=== PATIENT | male | born 1935 | race Caucasian/White ===

== ENCOUNTER 2018-02-20 14:42 | Emergency (ER) | payer OTHER ==
--- NOTE | 2018-02-20 16:25 | RAD REPORT ---
EXAM DESCRIPTION: CT - Spine Lumbar Wo Con - 02/20/2018 3:44 pm CLINICAL HISTORY: Back pain, radiculopathy COMPARISON: CT imaging August 2016, lumbar spine March 2016 TECHNIQUE: Thin section axial imaging of the lumbar spine was performed. Sagittal and coronal recon struction images were generated and reviewed. All CT scans are performed using dose optimization technique as appropriate and may include automated exposure control or mA/KV adjustment according to patient size. FINDINGS: Approximately 20% compression fracture of the L1 body is present involving the superior en dplate. Posterior wall height is preserved. This is not a new finding from 2016 but may have progress ed slightly. L2-L5 bodies are normal in height. There is anterior subluxation of L4 on L5 similar to prior imaging . No lytic, sclerotic or expansile bony destructive process. There is no paraspinal mass or hematoma. Central canal detail is inherently limited. At L4-5 there is posterior disc space narrowing at bulgin g of disc material across the central canal and into each exit foramen due to the subluxation. Patien t has very severe facet joint degenerative change at this level. Pars interarticularis are sclerotic but a defect is not seen. Foraminal and central canal stenosis present at this level. Mild disc bulge changes at L3-4 and L5-S1 not causing canal or foramen stenosis. L5-S1 facet degenera tive changes are present. 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 Approximately 20% L1 compression fracture involving the superior endplate. Posterior wall height is p reserved. There is slight progression of the compression component since 2016 imaging.
--- NOTE | 2018-02-20 16:28 | RAD REPORT ---
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 Canal is borderline steno tic and there is likely bilateral foraminal stenosis. No pathologic lower lumbar finding. SI joint de generative change is mild. No sacral ala fracture. No fracture of the bony pelvis. No AVN or focal fe moral head abnormality. Urinary bladder is only partially filled limiting assessment. Phleboliths are present. Prostate gland is not enlarged. There are prostate calcifications present. No skeletal muscle edema or hematoma. Bowel loops of the pelvis show prominent sigmoid diverticulosis . Moderate retained stool volume is present. No hernia, mass or bulky lymphadenopathy. Fat is present in each inguinal canal but an actual hernia defect is not confirmed. No congestion or edema. IMPRESSION: No fracture or acute bone finding identifiable. No suspicious soft tissue finding.
[2018-02-20] MEDS ORDERED: HYDROCODONE/APAP 7.5/325 MG TAB ONE (16:36)
--- NOTE | 2018-02-20 17:03 | EDPHYS ---
Physician Documentation [facility] Name: Fidelia Marcus Jr Age: 82 yrs Sex: Male : 1935 Arrival Date: 02/20/2018 Time: 14:44 Bed 25 Private MD: Bg Hernández E ED Physician Stefano Locke HPI: 02/20 16:04 This 82 yrs old Male presents to ER via Wheelchair with complaints of Groin snw Pain, Back Pain. 16:04 The patient presents with incontinence. Onset: The symptoms/episode began/occurred snw gradually, 2 month(s) ago, and became worse. Associated signs and symptoms: The patient has no apparent associated signs or symptoms. Severity of symptoms: At their worst the symptoms were severe. The patient has experienced similar episodes in the past, chronically. The patient has been recently seen by a physician: the patient's primary care provider, Dr. Hernández Pt saw Dr. Walsh (urology) for PVR and assessment of urinary tract. Pt states he was told the only abnormality discovered was that his bladder is relatively small.. Historical: - Allergies: 14:50 No Known Allergies; aa5 - PMHx: 14:50 Atrial Fib; Diabetes - NIDDM; Headaches; Hypertension; aa5 - PSHx: 14:50 Cholecystectomy; Heart stents; back surgery; aa5 - Immunization history:: Adult Immunizations up to date. - Social history:: Smoking status: Patient/guardian denies using tobacco. - Ebola Screening: : Patient negative for fever greater than or equal to 101.5 degrees Fahrenheit, and additional compatible Ebola Virus Disease symptoms Patient denies exposure to infectious person Patient denies travel to an Ebola-affected area in the 21 days before illness onset No symptoms or risks identified at this time. ROS: 16:04 Constitutional: Negative for fever, chills, and weight loss, Eyes: Negative for injury, snw pain, redness, and discharge, ENT: Negative for injury, pain, and discharge, Neck: Negative for injury, pain, and swelling, Cardiovascular: Negative for chest pain, palpitations, and edema, Respiratory: Negative for shortness of breath, cough, wheezing, and pleuritic chest pain, Abdomen/GI: Negative for abdominal pain, nausea, vomiting, diarrhea, and constipation, Back: Negative for injury and pain, MS/Extremity: Negative for injury and deformity, Skin: Negative for injury, rash, and discoloration, Neuro: Negative for headache, weakness, numbness, tingling, and seizure, Psych: Negative for depression, anxiety, suicide ideation, homicidal ideation, and hallucinations. 16:04 : Positive for bladder incontinence Exam: 16:01 Constitutional: This is a well developed, well nourished patient who is awake, alert, snw and in no acute distress. Head/Face: Normocephalic, atraumatic. Eyes: Pupils equal round and reactive to light, extra-ocular motions intact. Lids and lashes normal. Conjunctiva and sclera are non-icteric and not injected. Cornea within normal limits. Periorbital areas with no swelling, redness, or edema. ENT: Nares patent. No nasal discharge, no septal abnormalities noted. Tympanic membranes are normal and external auditory canals are clear. Oropharynx with no redness, swelling, or masses, exudates, or evidence of obstruction, uvula midline. Mucous membranes moist. Neck: Trachea midline, no thyromegaly or masses palpated, and no cervical lymphadenopathy. Supple, full range of motion without nuchal rigidity, or vertebral point tenderness. No Meningismus. Chest/axilla: Normal chest wall appearance and motion. Nontender with no deformity. No lesions are appreciated. 16:01 Respiratory: Lungs have equal breath sounds bilaterally, clear to auscultation and percussion. No rales, rhonchi or wheezes noted. No increased work of breathing, no retractions or nasal flaring. Abdomen/GI: Soft, non-tender, with normal bowel sounds. No distension or tympany. No guarding or rebound. No evidence of tenderness throughout. Back: No spinal tenderness. No costovertebral tenderness. Full range of motion. Skin: Warm, dry with normal turgor. Normal color with no rashes, no lesions, and no evidence of cellulitis. MS/ Extremity: Pulses equal, no cyanosis. Neurovascular intact. Full, normal range of motion. Neuro: Awake and alert, GCS 15, oriented to person, place, time, and situation. Cranial nerves II-XII grossly intact. Motor strength 5/5 in all extremities. Sensory grossly intact. Cerebellar exam normal. Normal gait. 16:01 Cardiovascular: Rate: normal, Rhythm: irregularly irregular, Heart sounds: normal. Vital Signs: 14:54 BP 123 / 73; Pulse 86; Resp 19; Temp 98.6; Pulse Ox 96% on R/A; Weight 72.57 kg; Height aa5 5 ft. 4 in. (162.56 cm); Pain 6/10; 17:28 BP 158 / 70; Pulse 80; Resp 18; Pulse Ox 99% on R/A; kr2 14:54 Body Mass Index 27.46 (72.57 kg, 162.56 cm) aa5 MDM: 15:29 Patient medically screened. snw 19:08 Data reviewed: vital signs, nurses notes. Data interpreted: Pulse oximetry: on room air snw is 99 %. Interpretation: normal. Counseling: I had a detailed discussion with the patient and/or guardian regarding: the historical points, exam findings, and any diagnostic results supporting the discharge/admit diagnosis, the presence of at least one elevated blood pressure reading (>120/80) during this emergency department visit, radiology results, the need for outpatient follow up, to return to the emergency department if symptoms worsen or persist or if there are any questions or concerns that arise at home. Special discussion: I have referred the patient to see his PCP for further evaluation of high blood pressure. Based on the history and exam findings, there is no indication for further emergent testing or inpatient evaluation. I discussed with the patient/guardian the need to see the neurologist for further evaluation of the symptoms. I discussed with the patient/guardian the need to see the primary care provider for further evaluation of the symptoms. 02/20 15:24 Order name: CT Lumbar Spine Wo Con; Complete Time: 16:33 snw 02/20 15:24 Order name: Pelvis Wo Cont CT; Complete Time: 16:33 snw Administered Medications: 16:39 Drug: [place] (7.5 mg-325 mg) 1 tabs Route: PO; kr2 17:01 Follow up: Response: No adverse reaction; Pain is decreased kr2 Disposition: 18:11 Co-signature as Attending Physician, Stefano Locke MD. rn Disposition: 02/20/18 17:02 Discharged to Home. Impression: Radiculopathy, lumbosacral region, Incontinence without sensory awareness - muted. - Condition is Stable. - Discharge Instructions: Lumbosacral Radiculopathy, Urinary Incontinence. - Prescriptions for Tylenol- Codeine #3 300-30 mg Oral Tablet - take 2 tablets by ORAL route every 6 hours As needed; 16 tablet. - Medication Reconciliation Form, Thank You Letter, Antibiotic Education, Prescription Opioid Use form. - Follow up: Bg Hernández MD; When: 2 - 3 days; Reason: Recheck today's complaints, Continuance of care, Re-evaluation by your physician. Follow up: Emergency Department; When: As needed; Reason: Worsening of condition. Signatures: Dispatcher [employer] EDMS Harleen Robles, GRAYSON-C PHOTOGRAPHIC SPOTTER-Csnw Stefano Locke MD MD rn Anjelica Linder, RN RN aa5 Eleanor Hernandez RN RN kr2 Corrections: (The following items were deleted from the chart) 17:31 17:02 02/20/2018 17:02 Discharged to Home. Impression: Radiculopathy, lumbosacral kr2 region; Incontinence without sensory awareness - muted. Condition is Stable. Forms are Medication Reconciliation Form, Thank You Letter, Antibiotic Education, Prescription Opioid Use. Follow up: Bg Hernández; When: 2 - 3 days; Reason: Recheck today's complaints, Continuance of care, Re-evaluation by your physician. Follow up: Emergency Department; When: As needed; Reason: Worsening of condition. snw
--- NOTE | 2018-02-20 17:03 | ER ---
Nurse's Notes [facility] Name: Fidelia Marcus Jr Age: 82 yrs Sex: Male : 1935 Arrival Date: 02/20/2018 Time: 14:44 Bed 25 Private MD: Bg Hernández E Diagnosis: Radiculopathy, lumbosacral region;Incontinence without sensory awareness-muted Presentation: 02/20 14:52 Presenting complaint: Patient states: Low back pain R/T bladder issues for 6 months. aa5 Patient seen by specialist and given RX, unable to afford RX given. Transition of care: patient was not received from another setting of care. Onset of symptoms was October 2017. Care prior to arrival: None. 14:52 Method Of Arrival: Wheelchair aa5 14:52 Acuity: MIQUEL 4 aa5 16:15 Risk Assessment: Do you want to hurt yourself or someone else? Patient reports no kr2 desire to harm self or others. Initial Sepsis Screen: Does the patient meet any 2 criteria? No. Patient's initial sepsis screen is negative. Does the patient have a suspected source of infection? No. Patient's initial sepsis screen is negative. Triage Assessment: 14:52 General: Appears in no apparent distress. comfortable, Behavior is calm, cooperative, aa5 appropriate for age. Pain: Complains of pain in low back area Pain currently is 6 out of 10 on a pain scale. Neuro: Level of Consciousness is awake, alert, obeys commands, Oriented to person, place, time, situation, Appropriate for age. Respiratory: Airway is patent Trachea midline Respiratory effort is even, unlabored, Respiratory pattern is regular, symmetrical. : Reports urinary frequency. Derm: Skin is intact, is healthy with good turgor, Skin is pink, warm \T\ dry. normal. Musculoskeletal: Circulation, motion, and sensation intact. Historical: - Allergies: 14:50 No Known Allergies; aa5 - PMHx: 14:50 Atrial Fib; Diabetes - NIDDM; Headaches; Hypertension; aa5 - PSHx: 14:50 Cholecystectomy; Heart stents; back surgery; aa5 - Immunization history:: Adult Immunizations up to date. - Social history:: Smoking status: Patient/guardian denies using tobacco. - Ebola Screening: : Patient negative for fever greater than or equal to 101.5 degrees Fahrenheit, and additional compatible Ebola Virus Disease symptoms Patient denies exposure to infectious person Patient denies travel to an Ebola-affected area in the 21 days before illness onset No symptoms or risks identified at this time. Screenin:17 Abuse screen: Denies threats or abuse. Denies injuries from another. Nutritional kr2 screening: No deficits noted. Tuberculosis screening: No symptoms or risk factors identified. Fall Risk Gait- Normal/Bed Rest/Wheelchair (0 pts). Assessment: 16:15 General: Appears in no apparent distress. comfortable, well groomed, well developed, kr2 well nourished, Behavior is calm, cooperative, appropriate for age. Pain: Complains of pain in low back area Pain does not radiate. Pain currently is 5 out of 10 on a pain scale. Quality of pain is described as sharp, Is continuous, Alleviated by rest. Neuro: Level of Consciousness is awake, alert, obeys commands, Oriented to person, place, time, situation, Appropriate for age Intact. Cardiovascular: Capillary refill < 3 seconds in bilateral fingers Patient's skin is warm and dry. Respiratory: Airway is patent Respiratory effort is even, unlabored, Respiratory pattern is regular, symmetrical. GI: Abdomen is round non-distended. : Reports urinary frequency, for the past 6 months reports he does have pain with urination 1-2 times per month. EENT: Oral mucosa is dry. Derm: Skin is intact, is healthy with good turgor, Skin is pink, warm \T\ dry. Musculoskeletal: Circulation, motion, and sensation intact. 17:28 Reassessment: Patient appears in no apparent distress at this time. Patient and/or kr2 family updated on plan of care and expected duration. Pain level reassessed. Patient is alert, oriented x 3, equal unlabored respirations, skin warm/dry/pink. Patient denies pain at this time. Vital Signs: 14:54 BP 123 / 73; Pulse 86; Resp 19; Temp 98.6; Pulse Ox 96% on R/A; Weight 72.57 kg; Height aa5 5 ft. 4 in. (162.56 cm); Pain 6/10; 17:28 BP 158 / 70; Pulse 80; Resp 18; Pulse Ox 99% on R/A; kr2 14:54 Body Mass Index 27.46 (72.57 kg, 162.56 cm) aa5 ED Course: 14:44 Patient arrived in ED. sb2 14:45 Bg Hernández MD is Private Physician. sb2 14:53 Triage completed. aa5 14:54 Arm band placed on left wrist. Patient placed in waiting room, Patient notified of wait aa5 time. 15:28 Harleen Robles FNP-C is PHCP. snw 15:28 Stefano Locke MD is Attending Physician. snw 15:[address] via stretcher. nj 15:44 CT Lumbar Spine Wo Con In Process Unspecified. EDMS 15:[address] In Process Unspecified. EDMS 15:44 CT completed. Patient tolerated procedure well. Patient moved back from CT. nj 15:48 Eleanor Hernandez, RN is Primary Nurse. kr2 17:00 Bg Hernández MD is Referral Physician. snw 17:29 No provider procedures requiring assistance completed. Patient did not have IV access kr2 during this emergency room visit. 17:30 Patient has correct armband on for positive identification. Bed in low position. Call kr2 light in reach. Side rails up X2. Adult w/ patient. Pulse ox on. NIBP on. Door closed. Warm blanket given. Head of bed elevated. Administered Medications: 16:39 Drug: [employer] (7.5 mg-325 mg) 1 tabs Route: PO; kr2 17:01 Follow up: Response: No adverse reaction; Pain is decreased kr2 Outcome: 17:02 Discharge ordered by MD. snw 17:31 Discharged to home via wheelchair, with family. kr2 17:31 Condition: good 17:31 Discharge instructions given to family, Instructed on discharge instructions, follow up and referral plans. Demonstrated understanding of instructions, follow-up care, medications, Prescriptions given X 1. 17:31 Patient left the ED. kr2 Signatures: Dispatcher [employer] EDMS Harleen Robles FNP-C OIL DELIVERER-Gomezw Anjelica Linder RN RN aa5 Jeronimo Bautista Karey, RN RN kr2 Debby Head sb2 Corrections: (The following items were deleted from the chart) 14:54 14:52 Presenting complaint: Patient states: Low back pain R/T bladder issues for 6 aa5 months. Patient seen by Dr Mushtaq and PCP aa5
[2018-02-20 17:46] VITALS: TEMP 98.6
[2018-02-20 17:47] VITALS: BP 158/70; O2SAT 99
== END 2018-02-20 17:31 | disposition home or self-care (01) ==
LOC: ER 14:42
DX: M54.17 Radiculopathy, lumbosacral region (principal); N39.498 Other specified urinary incontinence; I10 Essential (primary) hypertension; Z95.818 Presence of other cardiac implants and grafts
CPT/HCPCS: 72131; 72192; 99284

== ENCOUNTER 2018-02-23 09:02 | Observation (INO) | payer OTHER ==
--- NOTE | 2018-02-23 09:58 | RAD REPORT ---
EXAM DESCRIPTION: CT - Head Brain Wo Cont - 02/23/2018 9:48 am CLINICAL HISTORY: Altered consciousness. History of diabetes, headaches, hypertension. COMPARISON: 05/18/2015, 11/06/2009 TECHNIQUE: All CT scans are performed using dose optimization technique as appropriate and may inclu de automated exposure control or mA/KV adjustment according to patient size. FINDINGS: No intracranial hemorrhage, hydrocephalus or extra-axial fluid collection.Mild generalized brain atrophy is present with mild periventricular and deep white matter chronic microvascular ische jayla changes.No areas of brain edema or evidence of midline shift. The paranasal sinuses and mastoids are clear. The calvarium is intact. IMPRESSION: No acute intracranial abnormality.
--- NOTE | 2018-02-23 10:05 | RAD REPORT ---
EXAM DESCRIPTION: RAD - Chest Single View - 02/23/2018 9:57 am CLINICAL HISTORY: Chest pain. COMPARISON: 03/09/2017 FINDINGS: Portable technique limits examination quality. The lungs are grossly clear. The heart is normal in size. No displaced fractures. IMPRESSION: No acute intrathoracic process suspected.
[2018-02-23 10:50] LABS: Urine Blood NEGATIVE (NEG); Urine Glucose NEGATIVE (NEG); Urine Protein NEGATIVE (NEG); Urine Specific Gravity 1.015 (1.005-1.030)
[2018-02-23 10:51] LABS: Absolute Lymphocytes (CBC) 0.5 K/uL (0.7-4.9); Absolute Monocytes 0.7 K/uL (0.1-1.3); Absolute Neutrophil 3.9 K/uL (1.8-8.0); Basophils % 0.2 % (0-1.3); Hematocrit 26.8 % (39.6-49.0); MCH 31.2 pg (27.0-35.0); MCV 89.9 fL (80-100); MPV 9.8 fL (7.6-11.3); Monocytes % 12.7 % (3.3-12.3); RBC Red Blood Cell Count 2.99 M/uL (4.33-5.43)
[2018-02-23 10:56] LABS: Protime INR 1.16
[2018-02-23 10:58] LABS: Potassium 3.4 mEq/L (3.6-5.0)
[2018-02-23 11:06] LABS: Albumin 3.4 g/dL (3.2-5.5); Bilirubin Direct 0.2 mg/dL (0-0.2); Bilirubin Total 0.8 mg/dL (0.3-1.2); C-Reactive Protein 119.6 mg/L (<10.0); Protein, Total 6.5 g/dL (6.0-8.3)
[2018-02-23 11:07] LABS: CKMB Creatine Kinase MB 0.9 ng/ml (0.3-4.0)
--- NOTE | 2018-02-23 12:24 | EDPHYS ---
Physician Documentation [facility] Name: Fidelia Marcus Jr Age: 82 yrs Sex: Male : 1935 Arrival Date: 02/23/2018 Time: 09:05 Bed 5 Private MD: Bg Hernández E ED Physician Peter Flores HPI: 02/23 09:45 This 82 yrs old Male presents to ER via Wheelchair with complaints of kdr Confusion. 09:45 The patient has had increasing confusion since being started on pain medication for his kdr low back pain. Onset: The symptoms/episode began/occurred gradually, 2 week(s) ago. Severity of symptoms: At their worst the symptoms were mild in the emergency department the symptoms are unchanged. The patient has experienced similar episodes in the past, chronically, but today's symptoms are worse. The patient has been recently seen by a physician: the patient's primary care provider. Historical: - Allergies: : NKA; iw - Home Meds: 09:43 atorvastatin 20 mg Oral tab 1 tab once daily [Active]; benzonatate 200 mg Oral cap 1 tw2 cap twice daily [Active]; digoxin 125 mcg Oral tab 1 tab once daily [Active]; dutasteride 0.5 mg Oral cap 1 cap once daily [Active]; fenofibrate 145 MG Oral 1 cap once daily [Active]; glipizide 2.5 mg Oral tr24 2 tabs 2 tablets PO q morning, and 1 tablet PO q nightly. [Active]; hydrochlorothiazide 25 mg Oral tab 1 tab once daily [Active]; Invokana 100 mg Oral tab 1 tab once daily [Active]; metformin 1,000 mg Oral tab 1 tab 2 times per day [Active]; quinapril 40 mg Oral tab 1 tab once daily [Active]; sotalol Oral [Active]; Xarelto Oral [Active]; - PMHx: :27 Atrial Fib; Diabetes - NIDDM; Headaches; Hypertension; iw - PSHx: : Cholecystectomy; Heart stents; back surgery; iw - Immunization history:: Adult Immunizations up to date. - Social history:: Smoking status: Patient/guardian denies using tobacco. - Ebola Screening: : Patient denies travel to an Ebola-affected area in the 21 days before illness onset. ROS: 09:45 Constitutional: Negative for fever, chills, and weight loss, Eyes: Negative for injury, kdr pain, redness, and discharge, ENT: Negative for injury, pain, and discharge, Neck: Negative for injury, pain, and swelling, Cardiovascular: Negative for chest pain, palpitations, and edema, Respiratory: Negative for shortness of breath, cough, wheezing, and pleuritic chest pain, Abdomen/GI: Negative for abdominal pain, nausea, vomiting, diarrhea, and constipation, Back: Negative for injury and pain, : Negative for injury, bleeding, discharge, and swelling, MS/Extremity: Negative for injury and deformity, Skin: Negative for injury, rash, and discoloration, Psych: Negative for depression, anxiety, suicide ideation, homicidal ideation, and hallucinations, Allergy/Immunology: Negative for hives, rash, and allergies, Endocrine: Negative for neck swelling, polydipsia, polyuria, polyphagia, and marked weight changes, Hematologic/Lymphatic: Negative for swollen nodes, abnormal bleeding, and unusual bruising. 09:45 Neuro: Positive for altered mental status, weakness, Confusion, Negative for dizziness, gait disturbance, headache, hearing loss, loss of consciousness, numbness, seizure activity, speech changes, syncope, near syncope, tingling, tremor, visual changes. Exam: 09:45 Constitutional: This is a well developed, well nourished patient who is awake, alert, kdr and in no acute distress. Head/Face: Normocephalic, atraumatic. Eyes: Pupils equal round and reactive to light, extra-ocular motions intact. Lids and lashes normal. Conjunctiva and sclera are non-icteric and not injected. Cornea within normal limits. Periorbital areas with no swelling, redness, or edema. Neck: Trachea midline, no thyromegaly or masses palpated, and no cervical lymphadenopathy. Supple, full range of motion without nuchal rigidity, or vertebral point tenderness. No Meningismus. Chest/axilla: Normal chest wall appearance and motion. Nontender with no deformity. No lesions are appreciated. Cardiovascular: Regular rate and rhythm with a normal S1 and S2. No gallops, murmurs, or rubs. Normal PMI, no JVD. No pulse deficits. Respiratory: Lungs have equal breath sounds bilaterally, clear to auscultation and percussion. No rales, rhonchi or wheezes noted. No increased work of breathing, no retractions or nasal flaring. Abdomen/GI: Soft, non-tender, with normal bowel sounds. No distension or tympany. No guarding or rebound. No evidence of tenderness throughout. Back: No spinal tenderness. No costovertebral tenderness. Full range of motion. Skin: Warm, dry with normal turgor. Normal color with no rashes, no lesions, and no evidence of cellulitis. MS/ Extremity: Pulses equal, no cyanosis. Neurovascular intact. Full, normal range of motion. Psych: Awake, alert, with orientation to person, place and time. Behavior, mood, and affect are within normal limits. 09:45 Neuro: Orientation: appropriate for stated age, Mentation: appropriate for stated age, lucid, Motor: moves all fours, strength is 5/5 in all extremities. Vital Signs: 09:12 BP 153 / 59; Pulse 95; Resp 22; Temp 99.5; Pulse Ox 96% on R/A; tw2 10:24 BP 135 / 52; Pulse 85; Resp 13; Pulse Ox 95% on R/A; tw2 11:31 BP 117 / 47; Pulse 81; Resp 15; Pulse Ox 95% on R/A; tw2 12:43 BP 141 / 57; Pulse 93; Resp 18; Pulse Ox 97% on R/A; tw2 MDM: 12:23 Patient medically screened. kdr 12:26 Data reviewed: vital signs, nurses notes, lab test result(s), radiologic studies. kdr Counseling: I had a detailed discussion with the patient and/or guardian regarding: the historical points, exam findings, and any diagnostic results supporting the discharge/admit diagnosis, lab results, radiology results, the need for further work-up and treatment in the hospital. 02/23 09:26 Order name: Basic Metabolic Panel; Complete Time: 11:18 [facility] 02/23 09:26 Order name: BNP; Complete Time: 11:18 [facility] 02/23 09:26 Order name: CBC with Diff; Complete Time: 11:39 [facility] 02/23 09:26 Order name: LFT's; Complete Time: 11:18 [facility] 02/23 09:26 Order name: Magnesium; Complete Time: 11:18 [facility] 02/23 09:26 Order name: PT-INR; Complete Time: 11:18 [facility] 02/23 09:26 Order name: Ptt, Activated; Complete Time: 11:18 [facility] 02/23 09:26 Order name: Troponin (emerg Dept Use Only) [facility] 02/23 09:26 Order name: Amylase, Serum; Complete Time: 11:18 [facility] 02/23 09:26 Order name: Blood Culture Adult (2) [facility] 02/23 09:26 Order name: C-Reactive Protein; Complete Time: 11:18 [facility] 02/23 09:26 Order name: Ckmb; Complete Time: 11:18 [facility] 02/23 09:26 Order name: CPK; Complete Time: 11:18 [facility] 02/23 09:26 Order name: Lactate; Complete Time: 11:18 [facility] 02/23 09:26 Order name: XRAY Chest (1 view); Complete Time: 11:18 [facility] 02/23 09:26 Order name: EKG; Complete Time: 09:27 [facility] 02/23 09:26 Order name: Cardiac monitoring; Complete Time: 10:19 [facility] 02/23 09:26 Order name: EKG - Nurse/Tech; Complete Time: 10:19 [facility] 02/23 09:26 Order name: IV Saline Lock; Complete Time: 13:54 [facility] 02/23 09:26 Order name: Labs collected and sent; Complete Time: 13:54 [facility] 02/23 09:26 Order name: O2 Per Protocol; Complete Time: 10:19 [facility] 02/23 09:26 Order name: O2 Sat Monitoring; Complete Time: 10:19 [facility] 02/23 09:26 Order name: Urine Dipstick-Ancillary (obtain specimen); Complete Time: 10:19 [facility] 02/23 09:26 Order name: CT Head Brain wo Cont; Complete Time: 11:18 [facility] 02/23 09:26 Order name: Lipase; Complete Time: 11:18 [facility] 02/23 09:26 Order name: Procalcitonin; Complete Time: 11:18 [facility] 02/23 09:26 Order name: Sed Rate; Complete Time: 11:39 [facility] 02/23 09:26 Order name: IV Saline Lock - Large Bore; Complete Time: 12:54 [facility] 02/23 10:23 Order name: Urine Dipstick--Ancillary (enter results); Complete Time: 11:18 bd Administered Medications: No medications were administered Disposition: 02/23/18 12:26 Hospitalization ordered by Melvin Antony for Observation. Preliminary diagnosis is Confusion, weakness, anemia, elevated CRP. - Bed requested for Telemetry/MedSurg (observation). - Status is Observation. sv - Condition is Fair. - Problem is new. - Symptoms have improved. UTI on Admission? No Signatures: Dispatcher [employer] Fannie Esposito RN BARBARA sv Kiera Tian RN BARBARA dw Peter Flores MD MD kdr Lien Moreno RN RN Nani Felipe RN RN tw2 Corrections: (The following items were deleted from the chart) 12:25 12:23 02/23/2018 12:23 Discharged to Home. Impression: Confusion, anemia, elevated CRP. kdr Condition is Stable. Forms are Medication Reconciliation Form, Thank You Letter, Antibiotic Education, Prescription Opioid Use. Follow up: Bg Hernández; When: 2 - 3 days; Reason: If symptoms return, Further diagnostic work-up, Recheck today's complaints, Continuance of care, Re-evaluation by your physician. Problem is new. Symptoms have improved. kdr 12:37 12:26 Hospitalization Ordered by Melvin Antony DO for Observation. Preliminary dw diagnosis is Confusion, weakness, anemia, elevated CRP. Bed requested for Telemetry/MedSurg (observation). Status is Observation. Condition is Fair. Problem is new. Symptoms have improved. UTI on Admission? No. kdr 12:38 12:37 02/23/2018 12:26 Hospitalization Ordered by Melvin Antony DO for Observation. dw Preliminary diagnosis is Confusion, weakness, anemia, elevated CRP. Bed requested for Telemetry/MedSurg (observation). Status is Observation. Condition is Fair. Problem is new. Symptoms have improved. UTI on Admission? No. dw 12:54 09:26 Accucheck ordered. kdr sv 13:27 12:38 02/23/2018 12:26 Hospitalization Ordered by MelvinLavell GUZMAN for Observation. sv Preliminary diagnosis is Confusion, weakness, anemia, elevated CRP. Bed requested for Telemetry/MedSurg (observation). Status is Observation. Condition is Fair. Problem is new. Symptoms have improved. UTI on Admission? No. dw
--- NOTE | 2018-02-23 12:24 | ER ---
Nurse's Notes [facility] Name: Fidelia Marcus Jr Age: 82 yrs Sex: Male : 1935 Arrival Date: 02/23/2018 Time: 09:05 Bed 5 Private MD: Bg Hernández E Diagnosis: Confusion, weakness, anemia, elevated CRP Presentation: 02/23 09:13 Presenting complaint: states: pt was seen here on Thurs or Sun, had low back pain, iw was prescribed Tylenol with codeine, states he has had episodes of confusion since then and this morning he got up to bathroom and was unsteady, also is having visual hallucinations and urinary frequency "for weeks". Transition of care: patient was not received from another setting of care. Onset of symptoms was February 19, 2018. Risk Assessment: Do you want to hurt yourself or someone else? Patient reports no desire to harm self or others. Care prior to arrival: None. 09:13 Method Of Arrival: Wheelchair iw 09:13 Acuity: MIQUEL 3 iw 09:14 Initial Sepsis Screen: Does the patient meet any 2 criteria? RR > 20 per min. Altered tw2 Mental Status. HR > 90 bpm. Yes Does the patient have a suspected source of infection? No. Patient's initial sepsis screen is negative. If YES to both, name of provider notified: Peter Flores MD. Historical: - Allergies: 09:27 NKA; iw - Home Meds: 09:43 atorvastatin 20 mg Oral tab 1 tab once daily [Active]; benzonatate 200 mg Oral cap 1 tw2 cap twice daily [Active]; digoxin 125 mcg Oral tab 1 tab once daily [Active]; dutasteride 0.5 mg Oral cap 1 cap once daily [Active]; fenofibrate 145 MG Oral 1 cap once daily [Active]; glipizide 2.5 mg Oral tr24 2 tabs 2 tablets PO q morning, and 1 tablet PO q nightly. [Active]; hydrochlorothiazide 25 mg Oral tab 1 tab once daily [Active]; Invokana 100 mg Oral tab 1 tab once daily [Active]; metformin 1,000 mg Oral tab 1 tab 2 times per day [Active]; quinapril 40 mg Oral tab 1 tab once daily [Active]; sotalol Oral [Active]; Xarelto Oral [Active]; - PMHx: 09:27 Atrial Fib; Diabetes - NIDDM; Headaches; Hypertension; iw - PSHx: 09:27 Cholecystectomy; Heart stents; back surgery; iw - Immunization history:: Adult Immunizations up to date. - Social history:: Smoking status: Patient/guardian denies using tobacco. - Ebola Screening: : Patient denies travel to an Ebola-affected area in the 21 days before illness onset. Screenin:13 Abuse screen: Denies threats or abuse. Nutritional screening: No deficits noted. tw2 Tuberculosis screening: No symptoms or risk factors identified. Fall Risk None identified. Assessment: 09:38 Reassessment: pt taken to CT at this time, charge nurse Lien notified of no iv access tw2 at this time. 09:39 General: Appears in no apparent distress. well groomed, Behavior is calm, cooperative, tw2 appropriate for age. Pain: Denies pain. Neuro: Level of Consciousness is awake, alert, obeys commands, Oriented to person, place, situation. Cardiovascular: Denies chest pain, shortness of breath, Heart tones S1 S2 Capillary refill < 3 seconds Patient's skin is warm and dry. Respiratory: Airway is patent Respiratory effort is even, unlabored, Respiratory pattern is regular, symmetrical, Breath sounds are clear bilaterally. GI: No signs and/or symptoms were reported involving the gastrointestinal system. Abdomen is round non-distended, Bowel sounds present X 4 quads. : Parent/caregiver report the patient having urgency. EENT: No signs and/or symptoms were reported regarding the EENT system. Derm: No signs and/or symptoms reported regarding the dermatologic system. Skin is fragile, is thin, with poor turgor. Musculoskeletal: Range of motion: intact in all extremities. 10:24 Reassessment: Patient appears in no apparent distress at this time. No changes from tw2 previously documented assessment. Patient and/or family updated on plan of care and expected duration. Pain level reassessed. Patient is alert, oriented x 3, equal unlabored respirations, skin warm/dry/pink. BARBARA Emmanuel at bedside attempting IV. 12:44 Reassessment: Nurse to call back for report. sv Vital Signs: 09:12 BP 153 / 59; Pulse 95; Resp 22; Temp 99.5; Pulse Ox 96% on R/A; tw2 10:24 BP 135 / 52; Pulse 85; Resp 13; Pulse Ox 95% on R/A; tw2 11:31 BP 117 / 47; Pulse 81; Resp 15; Pulse Ox 95% on R/A; tw2 12:43 BP 141 / 57; Pulse 93; Resp 18; Pulse Ox 97% on R/A; tw2 ED Course: 09:05 Patient arrived in ED. mr 09:05 Bg Hernández MD is Private Physician. mr 09:06 Peter Flores MD is Attending Physician. kdr 09:07 Nani Felipe RN is Primary Nurse. tw2 09:13 Placed in gown. Bed in low position. Call light in reach. Side rails up X2. Adult w/ tw2 patient. alarm security or surveillance monitor on. Pulse ox on. NIBP on. 09:15 Arm band placed on. tw2 09:26 Triage completed. iw 09:38 Missed attempt(s): 24 gauge in left antecubital area. Bleeding controlled, band aid tw2 applied, catheter tip intact. Missed attempt(s): 22 gauge in right antecubital area. per Devante Rubi. Bleeding controlled, band aid applied, catheter tip intact. 09:48 CT Head Brain wo Cont In Process Unspecified. EDMS 09:48 CT completed. Patient moved to radiology via stretcher. bq 09:57 X-ray completed. Patient tolerated procedure well. la2 09:58 XRAY Chest (1 view) In Process Unspecified. EDMS 10:28 Initial lab(s) drawn, by me. Inserted saline lock: 22 gauge in left forearm, using iw aseptic technique. Blood collected. 12:22 Bg Hernández MD is Referral Physician. kdr 12:25 Bg Hernández MD is Hospitalizing Provider. kdr 12:25 Melvin Antony DO is Hospitalizing Provider. kdr 12:55 No provider procedures requiring assistance completed. Patient admitted, IV remains in tw2 place. Administered Medications: No medications were administered Outcome: 12:23 Discharge ordered by . kdr 12:26 Decision to Hospitalize by Provider. kdr 12:55 Admitted to Med/surg accompanied by devante, Report called to BARBARA moise tw2 12:55 Condition: stable 12:55 Instructed on discharge instructions, follow up and referral plans. Demonstrated understanding of instructions. 13:27 Patient left the ED. sv Signatures: Dispatcher [facility] Fannie Esposito, BARBARA RN sv Peter Flores MD MD [facility] Bhumi Alvarado mr Jessica, Lien Pacheco RN RN iw Nani Felipe RN RN tw2 Susana Low
[2018-02-23] MEDS ORDERED: NA CHLORIDE 0.9% 1,000 ML IV SCH (13:13)
[2018-02-23] MEDS ORDERED: D50W 25 GM/50 ML SYRINGE IV PRN (13:13)
[2018-02-23] MEDS ORDERED: GLUCAGON 1 MG/VIAL IM PRN (13:13)
[2018-02-23] MEDS ORDERED: ONDANSETRON 4 MG/2 ML VIAL IV PRN (13:13)
--- NOTE | 2018-02-23 13:24 | P.HP ---
Certification for Inpatient Patient admitted to: Observation With expected LOS: <2 Midnights Patient will require the following post-hospital care: None Practitioner: I am a practitioner with admitting privileges, knowledge of patient current condition, hospital course, and medical plan of care. Services: Services provided to patient in accordance with Admission requirements found in Title 42 Section 412.3 of the Code of Federal Regulations <Bart Kessler - Last Filed: 02/23/18 13:18> Patient admitted to: Observation With expected LOS: <2 Midnights Patient will require the following post-hospital care: None Practitioner: I am a practitioner with admitting privileges, knowledge of patient current condition, hospital course, and medical plan of care. Services: Services provided to patient in accordance with Admission requirements found in Title 42 Section 412.3 of the Code of Federal Regulations <Melvin Antony - Last Filed: 02/23/18 15:14> Patient History Date of Service: 02/23/18 Reason for admission: Altered Mental Status History of Present Illness: This is an 82 y/o M patient that was brought to ED by today due to altered mentation. Patient stated that he had pulled his left side the other day. Was seen and given Tylenol # 3 for pain on the by ED. On the saw his PCP and given another prescription for Tylenol #3. Stated that he has been taking the medication as prescribed. Unknown if he is taking both bottles. Last night stated that he was putting on shoes to go to bed. This morning was calling for her because he did not know where he was. stated that he kept thinking he needed to go to work. Patient has been retired for several years now. Patient with history of DM, afib, HTN. No change in medications. Patient currently alert to person, place, time, event in ED. Negative CT head and xray chest. Labs without significant abnormality or change Home medications list reviewed: Yes - Past Medical/Surgical History Has patient received pneumonia vaccine in the past: Yes Diabetic: Yes -: NIDDM -: Vertigo -: High Cholesterol -: HTN -: Cataracts -: AFIB -: Benign colon tumor removed -: Disc Surgery -: Heart Stent -: Reyna - Family History Father -: Heart disease Notes: of heart attack Mother -: Cancer Notes: cervical - Social History Smoking Status: Never smoker Smoking therapy provided: No Alcohol use: No CD- Drugs: No Caffeine use: No <Bart Kessler - Last Filed: 02/23/18 13:18> Date of Service: 02/23/18 Primary Care Provider: Dr. Hernández Home medications list reviewed: Yes - Past Medical/Surgical History Diabetic: Yes -: Hyperlipidemia -: BPH Psychosocial/ Personal History: - Family History Family History: Reviewed- Non-Contributory - Social History Place of Residence: Home <Melvin Antony - Last Filed: 02/23/18 15:14> Allergies No Known Allergies Allergy (Uncoded 11/25/16 23:12) Unknown Home Medications: Canagliflozin [Invokana] 1 tab PO DAILY 05/18/15 Fenofibrate Nanocrystallized [Fenofibrate] 1 tab PO DAILY 05/18/15 Glipizide [Glipizide ER] 5 mg PO BID 05/18/15 Hydrochlorothiazide 1 tab PO DAILY 05/18/15 Metformin HCl [Glucophage*] 1,000 mg PO BID 05/18/15 Quinapril HCl [Accupril] 1 tab PO DAILY 05/18/15 Atorvastatin Calcium [Lipitor*] 20 mg PO BEDTIME 09/08/16 Dutasteride 0.5 mg PO DAILY 09/08/16 Benzonatate 200 mg PO BIDP PRN 09/16/16 Sotalol HCl [Betapace*] 0.5 tab PO BID #30 tab 09/18/16 Aspirin 81 mg PO DAILY 03/09/17 Acetaminophen with Codeine [Acetaminophen-Cod #3 Tablet] 1 tab PO BID PRN Review of Systems General: Unremarkable Eyes: Unremarkable ENT: Unremarkable Respiratory: Unremarkable Cardiovascular: Unremarkable Gastrointestinal: Unremarkable Musculoskeletal: Unremarkable Integumentary: Unremarkable Neurological: Confusion, As per HPI <Bart Kessler - Last Filed: 02/23/18 13:18> General: Unremarkable Eyes: Unremarkable ENT: Unremarkable Respiratory: Unremarkable Cardiovascular: Unremarkable Gastrointestinal: As per HPI Genitourinary: As per HPI Musculoskeletal: Back Pain, As per HPI Integumentary: Unremarkable Neurological: Confusion, As per HPI <Melvin Antony - Last Filed: 02/23/18 15:14> Physical Examination - Vital Signs Temperature: 99.5 F Blood Pressure: 117/47 Pulse: 81 Respirations: 16 Pulse Ox (%): 95 - Physical Exam General: Alert, In no apparent distress, Oriented x3, Cooperative HEENT: Atraumatic, Normocephalic, PERRLA, Mucous membr. moist/pink, EOMI Neck: Supple, 2+ carotid pulse no bruit, JVD not distended, No Thyromegaly, No LAD Respiratory: Clear to auscultation bilaterally, Normal air movement Cardiovascular: No edema, Normal pulses, Regular rate/rhythm, Normal S1 S2, No gallops, No rubs, No murmurs Capillary refill: <2 Seconds Gastrointestinal: Normal bowel sounds, Soft and benign, Non-distended, No ascites, No tenderness, No masses, No rebound, No guarding Musculoskeletal: No clubbing, No swelling, No contractures, No erythema, No tenderness, No warmth Integumentary: No rashes, No breakdown, No significant lesion, No tenderness/ swelling, No erythema, No warmth, No cyanosis Neurological: Normal speech, Normal strength at 5/5 x4 extr, Normal tone, Sensation intact, Cranial nerves 3-12 intact, Normal reflexes 2+, Normal affect Lymphatics: No axilla or inguinal lymphadenopathy - Studies Laboratory Data (last 24 hrs) 02/23/18 10:20: PT 13.7 H, INR 1.16, APTT 26.6 02/23/18 10:20: WBC 5.1, Hgb 9.3 L, Hct 26.8 L, Plt Count 146 L 02/23/18 10:20: B-Natriuretic Peptide 93 02/23/18 10:20: Sodium 134 L, Potassium 3.4 L, BUN 39 H, Creatinine 1.34 H, Glucose 175 H, Magnesium 2.0, Total Bilirubin 0.8, AST 29, ALT 20, Alkaline Phosphatase 43, Amylase 38, Lipase 25 <Bart Kessler - Last Filed: 02/23/18 13:18> - Physical Exam General: Alert, In no apparent distress, Oriented x3, Cooperative HEENT: Atraumatic, Normocephalic, PERRLA, Mucous membr. moist/pink, EOMI Neck: Supple, 2+ carotid pulse no bruit, JVD not distended, No Thyromegaly, No LAD Respiratory: Clear to auscultation bilaterally, Normal air movement Cardiovascular: No edema, Normal pulses, Regular rate/rhythm, Normal S1 S2, No gallops, No rubs, No murmurs Capillary refill: <2 Seconds Gastrointestinal: Normal bowel sounds, Soft and benign, Non-distended, No ascites, No masses, No rebound, No guarding, Tenderness (Minimal pain to the left flank) Musculoskeletal: No clubbing, No swelling, No contractures, No erythema, No tenderness, No warmth Integumentary: No rashes, No breakdown, No significant lesion, No tenderness/ swelling, No erythema, No warmth, No cyanosis Neurological: Normal speech, Normal strength at 5/5 x4 extr, Normal tone, Sensation intact, Cranial nerves 3-12 intact, Normal reflexes 2+, Normal affect Lymphatics: No axilla or inguinal lymphadenopathy - Studies Laboratory Data (last 24 hrs) 02/23/18 10:20: PT 13.7 H, INR 1.16, APTT 26.6 02/23/18 10:20: WBC 5.1, Hgb 9.3 L, Hct 26.8 L, Plt Count 146 L 02/23/18 10:20: B-Natriuretic Peptide 93 02/23/18 10:20: Sodium 134 L, Potassium 3.4 L, BUN 39 H, Creatinine 1.34 H, Glucose 175 H, Magnesium 2.0, Total Bilirubin 0.8, AST 29, ALT 20, Alkaline Phosphatase 43, Amylase 38, Lipase 25 <Melvin Antony - Last Filed: 02/23/18 15:14> Assessment and Plan - Problems (Diagnosis) (1) Altered mental status, unspecified Current Visit: Yes Status: Acute Plan: To hold pain medicine. Monitor electrolytes and blood glucose. Check digoxin level and thyroid studies Qualifiers: Altered mental status type: disorientation Qualified Code(s): R41.0 - Disorientation, unspecified (2) Hyperlipidemia Current Visit: Yes Status: Chronic Plan: continue home medications (3) Hypertension Current Visit: Yes Status: Chronic Plan: Monitor BP and continue home medications (4) Atrial fibrillation Onset Date: 09/18/16 Current Visit: No Status: Chronic Plan: check digoxin level. If needed adjust. Monitor HR and continue all other home medications (5) Diabetes mellitus Onset Date: 09/08/16 Current Visit: No Status: Chronic Plan: Continue home medications and monitor blood glucose levels Qualifiers: Diabetes mellitus type: type 2 Diabetes mellitus terminal worker insulin use: without terminal worker use Diabetes mellitus complication status: without complication Qualified Code(s): E11.9 - Type 2 diabetes mellitus without complications - Plan I suspect that patient has been taking too much of his pain medication or has acute delirium from the pain medication. Will hold his pain medication and monitor overnight. If patient is better will permanently D/C pain medication and to follow up with PCP Discharge Plan: Home Plan to discharge in: 24 Hours - Advance Directives Does patient have a Living Will: Yes Does patient have a Durable POA for Healthcare: Yes - Code Status/Comfort Care Code Status Assessed: Yes Code Status: Full Code <Bart Kessler - Last Filed: 02/23/18 13:18> - Problems (Diagnosis) (1) Compression fx, lumbar spine Current Visit: Yes Status: Acute Plan: Patient has L1 compression fracture. This appears old. Patient not able tolerate Tylenol #3. Will physical therapy assess ambulation. Will provide tramadol as needed for pain. Qualifiers: Encounter type: subsequent encounter Lumbar vertebra fracture level: L1 Fracture type: closed Fracture healing: with routine healing Qualified Code( s): S32.010D - Wedge compression fracture of first lumbar vertebra, subsequent encounter for fracture with routine healing (2) BPH (benign prostatic hyperplasia) Current Visit: Yes Status: Chronic Plan: Continue medication. Patient will need a follow up with his urologist Qualifiers: Lower urinary tract symptom presence: unspecified whether lower urinary tract symptoms present Qualified Code(s): N40.0 - Benign prostatic hyperplasia without lower urinary tract symptoms (3) Altered mental status, unspecified Current Visit: Yes Status: Acute Plan: Likely from pain medication. Will switch pain medication to tramadol. No indication of infection. Continue as above. Qualifiers: Altered mental status type: disorientation Qualified Code(s): R41.0 - Disorientation, unspecified (4) Hyperlipidemia Current Visit: Yes Status: Chronic (5) Hypertension Current Visit: Yes Status: Chronic Qualifiers: Hypertension type: essential hypertension Qualified Code(s): I10 - Essential (primary) hypertension (6) Abdominal pain Onset Date: 09/08/16 Current Visit: No Status: Acute Plan: Recent CT scan shows no diverticulitis. Patient with history of diverticulosis. No hernia noted. Patient had CT lumbar region showing compression fracture at L1 20%. Central spinal stenosis also noted. Continue as above. Qualifiers: Abdominal location: left lower quadrant Qualified Code(s): R10.32 - Left lower quadrant pain (7) Atrial fibrillation Onset Date: 09/18/16 Current Visit: No Status: Chronic Qualifiers: Atrial fibrillation type: chronic Qualified Code(s): I48.2 - Chronic atrial fibrillation (8) Diabetes mellitus Onset Date: 09/08/16 Current Visit: No Status: Chronic Plan: Provide sliding scale Qualifiers: Diabetes mellitus type: type 2 Diabetes mellitus residential insulin use: without residential use Diabetes mellitus complication status: without complication Qualified Code(s): E11.9 - Type 2 diabetes mellitus without complications (9) Spinal stenosis, lumbar Current Visit: Yes Status: Chronic Plan: Continue as above Discharge Plan: Home Plan to discharge in: 24 Hours - Code Status/Comfort Care Code Status Assessed: Yes Code Status: Full Code Physician Review: Patient Assessed, Agree with Above Assessment and Plan Time Spent Managing Pts Care (In Minutes): 55 <Melvin Antony - Last Filed: 02/23/18 15:14>
[2018-02-23 13:35] VITALS: O2SAT 97
[2018-02-23 14:30] LABS: Digoxin Level < 0.1 ng/ml (1.0-2.0)
[2018-02-23 14:31] LABS: Thyroid Stimulating Hormone 1.43 uIU/mL (0.34-5.60)
[2018-02-23 14:34] VITALS: BMI 29.6
[2018-02-23] MEDS: INSULIN -REGULAR HUMAN 50 UNIT/0.5 ML ML SQ SCH ×2 (15:48→21:00)
[2018-02-23] MEDS ORDERED: POTASSIUM CL SA 10 MEQ TAB PO ONE (15:55)
[2018-02-23] MEDS: TRAMADOL HCL 50 MG TAB PO PRN ×2 (16:16→23:43)
[2018-02-23] MEDS: SOTALOL HCL 80 MG TAB PO SCH (16:17)
[2018-02-23] MEDS ORDERED: METFORMIN HCL 500 MG TAB PO SCH (17:00)
[2018-02-23] MEDS ORDERED: ATORVASTATIN 20 MG TAB PO SCH (21:00)
[2018-02-23] MEDS ORDERED: ENOXAPARIN 30 MG/0.3 ML SQ SCH (21:29)
[2018-02-24] MEDS: SOTALOL HCL 80 MG TAB PO SCH (06:05)
[2018-02-24 06:08] LABS: Absolute Lymphocytes (CBC) 0.9 K/uL (0.7-4.9); Absolute Monocytes 0.9 K/uL (0.1-1.3); Absolute Neutrophil 4.4 K/uL (1.8-8.0); Basophils % 0.2 % (0-1.3); Eosinophils % 2.2 % (0-4.4); Hematocrit 24.5 % (39.6-49.0); Lymphocytes % 14.4 % (15.3-44.8); MCH 31.4 pg (27.0-35.0); MCV 88.4 fL (80-100); MPV 9.5 fL (7.6-11.3); Monocytes % 14.1 % (3.3-12.3); RBC Red Blood Cell Count 2.77 M/uL (4.33-5.43)
[2018-02-24] MEDS: INSULIN -REGULAR HUMAN 50 UNIT/0.5 ML ML SQ SCH (07:30)
[2018-02-24] MEDS ORDERED: LISINOPRIL 10 MG TAB PO SCH (09:00)
[2018-02-24] MEDS ORDERED: FENOFIBRATE 160 MG TAB PO SCH (09:00)
[2018-02-24] MEDS ORDERED: ASPIRIN 81 MG CHEWABLE TABLET PO SCH (09:00)
[2018-02-24] MEDS ORDERED: hydroCHLOROthiazide 25 MG TAB PO SCH (09:00)
[2018-02-24] MEDS ORDERED: DUTASTERIDE 0.5 MG GEL CAP PO SCH (09:00)
[2018-02-24] MEDS ORDERED: QUINAPRIL HCL PO SCH (09:00)
[2018-02-24] MEDS ORDERED: LISINOPRIL 20 MG TAB PO SCH (09:00)
[2018-02-24 09:02] LABS: Potassium 3.7 mEq/L (3.6-5.0)
--- NOTE | 2018-02-24 09:04 | P.DS ---
Admission Date: 02/23/18 Discharge Date: 02/24/18 Primary Care Provider: Dr. Hernández Disposition: ROUTINE DISCHARGE Discharge Condition: GOOD Reason for Admission: Altered mental status Procedures: CT head: No acute changes noted Chest x-ray: Unremarkable. CT Lumbar: IMPRESSION: L4-5 central spinal stenosis and bilateral foraminal stenosis secondary to L4 subluxation, disc bulge and severe facet joint degenerative change. Approximately 20% L1 compression fracture involving the superior endplate. Posterior wall height is preserved. There is slight progression of the compression component since [address] pelvis: No fracture noted - Problems (1) Compression fx, lumbar spine Current Visit: Yes Status: Chronic Qualifiers: Encounter type: subsequent encounter Lumbar vertebra fracture level: L1 Fracture type: closed Fracture healing: with routine healing Qualified Code( s): S32.010D - Wedge compression fracture of first lumbar vertebra, subsequent encounter for fracture with routine healing (2) BPH (benign prostatic hyperplasia) Current Visit: Yes Status: Chronic Qualifiers: Lower urinary tract symptom presence: unspecified whether lower urinary tract symptoms present Qualified Code(s): N40.0 - Benign prostatic hyperplasia without lower urinary tract symptoms (3) Altered mental status, unspecified Current Visit: Yes Status: Acute Qualifiers: Altered mental status type: disorientation Qualified Code(s): R41.0 - Disorientation, unspecified (4) Hyperlipidemia Current Visit: Yes Status: Chronic Qualifiers: Hyperlipidemia type: unspecified Qualified Code(s): E78.5 - Hyperlipidemia , unspecified (5) Hypertension Current Visit: Yes Status: Chronic Qualifiers: Hypertension type: essential hypertension Qualified Code(s): I10 - Essential (primary) hypertension (6) Atrial fibrillation Onset Date: 09/18/16 Current Visit: No Status: Chronic Qualifiers: Atrial fibrillation type: chronic Qualified Code(s): I48.2 - Chronic atrial fibrillation (7) Diabetes mellitus Onset Date: 09/08/16 Current Visit: No Status: Chronic Qualifiers: Diabetes mellitus type: type 2 Diabetes mellitus mcfp insulin use: without terminal block assembler use Diabetes mellitus complication status: without complication Qualified Code(s): E11.9 - Type 2 diabetes mellitus without complications (8) Spinal stenosis, lumbar Current Visit: Yes Status: Chronic Qualifiers: Neurogenic claudication status: without neurogenic claudication Qualified Code(s): M48.061 - Spinal stenosis, lumbar region without neurogenic claudication (9) Anemia Current Visit: Yes Status: Chronic Qualifiers: Anemia type: iron deficiency Iron deficiency anemia type: inadequate dietary iron intake Qualified Code(s): D50.8 - Other iron deficiency anemias Brief History of Present Illness: 82-year-old male presented to the emergency room with altered mental status. Patient had been seen 2 days prior for pain to the lumbar region and to the left side. Patient was assessed and found to have spinal stenosis to the lumbar region. Compression fracture to lumbar region also noted likely chronic. CT did not show any pelvic fracture. Patient was discharged from the ER. The patient received pain medication. When he went home patient took pain medication-codeine. It appeared that he took too much medication. He was altered. Complaints were that he was disoriented. He was appropriate but reported that he wanted to go to work. He was not working. The patient was admitted for evaluation. Hospital Course: During the course of his stay altered mental status resolved. Cardiac enzymes unremarkable. Altered mental status likely related to overmedication-codeine. Recommendation is to discontinue codeine. Recent evaluation in the ER showed L4 -5 central spinal stenosis with bilateral foraminal stenosis secondary to L4 subluxation. Disc bulge and severe facet joint degenerative changes noted. 20% L1 compression fracture involving the superior in plate was noted. There was slight progression from the compression component since 2016. This appeared old. Patient was able to ambulate. Altered mental status resolved. At discharge codeine will be discontinued. Recommendation is for the patient to continue with tramadol 50 mg 1 pill 3 times a day as needed for pain. Patient may use Tylenol for pain as well. If pain persists the patient may benefit with pain management referral. Lidocaine patch will be provided to help with the pain to the local area. Fall precaution education will be provided. Patient will need a follow up with his PCP within 1 week. Patient may benefit with home health and physical therapy which can be arranged as an outpatient. Patient has atrial fibrillation. Patient will continue with his rate control medication sotalol 40 mg 1 pill twice daily. Patient not on chronic anti coagulation therapy due to risk for fall and bleeding. Patient continue with aspirin 81 mg daily Patient will follow up with cardiology as directed. Patient has hypertension. Patient will continue with his medication-Accupril 40 mg 1 pill once daily and hydrochlorothiazide 25 mg daily. Recommendation is to maintain blood pressures less 150/80. Further adjustment can be done by his PCP. Patient has BPH. Patient will continue with his medication-Flomax 0.4 mg daily and Dutasteride 0.5 mg daily. Patient has hyperlipidemia. Patient will continue with his medication-Lipitor 20 mg daily and fenofibrate 145 mg once daily. Patient has diabetes. Patient will continue with his medication-Glucophage 1000 mg 1 pill twice daily and glipizide 5 mg 1 pill twice daily. Recommendation is to maintain blood sugars less 140 fasting and less than 200 after meals. Further adjustment can be done by his PCP. Hypoglycemia education will be provided. Patient has iron deficiency anemia. Patient will continue with his B12 supplement. Iron 325 mg 1 pill twice daily has been added. Recommendation is to recheck lab-CBC in 1-2 weeks to monitor his progress. Vital Signs/Physical Exam: Temp Pulse Resp BP Pulse Ox 98.5 F 86 18 137/66 96 02/24/18 04:00 02/24/18 04:00 02/24/18 04:00 02/24/18 04:00 02/24/18 04:00 General: Alert, In no apparent distress, Oriented x3, Cooperative HEENT: Atraumatic Neck: Supple Respiratory: Clear to auscultation bilaterally, Normal air movement Cardiovascular: Normal pulses, Regular rate/rhythm Gastrointestinal: Normal bowel sounds, Soft and benign, Non-distended, No tenderness, No masses, No rebound, No guarding Musculoskeletal: No erythema, No tenderness, No warmth Integumentary: No erythema, No warmth, No cyanosis, Tenderness/swelling (Mild pain to the lumbar region with palpation) Neurological: Normal speech, Normal strength at 5/5 x4 extr, Normal tone, Normal affect Laboratory Data at Discharge: WBC 6.4 K/uL (4.3-10.9) D 02/24/18 05:25 Hgb 8.7 g/dL (13.6-17.9) L 02/24/18 05:25 Hct 24.5 % (39.6-49.0) L 02/24/18 05:25 Plt Count 148 K/uL (152-406) L 02/24/18 05:25 PT 13.7 SECONDS (9.5-12.5) H 02/23/18 10:20 INR 1.16 02/23/18 10:20 APTT 26.6 SECONDS (24.3-36.9) 02/23/18 10:20 Sodium 134 mEq/L (135-145) L 02/23/18 10:20 Potassium 3.4 mEq/L (3.6-5.0) L 02/23/18 10:20 BUN 39 mg/dL (6-20) H 02/23/18 10:20 Creatinine 1.34 mg/dL (0.61-1.24) H 02/23/18 10:20 Glucose 175 mg/dL (65-120) H 02/23/18 10:20 Magnesium 2.0 mg/dL (1.8-2.5) 02/23/18 10:20 Total Bilirubin 0.8 mg/dL (0.3-1.2) 02/23/18 10:20 AST 29 IU/L (10-42) 02/23/18 10:20 ALT 20 IU/L (10-60) 02/23/18 10:20 Alkaline Phosphatase 43 IU/L (42-121) 02/23/18 10:20 B-Natriuretic Peptide 93 pg/ml (<=100) 02/23/18 10:20 Amylase 38 U/L (28-100) 02/23/18 10:20 Lipase 25 U/L (22-51) 02/23/18 10:20 Home Medications: Fenofibrate Nanocrystallized [Fenofibrate] 1 tab PO DAILY 05/18/15 Glipizide [Glipizide ER] 5 mg PO BID 05/18/15 Hydrochlorothiazide 1 tab PO DAILY 05/18/15 Metformin HCl [Glucophage*] 1,000 mg PO BID 05/18/15 Quinapril HCl [Accupril] 1 tab PO DAILY 05/18/15 Atorvastatin Calcium [Lipitor*] 20 mg PO BEDTIME 09/08/16 Dutasteride 0.5 mg PO DAILY 09/08/16 Sotalol HCl [Betapace*] 0.5 tab PO BID #30 tab 09/18/16 Aspirin 81 mg PO DAILY 03/09/17 B12/Levomefolate Calcium/B-6 [Folbic Rf Tablet] 1 tab PO DAILY 02/23/18 Cetirizine HCl [Zyrtec] 10 mg PO DAILY 02/23/18 Krill Oil/Sayre-3/Dha/Epa [Cvs Sayre-3 Krill Oil 300 Sfgl] 500 mg PO DAILY 02/23 Multivit-Min/Iron Fum/Folic AC [Idldd-Lipnoaz-Qbseesot Tablet] 1 tab PO DAILY Tamsulosin [Flomax*] 0.4 mg PO DAILY 02/23/18 Ubidecarenone/Vit E Acetate [Co Q-10 100 mg Softgel] 200 mg PO DAILY 02/23/18 Ferrous Sulfate [Iron] 325 mg PO BID #60 tablet 02/24/18 traMADol HCL [Ultram*] 50 mg PO TIDP PRN #20 tab 02/24/18 New Medications: Ferrous Sulfate [Iron] 325 mg PO BID #60 tablet traMADol HCL [Ultram*] 50 mg PO TIDP PRN #20 tab PRN Reason: Pain Patient Discharge Instructions: 1. Patient will need a follow up with PCP in 1 week to follow up this hospitalization. 2. Patient presented with altered mental status. Altered mental status likely related to overmedication-codeine. Recommendation is to discontinue codeine. Recent evaluation in the ER showed L4-5 central spinal stenosis with bilateral foraminal stenosis secondary to L4 subluxation. Disc bulge and severe facet joint degenerative changes noted. 20% L1 compression fracture involving the superior in plate was noted. There was slight progression from the compression component since 2016. This appeared old. At discharge codeine will be discontinued. Recommendation is for the patient to continue with tramadol 50 mg 1 pill 3 times a day as needed for severe pain. Patient may use Tylenol for pain as well. If pain persists the patient may benefit with pain management referral. Lidocaine patch will be provided to help with the pain to the local area. Fall precaution education will be provided. Patient will need a follow up with his PCP within 1 week. Patient may benefit with home health and physical therapy which can be arranged as an outpatient. 3. Patient has atrial fibrillation. Patient will continue with his rate control medication sotalol 40 mg 1 pill twice daily. Patient not on chronic anti coagulation therapy due to risk for fall and bleeding. Patient continue with aspirin 81 mg daily Patient will follow up with cardiology as directed. 4. Patient has hypertension. Patient will continue with his medication-Accupril 40 mg 1 pill once daily and hydrochlorothiazide 25 mg daily. Recommendation is to maintain blood pressures less 150/80. Further adjustment can be done by his PCP. 5. Patient has BPH. Patient will continue with his medication-Flomax 0.4 mg daily and Dutasteride 0.5 mg daily. 6. Patient has hyperlipidemia. Patient will continue with his medication-Lipitor 20 mg daily and fenofibrate 145 mg once daily. 7. Patient has diabetes. Patient will continue with his medication-Glucophage 1000 mg 1 pill twice daily and glipizide 5 mg 1 pill twice daily. Recommendation is to maintain blood sugars less 140 fasting and less than 200 after meals. Further adjustment can be done by his PCP. Hypoglycemia education will be provided. 8. Patient has iron deficiency anemia. Patient will continue with his B12 supplement. Iron 325 mg 1 pill twice daily has been added. Recommendation is to recheck lab-CBC in 1-2 weeks to monitor his progress. Diet: ADA Activity: Fall precautions Time spent managing pt's care (in minutes): 55
[2018-02-24 09:27] VITALS: BP 140/63
[2018-02-24 11:17] VITALS: TEMP 97.3
--- NOTE | 2018-02-24 11:22 | EKG ---
Test Date: 2018-02-23 Test Time: 09:11:57 Bioinformatician: YESENIA MEASUREMENT RESULTS: Intervals: Rate: 95 WA: 148 QRSD: 72 QT: 338 QTc: 424 Fidelity: P: 23 WA: 148 QRS: -1 T: 21 INTERPRETIVE STATEMENTS: Normal sinus rhythm Nonspecific ST abnormality Abnormal ECG Compared to ECG 03/10/2017 07:10:59 ST (T wave) deviation now present Electronically Signed On 02-24-18 11:19:39 CDT by Elvis Wise
[2018-02-24] MEDS ORDERED: ENOXAPARIN 40 MG/0.4 ML SQ SCH (17:00)
[2018-02-25 03:47] LABS: Ferritin 281.2 ng/ml (23.9-336.2)
[2018-02-25 12:08] LABS: A1c Component 0.34 mg/dL; Hemoglobin A1c 5.7 % (4-6.0)
== END 2018-02-24 11:35 | disposition home or self-care (01) ==
LOC: ER 09:02 → ERHOLD 12:29 → 4TH 12:56
PROVIDERS: ADMIT Physician Assistant; ATTEND Family Medicine
DX: R41.82 Altered mental status, unspecified (principal); T40.2X5A Adverse effect of other opioids, initial encounter; Y92.009 Unspecified place in unspecified non-institutional (private) residence as the place of occurrence of the external cause; M48.061 Spinal stenosis, lumbar region without neurogenic claudication; S32.019A Unspecified fracture of first lumbar vertebra, initial encounter for closed fracture; N40.0 Benign prostatic hyperplasia without lower urinary tract symptoms; E78.5 Hyperlipidemia, unspecified; I10 Essential (primary) hypertension; I48.2 Chronic atrial fibrillation; E11.9 Type 2 diabetes mellitus without complications; D50.9 Iron deficiency anemia, unspecified
CPT/HCPCS: 36415 ×2; 70450; 71045; 80048 ×2; 80076; 80162; 81003; 82150; 82550; 82553; 82607; 82728; 82962 ×4; 83036; 83540; 83605; 83690; 83735; 83880; 84145; 84439; 84443; 84466; 84484; 85025 ×2; 85610; 85652; 85730; 86140; 87040 ×2; 93005; 97163; 99285; G0378 ×2; J1650

== ENCOUNTER 2018-03-24 13:22 | Emergency (ER) | payer OTHER ==
[2018-03-24 14:52] LABS: Absolute Monocytes 0.4 K/uL (0.1-1.3); Absolute Neutrophil 2.8 K/uL (1.8-8.0); Basophils % 0.8 % (0-1.3); Eosinophils % 6.1 % (0-4.4); Hematocrit 25.5 % (39.6-49.0); Lymphocytes % 22.7 % (15.3-44.8); MCH 31.6 pg (27.0-35.0); MCV 89.9 fL (80-100); Monocytes % 9.1 % (3.3-12.3); RBC Red Blood Cell Count 2.83 M/uL (4.33-5.43)
[2018-03-24 15:02] LABS: Protime INR 1.12
[2018-03-24 15:16] LABS: ALT/SGPT 22 U/L (12-78); AST/SGOT 18 U/L (15-37); Albumin 3.7 g/dL (3.4-5.0); Alkaline Phosphatase 56 U/L (45-117); BUN Blood Urea Nitrogen 50 mg/dL (7-18); Bicarbonate 24 mmol/L (21-32); Bilirubin Direct < 0.1 mg/dL (0-0.2); Bilirubin Total 0.2 mg/dL (0.2-1.0); CKMB Creatine Kinase MB < 1.0 ng/mL (0.3-3.6); Creatine Phosphokinase 41 U/L (39-308); Glucose Level 231 mg/dL (74-106); Potassium 3.3 mmol/L (3.5-5.1); Protein, Total 6.6 g/dL (6.4-8.2); Sodium Level 136 mmol/L (136-145); Thyroid Stimulating Hormone 1.26 uIU/mL (0.36-3.74)
--- NOTE | 2018-03-24 15:22 | RAD REPORT ---
EXAM DESCRIPTION: RAD - Chest Single View - 03/24/2018 2:32 pm CLINICAL HISTORY: Abdominal pain, abdominal bloating, cardiac arrhythmia COMPARISON: February 23 TECHNIQUE: AP portable chest image was obtained 1430 hours . FINDINGS: Lungs are clear. Heart and vasculature are normal. No measurable pleural effusion and no p neumothorax. No gross bony abnormality seen. No acute aortic findings suspected. IMPRESSION: No acute cardiopulmonary process. No significant change from comparison
[2018-03-24 15:59] LABS: Urine Blood NEGATIVE (NEG); Urine Glucose TRACE (NEG); Urine Protein NEGATIVE (NEG); Urine Specific Gravity 1.015 (1.005-1.030)
[2018-03-24] MEDS ORDERED: NA CHLORIDE 0.9% 500 ML ONE (18:31)
--- NOTE | 2018-03-24 18:36 | ER ---
Nurse's Notes [facility] Name: Fidelia Marcus Jr Age: 82 yrs Sex: Male : 1935 Arrival Date: 03/24/2018 Time: 13:22 Bed 13 Private MD: Bg Hernández E Diagnosis: Palpitations;Dehydration;Chest pain, unspecified Presentation: 03/24 14:01 Presenting complaint: Patient states: indigestion, ate breakfast burrito this am with tl3 honey and started feeling bad after eating, does not usually eat honey, rates discomfort at 3/10, pt pale wit hx of anemia. Transition of care: patient was not received from another setting of care. Onset of symptoms was March 24, 2018 at 10:00. Risk Assessment: Do you want to hurt yourself or someone else? Patient reports no desire to harm self or others. Initial Sepsis Screen: Does the patient meet any 2 criteria? No. Patient's initial sepsis screen is negative. Does the patient have a suspected source of infection? No. Patient's initial sepsis screen is negative. Care prior to arrival: None. 14:01 Method Of Arrival: Ambulatory tl3 14:01 Acuity: MIQUEL 3 tl3 Triage Assessment: 14:14 General: Appears uncomfortable, obese, well groomed, well developed, well nourished, tl3 Behavior is calm, cooperative. Pain: Complains of pain in chest. EENT: No signs and/or symptoms were reported regarding the EENT system. Neuro: Level of Consciousness is awake, alert, obeys commands, Oriented to person, place, time, situation, Appropriate for age. Cardiovascular: Heart tones S1 S2 present Patient's skin is warm and dry. Chest pain pt reports it feels like indigestion. Respiratory: Airway is patent Respiratory effort is even, unlabored, Respiratory pattern is regular, symmetrical, Breath sounds are clear bilaterally. GI: Abdomen is round Bowel sounds present X 4 quads. : No signs and/or symptoms were reported regarding the genitourinary system. Derm: Skin is pale, Skin temperature is cool. Musculoskeletal: No signs and/or symptoms reported regarding the musculoskeletal system. Historical: - Allergies: 14:14 NKA; tl3 - Home Meds: 14:14 atorvastatin 20 mg Oral tab 1 tab once daily [Active]; dutasteride 0.5 mg Oral cap 1 tl3 cap once daily [Active]; fenofibrate 145 MG Oral 1 cap once daily [Active]; glipizide 5 mg oral tab 1 tab 2 times per day [Active]; sotalol 80 mg oral tab 0.5 tab 2 times per day [Active]; hydrochlorothiazide 25 mg Oral tab 1 tab once daily [Active]; metformin 1,000 mg Oral tab 1 tab 2 times per day [Active]; quinapril 40 mg Oral tab 1 tab once daily [Active]; aspirin 81 mg Oral chew 1 tab once daily [Active]; Zyrtec 10 mg Oral cap 10 mg daily [Active]; B-12 DOTS oral 1000 mg oral daily [Active]; Co Q-10 200 mg oral cap daily [Active]; krill oil 500 mg oral cap daily [Active]; tamsulosin 0.4 mg oral cp24 1 cap once daily [Active]; - PMHx: 14:14 Atrial Fib; Diabetes - NIDDM; Headaches; Hypertension; tl3 - PSHx: 14:14 Cholecystectomy; Heart stents; tl3 - Immunization history:: Adult Immunizations up to date. - Social history:: Smoking status: unknown. - Ebola Screening: : Patient denies travel to an Ebola-affected area in the 21 days before illness onset. Screenin:40 Abuse screen: Denies threats or abuse. Nutritional screening: No deficits noted. tl3 Tuberculosis screening: No symptoms or risk factors identified. Fall Risk None identified. Assessment: 14:40 General:. tl3 14:40 Reassessment: No changes from previously documented assessment. Patient is alert, tl3 oriented x 3, equal unlabored respirations, skin warm/dry/pink. 16:02 Reassessment: Patient appears in no apparent distress at this time. No changes from tl3 previously documented assessment. Patient and/or family updated on plan of care and expected duration. Pain level reassessed. Patient is alert, oriented x 3, equal unlabored respirations, skin warm/dry/pink. pt has no needs at this time, feeling much better. 16:56 Reassessment: Patient appears in no apparent distress at this time. No changes from tl3 previously documented assessment. Patient and/or family updated on plan of care and expected duration. Pain level reassessed. Patient is alert, oriented x 3, equal unlabored respirations, skin warm/dry/pink. 19:25 Reassessment: Patient appears in no apparent distress at this time. No changes from tl3 previously documented assessment. Patient and/or family updated on plan of care and expected duration. Pain level reassessed. Patient is alert, oriented x 3, equal unlabored respirations, skin warm/dry/pink. no needs at this time. Vital Signs: 16:02 BP 117 / 60; Pulse 65; Resp 18; Pulse Ox 97% ; tl3 16:56 BP 132 / 57; Pulse 62; Resp 16; Pulse Ox 98% ; tl3 19:25 BP 123 / 62; Pulse 62; Resp 18; Pulse Ox 99% ; tl3 ED Course: 13:22 Patient arrived in ED. mr 13:23 Bg Hernández MD is Private Physician. mr 13:44 Zain Sanchez, ROXANN is PHCP. pm1 13:44 Estevan Lance MD is Attending Physician. pm1 13:51 Laura Fitzpatrick, BARBARA is Primary Nurse. tl3 14:04 Triage completed. tl3 14:31 X-ray completed. Portable x-ray completed in exam room. Patient tolerated procedure ag1 well. 14:32 XRAY Chest (1 view) In Process Unspecified. EDMS 14:40 Patient has correct armband on for positive identification. Placed in gown. Bed in low tl3 position. Call light in reach. Side rails up X 1. Adult w/ patient. satellite project site monitor on. Pulse ox on. NIBP on. Door closed. Warm blanket given. 14:40 No provider procedures requiring assistance completed. Inserted saline lock: 20 gauge tl3 in left Blood collected. 19:25 IV discontinued, intact, bleeding controlled, No redness/swelling at site. Pressure tl3 dressing applied. 19:28 Arm band placed on left wrist. tl3 Administered Medications: 18:39 Drug: NS 0.9% 500 ml Route: IV; Rate: bolus; Site: left antecubital; tl3 19:27 Follow up: IV Status: Completed infusion; IV Intake: 500ml tl3 Intake: 19:27 IV: 500ml; Total: 500ml. tl3 Outcome: 18:35 Discharge ordered by . pm1 19:25 Discharged to home ambulatory. tl3 19:25 Condition: stable 19:25 Discharge instructions given to patient, family, Instructed on discharge instructions, follow up and referral plans. Demonstrated understanding of instructions, follow-up care. 19:29 Patient left the ED. tl3 Signatures: Dispatcher [employer] JUSTO AlvaradoBhumi concepcion DiegoJenna ag1 Zain Sanchez, SHOELACE TIPPING MACHINE OPERATOR SHOELACE TIPPING MACHINE OPERATOR pm1 Laura Fitzpatrick, RN RN tl3 Corrections: (The following items were deleted from the chart) 16:00 15:59 General: Appears tl3 tl3
--- NOTE | 2018-03-24 18:36 | EDPHYS ---
Physician Documentation [facility] Name: Fidelia Marcus Jr Age: 82 yrs Sex: Male : 1935 Arrival Date: 03/24/2018 Time: 13:22 Bed 13 Private MD: Bg Hernández E ED Physician Estevan Lance HPI: 03/24 14:00 This 82 yrs old Male presents to ER via Ambulatory with complaints of pm1 Palpitations. 14:00 The patient presents with a history of irregular heart beat. Context: The symptoms pm1 occur at rest. Onset: The symptoms/episode began/occurred this morning. Duration: The patient or guardian reports a single episode, that is now resolved, Lasted 30 minutes. Modifying factors: The symptoms are aggravated by nothing. The symptoms are alleviated by rest. Associated signs and symptoms: Pertinent positives: chest pain, Pertinent negatives: nausea, SOB, vomiting. Severity of symptoms: in the emergency department the symptoms have resolved. The patient has experienced similar episodes in the past, a few times. Historical: - Allergies: 14:14 NKA; tl3 - Home Meds: 14:14 atorvastatin 20 mg Oral tab 1 tab once daily [Active]; dutasteride 0.5 mg Oral cap 1 tl3 cap once daily [Active]; fenofibrate 145 MG Oral 1 cap once daily [Active]; glipizide 5 mg oral tab 1 tab 2 times per day [Active]; sotalol 80 mg oral tab 0.5 tab 2 times per day [Active]; hydrochlorothiazide 25 mg Oral tab 1 tab once daily [Active]; metformin 1,000 mg Oral tab 1 tab 2 times per day [Active]; quinapril 40 mg Oral tab 1 tab once daily [Active]; aspirin 81 mg Oral chew 1 tab once daily [Active]; Zyrtec 10 mg Oral cap 10 mg daily [Active]; B-12 DOTS oral 1000 mg oral daily [Active]; Co Q-10 200 mg oral cap daily [Active]; krill oil 500 mg oral cap daily [Active]; tamsulosin 0.4 mg oral cp24 1 cap once daily [Active]; - PMHx: 14:14 Atrial Fib; Diabetes - NIDDM; Headaches; Hypertension; tl3 - PSHx: 14:14 Cholecystectomy; Heart stents; tl3 - Immunization history:: Adult Immunizations up to date. - Social history:: Smoking status: unknown. - Ebola Screening: : Patient denies travel to an Ebola-affected area in the 21 days before illness onset. ROS: 14:30 Constitutional: Negative for fever, chills, and weight loss, Eyes: Negative for injury, pm1 pain, redness, and discharge, ENT: Negative for injury, pain, and discharge, Neck: Negative for injury, pain, and swelling. 14:30 Respiratory: Negative for shortness of breath, cough, wheezing, and pleuritic chest pain, Abdomen/GI: Negative for abdominal pain, nausea, vomiting, diarrhea, and constipation, Back: Negative for injury and pain, : Negative for injury, bleeding, discharge, and swelling, MS/Extremity: Negative for injury and deformity, Skin: Negative for injury, rash, and discoloration, Neuro: Negative for headache, weakness, numbness, tingling, and seizure. 14:30 Cardiovascular: Positive for chest pain, palpitations, Negative for edema, orthopnea. Exam: 14:30 Constitutional: This is a well developed, well nourished patient who is awake, alert, pm1 and in no acute distress. Head/Face: Normocephalic, atraumatic. Eyes: Pupils equal round and reactive to light, extra-ocular motions intact. Lids and lashes normal. Conjunctiva and sclera are non-icteric and not injected. Cornea within normal limits. Periorbital areas with no swelling, redness, or edema. ENT: Nares patent. No nasal discharge, no septal abnormalities noted. Tympanic membranes are normal and external auditory canals are clear. Oropharynx with no redness, swelling, or masses, exudates, or evidence of obstruction, uvula midline. Mucous membranes moist. Neck: Trachea midline, no thyromegaly or masses palpated, and no cervical lymphadenopathy. Supple, full range of motion without nuchal rigidity, or vertebral point tenderness. No Meningismus. Chest/axilla: Normal chest wall appearance and motion. Nontender with no deformity. No lesions are appreciated. Cardiovascular: Regular rate and rhythm with a normal S1 and S2. No gallops, murmurs, or rubs. Normal PMI, no JVD. No pulse deficits. 14:30 Respiratory: Lungs have equal breath sounds bilaterally, clear to auscultation and percussion. No rales, rhonchi or wheezes noted. No increased work of breathing, no retractions or nasal flaring. Abdomen/GI: Soft, non-tender, with normal bowel sounds. No distension or tympany. No guarding or rebound. No evidence of tenderness throughout. Back: No spinal tenderness. No costovertebral tenderness. Full range of motion. Skin: Warm, dry with normal turgor. Normal color with no rashes, no lesions, and no evidence of cellulitis. MS/ Extremity: Pulses equal, no cyanosis. Neurovascular intact. Full, normal range of motion. 14:30 atrial fibrillation 61 bpm 14:30 Neuro: Orientation: is normal, Motor: is normal, moves all fours. Vital Signs: 16:02 BP 117 / 60; Pulse 65; Resp 18; Pulse Ox 97% ; tl3 16:56 BP 132 / 57; Pulse 62; Resp 16; Pulse Ox 98% ; tl3 19:25 BP 123 / 62; Pulse 62; Resp 18; Pulse Ox 99% ; tl3 MDM: 13:44 Patient medically screened. pm1 16:37 Data reviewed: vital signs. Data interpreted: Pulse oximetry: on room air is 97 %. pm1 Interpretation: normal. Counseling: I had a detailed discussion with the patient and/or guardian regarding: the historical points, exam findings, and any diagnostic results supporting the discharge/admit diagnosis, lab results, radiology results, the need for further work-up and treatment in the hospital. 16:37 Refusal of service: The patient/guardian displays adequate decision making capability pm1 and despite a detailed discussion of alternatives, benefits, risks, and consequences refuses: Admission to the hospital for further work-up and treatment, Discussed requested patient at least stay for repeat troponin. Patient agreed to wait for repeat troponin. 03/24 13:45 Order name: Basic Metabolic Panel; Complete Time: 15: pm03/24 13:45 Order name: CBC with Diff; Complete Time: 15: pm03/24 13:45 Order name: Ckmb; Complete Time: 15: pm03/24 13:45 Order name: CPK; Complete Time: 15: pm03/24 13:45 Order name: LFT's; Complete Time: 15: pm03/24 13:45 Order name: Magnesium; Complete Time: 15: pm03/24 13:45 Order name: PT-INR; Complete Time: 15:08 pm03/24 13:45 Order name: Ptt, Activated; Complete Time: 15:08 pm03/24 13:45 Order name: Troponin (emerg Dept Use Only); Complete Time: 15:08 pm03/24 13:45 Order name: XRAY Chest (1 view); Complete Time: 15:26 pm03/24 13:45 Order name: TSH; Complete Time: 15:26 pm03/24 15:35 Order name: Urine Dipstick--Ancillary (enter results); Complete Time: 16:00 bd 03/24 17:21 Order name: Troponin (emerg Dept Use Only); Complete Time: 18:35 pm03/24 13:45 Order name: EKG; Complete Time: 13:45 pm03/24 13:45 Order name: Cardiac monitoring; Complete Time: 16:05 pm03/24 13:45 Order name: EKG - Nurse/Tech; Complete Time: 16:05 pm03/24 13:45 Order name: IV Saline Lock; Complete Time: 16:05 pm03/24 13:45 Order name: Labs collected and sent; Complete Time: 16:05 pm03/24 13:45 Order name: O2 Per Protocol; Complete Time: 16:05 pm03/24 13:45 Order name: O2 Sat Monitoring; Complete Time: 16:05 pm03/24 18:05 Order name: Diet Heart Healthy; Complete Time: 18:06 jb1 Administered Medications: 18:39 Drug: NS 0.9% 500 ml Route: IV; Rate: bolus; Site: left antecubital; tl3 19:27 Follow up: IV Status: Completed infusion; IV Intake: 500ml tl3 Disposition: 03/25 16:15 Co-signature as Attending Physician, Estevan Lance MD I agree with the assessment and vasquez plan of care. Disposition: 03/24/18 18:35 Discharged to Home. Impression: Palpitations, Dehydration, Chest pain, unspecified. - Condition is Stable. - Discharge Instructions: Nonspecific Chest Pain, Dehydration, Elderly, Palpitations, Rehydration, Elderly. - Medication Reconciliation Form, Thank You Letter form. - Follow up: Emergency Department; When: As needed; Reason: Worsening of condition. Follow up: Private Physician; When: 2 - 3 days; Reason: Recheck today's complaints, Continuance of care, Re-evaluation by your physician. - Problem is new. - Symptoms have improved. Signatures: Dispatcher [employer] EDEstevan Osman, Zain Coe MD, cha, JAIL OFFICER JAIL OFFICER pm1 Laura Fitzpatrick, RN RN tl3 Corrections: (The following items were deleted from the chart) 03/24 19:29 18:35 03/24/2018 18:35 Discharged to Home. Impression: Palpitations; Dehydration; Chest tl3 pain, unspecified. Condition is Stable. Forms are Medication Reconciliation Form, Thank You Letter, Antibiotic Education, Prescription Opioid Use. Follow up: Emergency Department; When: As needed; Reason: Worsening of condition. Follow up: Private Physician; When: 2 - 3 days; Reason: Recheck today's complaints, Continuance of care, Re-evaluation by your physician. Problem is new. Symptoms have improved. pm1
[2018-03-24 19:39] VITALS: BP 123/62; O2SAT 99
--- NOTE | 2018-03-25 06:53 | EKG ---
Test Date: 2018-03-24 Test Time: 13:52:49 Chief Cook: YESENIA MEASUREMENT RESULTS: Intervals: Rate: 61 GA: QRSD: 82 QT: 394 QTc: 396 [place]: P: GA: QRS: -7 T: 11 INTERPRETIVE STATEMENTS: Atrial fibrillation Abnormal ECG Compared to ECG 02/23/2018 09:11:57 Sinus rhythm no longer present ST (T wave) deviation no longer present Electronically Signed On 03-25-18 06:52:34 CDT by Tenzin Meade
== END 2018-03-24 19:29 | disposition home or self-care (01) ==
LOC: ER 13:22
DX: R00.2 Palpitations (principal); E86.0 Dehydration; R07.9 Chest pain, unspecified; I48.91 Unspecified atrial fibrillation; E11.9 Type 2 diabetes mellitus without complications; I10 Essential (primary) hypertension; Z79.84 Long term (current) use of oral hypoglycemic drugs; Z79.82 Long term (current) use of aspirin
CPT/HCPCS: 36415; 71045; 80048; 80076; 81003; 82550; 82553; 83735; 84443; 84484; 85025; 85610; 85730; 93005; 96360; 99284

== ENCOUNTER 2018-04-12 11:39 | Day surgery (SDC) | payer OTHER ==
[2018-04-12] MEDS ORDERED: NA CHLORIDE 0.9% 1,000 ML ONE (11:52)
[2018-04-12] MEDS ORDERED: LIDOCAINE 2% MPF 5 ML VIAL ONE (12:54)
[2018-04-12] MEDS ORDERED: PROPOFOL 200 MG/20 ML VIAL IV ONE (12:54)
[2018-04-12] MEDS ORDERED: FENTANYL CITR 100 MCG/2 ML ONE (12:55)
[2018-04-12] MEDS ORDERED: LIDOCAINE 1% W/EPI 1:100,000 MDV 50 ML VIAL ONE (13:23)
[2018-04-12] MEDS ORDERED: BUPIVACA 0.5%/EPI 0.0005%/PF 30 ML VIAL ONE (13:23)
[2018-04-12] MEDS ORDERED: EPHEDRINE SULF 50 MG/10 ML SYR ONE (14:20)
--- NOTE | 2018-04-12 15:22 | P.BOP ---
Preoperative diagnosis: neoplasic lesion, R nose Postoperative diagnosis: BCC Primary procedure: WLE Secondary procedure: local flap (bilobed) Other procedure(s): cartilage graft Social Contact Worker: NONE,NONE Estimated blood loss: 10ml Specimen: R nasal ala, suture 12 oclock. FS negative, BCC confirmed Anesthesia: General Complications: None Implants: none Transferred to: Recovery Room Condition: Good
[2018-04-12 17:01] VITALS: BP 130/51; TEMP 98; O2SAT 98
--- NOTE | 2018-04-23 18:27 | OP ---
Date of Procedure: 04/12/2018 Surgeon: Fannie Bhatti MD Crime Investigator Special Agent: None. Preoperative Diagnosis: Right nasal lesion of neoplasm of uncertain behavior. Postoperative Diagnosis: Basal cell carcinoma. Procedure: Excision malignant lesion, nose, 1.5cm diameter Indication For Procedure: Mr. Marcus presented to the ENT Clinic with a suspicious-appearing lesion of the right nasal ala. Due to the appearance, there was a high suspicion for basal cell carcinoma and decision was made to proceed with excision and reconstruction over simple biopsy. Description Of Procedure: The patient was brought to the operating room. He was placed under general anesthesia. The face and ear and neck were prepped with Betadine and draped in a sterile fashion. The planned area of excision was injected with local anesthetic and additional anesthetic was set aside for possible future use on the ear. The lesion was located on the right nasal ala. Circumferential excision with a narrow margin was designed. A scalpel was used to incise through the full thickness of skin. A suture was placed marking 12 o'clock and the specimen was sent to pathology for frozen section analysis. The pathologist confirmed diagnosis of basal cell carcinoma and the peripheral and deep margins were free from tumor. Attention was then turned to the defect for considerations in reconstruction. The excision included much of the fibrofatty tissue compromising the base of the nasal ala and there was concern for a risk of external nasal valve collapse with simple soft tissue coverage. Therefore, decision was made to proceed with a cartilage graft. The right maryan was injected with local anesthetic and incision was made along the junction between the maryan and the antihelix. The skin of the anterior portion of the maryan was elevated and a conchal cartilage graft was collected. The defect of the ear was closed primarily with absorbable suture and direct pressure was applied to aid in hemostasis and adhesion of the anterior and posterior skin layers. The cartilage graft was trimmed to the appropriate size and placed within the defect along the nasal ala resulting in good support of the nasal vestibular skin. The skin defect following excision was 15 x 10 mm and options for soft tissue coverage were carefully considered. Decision was made to proceed with a bilobed flap with a superior lateral base attachment. The graft was designed, cut, elevated, and rotated into position. The graft was secured using Vicryl suture and the skin layer was closed with running suture. Triple antibiotic ointment was applied and the patient was returned to care of anesthesia for awakening and extubation in the operating room, which proceeded without difficulty. Complications: None. Specimen: Right nasal ala skin for frozen section. Disposition: The patient will follow up with Dr. Bhatti in 10-14 days for evaluation of healing. MOISES/SHARIFA Voice ID: [id number] Report ID: [id number] MTDD
== END 2018-04-12 16:58 | disposition home or self-care (01) ==
LOC: OR 11:39
PROVIDERS: ATTEND Otolaryngology
PROC: 09BKXZZ Excision of Nasal Mucosa and Soft Tissue, External Approach (ICD-10-PCS; principal; 2018-04-12 14:00)
DX: C44.311 Basal cell carcinoma of skin of nose (principal)
CPT/HCPCS: 11640; 15760; 82962 ×2; 88305; 88331; 88332; J3010; J7030

== ENCOUNTER 2018-04-23 08:45 | Emergency (ER) | payer OTHER ==
[2018-04-23 09:24] LABS: Absolute Lymphocytes (CBC) 1.4 K/uL (0.7-4.9); Absolute Monocytes 0.8 K/uL (0.1-1.3); Absolute Neutrophil 6.1 K/uL (1.8-8.0); Basophils % 0.5 % (0-1.3); Lymphocytes % 15.3 % (15.3-44.8); MCH 31.7 pg (27.0-35.0); MCV 91.5 fL (80-100); MPV 9.8 fL (7.6-11.3); Monocytes % 9.4 % (3.3-12.3); RBC Red Blood Cell Count 3.28 M/uL (4.33-5.43)
[2018-04-23 09:27] LABS: Protime INR 1.1
[2018-04-23 10:12] LABS: Albumin 3.6 g/dL (3.4-5.0); Bilirubin Direct 0.1 mg/dL (0-0.2); Bilirubin Total 0.2 mg/dL (0.2-1.0); CKMB Creatine Kinase MB 1.1 ng/mL (0.3-3.6); Potassium 3.9 mmol/L (3.5-5.1); Protein, Total 7.1 g/dL (6.4-8.2); Thyroid Stimulating Hormone 2.98 uIU/mL (0.36-3.74)
--- NOTE | 2018-04-23 10:16 | ER ---
Nurse's Notes [facility] Name: Fidelia Marcus Jr Age: 83 yrs Sex: Male : 1935 Arrival Date: 04/23/2018 Time: 08:47 Bed 4 Private MD: Bg Hernández E Diagnosis: Paroxysmal atrial fibrillation;Palpitations Presentation: 04/23 08:52 Presenting complaint: Patient states: Irregular HR with palpitations that started this aj AM. Denies CP. Transition of care: patient was not received from another setting of care. Onset of symptoms was April 23, 2018. Risk Assessment: Do you want to hurt yourself or someone else? Patient reports no desire to harm self or others. Initial Sepsis Screen: Does the patient meet any 2 criteria? No. Patient's initial sepsis screen is negative. Does the patient have a suspected source of infection? No. Patient's initial sepsis screen is negative. Care prior to arrival: None. 08:52 Method Of Arrival: Wheelchair aj 08:52 Acuity: MIQUEL 3 aj Triage Assessment: 08:53 General: Appears in no apparent distress. comfortable, Behavior is calm, cooperative, aj appropriate for age. Pain: Denies pain. Neuro: Level of Consciousness is awake, alert, obeys commands, Oriented to person, place, time, situation, Appropriate for age. Cardiovascular: Reports palpitations, Capillary refill < 3 seconds in bilateral fingers Patient's skin is warm and dry. Respiratory: Airway is patent Respiratory effort is even, unlabored, Respiratory pattern is regular, symmetrical. Derm: Skin is thin, Skin is pink, warm \\T\\ dry. normal. Historical: - Allergies: 08:53 NKA; aj - Home Meds: 08:53 aspirin 81 mg Oral chew 1 tab once daily [Active]; atorvastatin 20 mg Oral tab 1 tab aj once daily [Active]; B-12 DOTS 1000 mg Oral daily [Active]; Co Q-10 200 mg Oral cap daily [Active]; dutasteride 0.5 mg Oral cap 1 cap once daily [Active]; fenofibrate 145 MG Oral 1 cap once daily [Active]; glipizide 5 mg Oral tab 1 tab 2 times per day [Active]; hydrochlorothiazide 25 mg Oral tab 1 tab once daily [Active]; krill oil 500 mg Oral cap daily [Active]; metformin 1,000 mg Oral tab 1 tab 2 times per day [Active]; quinapril 40 mg Oral tab 1 tab once daily [Active]; sotalol 80 mg Oral tab 0.5 tab 2 times per day [Active]; tamsulosin 0.4 mg Oral cp24 1 cap once daily [Active]; Zyrtec 10 mg Oral cap 10 mg daily [Active]; - PMHx: 08:53 Atrial Fib; Diabetes - NIDDM; Headaches; Hypertension; aj - PSHx: 08:53 Cholecystectomy; Heart stents; aj - Immunization history:: Adult Immunizations up to date. - Social history:: Smoking status: Patient/guardian denies using tobacco. - Ebola Screening: : Patient negative for fever greater than or equal to 101.5 degrees Fahrenheit, and additional compatible Ebola Virus Disease symptoms Patient denies exposure to infectious person Patient denies travel to an Ebola-affected area in the 21 days before illness onset No symptoms or risks identified at this time. Screenin:50 Abuse screen: Denies threats or abuse. Denies injuries from another. Nutritional sv screening: No deficits noted. Tuberculosis screening: No symptoms or risk factors identified. Fall Risk None identified. Assessment: 08:50 General: Appears in no apparent distress. comfortable, well developed, Behavior is sv calm, cooperative, appropriate for age. Pain: Denies pain. Neuro: Level of Consciousness is awake, alert, obeys commands, Oriented to person, place, time, situation, Moves all extremities. Full function Gait is steady. Cardiovascular: Reports "I feel like I'm in Afib." Patient's skin is warm and dry. Pulses are 3+ in right radial artery and left radial artery Rhythm is atrial fibrillation Chest pain is denied. Respiratory: Respiratory effort is even, unlabored, Respiratory pattern is regular, symmetrical, Breath sounds are clear bilaterally. Derm: Skin is pale. Musculoskeletal: Range of motion: intact in all extremities. 09:55 Reassessment: Patient appears in no apparent distress at this time. Patient and/or tw2 family updated on plan of care and expected duration. Pain level reassessed. Patient is alert, oriented x 3, equal unlabored respirations, skin warm/dry/pink. Vital Signs: 08:53 BP 149 / 62; Pulse 80; Resp 20; Temp 98.5; Pulse Ox 97% on R/A; Weight 72.57 kg; Height aj 5 ft. 4 in. (162.56 cm); 09:21 BP 130 / 75; Pulse 78 MON; Resp 14; Pulse Ox 94% on R/A; sv 09:54 BP 126 / 49; Pulse 68; Resp 19; Pulse Ox 96% on R/A; tw2 08:53 Body Mass Index 27.46 (72.57 kg, 162.56 cm) aj 09:21 Sinus Rhythm sv ED Course: 08:47 Patient arrived in ED. sb2 08:47 gB Hernández MD is Private Physician. sb2 08:48 Harleen Robles FNP-C is [facility]. snw 08:48 Stefano Locke MD is Attending Physician. snw 08:50 Patient has correct armband on for positive identification. Placed in gown. Bed in low sv position. Call light in reach. Side rails up X2. Adult w/ patient. security monitor on. Pulse ox on. NIBP on. Door closed. Head of bed elevated. 08:52 Triage completed. aj 08:53 Arm band placed on left wrist. Patient placed in an exam room. aj 08:57 Missed attempt(s): 22 gauge in right forearm. Bleeding controlled, band aid applied, em1 catheter tip intact. 08:58 Fannie Rosenberg RN is Primary Nurse. sv 09:05 Initial lab(s) drawn, by me, sent to lab. Inserted saline lock: 20 gauge in left sv forearm, using aseptic technique. Blood collected. Flushed left forearm with 5 ml normal saline. 09:06 X-ray completed. Portable x-ray completed in exam room. Patient tolerated procedure jb2 well. 09:08 XRAY Chest (1 view) In Process Unspecified. EDMS 09:18 EKG done, by customer support technician. reviewed by Harleen EDWARDS. at1 09:29 Basic Metabolic Panel Sent. sv 09:57 EKG done, by customer support technician. reviewed by Harleen EDWARDS Repeat EKG. at1 10:14 Bg Hernández MD is Referral Physician. snw 10:15 Elvis Wise MD is Referral Physician. snw 11:36 No provider procedures requiring assistance completed. IV discontinued, intact, ss bleeding controlled, No redness/swelling at site. Pressure dressing applied. Administered Medications: No medications were administered Outcome: 10:15 Discharge ordered by . w 11:36 Discharged to home via wheelchair, with significant other. ss 11:36 Condition: good 11:36 Discharge instructions given to patient, significant other, Instructed on discharge instructions, follow up and referral plans. Demonstrated understanding of instructions, follow-up care. 11:37 Patient left the ED. Signatures: Dispatcher [employer] EDMS Fannie Rosenberg RN RN sv Myers, Amanda, RN RN aj Therrien, Shelly, ANIMAL HEALTH TECHNICIAN-C ANIMAL HEALTH TECHNICIAN-Csnw Tito Beaulieu jbBenjie Villanueva em1 Gwendolyn Capellan RN RN Lona miguel, fun house attendant EKG Tat1 Nani Felipe RN RN tw2 Debby Head sb2 Corrections: (The following items were deleted from the chart) 08:58 08:57 Missed attempt(s): 22 gauge in left forearm. Bleeding controlled, band aid em1 applied, catheter tip intact. em1
--- NOTE | 2018-04-23 10:16 | EDPHYS ---
Physician Documentation [facility] Name: Fidelia Marcus Jr Age: 83 yrs Sex: Male : 1935 Arrival Date: 04/23/2018 Time: 08:47 Bed 4 Private MD: Bg Hernández E ED Physician Stefano Locke HPI: 04/23 09:32 This 83 yrs old Male presents to ER via Wheelchair with complaints of AFIB. snw 09:32 Onset: The symptoms/episode began/occurred suddenly. Associated signs and symptoms: The snw patient has no apparent associated signs or symptoms. Modifying factors: The patient symptoms are alleviated by nothing. The patient has experienced similar episodes in the past, multiple times, chronically. sees Dr. Hernández. pt notes he was in a. fib because he was having palpitations and shortness of breath on exertion. Denies chest pain. Historical: - Allergies: 08:53 NKA; aj - Home Meds: 08:53 aspirin 81 mg Oral chew 1 tab once daily [Active]; atorvastatin 20 mg Oral tab 1 tab aj once daily [Active]; B-12 DOTS 1000 mg Oral daily [Active]; Co Q-10 200 mg Oral cap daily [Active]; dutasteride 0.5 mg Oral cap 1 cap once daily [Active]; fenofibrate 145 MG Oral 1 cap once daily [Active]; glipizide 5 mg Oral tab 1 tab 2 times per day [Active]; hydrochlorothiazide 25 mg Oral tab 1 tab once daily [Active]; krill oil 500 mg Oral cap daily [Active]; metformin 1,000 mg Oral tab 1 tab 2 times per day [Active]; quinapril 40 mg Oral tab 1 tab once daily [Active]; sotalol 80 mg Oral tab 0.5 tab 2 times per day [Active]; tamsulosin 0.4 mg Oral cp24 1 cap once daily [Active]; Zyrtec 10 mg Oral cap 10 mg daily [Active]; - PMHx: 08:53 Atrial Fib; Diabetes - NIDDM; Headaches; Hypertension; aj - PSHx: 08:53 Cholecystectomy; Heart stents; aj - Immunization history:: Adult Immunizations up to date. - Social history:: Smoking status: Patient/guardian denies using tobacco. - Ebola Screening: : Patient negative for fever greater than or equal to 101.5 degrees Fahrenheit, and additional compatible Ebola Virus Disease symptoms Patient denies exposure to infectious person Patient denies travel to an Ebola-affected area in the 21 days before illness onset No symptoms or risks identified at this time. ROS: 09:31 Constitutional: Negative for fever, chills, and weight loss, Eyes: Negative for injury, snw pain, redness, and discharge, ENT: Negative for injury, pain, and discharge, Neck: Negative for injury, pain, and swelling, Respiratory: Negative for shortness of breath, cough, wheezing, and pleuritic chest pain, Abdomen/GI: Negative for abdominal pain, nausea, vomiting, diarrhea, and constipation, Back: Negative for injury and pain, : Negative for injury, bleeding, discharge, and swelling, MS/Extremity: Negative for injury and deformity, Skin: Negative for injury, rash, and discoloration, Neuro: Negative for headache, weakness, numbness, tingling, and seizure. 09:31 Cardiovascular: Positive for palpitations, Negative for chest pain. Exam: 09:30 Constitutional: This is a well developed, well nourished patient who is awake, alert, snw and in no acute distress. Head/Face: Normocephalic, atraumatic. ENT: Nares patent. No nasal discharge, no septal abnormalities noted. Tympanic membranes are normal and external auditory canals are clear. Oropharynx with no redness, swelling, or masses, exudates, or evidence of obstruction, uvula midline. Mucous membranes moist. Neck: Trachea midline, no thyromegaly or masses palpated, and no cervical lymphadenopathy. Supple, full range of motion without nuchal rigidity, or vertebral point tenderness. No Meningismus. Chest/axilla: Normal chest wall appearance and motion. Nontender with no deformity. No lesions are appreciated. Respiratory: Lungs have equal breath sounds bilaterally, clear to auscultation and percussion. No rales, rhonchi or wheezes noted. No increased work of breathing, no retractions or nasal flaring. Abdomen/GI: Soft, non-tender, with normal bowel sounds. No distension or tympany. No guarding or rebound. No evidence of tenderness throughout. Back: No spinal tenderness. No costovertebral tenderness. Full range of motion. Skin: Warm, dry with normal turgor. Pale color with no rashes, no lesions, and no evidence of cellulitis. MS/ Extremity: Pulses equal, no cyanosis. Neurovascular intact. Full, normal range of motion. Neuro: Awake and alert, GCS 15, oriented to person, place, time, and situation. Cranial nerves II-XII grossly intact. Motor strength 5/5 in all extremities. Sensory grossly intact. Cerebellar exam normal. Normal gait. 09:30 Eyes: Conjunctiva: pale, bilaterally. 09:30 Cardiovascular: Rate: normal, Rhythm: irregularly irregular, Pulses: no pulse deficits are appreciated. Vital Signs: 08:53 BP 149 / 62; Pulse 80; Resp 20; Temp 98.5; Pulse Ox 97% on R/A; Weight 72.57 kg; Height aj 5 ft. 4 in. (162.56 cm); 09:21 BP 130 / 75; Pulse 78 MON; Resp 14; Pulse Ox 94% on R/A; sv 09:54 BP 126 / 49; Pulse 68; Resp 19; Pulse Ox 96% on R/A; tw2 08:53 Body Mass Index 27.46 (72.57 kg, 162.56 cm) aj 09:21 Sinus Rhythm sv MDM: 08:48 Patient medically screened. snw 09:35 Data reviewed: vital signs, nurses notes. Data interpreted: Pulse oximetry: on room air snw is 94 %. Interpretation: acceptable. Counseling: I had a detailed discussion with the patient and/or guardian regarding: the historical points, exam findings, and any diagnostic results supporting the discharge/admit diagnosis, lab results, radiology results. ED course: pt appears to have converted to NSR on monitor. ED course: Repeat EKG with NSR, sinus arrhythmia. 04/23 08:49 Order name: Basic Metabolic Panel snw 04/23 08:49 Order name: CBC with Diff; Complete Time: 09:37 snw 04/23 08:49 Order name: Ckmb; Complete Time: 10:14 snw 04/23 08:49 Order name: CPK; Complete Time: 10:14 snw 04/23 08:49 Order name: LFT's; Complete Time: 10:14 snw 04/23 08:49 Order name: Magnesium; Complete Time: 10:14 snw 04/23 08:49 Order name: NT PRO-BNP; Complete Time: 10:14 snw 04/23 08:49 Order name: PT-INR; Complete Time: 09:37 snw 04/23 08:49 Order name: Ptt, Activated; Complete Time: 09:37 snw 04/23 08:49 Order name: Troponin (emerg Dept Use Only); Complete Time: 10:00 snw 04/23 08:49 Order name: TSH; Complete Time: 10:14 snw 04/23 08:50 Order name: Basic Metabolic Panel; Complete Time: 10:14 EDMS 04/23 10:31 Order name: Urine Dipstick--Ancillary (enter results); Complete Time: 10:41 bd 04/23 08:49 Order name: XRAY Chest (1 view); Complete Time: 10:49 snw 04/23 08:49 Order name: EKG; Complete Time: 08:50 snw 04/23 08:49 Order name: Cardiac monitoring; Complete Time: 09:01 snw 04/23 08:49 Order name: EKG - Nurse/Tech; Complete Time: 09:01 snw 04/23 08:49 Order name: IV Saline Lock; Complete Time: 09:01 snw 04/23 08:49 Order name: Labs collected and sent; Complete Time: 09:29 snw 04/23 08:49 Order name: O2 Per Protocol; Complete Time: 09:01 snw 04/23 08:49 Order name: O2 Sat Monitoring; Complete Time: 09:01 snw 04/23 08:49 Order name: Urine Dipstick-Ancillary (obtain specimen); Complete Time: 10:30 snw 04/23 10:17 Order name: EKG Electrocardiogram EDMS Administered Medications: No medications were administered Disposition: 12:55 Co-signature as Attending Physician, Stefano Locke MD. rn Disposition: 04/23/18 10:15 Discharged to Home. Impression: Paroxysmal atrial fibrillation, Palpitations. - Condition is Stable. - Discharge Instructions: Atrial Fibrillation, Palpitations. - Medication Reconciliation Form, Thank You Letter, Antibiotic Education, Prescription Opioid Use form. - Follow up: Bg Hernández MD; When: As needed; Reason: Recheck today's complaints, Continuance of care, Re-evaluation by your physician. Follow up: Elvis Wise MD; When: 2 - 3 days; Reason: Recheck today's complaints, Continuance of care, Re-evaluation by your physician. Signatures: Dispatcher [employer] Lona Torres, RN RN Harleen Acosta, PRESCHOOL ASSOCIATE TEACHER-C PRESCHOOL ASSOCIATE TEACHER-Csnw Stefano Locke MD MD rn Smirch, Shelby, RN RN ss Corrections: (The following items were deleted from the chart) 09:32 09:31 Cardiovascular: Positive for palpitations, snw snw 11:37 10:15 04/23/2018 10:15 Discharged to Home. Impression: Paroxysmal atrial fibrillation; ss Palpitations. Condition is Stable. Forms are Medication Reconciliation Form, Thank You Letter, Antibiotic Education, Prescription Opioid Use. Follow up: Bg Hernández; When: As needed; Reason: Recheck today's complaints, Continuance of care, Re-evaluation by your physician. Follow up: Elvis Wise; When: 2 - 3 days; Reason: Recheck today's complaints, Continuance of care, Re-evaluation by your physician. snw
[2018-04-23 10:38] LABS: Urine Blood NEGATIVE (NEG); Urine Glucose NEGATIVE (NEG); Urine Protein NEGATIVE (NEG); Urine pH 5.5 (5.0-7.0)
--- NOTE | 2018-04-23 10:45 | RAD REPORT ---
EXAM DESCRIPTION: Kushal Single View04/23/2018 9:15 am CLINICAL HISTORY: Chest pain COMPARISON: March 2018 FINDINGS: The lungs appear clear of acute infiltrate. The heart is normal size IMPRESSION: No acute abnormalities displayed
[2018-04-23 11:49] VITALS: TEMP 98.5
[2018-04-23 11:50] VITALS: BP 126/49; O2SAT 96
--- NOTE | 2018-04-23 12:12 | EKG ---
Test Date: 2018-04-23 Test Time: 09:25:01 Delimber Operator: ROB MEASUREMENT RESULTS: Intervals: Rate: 73 IN: 178 QRSD: 76 QT: 378 QTc: 416 [place]: P: 43 IN: 178 QRS: -3 T: 28 INTERPRETIVE STATEMENTS: Normal sinus rhythm with sinus arrhythmia Normal ECG Compared to ECG 04/23/2018 08:55:30 Atrial fibrillation no longer present Electronically Signed On 04-23-18 12:11:42 CDT by Elvis Wise
--- NOTE | 2018-04-23 12:13 | EKG ---
Test Date: 2018-04-23 Test Time: 08:55:30 Manager Of Revenue: ROB MEASUREMENT RESULTS: Intervals: Rate: 88 [place]: QRSD: 70 QT: 364 QTc: 440 [place]: P: UT: QRS: 4 T: 16 INTERPRETIVE STATEMENTS: Atrial fibrillation Abnormal ECG Compared to ECG 03/24/2018 13:52:49 No significant changes Electronically Signed On 04-23-18 12:11:46 CDT by Elvis Wise
== END 2018-04-23 11:37 | disposition home or self-care (01) ==
LOC: ER 08:45
DX: I48.0 Paroxysmal atrial fibrillation (principal); E11.9 Type 2 diabetes mellitus without complications; I10 Essential (primary) hypertension
CPT/HCPCS: 36415; 71045; 80048; 80076; 81003; 82550; 82553; 83735; 83880; 84443; 84484; 85025; 85610; 85730; 87070; 87077; 87186; 87205; 93005; 99284

== ENCOUNTER 2019-06-12 06:54 | Emergency (ER) | payer OTHER ==
[2019-06-12 07:41] LABS: Protime INR 1.14
[2019-06-12 07:42] LABS: Absolute Lymphocytes (CBC) 1.4 K/uL (0.7-4.9); Basophils % 0.8 % (0-1.3); Hematocrit 28.9 % (39.6-49.0); MPV 10.6 fL (7.6-11.3); RBC Red Blood Cell Count 3.04 M/uL (4.33-5.43)
[2019-06-12 07:56] LABS: ALT/SGPT 23 U/L (12-78); AST/SGOT 13 U/L (15-37); Albumin 3.4 g/dL (3.4-5.0); Alkaline Phosphatase 102 U/L (45-117); BUN Blood Urea Nitrogen 39 mg/dL (7-18); Bicarbonate 25 mmol/L (21-32); Bilirubin Direct 0.1 mg/dL (0-0.2); Bilirubin Total 0.3 mg/dL (0.2-1.0); Glucose Level 268 mg/dL (74-106); Magnesium 1.9 mg/dL (1.8-2.4); NT PRO-BNP 201 pg/mL (<450); Potassium 3.8 mmol/L (3.5-5.1); Protein, Total 6.4 g/dL (6.4-8.2); Sodium Level 141 mmol/L (136-145); Troponin (Emerg Dept Use Only) < 0.02 ng/mL (0.0-0.045)
--- NOTE | 2019-06-12 08:24 | RAD REPORT ---
EXAM DESCRIPTION: RAD - Chest Single View - 06/12/2019 7:28 am CLINICAL HISTORY: CHEST PAIN Chest pain. COMPARISON: Chest Single View dated 04/23/2018; Chest Single View dated 03/24/2018; Chest Single View dated 02/23/2018; Chest Single View dated 03/09/2017 FINDINGS: Portable technique limits examination quality. The lungs are grossly clear. The heart is mildly prominent in size. No displaced fractures. IMPRESSION: No acute intrathoracic process suspected.
--- NOTE | 2019-06-12 08:40 | EDPHYS ---
Physician Documentation [facility] Name: Fidelia Marcus Jr Age: 84 yrs Sex: Male : 1935 Arrival Date: 06/12/2019 Time: 06:58 Bed 16 Private MD: ED Physician Jose Grimaldo HPI: 06/12 07:14 This 84 yrs old Male presents to ER via EMS with complaints of Chest Pain. ma2 07:14 The patient or guardian reports chest pain that is located primarily in the substernal ma2 area. Onset: gradually, 1 day(s) ago. Associated signs and symptoms: Pertinent negatives: abdominal pain, cough, headache. The chest pain is described as burning. Severity of pain: At its worst the pain was moderate in the emergency department the pain has resolved. Historical: - Allergies: 07:05 NKA; ss - Home Meds: 07:05 atorvastatin 20 mg Oral tab 1 tab once daily [Active]; dutasteride 0.5 mg Oral cap 1 ss cap once daily [Active]; glipizide 5 mg Oral tab 1 tab 2 times per day [Active]; hydrochlorothiazide 25 mg Oral tab 1 tab once daily [Active]; metformin 1,000 mg Oral tab 1 tab 2 times per day [Active]; quinapril 40 mg Oral tab 1 tab once daily [Active]; pantoprazole oral oral once daily [Active]; tamsulosin 0.4 mg Oral cp24 1 cap once daily [Active]; sotalol 80 mg Oral tab 0.5 tab 2 times per day [Active]; Co Q-10 200 mg Oral cap daily [Active]; aspirin 81 mg Oral chew 1 tab once daily [Active]; krill oil 500 mg Oral cap daily [Active]; - PMHx: 07:05 Atrial Fib; Diabetes - NIDDM; Headaches; Hypertension; High Cholesterol; BPH; ss - PSHx: 07:05 Cholecystectomy; Heart stents; ss - Immunization history:: Last tetanus immunization: up to date. - Social history:: Smoking status: Patient/guardian denies using tobacco, Patient/guardian denies using alcohol, street drugs, Patient/guardian denies using The patient lives with family. - Ebola Screening: : Patient negative for fever greater than or equal to 101.5 degrees Fahrenheit, and additional compatible Ebola Virus Disease symptoms Patient denies exposure to infectious person Patient denies travel to an Ebola-affected area in the 21 days before illness onset. - Family history:: not pertinent. ROS: 07:14 Constitutional: Negative for fever, chills, and weight loss. ma2 07:14 All other systems are negative. Exam: 07:14 Constitutional: This is a well developed, well nourished patient who is awake, alert, ma2 and in no acute distress. Chest/axilla: Normal chest wall appearance and motion. Nontender with no deformity. No lesions are appreciated. Cardiovascular: Regular rate and rhythm with a normal S1 and S2. No gallops, murmurs, or rubs. Normal PMI, no JVD. No pulse deficits. Respiratory: Lungs have equal breath sounds bilaterally, clear to auscultation and percussion. No rales, rhonchi or wheezes noted. No increased work of breathing, no retractions or nasal flaring. Abdomen/GI: Soft, non-tender, with normal bowel sounds. No distension or tympany. No guarding or rebound. No evidence of tenderness throughout. Vital Signs: 06:52 BP 138 / 61; Pulse 69; Resp 20; Temp 98.2(O); Pulse Ox 99% on R/A; Weight 74.84 kg (R); ss Height 5 ft. 4 in. (162.56 cm) (R); Pain 5/10; 08:00 BP 111 / 50; Pulse 67; Resp 17; Pulse Ox 96% on R/A; Pain 0/10; rb1 09:00 BP 105 / 54; Pulse 61; Resp 16; Temp 98.1(O); Pulse Ox 96% on R/A; rb1 10:00 BP 120 / 52; Pulse 64; Resp 16; Temp 98.0(O); Pulse Ox 96% on R/A; rb1 11:00 BP 132 / 64; Pulse 71; Resp 18; Temp 98.0(O); Pulse Ox 100% on R/A; Pain 0/10; rb1 12:00 BP 126 / 53; Pulse 70; Resp 17; Temp 98.1(O); Pulse Ox 100% on R/A; Pain 0/10; rb1 06:52 Body Mass Index 28.32 (74.84 kg, 162.56 cm) ss MDM: 07:01 Patient medically screened. ma2 07:14 Differential diagnosis: abnormal EKG, acute pericarditis, gastroesophageal reflux ma2 disease (GERD), herpes zoster, stable angina. MARLIN Risk Score: 1 - patient's age is greater or equal to 65 years, 1- Known CAD, 1 - ASA use in past 7 days, 1 - Recent [<24hrs] Severe Angina. Data reviewed: vital signs, nurses notes. 08:38 ED course: discussed with dr. sawant. nc2 11:46 ED course: i discussed risk of leaving the hospital includes having mi and he is ma2 aware of risks, he agreed on having a second trop which came back normal . 06/12 07:02 Order name: Basic Metabolic Panel; Complete Time: 08:33 06/12 07:02 Order name: CBC with Diff; Complete Time: 08:33 06/12 07:02 Order name: LFT's; Complete Time: 08:33 nc06/12 07:02 Order name: Magnesium; Complete Time: 08:33 06/12 07:02 Order name: NT PRO-BNP; Complete Time: 08:33 06/12 07:02 Order name: PT-INR; Complete Time: 08:33 06/12 07:02 Order name: Troponin (emerg Dept Use Only); Complete Time: 08:33 06/12 07:02 Order name: XRAY Chest (1 view); Complete Time: 08:33 06/12 07:02 Order name: EKG; Complete Time: 07:03 06/12 07:02 Order name: Cardiac monitoring; Complete Time: 07:19 06/12 07:02 Order name: EKG - Nurse/Tech; Complete Time: 07:20 06/12 07:02 Order name: IV Saline Lock; Complete Time: 07:20 06/12 07:02 Order name: Labs collected and sent; Complete Time: 07:30 06/12 10:44 Order name: Troponin (emerg Dept Use Only); Complete Time: 11:30 06/12 07:02 Order name: O2 Per Protocol; Complete Time: 07:20 06/12 07:02 Order name: O2 Sat Monitoring; Complete Time: 07:20 ma2 Administered Medications: No medications were administered Disposition: 11:56 patient maxx to be discharged now, he is high risk chest pain hx of cardiac stents, i ma2 discussed possibilty of having mi and and he want to go ama and understands risks discussed . Chart complete. Disposition: 06/12/19 11:56 Discharged to Home. Impression: Other chest pain. - Condition is Stable. - Discharge Instructions: Nonspecific Chest Pain. - Medication Reconciliation Form, Thank You Letter, Antibiotic Education, Prescription Opioid Use form. - Follow up: Private Physician; When: Tomorrow; Reason: Continuance of care. Signatures: Dispatcher [employer] Kiera Valencia RN Gwendolyn Church RN RN ss Barber, Rebecca, RN RN rb1 Jose Grimaldo MD MD ma2 Corrections: (The following items were deleted from the chart) 11:23 08:39 Hospitalization Ordered by Ben Gabriel for Observation. Preliminary diagnosis dw is Chest pain, unspecified. Bed requested for Telemetry/MedSurg (observation). Status is Observation. Condition is Stable. Problem is new. Symptoms are unchanged. UTI on Admission? No. ma2 11:55 11:23 06/12/2019 08:39 Hospitalization Ordered by Ben Gabriel for Observation. ma2 Preliminary diagnosis is Chest pain, unspecified. Bed requested for Telemetry/MedSurg (observation). Status is Observation. Condition is Stable. Problem is new. Symptoms are unchanged. UTI on Admission? No. dw 12:43 11:56 06/12/2019 11:56 Discharged to Home. Impression: Other chest pain. Condition is rb1 Stable. Forms are Medication Reconciliation Form, Thank You Letter, Antibiotic Education, Prescription Opioid Use. Follow up: Private Physician; When: Tomorrow; Reason: Continuance of care. ma2
--- NOTE | 2019-06-12 08:40 | ER ---
Nurse's Notes [facility] Name: Fidelia Marcus Jr Age: 84 yrs Sex: Male : 1935 Arrival Date: 06/12/2019 Time: 06:58 Bed 16 Private MD: Diagnosis: Other chest pain Presentation: 06/12 06:52 Presenting complaint: Patient states: that at 0530 he was woken up by midsternal chest ss pain with shortness of breath and nausea. Denies any vomiting. Transition of care: patient was not received from another setting of care. Onset of symptoms was June 12, 2019 at 05:30. Risk Assessment: Do you want to hurt yourself or someone else? Patient reports no desire to harm self or others. Initial Sepsis Screen: Does the patient meet any 2 criteria? No. Patient's initial sepsis screen is negative. Does the patient have a suspected source of infection? No. Patient's initial sepsis screen is negative. Care prior to arrival: IV initiated. 22 GA, in the right antecubital area, Glucose check: 237. 06:52 Method Of Arrival: EMS: [facility] 06:52 Acuity: MIQUEL 3 ss Historical: - Allergies: 07:05 NKA; ss - Home Meds: 07:05 atorvastatin 20 mg Oral tab 1 tab once daily [Active]; dutasteride 0.5 mg Oral cap 1 ss cap once daily [Active]; glipizide 5 mg Oral tab 1 tab 2 times per day [Active]; hydrochlorothiazide 25 mg Oral tab 1 tab once daily [Active]; metformin 1,000 mg Oral tab 1 tab 2 times per day [Active]; quinapril 40 mg Oral tab 1 tab once daily [Active]; pantoprazole oral oral once daily [Active]; tamsulosin 0.4 mg Oral cp24 1 cap once daily [Active]; sotalol 80 mg Oral tab 0.5 tab 2 times per day [Active]; Co Q-10 200 mg Oral cap daily [Active]; aspirin 81 mg Oral chew 1 tab once daily [Active]; krill oil 500 mg Oral cap daily [Active]; - PMHx: 07:05 Atrial Fib; Diabetes - NIDDM; Headaches; Hypertension; High Cholesterol; BPH; ss - PSHx: 07:05 Cholecystectomy; Heart stents; ss - Immunization history:: Last tetanus immunization: up to date. - Social history:: Smoking status: Patient/guardian denies using tobacco, Patient/guardian denies using alcohol, street drugs, Patient/guardian denies using The patient lives with family. - Ebola Screening: : Patient negative for fever greater than or equal to 101.5 degrees Fahrenheit, and additional compatible Ebola Virus Disease symptoms Patient denies exposure to infectious person Patient denies travel to an Ebola-affected area in the 21 days before illness onset. - Family history:: not pertinent. Screenin:52 Abuse screen: Denies threats or abuse. Nutritional screening: No deficits noted. ss Tuberculosis screening: No symptoms or risk factors identified. Fall Risk None identified. Assessment: 07:02 General: Appears in no apparent distress. comfortable, Behavior is calm, cooperative, rb1 Denies fever. Pain: Complains of pain in mid-sternal area Pain does not radiate. Pain currently is 8 out of 10 on a pain scale. Quality of pain is described as pt. describes the pain like bad indigestion Pain began 2 hours ago. Neuro: Level of Consciousness is awake, alert, obeys commands, Oriented to person, place, time, situation. Cardiovascular: Capillary refill < 3 seconds is brisk in bilateral fingers Rhythm is atrial fibrillation. Respiratory: Airway is patent Respiratory effort is even, unlabored, Respiratory pattern is regular, symmetrical. GI: Reports nausea. : No signs and/or symptoms were reported regarding the genitourinary system. Derm: Skin is pink, warm \\T\\ dry. 08:00 Reassessment: Patient appears in no apparent distress at this time. Pt. is resting with rb1 eyes closed, respirations even, unlabored. 09:04 Reassessment: Dr. Gabriel is at the pt. bedside. rb1 10:00 Reassessment: Patient appears in no apparent distress at this time. Patient and/or rb1 family updated on plan of care and expected duration. Pain level reassessed. Patient is alert, oriented x 3, equal unlabored respirations, skin warm/dry/pink. Patient states feeling better. Patient states symptoms have improved. 10:42 Reassessment: Patient appears in no apparent distress at this time. Pt. stated, "I feel rb1 a lot better now, I'm ready to go home." Provider notified that the pt. wishes to go home. 11:32 Reassessment: Called Dr. Gabriel to notify him that the pt. is feeling better and wishes rb1 to go home and that we repeated the Troponin and it was <0.02. Received verbal order to discharge the pt. 100% verbal read back. 11:40 Reassessment: Patient appears in no apparent distress at this time. Patient and/or rb1 family updated on plan of care and expected duration. Pain level reassessed. Patient is alert, oriented x 3, equal unlabored respirations, skin warm/dry/pink. Patient denies pain at this time. 12:25 Reassessment: Patient appears in no apparent distress at this time. Dr. Gabriel arrived rb1 while I was taking the pt. to the lobby and asked me to put the pt. back in his room. 12:25 Reassessment: The pt. was brought back to his exam room. [facility] 12:32 Reassessment: Dr. Gabriel is at the pt. bedside. [facility] Vital Signs: 06:52 BP 138 / 61; Pulse 69; Resp 20; Temp 98.2(O); Pulse Ox 99% on R/A; Weight 74.84 kg (R); Height 5 ft. 4 in. (162.56 cm) (R); Pain 5/10; 08:00 BP 111 / 50; Pulse 67; Resp 17; Pulse Ox 96% on R/A; Pain 0/10; rb1 09:00 BP 105 / 54; Pulse 61; Resp 16; Temp 98.1(O); Pulse Ox 96% on R/A; rb1 10:00 BP 120 / 52; Pulse 64; Resp 16; Temp 98.0(O); Pulse Ox 96% on R/A; rb1 11:00 BP 132 / 64; Pulse 71; Resp 18; Temp 98.0(O); Pulse Ox 100% on R/A; Pain 0/10; rb1 12:00 BP 126 / 53; Pulse 70; Resp 17; Temp 98.1(O); Pulse Ox 100% on R/A; Pain 0/10; rb1 06:52 Body Mass Index 28.32 (74.84 kg, 162.56 cm) ED Course: 06:52 Arm band placed on Patient placed in an exam room, on a stretcher. ss 06:52 Patient has correct armband on for positive identification. Placed in gown. Bed in low ss position. Call light in reach. Side rails up X 1. video game producer on. Pulse ox on. NIBP on. 06:52 No provider procedures requiring assistance completed. Maintain EMS IV. Dressing ss intact. Good blood return noted. Site clean \\T\\ dry. Gauge \\T\\ site: 22 gauge to right a/c. 06:58 Patient arrived in ED. ss 07:00 Triage completed. ss 07:01 Jose Grimaldo MD is Attending Physician. ma2 07:02 Warm blanket given. rb1 07:02 Patient maintains SpO2 saturation greater than 95% on room air. rb1 07:07 Jeannette Ma, RN is Primary Nurse. [facility] 07:23 Initial lab(s) drawn, by me, sent to lab. [facility] 07:25 XRAY Chest (1 view) In Process Unspecified. EDMS 08:39 Ben Gabriel is Hospitalizing Provider. ma2 12:23 IV discontinued, intact, bleeding controlled, No redness/swelling at site. Pressure rb1 dressing applied. Administered Medications: No medications were administered Output: 10:20 Urine: 1ml (Voided); Total: 1ml. rb1 Outcome: 08:39 Decision to Hospitalize by Provider. ma2 11:56 Discharge ordered by . ma2 12:23 Discharged to home via wheelchair, with family. rb1 12:23 Condition: stable 12:23 Discharge instructions given to patient, Instructed on discharge instructions, follow up and referral plans. Demonstrated understanding of instructions, follow-up care, Prescriptions given X none 12:43 Patient left the ED. rb1 Signatures: Dispatcher [employer] EDCO Gwendolyn Capellan RN RN Jeannette Ma, RN RN [facility] Jes Bhatti [facility] Jose Grimaldo MD MD co2 Corrections: (The following items were deleted from the chart) 10:44 07:02 Pain: Complains of pain in mid-sternal area Pain currently is 8 out of 10 on a rb1 pain scale. Quality of pain is described as pt. describes the pain like bad indigestion Pain began 2 hours ago. rb1
--- NOTE | 2019-06-12 09:23 | P.HP ---
Certification for Inpatient With expected LOS: <2 Midnights Practitioner: I am a practitioner with admitting privileges, knowledge of patient current condition, hospital course, and medical plan of care. Services: Services provided to patient in accordance with Admission requirements found in Title 42 Section 412.3 of the Code of Federal Regulations Patient History Date of Service: 06/12/19 Reason for admission: Chest pain History of Present Illness: 84-year-old gentleman with a history of Coronary artery disease status post cardiac stents, chronic atrial fibrillation, history of diabetes mellitus type 2 and hyperlipidemia presented to the emergency department with a complaint of chest pain that woke him up from sleep around 4 am. Patient described a burning retrosternal, nonradiating, maximum intensity 04/09. He took aspirin with some relief. Chest pain resolved in the ED. Patient denied any palpitation or shortness of breath. EKG in the ED demonstrated atrial fibrillation, initial troponin is negative. Chest x-ray unremarkable. He follows with Dr. Wise and stated he had a stress test done about 4 months ago which was normal but what I see in our record was about 4 years ago. Patient is placed under observation for ACLS rule out. Allergies No Known Allergies Allergy (Uncoded 04/10/18 14:35) Unknown Home medications list reviewed: Yes Home Medications: Fenofibrate Nanocrystallized [Fenofibrate] 1 tab PO DAILY 05/18/15 Glipizide [Glipizide ER] 5 mg PO BID 05/18/15 Hydrochlorothiazide 1 tab PO DAILY 05/18/15 Metformin HCl [Glucophage*] 1,000 mg PO BID 05/18/15 Quinapril HCl [Accupril] 1 tab PO DAILY 05/18/15 Atorvastatin Calcium [Lipitor*] 20 mg PO BEDTIME 09/08/16 Dutasteride 0.5 mg PO DAILY 09/08/16 Sotalol HCl [Betapace*] 0.5 tab PO BID #30 tab 09/18/16 Aspirin 81 mg PO DAILY 03/09/17 B12/Levomefolate Calcium/B-6 [Folbic Rf Tablet] 1 tab PO DAILY 02/23/18 Cetirizine HCl [Zyrtec] 10 mg PO DAILY 02/23/18 Krill Oil/Sandy-3/Dha/Epa [[facility]vs [place]-3 Krill Oil 300 Sfgl] 500 mg PO DAILY 02/23 Multivit-Min/Iron Fum/Folic AC [Uccgq-Fryjjoj-Ajyazvqe Tablet] 1 tab PO DAILY Tamsulosin [Flomax*] 0.4 mg PO DAILY 02/23/18 Ubidecarenone/Vit E Acetate [Co Q-10 100 mg Softgel] 200 mg PO DAILY 02/23/18 - Past Medical/Surgical History Diabetic: Yes -: NIDDM -: Vertigo -: High Cholesterol -: HTN -: Cataracts -: AFIB -: Hyperlipidemia -: BPH -: Benign colon tumor removed -: Disc Surgery -: Heart Stent -: Cholecystectomy -: Basal cell carcinoma excision from the nose. Psychosocial/ Personal History: - Family History Father -: Heart disease (Father) Notes: of heart attack Mother -: Cancer (Mother had ovarian cancer.) Notes: cervical - Social History Smoking Status: Never smoker Alcohol use: No CD- Drugs: No Caffeine use: No Review of Systems Other: General: No fever, no malaise, no unintentional weight loss. Eyes: No eye discharge, Respiratory: No cough, no shortness of breath. CVS: No lightheadedness. GI: No abdominal pain, no nausea no vomit, report constipation, no diarrhea. Genitourinary: No dysuria, no urinary frequency, no incontinence, no hematuria. Musculoskeletal: No joint pains, or joint swelling, no gait instability. Neurology: No headache, no asymmetric, weakness, no problem with swallowing. Except last documented, all other systems reviewed and negative. Physical Examination - Physical Exam General: Alert, In no apparent distress, Oriented x3 HEENT: Atraumatic, Normocephalic, Mucous membr. moist/pink Neck: Supple, JVD not distended, No Thyromegaly Respiratory: Clear to auscultation bilaterally, Normal air movement Cardiovascular: No edema, Normal pulses, Normal S1 S2, No murmurs, Irregular heart rate/rhythm Capillary refill: <2 Seconds Gastrointestinal: Normal bowel sounds, Soft and benign, No tenderness Musculoskeletal: No clubbing, No swelling, No erythema Integumentary: No rashes, No erythema Neurological: Normal strength at 5/5 x4 extr, Cranial nerves 3-12 intact, Normal affect - Studies Laboratory Data (last 24 hrs) 06/12/19 07:23: PT 13.4 H, INR 1.14 06/12/19 07:23: WBC 5.1, Hgb 10.2 L, Hct 28.9 L, Plt Count 137 L 06/12/19 07:23: Sodium 141, Potassium 3.8, BUN 39 H, Creatinine 1.65 H, Glucose 268 H, Magnesium 1.9, Total Bilirubin 0.3, AST 13 L, ALT 23, Alkaline Phosphatase 102 Imagings Data: Chest x-ray: No acute intrathoracic process. EKG: Atrial fibrillation-rate controlled. Assessment and Plan - Problems (Diagnosis) (1) Chest pain Onset Date: 09/18/16 Current Visit: No Status: Acute (2) Anemia Current Visit: No Status: Chronic Qualifiers: Anemia type: iron deficiency Iron deficiency anemia type: inadequate dietary iron intake Qualified Code(s): D50.8 - Other iron deficiency anemias (3) Atrial fibrillation Onset Date: 09/18/16 Current Visit: No Status: Chronic Qualifiers: Atrial fibrillation type: chronic Qualified Code(s): I48.2 - Chronic atrial fibrillation (4) Diabetes mellitus Onset Date: 09/08/16 Current Visit: No Status: Chronic Qualifiers: Diabetes mellitus type: type 2 Diabetes mellitus medical terminologist insulin use: without alf use Diabetes mellitus complication status: without complication Qualified Code(s): E11.9 - Type 2 diabetes mellitus without complications (5) Hyperlipidemia Current Visit: No Status: Chronic Qualifiers: Hyperlipidemia type: unspecified Qualified Code(s): E78.5 - Hyperlipidemia , unspecified - Plan Place under observation with telemetry Trend troponin x3 Aspirin, NTG p.r.n. Continue sotalol for Afib Continue Lipitor and check lipid profile. Cardiology consult. Hold glipizide Manage blood sugar with insulin sliding scale as inpatient. - Advance Directives Does patient have a Living Will: Yes Does patient have a Durable POA for Healthcare: Yes
--- NOTE | 2019-06-12 11:07 | EKG ---
Test Date: 2019-06-12 Test Time: 07:01:39 Quality Control Microbiologist: BRIGETTE MEASUREMENT RESULTS: Intervals: Rate: 61 IN: QRSD: 84 QT: 412 QTc: 414 Jermyn: P: IN: QRS: 10 T: 11 INTERPRETIVE STATEMENTS: Atrial fibrillation Abnormal ECG Compared to ECG 04/23/2018 09:25:01 Sinus rhythm no longer present Sinus arrhythmia no longer present Electronically Signed On 06-12-19 11:06:01 CDT by Elvis Wise
[2019-06-12 12:59] VITALS: O2SAT 100
[2019-06-12 13:01] VITALS: BP 126/53; TEMP 98.1
--- NOTE | 2019-06-12 13:13 | P.SSS ---
Patient History Date of Service: 06/12/19 Reason for admission: Chest pain History of Present Illness: 84-year-old gentleman with a history of Coronary artery disease status post cardiac stents, chronic atrial fibrillation, history of diabetes mellitus type 2 and hyperlipidemia presented to the emergency department with a complaint of chest pain that woke him up from sleep around 4 am. Patient described a burning retrosternal, nonradiating, maximum intensity 7/10. He took aspirin with some relief. Chest pain resolved in the ED. Patient denied any palpitation or shortness of breath. EKG in the ED demonstrated atrial fibrillation, initial troponin is negative. Chest x-ray unremarkable. He follows with Dr. Wise and stated he had a stress test done about 4 months ago which was normal but what I see in our record was about 4 years ago. Patient is placed under observation for ACLS rule out. Allergies No Known Allergies Allergy (Uncoded 04/10/18 14:35) Unknown Home Medications: Fenofibrate Nanocrystallized [Fenofibrate] 1 tab PO DAILY 05/18/15 Glipizide [Glipizide ER] 5 mg PO BID 05/18/15 Hydrochlorothiazide 1 tab PO DAILY 05/18/15 Quinapril HCl [Accupril] 1 tab PO DAILY 05/18/15 Atorvastatin Calcium [Lipitor*] 20 mg PO BEDTIME 09/08/16 Dutasteride 0.5 mg PO DAILY 09/08/16 Sotalol HCl [Betapace*] 0.5 tab PO BID #30 tab 09/18/16 Aspirin 81 mg PO DAILY 03/09/17 B12/Levomefolate Calcium/B-6 [Folbic Rf Tablet] 1 tab PO DAILY 02/23/18 Cetirizine HCl [Zyrtec] 10 mg PO DAILY 02/23/18 Krill Oil/[place]-3/Dha/Epa [[facility] [place]-3 Krill Oil 300 Sfgl] 500 mg PO DAILY 02/23 Multivit-Min/Iron Fum/Folic AC [Axljt-Hfcimbq-Rpcregmw Tablet] 1 tab PO DAILY Tamsulosin [Flomax*] 0.4 mg PO DAILY 02/23/18 Ubidecarenone/Vit E Acetate [Co Q-10 100 mg Softgel] 200 mg PO DAILY 02/23/18 - Past Medical/Surgical History Diabetic: Yes -: NIDDM -: Vertigo -: High Cholesterol -: HTN -: Cataracts -: AFIB -: Hyperlipidemia -: BPH -: Benign colon tumor removed -: Disc Surgery -: Heart Stent -: Cholecystectomy -: Basal cell carcinoma excision from the nose. Psychosocial/ Personal History: - Family History Father -: Heart disease (Father) Notes: of heart attack Mother -: Cancer (Mother had ovarian cancer.) Notes: cervical - Social History Smoking Status: Never smoker Alcohol use: No CD- Drugs: No Caffeine use: No Review of Systems 10-point ROS is otherwise unremarkable Physical Examination - Vital Signs Temperature: 98.1 F Blood Pressure: 126/53 Pulse: 70 Respirations: 17 - Studies Laboratory Data (last 24 hrs) 06/12/19 07:23: PT 13.4 H, INR 1.14 06/12/19 07:23: WBC 5.1, Hgb 10.2 L, Hct 28.9 L, Plt Count 137 L 06/12/19 07:23: Sodium 141, Potassium 3.8, BUN 39 H, Creatinine 1.65 H, Glucose 268 H, Magnesium 1.9, Total Bilirubin 0.3, AST 13 L, ALT 23, Alkaline Phosphatase 102 - Diagnosis (Problem(s)) (1) Chest pain Onset Date: 09/18/16 Status: Acute (2) Anemia Status: Chronic Qualifiers: Anemia type: iron deficiency Iron deficiency anemia type: inadequate dietary iron intake Qualified Code(s): D50.8 - Other iron deficiency anemias (3) Atrial fibrillation Onset Date: 09/18/16 Status: Chronic Qualifiers: Atrial fibrillation type: chronic Qualified Code(s): I48.2 - Chronic atrial fibrillation (4) Diabetes mellitus Onset Date: 09/08/16 Status: Chronic Qualifiers: Diabetes mellitus type: type 2 Diabetes mellitus fdc insulin use: without terminal gauger use Diabetes mellitus complication status: without complication Qualified Code(s): E11.9 - Type 2 diabetes mellitus without complications (5) Hyperlipidemia Status: Chronic Qualifiers: Hyperlipidemia type: unspecified Qualified Code(s): E78.5 - Hyperlipidemia , unspecified Treatment Summary: Patient was planned to be hospitalized in order to trend his troponin to rule out ACS. I was called to evaluate patient because he change his mind about being hospitalized and requested to go home. 2nd troponin came back negative. His EKG has been unremarkable and reported AFib, no ischemic changes. He was to follow with his PCP tomorrow or Sunday. He denied any chest pain at the moment stated he feels fine. The patient is discharged home per his request. No changes made in his home medications. - Disposition Disposition: ROUTINE DISCHARGE Condition: FAIR Followup: Bg Hernández MD [ACTIVE - CAN ADMIT] - Diet: ADA Activity: Ad coni
== END 2019-06-12 12:43 | disposition home or self-care (01) ==
LOC: ER 06:54
DX: R07.89 Other chest pain (principal); I10 Essential (primary) hypertension; E78.00 Pure hypercholesterolemia, unspecified; E11.9 Type 2 diabetes mellitus without complications; I48.91 Unspecified atrial fibrillation
CPT/HCPCS: 36415; 71045; 80048; 80076; 83735; 83880; 84484; 85025; 85610; 93005; 99285

== ENCOUNTER 2019-09-29 13:36 | Observation (INO) | payer OTHER ==
[2019-09-29 14:15] LABS: Absolute Lymphocytes (CBC) 0.8 K/uL (0.7-4.9); Basophils % 0.5 % (0-1.3); Hematocrit 27.2 % (39.6-49.0); Lymphocytes % 15.5 % (15.3-44.8); MPV 10.4 fL (7.6-11.3); RBC Red Blood Cell Count 2.87 M/uL (4.33-5.43)
[2019-09-29 14:23] LABS: Protime INR 1.21
--- NOTE | 2019-09-29 14:23 | RAD REPORT ---
EXAM DESCRIPTION: RAD - Chest Single View - 09/29/2019 2:15 pm CLINICAL HISTORY: Chest pain, hypertension COMPARISON: June 12 TECHNIQUE: AP portable chest image was obtained 1404 hours . FINDINGS: No peripheral mass consolidation. No failure or volume overload. Heart and vasculature are normal. No measurable pleural effusion and no pneumothorax. No acute bony abnormality seen. No acute aortic findings suspected. IMPRESSION: No acute cardiopulmonary process. No significant interval change.
--- NOTE | 2019-09-29 14:47 | ER ---
Nurse's Notes [facility] Name: Fidelia Marcus Jr Age: 84 yrs Sex: Male : 1935 Arrival Date: 09/29/2019 Time: 13:37 Bed 4 Private MD: Diagnosis: Chest pain, unspecified;Type 2 diabetes mellitus;Anemia, unspecified;Atrial fibrillation and flutter;Unspecified kidney failure;Hypokalemia Presentation: 09/29 13:37 Presenting complaint: EMS states: chest pain started 1250. rythme was A fib. given 324 ch asa and 20G R ac. Transition of care: patient was not received from another setting of care. Onset of symptoms was September 29, 2019 at 12:50. Risk Assessment: Do you want to hurt yourself or someone else? Patient reports no desire to harm self or others. Initial Sepsis Screen: Does the patient meet any 2 criteria? No. Patient's initial sepsis screen is negative. Does the patient have a suspected source of infection? No. Patient's initial sepsis screen is negative. Care prior to arrival: Medication(s) given: ASA, 81 mg, x 4. 13:37 Method Of Arrival: EMS: [facility] 13:37 Acuity: MIQUEL 3 13:44 Method Of Arrival: EMS: [facility] Triage Assessment: 13:44 General: Appears in no apparent distress. uncomfortable, Behavior is calm, cooperative, ch appropriate for age. Pain: Complains of pain in mid-sternal area Pain currently is 5 out of 10 on a pain scale. Historical: - Allergies: 13:44 NKA; ch - Home Meds: 13:44 aspirin 81 mg Oral chew 1 tab once daily [Active]; sotalol 80 mg Oral tab 0.5 tab 2 ch times per day [Active]; Metoprolol Tartrate Oral [Active]; atorvastatin 20 mg Oral tab 1 tab once daily [Active]; Co Q-10 200 mg Oral cap daily [Active]; dutasteride 0.5 mg Oral cap 1 cap once daily [Active]; glipizide 5 mg Oral tab 1 tab 2 times per day [Active]; hydrochlorothiazide 25 mg Oral tab 1 tab once daily [Active]; krill oil 500 mg Oral cap daily [Active]; metformin 1,000 mg Oral tab 1 tab 2 times per day [Active]; quinapril 40 mg Oral tab 1 tab once daily [Active]; tamsulosin 0.4 mg Oral cp24 1 cap once daily [Active]; pantoprazole Oral once daily [Active]; - PMHx: 13:44 Atrial Fib; BPH; Diabetes - NIDDM; Headaches; High Cholesterol; Hypertension; ch - PSHx: 13:44 Cholecystectomy; Heart stents; ch - Immunization history:: Adult Immunizations up to date. - Social history:: Smoking status: Patient/guardian denies using tobacco. - Ebola Screening: : Patient negative for fever greater than or equal to 101.5 degrees Fahrenheit, and additional compatible Ebola Virus Disease symptoms Patient denies exposure to infectious person Patient denies travel to an Ebola-affected area in the 21 days before illness onset No symptoms or risks identified at this time. - Family history:: not pertinent. Screenin:03 Abuse screen: Denies threats or abuse. Denies injuries from another. Nutritional jl7 screening: No deficits noted. Tuberculosis screening: No symptoms or risk factors identified. Fall Risk IV access (20 points). Total Winkler Fall Scale indicates No Risk (0-24 pts). Assessment: 14:57 Reassessment: Patient appears in no apparent distress at this time. No changes from previously documented assessment. Patient and/or family updated on plan of care and expected duration. Pain level reassessed. Patient is alert, oriented x 3, equal unlabored respirations, skin warm/dry/pink. Reassessment: physician notified of pt pain level. pt medicated per orders. General: Appears in no apparent distress. comfortable, Behavior is calm, cooperative, appropriate for age. Pain: Complains of pain in chest Pain does not radiate. Pain currently is 7 out of 10 on a pain scale. Pain: Pain began suddenly. Neuro: No deficits noted. Cardiovascular: Reports chest pain, nausea, Rhythm is atrial fibrillation. Respiratory: Airway is patent Respiratory effort is even, unlabored, Breath sounds are clear. GI: No signs and/or symptoms were reported involving the gastrointestinal system. : No signs and/or symptoms were reported regarding the genitourinary system. Derm: Skin is pink, warm \T\ dry. 15:04 Cardiovascular: Edema is 2+ to left midcalf, left ankle, right midcalf and right ankle ch pitting to left ankle and right ankle. 16:00 Reassessment: Patient appears in no apparent distress at this time. Patient and/or ch family updated on plan of care and expected duration. Pain level reassessed. pt sleeping. 17:00 Reassessment: Patient appears in no apparent distress at this time. Patient states ch feeling better. Patient states symptoms have improved. 18:10 Reassessment: Sister Lexy [phone] notified pt being admitted as requested by pt. hb 18:17 Reassessment: pt medicated with floor order for lovenox. charting started in [facility] in anticipation of admission. pt is aaox4, awaiting room assignment. 19:10 Reassessment: report given to Adrianna alvarado by Rick. 19:31 Reassessment: Patient is alert, oriented x 3, equal unlabored respirations, skin bb warm/dry/pink. IV site intact pt awaiting report called for room 410. 20:40 Reassessment: Patient is alert, oriented x 3, equal unlabored respirations, skin bb warm/dry/pink. pt resting quietly, no signs of distress noted. 21:17 Reassessment: report called to Yaneli JIMENEZ for room 410. bb Vital Signs: 13:44 BP 100 / 42; Pulse 80; Resp 16; Temp 98.2; Pulse Ox 100% on R/A; Weight 72.57 kg; ch Height 5 ft. 4 in. (162.56 cm); Pain 5/10; 14:03 BP 108 / 46; Pulse 72; Resp 19 S; Pulse Ox 99% on R/A; jl7 14:57 BP 94 / 63; Pulse 84; Resp 17; Pulse Ox 96% on R/A; Pain 7/10; ch 16:00 BP 100 / 54; Pulse 91; Resp 17; Temp 97.9; Pulse Ox 95% on R/A; Pain 0/10; ch 17:00 BP 96 / 34; Pulse 77; Resp 17; Temp 98.8; Pulse Ox 98% on R/A; Pain 0/10; ch 18:19 BP 101 / 68; Pulse 82; Resp 18; Temp 98.8; Pulse Ox 99% on R/A; Pain 2/10; ch 19:29 BP 120 / 93; Pulse 79; Resp 16 S; Temp 98.5(O); Pulse Ox 99% on R/A; bb 20:44 BP 108 / 52; Pulse 71; Resp 20 S; Pulse Ox 99% on R/A; bb 13:44 Body Mass Index 27.46 (72.57 kg, 162.56 cm) 17:00 Dr. Jara orders 500bolus of NS. pt medicated per orders. ED Course: 13:37 Patient arrived in ED. 13:37 Estevan Lance MD is Attending Physician. [facility] 13:39 Triage completed. 13:44 Arm band placed on left wrist. Patient placed in an exam room, on a stretcher, on cardiac rehabilitation program director, on pulse oximetry. 13:45 Patient has correct armband on for positive identification. Placed in gown. Bed in low jl7 position. Call light in reach. Side rails up X2. warp knitting machine operator on. Pulse ox on. NIBP on. Warm blanket given. 13:48 Darcie Watson RN is Primary Nurse. 13:55 Initial lab(s) drawn, by ED staff, sent to lab. [facility] 14:00 EKG done, by ED staff, reviewed by Estevan Lance MD. jl 14:06 Maintain EMS IV. Dressing intact. Good blood return noted. Site clean \T\ dry. Gauge \T\ jl 7 site: 20 right AC. Patient maintains SpO2 saturation greater than 95% on room air. 14:07 XRAY Chest (1 view) In Process Unspecified. EDMS 14:45 Irasema Jara MD is Hospitalizing Provider. [facility] 14:45 pillow given to pt. bd 18:19 No provider procedures requiring assistance completed. Patient admitted, IV remains in place. 20:39 Troponin (emerg Dept Use Only) Sent. bb Administered Medications: 15:01 Drug: morphine 4 mg Route: IVP; Site: right antecubital; ch 18:19 Follow up: Response: No adverse reaction 15:01 Drug: Zofran 4 mg Route: IVP; Site: right antecubital; ch 18:19 Follow up: Response: No adverse reaction 15:02 Drug: Pepcid 20 mg Route: IVP; Site: right antecubital; ch 18:20 Follow up: Response: No adverse reaction 17:19 Drug: Potassium Effervescent Tablet 25 mEq Route: PO; jl7 18:19 Follow up: Response: No adverse reaction 17:19 Drug: Insulin Regular Human 7 units {Co-Signature: avtar (Darcie Watson RN).} Route: jl7 IVP; Site: right antecubital; 18:19 Follow up: Response: No adverse reaction Outcome: 14:46 Decision to Hospitalize by Provider. vasquez 21:18 Admitted to Tele accompanied by tech, via stretcher, room 410, with chart, Report bb called to Yaneli JIMENEZ 21:18 Condition: stable 21:18 Patient left the ED. bb Signatures: Dispatcher [employer] EDMS Jelly Hedrick Christina, RN RN Estevan Cartagena MD MD cha Ballard, Brenda, RN RN Re Latham, RN RN Marichuy Montoya RN RN jl7 Darcie Watson RN, ch Corrections: (The following items were deleted from the chart) 18:11 18:10 Reassessment: Sister Fidelia [phone] notified pt being admitted as requested by pt.
--- NOTE | 2019-09-29 14:47 | EDPHYS ---
Physician Documentation [facility] Name: Fidelia Marcus Jr Age: 84 yrs Sex: Male : 1935 Arrival Date: 09/29/2019 Time: 13:37 Bed 4 Private MD: ED Physician Estevan Lance HPI: 09/29 14:35 This 84 yrs old Male presents to ER via EMS with complaints of Chest Pain. vasquez 14:35 The patient or guardian reports chest pain that is located primarily in the substernal vasquez area. Onset: 2 day(s) ago. The pain does not radiate. Associated signs and symptoms: The patient has no apparent associated signs or symptoms. The chest pain is described as a heaviness. Duration: The patient or guardian reports a single episode, that is still ongoing. Modifying factors: The symptoms are alleviated by nothing. the symptoms are aggravated by nothing. Severity of pain: At its worst the pain was mild in the emergency department the pain has resolved. The patient has not experienced similar symptoms in the past. Historical: - Allergies: 13:44 NKA; ch - Home Meds: 13:44 aspirin 81 mg Oral chew 1 tab once daily [Active]; sotalol 80 mg Oral tab 0.5 tab 2 ch times per day [Active]; Metoprolol Tartrate Oral [Active]; atorvastatin 20 mg Oral tab 1 tab once daily [Active]; Co Q-10 200 mg Oral cap daily [Active]; dutasteride 0.5 mg Oral cap 1 cap once daily [Active]; glipizide 5 mg Oral tab 1 tab 2 times per day [Active]; hydrochlorothiazide 25 mg Oral tab 1 tab once daily [Active]; krill oil 500 mg Oral cap daily [Active]; metformin 1,000 mg Oral tab 1 tab 2 times per day [Active]; quinapril 40 mg Oral tab 1 tab once daily [Active]; tamsulosin 0.4 mg Oral cp24 1 cap once daily [Active]; pantoprazole Oral once daily [Active]; - PMHx: 13:44 Atrial Fib; BPH; Diabetes - NIDDM; Headaches; High Cholesterol; Hypertension; ch - PSHx: 13:44 Cholecystectomy; Heart stents; ch - Immunization history:: Adult Immunizations up to date. - Social history:: Smoking status: Patient/guardian denies using tobacco. - Ebola Screening: : Patient negative for fever greater than or equal to 101.5 degrees Fahrenheit, and additional compatible Ebola Virus Disease symptoms Patient denies exposure to infectious person Patient denies travel to an Ebola-affected area in the 21 days before illness onset No symptoms or risks identified at this time. - Family history:: not pertinent. ROS: 14:35 Constitutional: Negative for fever, chills, and weight loss, Eyes: Negative for injury, vasquez pain, redness, and discharge, ENT: Negative for injury, pain, and discharge, Neck: Negative for injury, pain, and swelling, Respiratory: Negative for shortness of breath, cough, wheezing, and pleuritic chest pain, Abdomen/GI: Negative for abdominal pain, nausea, vomiting, diarrhea, and constipation, Back: Negative for injury and pain, : Negative for injury, bleeding, discharge, and swelling, MS/Extremity: Negative for injury and deformity, Skin: Negative for injury, rash, and discoloration, Neuro: Negative for headache, weakness, numbness, tingling, and seizure, Psych: Negative for depression, anxiety, suicide ideation, homicidal ideation, and hallucinations, Allergy/Immunology: Negative for hives, rash, and allergies, Endocrine: Negative for neck swelling, polydipsia, polyuria, polyphagia, and marked weight changes, Hematologic/Lymphatic: Negative for swollen nodes, abnormal bleeding, and unusual bruising. 14:35 Cardiovascular: Positive for chest pain, of the chest. Exam: 14:35 Constitutional: This is a well developed, well nourished patient who is awake, alert, vasquez and in no acute distress. Head/Face: Normocephalic, atraumatic. Eyes: Pupils equal round and reactive to light, extra-ocular motions intact. Lids and lashes normal. Conjunctiva and sclera are non-icteric and not injected. Cornea within normal limits. Periorbital areas with no swelling, redness, or edema. ENT: Nares patent. No nasal discharge, no septal abnormalities noted. Tympanic membranes are normal and external auditory canals are clear. Oropharynx with no redness, swelling, or masses, exudates, or evidence of obstruction, uvula midline. Mucous membranes moist. Neck: Trachea midline, no thyromegaly or masses palpated, and no cervical lymphadenopathy. Supple, full range of motion without nuchal rigidity, or vertebral point tenderness. No Meningismus. Chest/axilla: Normal chest wall appearance and motion. Nontender with no deformity. No lesions are appreciated. Cardiovascular: Regular rate and rhythm with a normal S1 and S2. No gallops, murmurs, or rubs. Normal PMI, no JVD. No pulse deficits. Respiratory: Lungs have equal breath sounds bilaterally, clear to auscultation and percussion. No rales, rhonchi or wheezes noted. No increased work of breathing, no retractions or nasal flaring. Abdomen/GI: Soft, non-tender, with normal bowel sounds. No distension or tympany. No guarding or rebound. No evidence of tenderness throughout. Back: No spinal tenderness. No costovertebral tenderness. Full range of motion. Male : Normal genitalia with no discharge or lesions. Skin: Warm, dry with normal turgor. Normal color with no rashes, no lesions, and no evidence of cellulitis. Neuro: Awake and alert, GCS 15, oriented to person, place, time, and situation. Cranial nerves II-XII grossly intact. Motor strength 5/5 in all extremities. Sensory grossly intact. Cerebellar exam normal. Normal gait. Psych: Awake, alert, with orientation to person, place and time. Behavior, mood, and affect are within normal limits. 14:35 Musculoskeletal/extremity: Extremities: grossly normal except: pain, tenderness, ROM: intact in all extremities, full active range of motion, full passive range of motion, Circulation is intact in all extremities. Sensation intact. Compartment Syndrome exam of affected extremity: is normal. Joints: All joints are normal except Weight bearing: able to fully bear weight, DVT Exam: no pain, no tenderness, negative Homans' sign noted on exam, no appreciated bluish discoloration, no erythema, no increased warmth, swelling. 14:43 Abdomen/GI: Inspection: abdomen appears normal, Bowel sounds: normal, Palpation: soft, vasquez nontender, Rectal exam: Prostate: normal, rectal tone normal, Stool: guaiac negative, hemorrhoid(s), are not appreciated, mass, is not appreciated, swelling, is not appreciated, tenderness, is not appreciated. Vital Signs: 13:44 BP 100 / 42; Pulse 80; Resp 16; Temp 98.2; Pulse Ox 100% on R/A; Weight 72.57 kg; ch Height 5 ft. 4 in. (162.56 cm); Pain 5/10; 14:03 BP 108 / 46; Pulse 72; Resp 19 S; Pulse Ox 99% on R/A; jl7 14:57 BP 94 / 63; Pulse 84; Resp 17; Pulse Ox 96% on R/A; Pain 7/10; ch 16:00 BP 100 / 54; Pulse 91; Resp 17; Temp 97.9; Pulse Ox 95% on R/A; Pain 0/10; ch 17:00 BP 96 / 34; Pulse 77; Resp 17; Temp 98.8; Pulse Ox 98% on R/A; Pain 0/10; ch 18:19 BP 101 / 68; Pulse 82; Resp 18; Temp 98.8; Pulse Ox 99% on R/A; Pain 2/10; ch 19:29 BP 120 / 93; Pulse 79; Resp 16 S; Temp 98.5(O); Pulse Ox 99% on R/A; bb 20:44 BP 108 / 52; Pulse 71; Resp 20 S; Pulse Ox 99% on R/A; bb 13:44 Body Mass Index 27.46 (72.57 kg, 162.56 cm) 17:00 Dr. Jara orders 500bolus of NS. pt medicated per orders. MDM: 13:37 Patient medically screened. [facility] 14:37 Data reviewed: vital signs, nurses notes, lab test result(s), EKG, radiologic studies, [facility] plain films. 09/29 13:50 Order name: Basic Metabolic Panel; Complete Time: 17: 09/29 13:50 Order name: CBC with Diff; Complete Time: 14:43 09/29 13:50 Order name: LFT's; Complete Time: 17: 09/29 13:50 Order name: Magnesium; Complete Time: 17: 09/29 13:50 Order name: NT PRO-BNP; Complete Time: 17: 09/29 13:50 Order name: PT-INR; Complete Time: 14:43 09/29 13:50 Order name: Troponin (emerg Dept Use Only); Complete Time: 17: 09/29 13:50 Order name: XRAY Chest (1 view); Complete Time: 14:43 09/29 14:37 Order name: Thyroid Stimulating Hormone; Complete Time: 17:01 [facility] 09/29 17:52 Order name: Troponin (emerg Dept Use Only) 09/29 19:47 Order name: Troponin (Emerg Dept Use Only) [facility] 09/29 19:47 Order name: Troponin I [facility] 09/29 13:50 Order name: EKG; Complete Time: 13:51 09/29 13:50 Order name: Cardiac monitoring; Complete Time: 14:03 09/29 13:50 Order name: EKG - Nurse/Tech; Complete Time: 14:03 09/29 13:50 Order name: IV Saline Lock; Complete Time: 14:03 09/29 13:50 Order name: Labs collected and sent; Complete Time: 14:03 09/29 13:50 Order name: O2 Per Protocol; Complete Time: 14:03 09/29 13:50 Order name: O2 Sat Monitoring; Complete Time: 14:02 09/29 15:11 Order name: Diet Ada 1800 Rod; Complete Time: 15:11 ch Administered Medications: 15:01 Drug: morphine 4 mg Route: IVP; Site: right antecubital; ch 18:19 Follow up: Response: No adverse reaction ch 15:01 Drug: Zofran 4 mg Route: IVP; Site: right antecubital; ch 18:19 Follow up: Response: No adverse reaction ch 15:02 Drug: Pepcid 20 mg Route: IVP; Site: right antecubital; ch 18:20 Follow up: Response: No adverse reaction ch 17:19 Drug: Potassium Effervescent Tablet 25 mEq Route: PO; jl7 18:19 Follow up: Response: No adverse reaction ch 17:19 Drug: Insulin Regular Human 7 units {Co-Signature: (Darcie Watson RN).} Route: jl7 IVP; Site: right antecubital; 18:19 Follow up: Response: No adverse reaction Disposition: 09/29/19 14:46 Hospitalization ordered by Irasema Jara for Inpatient Admission. Preliminary diagnosis are Chest pain, unspecified, Type 2 diabetes mellitus, Anemia, unspecified, Atrial fibrillation and flutter, Unspecified kidney failure, Hypokalemia. - Bed requested for Telemetry/MedSurg (Inpatient). - Status is Inpatient Admission. bb - Condition is Fair. - Problem is new. - Symptoms have improved. UTI on Admission? No Signatures: Dispatcher [employer] EDVA Jelly Hedrick bd Darcie Watson, RN BARBARA ch Estevan Lance MD MD cha Ballard, Brenda RN RN Marichuy Dominguez, RN RN jl7 Darcie Watson RN Corrections: (The following items were deleted from the chart) 14:40 14:13 THYROID STIMULAT HORMONE+C.LAB.BRZ ordered. EDVA EDVA 17:03 14:46 Hospitalization Ordered by Irasema Jara MD for Inpatient Admission. Preliminary vasquez diagnosis is Chest pain, unspecified; Type 2 diabetes mellitus; Anemia, unspecified; Atrial fibrillation and flutter. Bed requested for Telemetry/MedSurg (Inpatient). Status is Inpatient Admission. Condition is Fair. Problem is new. Symptoms have improved. UTI on Admission? No. vasquez 18:47 17:03 09/29/2019 14:46 Hospitalization Ordered by Irasema Jara MD for Inpatient bd Admission. Preliminary diagnosis is Chest pain, unspecified; Type 2 diabetes mellitus; Anemia, unspecified; Atrial fibrillation and flutter; Unspecified kidney failure; Hypokalemia. Bed requested for Telemetry/MedSurg (Inpatient). Status is Inpatient Admission. Condition is Fair. Problem is new. Symptoms have improved. UTI on Admission? No. vasquez 21:18 18:47 09/29/2019 14:46 Hospitalization Ordered by Irasema Jara MD for Inpatient bb Admission. Preliminary diagnosis is Chest pain, unspecified; Type 2 diabetes mellitus; Anemia, unspecified; Atrial fibrillation and flutter; Unspecified kidney failure; Hypokalemia. Bed requested for Telemetry/MedSurg (Inpatient). Status is Inpatient Admission. Condition is Fair. Problem is new. Symptoms have improved. UTI on Admission? No. bd
[2019-09-29] MEDS ORDERED: MORPHINE 4 MG/ML SYR ONE (14:53)
[2019-09-29] MEDS ORDERED: ONDANSETRON 4 MG/2 ML VIAL ONE (14:53)
[2019-09-29 14:54] LABS: ALT/SGPT 71 U/L (12-78); AST/SGOT 44 U/L (15-37); Albumin 3.4 g/dL (3.4-5.0); Alkaline Phosphatase 68 U/L (45-117); BUN Blood Urea Nitrogen 41 mg/dL (7-18); Bicarbonate 25 mmol/L (21-32); Bilirubin Direct 0.4 mg/dL (0-0.2); Bilirubin Total 0.9 mg/dL (0.2-1.0); Glucose Level 304 mg/dL (74-106); Magnesium 1.9 mg/dL (1.8-2.4); NT PRO-BNP 268 pg/mL (<450); Potassium 3.4 mmol/L (3.5-5.1); Protein, Total 6.5 g/dL (6.4-8.2); Sodium Level 138 mmol/L (136-145); Thyroid Stimulating Hormone 0.962 uIU/mL (0.360-3.740); Troponin (Emerg Dept Use Only) < 0.02 ng/mL (0.0-0.045)
--- NOTE | 2019-09-29 15:34 | EKG ---
Test Date: 2019-09-29 Test Time: 13:57:50 Hvac Sales Engineer: RYAN MEASUREMENT RESULTS: Intervals: Rate: 66 MA: QRSD: 82 QT: 404 QTc: 423 [place]: P: MA: QRS: 3 T: 10 INTERPRETIVE STATEMENTS: Atrial fibrillation Minimal voltage criteria for LVH, may be normal variant Abnormal ECG Compared to ECG 06/12/2019 07:01:39 Left ventricular hypertrophy now present Electronically Signed On 09-29-19 15:34:18 MOVING VAN DRIVER by Tenzin Meade
[2019-09-29] MEDS ORDERED: NA CHLORIDE 0.9% 500 ML ONE (16:07)
[2019-09-29] MEDS ORDERED: POTASSIUM 25 MEQ EFFERV TAB ONE (17:16)
[2019-09-29] MEDS ORDERED: INSULIN -REGULAR HUMAN 50 UNIT/0.5 ML ML ONE (17:16)
[2019-09-29] MEDS: NA CHLORIDE 0.9% 1,000 ML IV SCH (17:51)
[2019-09-29] MEDS ORDERED: NITROGLYCERIN 0.4 MG/TAB SL PRN (17:51)
[2019-09-29] MEDS ORDERED: ENOXAPARIN 30 MG/0.3 ML SQ SCH (17:51)
[2019-09-29] MEDS: INSULIN -REGULAR HUMAN 50 UNIT/0.5 ML ML SQ SCH ×2 (17:51→21:00)
[2019-09-29 18:11] VITALS: BMI 27.4
[2019-09-29] MEDS ORDERED: ENOXAPARIN 30 MG/0.3 ML SQ ONE (18:17)
[2019-09-29 19:46] LABS: Troponin (Emerg Dept Use Only) 0.09 ng/mL (0.0-0.045); Troponin I 0.09 ng/mL (0.0-0.045)
[2019-09-29] MEDS ORDERED: ACETAMINOPHEN 500 MG TAB ONE (20:59)
[2019-09-29] MEDS ORDERED: NA CHLORIDE 0.9% 1,000 ML ONE (20:59)
[2019-09-29] MEDS ORDERED: ATORVASTATIN 40 MG TAB PO SCH (21:00)
[2019-09-29] MEDS: ACETAMINOPHEN 500 MG TAB PO PRN (21:00)
[2019-09-30 00:05] VITALS: O2SAT 97
--- NOTE | 2019-09-30 00:14 | HP ---
Date of Admission: 09/29/2019 Code Status: Full. Chief Complaint: Chest pain. Direct Care Worker: Dr. Meade with Cardiology. History Of Present Illness: Patient is an 84-year-old male with past medical history of coronary art robbie disease status post stents, chronic atrial fibrillation on sotalol and aspirin for anticoagulatio n, diabetes, hyperlipidemia, comes in with sudden onset of chest pain. Patient stated that the pain was substernal, radiating to his shoulders, associated with some nausea. No vomiting, diaphoresis, o r palpitations. Patient has been compliant with his medications, takes aspirin and sotalol for his a trial fibrillation. The patient's symptoms were constant, moderate, progressively worsening. There was no aggravating factors. He came into the ER for further evaluation. Workup revealed a potassium of 3.4, creatinine was elevated at 1.73, which is around his baseline. Cardiac enzyme was negative. WBC count was normal. His EKG showed atrial fibrillation. Chest x-ray showed no acute cardiopulmo nary process. Patient was then referred for admission. When seen in the ER, he was awake, alert. H e was asleep, but arousable. He was drowsy, lethargic. His blood pressure was low with a map of 60. He was given 1 dose of morphine. Past Medical History: Coronary artery disease status post stent, diabetes mellitus type 2, non-insul in requiring vertigo, hyperlipidemia, hypertension, atrial fibrillation on sotalol and aspirin, BPH, benign colon tumor. Surgical History: Cataract surgery, benign colon tumor removed, disk surgery, heart stent, cholecyst ectomy, basal cell carcinoma excision from the nose. Allergies: NO KNOWN DRUG ALLERGIES. Medications: List reviewed. Social History: Patient denies any tobacco use, alcohol use, or illicit drug use. Family History: Father had heart disease, of heart attack. Mother had ovarian cancer and cervi michael cancer. Review of Systems: Ten-point system reviewed, negative except as per HPI. Physical Examination: Vital Signs: Blood pressure 100/42, pulse 80, respirations 16, temperature 98.2, O2 100% on room air . General: Awake, alert, and oriented x3. Elderly male, in some mild distress. HEENT: Normocephalic, atraumatic. PERRLA. EOMI. Moist mucous membranes. Oropharynx is clear. Po or dentition. Conjunctivae are anicteric. Neck: Supple. No JVD. Trachea midline. CV: S1, S2. Regular rhythm and rate. Peripheral pulses present. Respiratory: Moving air well bilaterally. No wheezing or stridor. No use of accessory muscles. Gastrointestinal: Abdomen is soft, nontender, nondistended. Positive bowel sounds. Extremities: No clubbing, cyanosis, or edema. No calf tenderness. Neuro: Cranial nerves 2 through 12 intact grossly. No focal neurological deficits. Speech is juanita l. Laboratory Data: WBC 4.8, H and H 9.4 and 27.2, platelets 124, neutrophils 68%. INR 1.21. Sodium 1 38, potassium 3.4, chloride 106, CO2 of 25, BUN 41, creatinine 1.73, glucose 304, calcium 8, magnesiu m 1.9, AST 44, ALT 71. Troponin less than 0.02. TSH 0.962. Chest x-ray shows no acute cardiopulmon julianne process. No significant change. EKG shows atrial fibrillation, rate of 66. Assessment: An 84-year-old male with, 1.Unstable angina. The patient has history of previous coronary artery disease and stents. We will start on chest pain guidelines. We will hold MCKENZIE inhibitor due to hypotension. Patient is already on sotalol for his atrial fibrillation. Continue with statin and aspirin. We will obtain echocardio gram. Consult Cardiology. EKG and initial troponin level were negative for acute changes. 2.Diabetes mellitus type 2, non-insulin requiring with hyperglycemia. We will start on sliding scal e insulin and monitor blood glucose levels. 3.Mixed hyperlipidemia. We will check lipid panel. 4.Acute hypotension, may be related to morphine. Patient, however, came in hypotensive. We will ho ld blood pressure medications for now. 5.Atrial fibrillation, controlled ventricular rate. Patient is on sotalol and aspirin for anticoagu lation. 6.Benign prostatic hypertrophy. Resume home medications as appropriate. 7.History of benign colon tumor status post removal. 8.Deep venous thrombosis prophylaxis with Lovenox. Plan: Admit patient to Med-Surg, place as observation. MARY Voice ID: [id number]
[2019-09-30 00:17] LABS: Urine Appearance CLEAR; Urine Bilirubin NEGATIVE (NEG); Urine Blood NEGATIVE (NEG); Urine Color YELLOW; Urine Glucose NEGATIVE (NEG); Urine Protein NEGATIVE (NEG); Urine Specific Gravity 1.025 (1.005-1.030); Urine Urobilinogen 0.2 mg/dL (0.2-1.0)
[2019-09-30 00:20] LABS: Urine Microscopic Reflex NO UMIC
[2019-09-30 03:39] LABS: Basophils % 0.5 % (0-1.3); Hematocrit 26.9 % (39.6-49.0); Lymphocytes % 21.1 % (15.3-44.8); MPV 10.7 fL (7.6-11.3); RBC Red Blood Cell Count 2.86 M/uL (4.33-5.43)
[2019-09-30 03:49] LABS: Potassium 3.8 mmol/L (3.5-5.1)
[2019-09-30 04:21] LABS: Blood Morphology Comment NOT SEEN (NOT SEEN); Platelet Estimate ADEQ
[2019-09-30] MEDS: ACETAMINOPHEN 500 MG TAB PO PRN (05:16)
[2019-09-30] MEDS: NA CHLORIDE 0.9% 1,000 ML IV SCH (07:11)
[2019-09-30] MEDS: INSULIN -REGULAR HUMAN 50 UNIT/0.5 ML ML SQ SCH (07:30)
--- NOTE | 2019-09-30 08:58 | P.DS ---
Admission Date: 09/29/19 Discharge Date: 09/30/19 Primary Care Provider: Dr. Hernández; Cardiology-Dr. Wise Disposition: ROUTINE DISCHARGE Discharge Condition: GOOD Reason for Admission: Chest pain, lightheadness Consultations: Cardiology-Dr. Wise Procedures: CXR: FINDINGS: No peripheral mass consolidation. No failure or volume overload. Heart and vasculature are normal. No measurable pleural effusion and no pneumothorax. No acute bony abnormality seen. No acute aortic findings suspected. IMPRESSION: No acute cardiopulmonary process. No significant interval change. Stress test 2016: FINDINGS: No stress induced ischemic defect is seen to suggest stress induced ischemia. No fixed defect is seen to suggest hibernating myocardium or scarred myocardium. The end diastolic volume is 70 ml, the end systolic volume is 17 ml, and the ejection fraction is 75 %. IMPRESSION: No stress induced ischemia. Medical Problem List: Lightheadedness, chest pain with history of CAD Bradycardia with chronic atrial fibrillation BPH Hyperlipidemia Diabetes mellitus type 2 non insulin dependent with hyperglycemia History of benign colon tumor Chronic renal disease stage III Anemia of chronic disease Brief History of Present Illness: 84-year-old male with history of CAD with prior stent, chronic atrial fibrillation not on chronic anti coagulation therapy, diabetes mellitus, hyperlipidemia who presented with lightheadedness that led to some chest pain. Patient was admitted for further evaluation and treatment. Dr. Meade with Cardiology. Hospital Course: Patient was seen evaluated for lightheadedness with chest pain. Patient with history of CAD. Patient was monitored closely. Cardiac enzymes slightly elevated. Patient with history of chronic atrial fibrillation not on chronic anti coagulation therapy. Patient had episodes of bradycardia with rate around 40. Patient seen and evaluated by Cardiology. Cardiology reports that he has had prior stress test done within the past 9 months which was unremarkable. In 2016 he also had a stress test unremarkable. Due to bradycardia, cardiology recommends to discontinue Betapace. Cardiology also recommends to start chronic anti coagulation therapy. At discharge rate better controlled. Patient in atrial fibrillation. At discharge will discontinue Betapace. Patient will be started on Eliquis 5 mg twice daily for chronic anti coagulation therapy. Education on Eliquis, atrial fibrillation will be provided. Recommend to recheck CBC in 1-2 weeks to monitor his progress. Recommend follow up with Cardiology this Sunday to follow up this hospitalization. Patient with underlying hypertension. At discharge patient will continue with his current medications of quinapril 40 mg daily and hydrochlorothiazide 25 mg daily. Recommend to maintain blood pressures less 150/80. Further adjustment can be done by his PCP or cardiology. Patient with diabetes mellitus type 2 [id number]. At discharge patient will continue with glimepiride 5 mg 1 pill twice daily. Recommend to maintain blood sugars less 140 fasting and less than 200 after meals. Further adjustment can be done by his PCP. Patient with BPH. At discharge patient will continue with his medications of Dutasteride 0.5 mg daily and Flomax 0.4 mg daily. Patient with hyperlipidemia. At discharge patient continue with Lipitor 20 mg daily and fenofibrate daily.. Patient with chronic renal disease stage III. This has remained stable. Patient will continue with current medications. Recommend no further use of nonsteroidal anti-inflammatories. Future medications will need to be renally dose. Recommend follow up with Nephrology in 2-4 weeks to monitor his progress. Recommend to recheck BMP in 1-2 weeks. Patient with anemia of chronic disease. Recommend to recheck CBC in 1-2 weeks to monitor his progress, especially since the patient will be started on chronic anti coagulation therapy. Vital Signs/Physical Exam: Temp Pulse Resp BP Pulse Ox 97.7 F 70 16 141/58 H 96 09/30/19 08:00 09/30/19 08:00 09/30/19 08:00 09/30/19 08:00 09/30/19 08:00 General: Alert, In no apparent distress, Oriented x3, Cooperative HEENT: Atraumatic Neck: Supple Respiratory: Clear to auscultation bilaterally, Normal air movement Cardiovascular: Normal pulses, Regular rate/rhythm Gastrointestinal: Normal bowel sounds, Soft and benign, Non-distended Neurological: Normal speech, Normal strength at 5/5 x4 extr, Normal tone Laboratory Data at Discharge: WBC 4.6 K/uL (4.3-10.9) 09/30/19 03:11 Hgb 9.5 g/dL (13.6-17.9) L 09/30/19 03:11 Hct 26.9 % (39.6-49.0) L 09/30/19 03:11 Plt Count 113 K/uL (152-406) L 09/30/19 03:11 PT 14.2 SECONDS (9.5-12.5) H 09/29/19 13:50 INR 1.21 09/29/19 13:50 Sodium 142 mmol/L (136-145) 09/30/19 03:11 Potassium 3.8 mmol/L (3.5-5.1) 09/30/19 03:11 BUN 50 mg/dL (7-18) H 09/30/19 03:11 Creatinine 1.79 mg/dL (0.55-1.3) H 09/30/19 03:11 Glucose 172 mg/dL (74-106) H 09/30/19 03:11 Magnesium 1.9 mg/dL (1.8-2.4) 09/29/19 13:50 Total Bilirubin 0.9 mg/dL (0.2-1.0) 09/29/19 13:50 AST 44 U/L (15-37) H 09/29/19 13:50 ALT 71 U/L (12-78) 09/29/19 13:50 Alkaline Phosphatase 68 U/L (45-117) 09/29/19 13:50 Troponin I 0.19 ng/mL (0.0-0.045) H 09/30/19 03:11 Triglycerides 179 mg/dL (<150) H 09/30/19 03:11 Cholesterol 108 mg/dL (<200) 09/30/19 03:11 HDL Cholesterol 41 mg/dL (40-60) 09/30/19 03:11 Cholesterol/HDL Ratio 2.63 09/30/19 03:11 Home Medications: Fenofibrate Nanocrystallized [Fenofibrate] 1 tab PO DAILY 05/18/15 Glipizide [Glipizide ER] 5 mg PO BID 05/18/15 Hydrochlorothiazide 1 tab PO DAILY 05/18/15 Quinapril HCl [Accupril] 1 tab PO DAILY 05/18/15 Atorvastatin Calcium [Lipitor*] 20 mg PO BEDTIME 09/08/16 Dutasteride 0.5 mg PO DAILY 09/08/16 B12/Levomefolate Calcium/B-6 [Folbic Rf Tablet] 1 tab PO DAILY 02/23/18 Cetirizine HCl [Zyrtec] 10 mg PO DAILY 02/23/18 Krill Oil/[place]-3/Dha/Epa [[facility] [place]-3 Krill Oil 300 Sfgl] 500 mg PO DAILY 02/23 Multivit-Min/Iron Fum/Folic AC [Gxtlh-Bsjfstk-Cjdygoue Tablet] 1 tab PO DAILY Tamsulosin [Flomax*] 0.4 mg PO DAILY 02/23/18 Ubidecarenone/Vit E Acet [Co Q-10 100 mg Softgel] 200 mg PO DAILY 02/23/18 Apixaban [Eliquis] 5 mg PO BID #60 tablet 09/30/19 New Medications: Apixaban [Eliquis] 5 mg PO BID #60 tablet Patient Discharge Instructions: 1. Recommend follow up with his PCP in 1 week to follow up this hospitalization. 2. Patient was seen evaluated for lightheadedness with chest pain. Patient with history of CAD. Patient was monitored closely. Cardiac enzymes slightly elevated. Patient with history of chronic atrial fibrillation not on chronic anti coagulation therapy. Patient had episodes of bradycardia with rate around 40. Patient seen and evaluated by Cardiology. Cardiology reports that he has had prior stress test done within the past 9 months which was unremarkable. In 2015 he also had a stress test unremarkable. Due to bradycardia, cardiology recommends to discontinue Betapace. Cardiology also recommends to start chronic anti coagulation therapy. At discharge rate better controlled. Patient in atrial fibrillation. At discharge will discontinue Betapace. Patient will be started on Eliquis 5 mg twice daily for chronic anti coagulation therapy. Education on Eliquis, atrial fibrillation will be provided. Recommend to recheck CBC in 1-2 weeks to monitor his progress. Recommend follow up with Cardiology this Sunday to follow up this hospitalization. 3. Patient with underlying hypertension. At discharge patient will continue with his current medications of quinapril 40 mg daily and hydrochlorothiazide 25 mg daily. Recommend to maintain blood pressures less 150/80. Further adjustment can be done by his PCP or cardiology. 4. Patient with diabetes mellitus type 2 [id number]. At discharge patient will continue with glimepiride 5 mg 1 pill twice daily. Recommend to maintain blood sugars less 140 fasting and less than 200 after meals. Further adjustment can be done by his PCP. 5. Patient with BPH. At discharge patient will continue with his medications of Dutasteride 0.5 mg daily and Flomax 0.4 mg daily. 6. Patient with hyperlipidemia. At discharge patient continue with Lipitor 20 mg daily and fenofibrate daily.. 7. Patient with chronic renal disease stage III. This has remained stable. Patient will continue with current medications. Recommend no further use of nonsteroidal anti-inflammatories. Future medications will need to be renally dose. Recommend follow up with Nephrology in 2-4 weeks to monitor his progress. Recommend to recheck BMP in 1-2 weeks. 8. Patient with anemia of chronic disease. Recommend to recheck CBC in 1-2 weeks to monitor his progress, especially since the patient will be started on chronic anti coagulation therapy. Diet: ADA Activity: Ad coni Time spent managing pt's care (in minutes): 55
[2019-09-30] MEDS ORDERED: ASPIRIN EC 81 MG TAB PO SCH (09:00)
[2019-09-30] MEDS ORDERED: ENOXAPARIN 80 MG/0.8 ML SQ SCH (09:00)
[2019-09-30] MEDS ORDERED: HYDROCODONE/APAP 7.5/325 MG TAB PO PRN (09:17)
[2019-09-30] MEDS ORDERED: TRAMADOL HCL 50 MG TAB PO PRN (09:17)
[2019-09-30 12:55] VITALS: BP 128/63; TEMP 97.5
--- NOTE | 2019-09-30 14:42 | CON ---
Date of Consultation: 09/30/2019 History Of Present Illness: Mr. Marcus is 84-year-old. I saw him for atrial fibrillation and chest p ain. He has a history of dyslipidemia; diabetes; hypertension; AFib; CAD, status post stent; and tien ign prostatic hypertrophy. He came in with an episode where he got really dizzy, lightheaded after w hich he developed chest pressure that lasted about 10 to 15 minutes. No nausea, vomiting. He had di aphoresis. Denied any PND, orthopnea, pedal edema, palpitations. He was presyncopal. He denied any recent fever or chills. Denied any cough. His chest pain was substernal. It was tight, did not ra diate. It was not exertional, resolved in 10 minutes. Past Medical History: As stated above. Allergies: NONE. Review of Systems: Negative. Social History: Negative. Family History: Negative. Medications: At home include aspirin, Lipitor, Flomax, fenofibrate, glipizide, hydrochlorothiazide, Accupril, and Betapace. Physical Examination: Vital Signs: Stable. He was in atrial fibrillation, rate of 60. He was afebrile. HEENT: Negative. Neck: Supple without any bruit, lymphadenopathy, JVD, or thyromegaly. Chest: Clear to auscultation and percussion. Cardiac: Revealed atrial fibrillation. No murmurs, gallops, or rubs. Abdomen: Benign. Extremities: Revealed no clubbing, cyanosis, or edema. Diagnostic Data: Creatinine is 1.73, hemoglobin 9.4, glucose is 304. Chest x-ray is negative. EKG showed AFib. Impression And Plan: Presyncopal episode with chest pain. I think this is related to hypotension an d decreased heart rate. He remains in atrial fibrillation at a rate of 60 despite Betapace. I am go ing to take him off Betapace, keep him in atrial fibrillation. He is rate controlled. I am going to add Xarelto to his regimen. Certainly, the combination of Flomax and hydrochlorothiazide and Accupr il and Betapace may have been the contributing factor to his symptoms. We will see how he does off B etapace. He has an echocardiogram and a stress test pending, but it is a holiday today and he may go home and I will do those as an outpatient. Recent stress test in the office about a year ago were n egative. He is asymptomatic now. His other problems include dyslipidemia, well controlled diabetes, well controlled high blood pressure, well controlled BPH. He has had a history of coronary artery d isease and stent and we will re-evaluate that soon. As far as I am concerned, he can go home today. IVA/SHARIFA Voice ID: [id number] Report ID: [id number]
--- NOTE | 2019-10-03 13:50 | EKG ---
Test Date: 2019-09-30 Test Time: 10:53:53 Word Processing Supervisor: DRU MEASUREMENT RESULTS: Intervals: Rate: 65 OR: QRSD: 78 QT: 384 QTc: 399 [place]: P: OR: QRS: 2 T: 5 INTERPRETIVE STATEMENTS: Atrial fibrillation Abnormal ECG Compared to ECG 09/29/2019 13:57:50 Left ventricular hypertrophy no longer present Electronically Signed On 10-03-19 13:47:21 [employer] by Elvis Wise
== END 2019-09-30 11:30 | disposition home or self-care (01) ==
LOC: ER 13:36 → ERHOLD 15:47 → 4TH 21:20
PROVIDERS: ADMIT Family Medicine; ATTEND Family Medicine
DX: R42 Dizziness and giddiness (principal); R07.9 Chest pain, unspecified; R00.1 Bradycardia, unspecified; I48.20 Chronic atrial fibrillation, unspecified; N40.0 Benign prostatic hyperplasia without lower urinary tract symptoms; E78.5 Hyperlipidemia, unspecified; E11.65 Type 2 diabetes mellitus with hyperglycemia; I12.9 Hypertensive chronic kidney disease with stage 1 through stage 4 chronic kidney disease, or unspecified chronic kidney disease; E11.22 Type 2 diabetes mellitus with diabetic chronic kidney disease; N18.3 Chronic kidney disease, stage 3 (moderate); D63.1 Anemia in chronic kidney disease
CPT/HCPCS: 93005 ×2; 85025 ×2; 80048 ×2; 36415; 83735; 85610; 80061; 82947 ×3; 80076; 84443; 81003; 84484 ×4; 83880; 71045; 94760; 96375; 96374; 99285; J1650 ×2; J7040; J7030; J2405; G0378 ×3

== ENCOUNTER 2020-06-10 15:29 | Inpatient (IN) | payer OTHER ==
[2020-06-10 16:40] LABS: Absolute Lymphocytes (CBC) 1.1 K/uL (0.7-4.9); Basophils % 0.6 % (0-1.3); Hematocrit 30.8 % (39.6-49.0); Lymphocytes % 14.3 % (15.3-44.8); MPV 10.3 fL (7.6-11.3); RBC Red Blood Cell Count 3.21 M/uL (4.33-5.43)
[2020-06-10 17:00] LABS: Albumin 3.9 g/dL (3.4-5.0); Bilirubin Direct 0.2 mg/dL (0-0.2); Bilirubin Total 0.7 mg/dL (0.2-1.0); Potassium 3.9 mmol/L (3.5-5.1); Protein, Total 6.9 g/dL (6.4-8.2)
[2020-06-10 17:57] LABS: Urine Bacteria NONE SEEN /HPF (NONE SEEN); Urine Culture Reflex Order NOT NEEDED; Urine RBC <5 /HPF (NONE SEEN)
[2020-06-10 17:58] LABS: Urine Blood NEGATIVE (NEG); Urine Glucose 2+ (NEG); Urine Protein NEGATIVE (NEG); Urine pH 5.5 (5.0-7.0)
--- NOTE | 2020-06-10 19:29 | RAD REPORT ---
EXAM DESCRIPTION: CT - Abdomen Pelvis W Contrast - 06/10/2020 7:04 pm CLINICAL HISTORY: appy r/o;Abd pain COMPARISON: CT ABD PELVIS W CONTRAST dated 04/06/2008 TECHNIQUE: Biphasic, helical CT imaging of the abdomen and pelvis was performed following 100 ml non -ionic IV contrast. Oral contrast was given. All CT scans are performed using dose optimization technique as appropriate and may include automated exposure control or mA/KV adjustment according to patient size. FINDINGS: No suspicious findings in the lung bases. Liver shows mild diffuse fatty infiltration. No suspicious liver lesions identifiable. Calcification in the lateral right lobe has not changed. No pancreas or spleen abnormality. Gallbladder is absent. No biliary tree dilatation. Trace amount of pneumobilia in the left lobe biliary radicles. Symmetric renal function is seen with no hydronephrosis or suspicious renal mass. No pyelonephritis o r acute parenchymal process. No bladder abnormalities. No adrenal abnormalities. No prostate gland or seminal vesicle suspicious finding. No gastric dilatation or gastric wall thickening. Very slight thickening of the esophagus at the GE j unction. This could be artifact of peristalsis. Pattern is not substantially different from 2008. No small bowel abnormality. Fatty ileocecal valve is identified. Wall thickening is present at the tip o f the cecum and base of the appendix. The appendix is dilated at 11 mm with no air or contrast in the lumen. There is no periappendiceal inflammatory stranding or abnormal lymph nodes seen. Patient has extensive sigmoid diverticulosis. Sanchez of the sigmoid colon are prominent. This extends into the pro ximal rectum. No adjacent edematous/ inflammatory change. No free air or pneumatosis. No inflammatory stranding changes. No free fluid is seen. No hernia, mas s or bulky lymphadenopathy. Disc and bony degenerative changes are present. IMPRESSION: The appendix is dilated at 11 mm with no air or contrast in the lumen. Tip of the cecum at the appendix base is thickened and irregular. No periappendiceal inflammatory stranding seen. Findings are concerning for early appendicitis. The thickened nodular appearance to the tip of the cecum can be seen with appendicitis but can also b e seen with malignancy of the appendix or cecum. Very pronounced diverticulosis without acute diverticulitis findings. Mild mucosal level diverticulit is can be occult on CT imaging. Fatty infiltration of the liver.
--- NOTE | 2020-06-10 19:56 | EDPHYS ---
Physician Documentation [facility] Name: Fidelia Marcus Jr Age: 85 yrs Sex: Male : 1935 Arrival Date: 06/10/2020 Time: 15:35 Bed 25 Private MD: ED Physician Stefano Locke HPI: 06/10 16:15 This 85 yrs old Male presents to ER via EMS with complaints of RLQ abdominal jr8 pain. 16:15 Pt presents to ED c/o RLQ pain since this AM. The pt states that he developed nausea jr8 and abdominal pain early this morning. He ate his breakfast as usual, but the pain worsened over the day. Pt describes the pain as sharp, non-radiating, and severe. Reports a small amount of diarrhea this morning, but denies any other symptoms at this time. Pt is alert and in no distress.. Historical: - Allergies: 16:04 NKA; ls4 - Home Meds: 16:04 tamsulosin 0.4 mg Oral cp24 1 cap once daily [Active]; Metoprolol Tartrate Oral ls4 [Active]; aspirin 81 mg Oral chew 1 tab once daily [Active]; atorvastatin 20 mg Oral tab 1 tab once daily [Active]; Co Q-10 200 mg Oral cap daily [Active]; dutasteride 0.5 mg Oral cap 1 cap once daily [Active]; glipizide 5 mg Oral tab 1 tab 2 times per day [Active]; hydrochlorothiazide 25 mg Oral tab 1 tab once daily [Active]; krill oil 500 mg Oral cap daily [Active]; metformin 1,000 mg Oral tab 1 tab 2 times per day [Active]; pantoprazole Oral once daily [Active]; quinapril 40 mg Oral tab 1 tab once daily [Active]; sotalol 80 mg Oral tab 0.5 tab 2 times per day [Active]; - PMHx: 16:04 Atrial Fib; Hypertension; BPH; Diabetes - NIDDM; Headaches; High Cholesterol; ls4 - PSHx: 16:04 Cholecystectomy; Heart stents; ls4 - Immunization history:: Adult Immunizations up to date. - Social history:: Smoking status: Patient denies any tobacco usage or history of. Vital Signs: 15:46 BP 149 / 59; Pulse 93; Resp 16; Temp 98.(O); Pulse Ox 95% on R/A; Weight 72.57 kg; ls4 Height 5 ft. 4 in. (162.56 cm); Pain 7/10; 21:47 BP 140 / 66; Pulse 94; Resp 16; Temp 98.0(O); Pulse Ox 99% on R/A; Pain 3/10; ls4 15:46 Body Mass Index 27.46 (72.57 kg, 162.56 cm) ls4 MDM: 15:52 Patient medically screened. [facility] 19:52 Data reviewed: vital signs, nurses notes. Counseling: I had a detailed discussion with elliott the patient and/or guardian regarding: the historical points, exam findings, and any diagnostic results supporting the discharge/admit diagnosis, lab results, radiology results, the need for further work-up and treatment in the hospital. ED course: I discussed the patient with Dr. Estrada whom will consult on admission. I discussed the patient with Hasmukh LEMA whom accepted to Dr. Nery simmons. . 06/10 15:53 Order name: Basic Metabolic Panel; Complete Time: 17:06 [facility] 06/10 15:53 Order name: CBC with Diff; Complete Time: 17:15 [facility] 06/10 15:53 Order name: Hepatic Function; Complete Time: 17:06 [facility] 06/10 15:53 Order name: Lipase; Complete Time: 17:06 [facility] 06/10 15:53 Order name: Urine Microscopic Only; Complete Time: 17:58 [facility] 06/10 17:39 Order name: Urine Dipstick--Ancillary (enter results); Complete Time: 17:58 06/10 20:55 Order name: Urinalysis [facility] 06/10 20:55 Order name: Basic Metabolic Panel [facility] 06/10 20:55 Order name: Basic Metabolic Panel [facility] 06/10 20:55 Order name: CBC with Automated Diff [facility] 06/10 20:55 Order name: CBC with Automated Diff [facility] 06/10 20:55 Order name: Magnesium [facility] 06/10 20:55 Order name: Magnesium [facility] 06/10 20:55 Order name: Protime (+INR) [facility] 06/10 15:53 Order name: IV Saline Lock; Complete Time: 16:12 [facility] 06/10 15:53 Order name: Labs collected and sent; Complete Time: 16:12 [facility] 06/10 16:07 Order name: CT Abd/Pelvis - PO and IV Contrast; Complete Time: 19:32 [facility] 06/10 20:42 Order name: CONS Physician Consult [facility] 06/10 20:55 Order name: CONS Physician Consult [facility] 06/10 20:55 Order name: NPO [facility] 06/10 20:55 Order name: Protime (+INR) [facility] 06/10 20:55 Order name: PTT, Activated Partial Thromb [facility] 06/10 20:55 Order name: PTT, Activated Partial Thromb [facility] 06/10 22:34 Order name: Glucose, Ancillary Testing; Complete Time: 22:56 [facility] 06/10 15:53 Order name: Urine Dipstick-Ancillary (obtain specimen); Complete Time: 17:32 jr Administered Medications: 16:51 Not Given (Patient Refused): morphine 4 mg IVP once; RASS on ADMIN: Combtv4, Very ls4 Agttd3, Agttd2, Rstlss1, AlertClm0, Drwsy-1, Lt Sdtn-2, Mod Sdtn-3, Dp Sdtn-4, UnArsble-5 17:27 Not Given (Patient Refused): Zofran (Ondansetron) 4 mg IVP once; over 2 minutes ls4 17:27 Drug: NS 0.9% 500 ml Route: IV; Rate: bolus; Site: right antecubital; ls4 21:51 Follow up: IV Status: Completed infusion; IV Intake: 100ml ls4 20:22 Drug: Zosyn 3.375 grams Route: IVPB; Infused Over: 60 mins; Site: right antecubital; ls4 20:32 Follow up: IV Status: Completed infusion; IV Intake: 100ml ls4 20:23 Drug: NS 0.9% 1000 ml Route: IV; Rate: 125 ml/hr; Site: right antecubital; ls4 21:50 Follow up: IV Status: Completed infusion; IV Intake: 250ml ls4 Disposition: 06/10/20 19:55 Hospitalization ordered by Ben Gabriel for Inpatient Admission. Preliminary diagnosis is Acute appendicitis. - Bed requested for Telemetry/MedSurg (Inpatient). - Status is Inpatient Admission. sg - Condition is Stable. - Problem is new. - Symptoms are unchanged. Addendum: 06/12/2020 19:29 Co-signature as Attending Physician, Stefano Locke MD. r n Signatures: Dispatcher [employer] [facility] Sagrario Ramirez RN RN Khadar Pearson RN RN Kalen Weathers PA PA jmm Nieto, Roman, MD MD rn Roszak, Josh, PA PA jr8 Natali Alejandre RN RN ls4 Corrections: (The following items were deleted from the chart) 06/10 16:10 16:07 Abdomen Pelvis W Con+CT.RAD.BRZ ordered. [facility] EDNM 21:01 19:55 Hospitalization Ordered by Ben Gabriel for Inpatient Admission. Preliminary diagnosis is Acute appendicitis. Bed requested for Telemetry/MedSurg (Inpatient). Status is Inpatient Admission. Condition is Stable. Problem is new. Symptoms are unchanged. [facility] 22:56 21:01 06/10/2020 19:55 Hospitalization Ordered by Ben Gabriel for Inpatient sg Admission. Preliminary diagnosis is Acute appendicitis. Bed requested for Telemetry/MedSurg (Inpatient). Status is Inpatient Admission. Condition is Stable. Problem is new. Symptoms are unchanged. mw
--- NOTE | 2020-06-10 19:56 | ER ---
Nurse's Notes [facility] Name: Fidelia Marcus Jr Age: 85 yrs Sex: Male : 1935 Arrival Date: 06/10/2020 Time: 15:35 Bed 25 Private MD: Diagnosis: Acute appendicitis Presentation: 06/10 15:46 Chief complaint: EMS states: Called to pt home for "Appendix attack" Pt states he woke ls4 up with it. BGL 385, pt met EMS at door. 200 ml NS and Toradol IV 30 mg administered. Coronavirus screen: At this time, the client does not indicate any symptoms associated with coronavirus-19. Ebola Screen: No symptoms or risks identified at this time. Initial Sepsis Screen: Does the patient meet any 2 criteria? No. Patient's initial sepsis screen is negative. Does the patient have a suspected source of infection? No. Patient's initial sepsis screen is negative. Risk Assessment: Do you want to hurt yourself or someone else? Patient reports no desire to harm self or others. Onset of symptoms was June 10, 2020 at 07:00. 15:46 Method Of Arrival: EMS: [facility] ls4 15:46 Acuity: MIQUEL 3 ls4 Triage Assessment: 16:04 General: Appears in no apparent distress. uncomfortable, Behavior is calm, cooperative. ls4 Pain:. Neuro: No deficits noted. Cardiovascular: Denies chest pain. Respiratory: Airway is patent Respiratory effort is even, unlabored, Respiratory pattern is regular. GI: Bowel sounds present X 4 quads. Abdomen is tender to palpation Reports lower abdominal pain, Patient currently denies vomiting. Historical: - Allergies: 16:04 NKA; ls4 - Home Meds: 16:04 tamsulosin 0.4 mg Oral cp24 1 cap once daily [Active]; Metoprolol Tartrate Oral ls4 [Active]; aspirin 81 mg Oral chew 1 tab once daily [Active]; atorvastatin 20 mg Oral tab 1 tab once daily [Active]; Co Q-10 200 mg Oral cap daily [Active]; dutasteride 0.5 mg Oral cap 1 cap once daily [Active]; glipizide 5 mg Oral tab 1 tab 2 times per day [Active]; hydrochlorothiazide 25 mg Oral tab 1 tab once daily [Active]; krill oil 500 mg Oral cap daily [Active]; metformin 1,000 mg Oral tab 1 tab 2 times per day [Active]; pantoprazole Oral once daily [Active]; quinapril 40 mg Oral tab 1 tab once daily [Active]; sotalol 80 mg Oral tab 0.5 tab 2 times per day [Active]; - PMHx: 16:04 Atrial Fib; Hypertension; BPH; Diabetes - NIDDM; Headaches; High Cholesterol; ls4 - PSHx: 16:04 Cholecystectomy; Heart stents; ls4 - Immunization history:: Adult Immunizations up to date. - Social history:: Smoking status: Patient denies any tobacco usage or history of. Screenin:11 Abuse screen: Denies threats or abuse. Denies injuries from another. Nutritional ls4 screening: No deficits noted. Tuberculosis screening: No symptoms or risk factors identified. Fall Risk None identified. Assessment: 16:52 General: Appears in no apparent distress. Behavior is calm, cooperative. Neuro: No ls4 deficits noted. Respiratory: Denies cough, shortness of breath labored breathing. Musculoskeletal: No deficits noted. No signs and/or symptoms reported regarding the musculoskeletal system. 18:22 Reassessment: Patient appears in no apparent distress at this time. Patient and/or ls4 family updated on plan of care and expected duration. Pain level reassessed. Patient is alert, oriented x 3, equal unlabored respirations, skin warm/dry/pink. Patient denies pain at this time. Patient states feeling better. Patient states symptoms have improved. 19:30 Reassessment: Patient appears in no apparent distress at this time. Patient and/or ls4 family updated on plan of care and expected duration. Pain level reassessed. Patient is alert, oriented x 3, equal unlabored respirations, skin warm/dry/pink. 20:30 Reassessment: Patient appears in no apparent distress at this time. Patient and/or ls4 family updated on plan of care and expected duration. Pain level reassessed. 21:47 Reassessment: Patient appears in no apparent distress at this time. Patient and/or ls4 family updated on plan of care and expected duration. Pain level reassessed. Patient is alert, oriented x 3, equal unlabored respirations, skin warm/dry/pink. Patient states feeling better. Patient states symptoms have improved. 21:48 Reassessment: Called Pt sister Lexy Mart [phone]. ls4 Vital Signs: 15:46 BP 149 / 59; Pulse 93; Resp 16; Temp 98.(O); Pulse Ox 95% on R/A; Weight 72.57 kg; ls4 Height 5 ft. 4 in. (162.56 cm); Pain 7/10; 21:47 BP 140 / 66; Pulse 94; Resp 16; Temp 98.0(O); Pulse Ox 99% on R/A; Pain 3/10; ls4 15:46 Body Mass Index 27.46 (72.57 kg, 162.56 cm) ls4 ED Course: 15:35 Patient arrived in ED. iw 15:35 Patient has correct armband on for positive identification. Placed in gown. Bed in low ls4 position. Call light in reach. Side rails up X 1. conveyor monitor on. Pulse ox on. NIBP on. 15:43 Natali Alejandre, RN is Primary Nurse. ls4 15:51 Triage completed. ls4 15:52 Angel Kessler PA is PHCP. jr8 15:52 Stefano Locke MD is Attending Physician. jr8 16:10 Arm band placed on right wrist. ls4 16:15 Oral contrast given. vm2 16:32 No provider procedures requiring assistance completed. Maintain EMS IV. Dressing ls4 intact. Good blood return noted. Site clean \\T\\ dry. Gauge \\T\\ site: 20 g right ac . 17:39 PHCP role handed off by Angel Kessler PA [facility] 17:39 Kalen Weathers PA is PHCP. [facility] 19:04 CT Abd/Pelvis - PO and IV Contrast In Process Unspecified. EDMS 19:55 Ben Gabriel is Hospitalizing Provider. [facility] Administered Medications: 16:51 Not Given (Patient Refused): morphine 4 mg IVP once; RASS on ADMIN: Combtv4, Very ls4 Agttd3, Agttd2, Rstlss1, AlertClm0, Drwsy-1, Lt Sdtn-2, Mod Sdtn-3, Dp Sdtn-4, UnArsble-5 17:27 Not Given (Patient Refused): Zofran (Ondansetron) 4 mg IVP once; over 2 minutes ls4 17:27 Drug: NS 0.9% 500 ml Route: IV; Rate: bolus; Site: right antecubital; ls4 21:51 Follow up: IV Status: Completed infusion; IV Intake: 100ml ls4 20:22 Drug: Zosyn 3.375 grams Route: IVPB; Infused Over: 60 mins; Site: right antecubital; ls4 20:32 Follow up: IV Status: Completed infusion; IV Intake: 100ml ls4 20:23 Drug: NS 0.9% 1000 ml Route: IV; Rate: 125 ml/hr; Site: right antecubital; ls4 21:50 Follow up: IV Status: Completed infusion; IV Intake: 250ml ls4 Intake: 20:32 IV: 100ml; Total: 100ml. ls4 21:50 IV: 250ml; Total: 350ml. ls4 21:51 IV: 100ml; Total: 450ml. ls4 Outcome: 19:55 Decision to Hospitalize by Provider. [facility] 21:49 Admitted to Med/surg Report called to zack ls4 21:49 Condition: good 22:56 Patient left the ED. sg Signatures: Dispatcher [employer] EDKhadar Argueta RN RN sg Mickail, Joel, PA PA jmm Williams, Irene, RN RN Angel Kessler PA PA jr8 McGuire, Victoria [facility] Natali Alejandre RN RN 4 Corrections: (The following items were deleted from the chart) 22:27 21:49 Admitted to Med/surg 4 ls4
[2020-06-10] MEDS ORDERED: PIPER/TAZO/NS 3.375gm 3.375 GM/100 ML BAG ONE (20:22)
[2020-06-10] MEDS ORDERED: ACETAMINOPHEN 500 MG TAB PO PRN ×2 (20:50→21:57)
--- NOTE | 2020-06-10 21:01 | P.HP ---
Certification for Inpatient With expected LOS: >2 Midnights Patient will require the following post-hospital care: None Practitioner: I am a practitioner with admitting privileges, knowledge of patient current condition, hospital course, and medical plan of care. Services: Services provided to patient in accordance with Admission requirements found in Title 42 Section 412.3 of the Code of Federal Regulations <SaundrasilverionhanHasmukh - Last Filed: 06/10/20 20:55> Patient History Date of Service: 06/10/20 Primary Care Provider: Dr Hernández Reason for admission: Acute appendicitis History of Present Illness: 84-year-old male with a past medical history of type 2 diabetes mellitus, chronic atrial fibrillation only taking aspirin daily, essential hypertension, BPH, and hyperlipidemia presents to the emergency room complaining of right lower quadrant pain. Patient states that this morning he woke up with some right lower quadrant discomfort. States he ate breakfast and the right lower quadrant pain continued and progressively worsened. In the emergency room patient's CT abdomen pelvis shows a dilated appendix of 11 mm, a thickened and irregular tip indicating possible early appendicitis. Surgery was consulted Dr. Estrada and patient will likely undergo appendectomy tomorrow. Patient sees assessment director Dr. Wise for his chronic atrial fibrillation. Patient is also noted to have a creatinine level of 1.4, BUN of 35, GFR 45. An is estimated creatinine clearance of 41. Patient started on IV Zosyn per surgery recommendations. On physical exam patient is alert and oriented x3, calm and cooperative. He is in no distress. Tender to palpation in the right lower quadrant. Patient will be admitted and further evaluated. Home medications list reviewed: No - Past Medical/Surgical History Diabetic: Yes -: NIDDM -: Vertigo -: High Cholesterol -: HTN -: Cataracts -: AFIB -: Hyperlipidemia -: BPH -: Benign colon tumor removed -: Disc Surgery -: Heart Stent -: Cholecystectomy -: Basal cell carcinoma excision from the nose. Psychosocial/ Personal History: - Family History Father -: Heart disease Notes: of heart attack Mother -: Cancer Notes: cervical - Social History Smoking Status: Never smoker Alcohol use: No CD- Drugs: No Caffeine use: No Place of Residence: Home <Hasmukh Ken - Last Filed: 06/10/20 20:55> Date of Service: 06/11/20 <thang rodriguez - Last Filed: 06/11/20 16:14> Allergies No Known Allergies Allergy (Verified 06/10/20 22:55) Review of Systems General: As per HPI Eyes: Unremarkable ENT: Unremarkable Respiratory: Unremarkable Cardiovascular: Unremarkable Gastrointestinal: Abdominal Pain, As per HPI Genitourinary: Unremarkable Musculoskeletal: Unremarkable Integumentary: Unremarkable Neurological: Unremarkable Lymphatics: Unremarkable <Hasmukh Ken - Last Filed: 06/10/20 20:55> Physical Examination - Vital Signs Temperature: 98 F Blood Pressure: 149/59 Pulse: 93 Respirations: 16 Pulse Ox (%): 95 (RA) - Physical Exam General: Alert, In no apparent distress, Oriented x3 HEENT: Atraumatic, Normocephalic, PERRLA, Mucous membr. moist/pink Neck: Supple, No Thyromegaly, Other (Trachea midline) Respiratory: Clear to auscultation bilaterally, Diminished Cardiovascular: No edema, Normal pulses, Regular rate/rhythm, Normal S1 S2 Gastrointestinal: Normal bowel sounds, Non-distended, Tenderness, Guarding (Mild) Musculoskeletal: No clubbing, No swelling, No contractures, No erythema Integumentary: No rashes, No breakdown, No significant lesion, No tenderness/swelling Neurological: Normal gait, Normal speech, Normal strength at 5/5 x4 extr, Normal tone - Studies Laboratory Data (last 24 hrs) 06/10/20 16:23: WBC 7.4, Hgb 10.9 L, Hct 30.8 L, Plt Count 182 06/10/20 16:23: Sodium 137, Potassium 3.9, BUN 35 H, Creatinine 1.49 H, Glucose 318 H, Total Bilirubin 0.7, AST 25, ALT 27, Alkaline Phosphatase 90, Lipase 56 L <Hasmukh Ken - Last Filed: 06/10/20 20:55> - Studies Laboratory Data (last 24 hrs) 06/10/20 16:23: WBC 7.4, Hgb 10.9 L, Hct 30.8 L, Plt Count 182 06/10/20 16:23: Sodium 137, Potassium 3.9, BUN 35 H, Creatinine 1.49 H, Glucose 318 H, Total Bilirubin 0.7, AST 25, ALT 27, Alkaline Phosphatase 90, Lipase 56 L <thang rodriguez - Last Filed: 06/11/20 16:14> Assessment and Plan - Plan Impression: Acute appendicitis: History of chronic atrial fibrillation on aspirin anticoagulation only: Chronic kidney disease: Essential hypertension: Type 2 diabetes mellitus: Plan: Acute appendicitis: CT abdomen pelvis showing likely appendicitis. Surgery consulted . Will keep patient NPO after midnight. Will start gentle IV hydration. Surgery recommending IV Zosyn. Patient's creatinine clearance is 41. Will base antibiotic dosage on creatinine clearance/renal function. Surgery recommending cardiology consult for clearance. Patient sees . Consult in place. Will place on continuous telemetry. History of chronic atrial fibrillation on aspirin anticoagulation only: Patient does not take anticoagulation other than 1 aspirin a day. Patient had is aspirin this morning. Chronic kidney disease: At baseline. Monitor daily labs. Essential hypertension: Stable. Will resume all medications once verified. Type 2 diabetes mellitus: Will start Accu-Cheks a.c. HS. Insulin sliding scale. Monitor blood glucose. Discharge Plan: Home Plan to discharge in: Greater than 2 days - Advance Directives Does patient have a Living Will: Yes Does patient have a Durable POA for Healthcare: Yes - Code Status/Comfort Care Code Status Assessed: Yes Time Spent Managing Pts Care (In Minutes): 55 <Hasmukh Ken - Last Filed: 06/10/20 20:55> Physician Review: Patient Assessed, Agree with Above Assessment and Plan Physician Review Additional Text: Suspected acute appendicitis. History of coronary artery disease and atrial fibrillation. Plan: IV antibiotics. General surgery consult. Patient planned for laparoscopy today. Echocardiogram Cardiology consult. <thang rodriguez - Last Filed: 06/11/20 16:14>
[2020-06-10] MEDS ORDERED: INSULIN -REGULAR HUMAN 50 UNIT/0.5 ML ML SQ SCH (21:57)
[2020-06-10] MEDS ORDERED: NA CHLORIDE 0.9% 1,000 ML IV SCH (21:57)
[2020-06-10] MEDS: INSULIN -REGULAR HUMAN 50 UNIT/0.5 ML ML SQ SCH (22:29)
[2020-06-10] MEDS: NA CHLORIDE 0.9% 1,000 ML IV SCH (22:30)
[2020-06-10 22:53] VITALS: BMI 27.8
[2020-06-11] MEDS: HEPARIN 5000 UNIT/ML 1 ML VIAL SQ SCH ×3 (01:00→17:00)
[2020-06-11] MEDS ORDERED: HEPARIN 5000 UNIT/ML 1 ML VIAL SQ SCH (01:00)
[2020-06-11 06:00] LABS: Basophils % 0.4 % (0-1.3); Hematocrit 26.7 % (39.6-49.0); Lymphocytes % 14.5 % (15.3-44.8); MPV 9.8 fL (7.6-11.3); RBC Red Blood Cell Count 2.86 M/uL (4.33-5.43)
[2020-06-11] MEDS ORDERED: PIPER/TAZO/NS 3.375gm 3.375 GM/100 ML BAG IVPB SCH ×2 (06:00→17:00)
[2020-06-11 06:02] LABS: Protime INR 1.07
[2020-06-11 06:08] LABS: Magnesium 1.9 mg/dL (1.8-2.4); Potassium 3.4 mmol/L (3.5-5.1)
[2020-06-11] MEDS: NA CHLORIDE 0.9% 1,000 ML IV SCH ×2 (06:45→17:26)
[2020-06-11] MEDS ORDERED: PIPER/TAZO/NS 3.375gm 3.375 GM/100 ML BAG ONE (06:49)
[2020-06-11] MEDS: INSULIN -REGULAR HUMAN 50 UNIT/0.5 ML ML SQ SCH ×4 (07:30→21:07)
[2020-06-11] MEDS ORDERED: MORPHINE 2 MG/ML SYR IV PRN (08:19)
[2020-06-11] MEDS: KCL 20 MEQ/100 mL IVPB 20 MEQ/100 ML BAG IV SCH ×2 (08:44→18:26)
--- NOTE | 2020-06-11 10:53 | PREOPCON ---
Date of Consultation: 06/10/2020 Reason: Abdominal pain. History Of Present Illness: Patient is an 85-year-old gentleman who presented to the emergency room with a 1-day history of right lower quadrant abdominal pain. It was associated with nausea. No vomi ting. No constipation. One episode of diarrhea. No blood in his stool. No dysuria or hematuria. No sore throat, runny nose, cough, headaches, or dizziness. No chest pain. No fever or chills. The patient had a colonoscopy about 2-1/2 years ago which was negative. Review of Systems: Otherwise unremarkable. Past Medical History: Significant for atrial fibrillation, hypertension, BPH, diabetes type 2, high cholesterol. Past Surgical History: Cholecystectomy, excision of a benign tumor in the right lower quadrant, hear t stents. Allergies: NONE. Social History: He does not smoke. Does not drink. Family History: Noncontributory. Physical Examination: Vital Signs: Stable. He is afebrile. General: He is awake, alert, oriented x3. Head and Neck: Cranial nerves 2 through 12 grossly within normal limits. No neck masses. No JVD. Throat clear. Neck is supple. Chest: Clear. Heart: S1, S2. Abdomen: Soft. Positive Rovsing sign. Positive right lower quadrant tenderness with rebound. No r igidity or guarding. No abdominal wall hernia appreciated. Extremities: Adequately perfused. Nontender. Neuro: Nonfocal. Laboratory Data: White count was 7.4, with a left shift. Slightly better today. INR 1.07. Electro lytes reviewed. CT of the abdomen and pelvis reviewed with the radiologist which is consistent with acute appendicitis. However, there is some irregularity in the cecum near the base of the appendix, is thickened and irregular but the patient does have acute appendicitis. Assessment: Acute appendicitis. Plan: N.p.o., IV fluid, IV antibiotic, to the OR for laparoscopic appendectomy, possible open. The patient understands the risks, benefits, and alternatives and agrees to procedure. Please note, afte r he recovers from surgery, he probably should get another colonoscopy to make sure that area is noth ing to worry about. It is probably secondary to the inflammation. /ADONISL Voice ID: [id number] Report ID: [id number]
--- NOTE | 2020-06-11 11:27 | P.PN ---
Subjective Date of Service: 06/11/20 Primary Care Provider: Dr Hernández Chief Complaint: Acute appendicitis Patient complaining of abdominal pain when I saw him this morning. Physical Examination - Vital Signs Temperature: 96.9 F Blood Pressure: 140/61 Pulse: 94 Respirations: 15 Pulse Ox (%): 140 - Physical Exam General: Alert, In no apparent distress, Oriented x3 HEENT: Mucous membr. moist/pink Neck: Supple Respiratory: Clear to auscultation bilaterally, Normal air movement Cardiovascular: No edema, Regular rate/rhythm, Normal S1 S2 Gastrointestinal: Normal bowel sounds, Non-distended, Tenderness (Diffuse) Musculoskeletal: No swelling - Studies Laboratory Data (last 24 hrs) 06/10/20 16:23: WBC 7.4, Hgb 10.9 L, Hct 30.8 L, Plt Count 182 06/10/20 16:23: Sodium 137, Potassium 3.9, BUN 35 H, Creatinine 1.49 H, Glucose 318 H, Total Bilirubin 0.7, AST 25, ALT 27, Alkaline Phosphatase 90, Lipase 56 L Assessment And Plan - Current Problems (Diagnosis) (1) Abdominal pain Current Visit: Yes Status: Acute (2) Coronary artery disease Current Visit: Yes Status: Acute (3) Atrial fibrillation Onset Date: 09/18/16 Current Visit: No Status: Chronic Qualifiers: Atrial fibrillation type: chronic (4) Diabetes mellitus Onset Date: 09/08/16 Current Visit: No Status: Chronic Qualifiers: Diabetes mellitus type: type 2 Diabetes mellitus custodial insulin use: without superintendent [employer] use Diabetes mellitus complication status: without complication Qualified Code(s): E11.9 - Type 2 diabetes mellitus without complications - Plan Echocardiogram is unremarkable. CAD appears stable. AFib under reasonable control. Laparoscopy performed. Patient noted to have suppurative appendicitis which was removed. Continue IV Zosyn Pain management as needed.
--- NOTE | 2020-06-11 11:40 | ECHO ---
HEIGHT: 5 ft 4 in WEIGHT: 162 lb 8 oz DATE OF STUDY: 06/11/[address]: thang rodriguez 2-DIMENSIONAL: YES M.MODE: YES DOPPLER: YES COLOR FLOW: YES TDS: NO PORTABLE: NO DEFINITY: NO BUBBLE STUDY: NO DIAGNOSIS: SURGICAL CLEARANCE CARDIAC HISTORY: CATHERIZATION: SURGERY: PROSTHETIC VALVE: PACEMAKER: MEASUREMENTS (cm) DIASTOLIC (NORMALS) SYSTOLIC (NORMALS) IVSd 1.0 (0.6-1.2) LA Diam 3.7 (1.9-4.0) LVEF 79% LVIDd 4.3 (3.5-5.7) LVIDs 2.2 (2.0-3.5) %FS 48% LVPWd 1.1 (0.6-1.2) Ao Diam 2.2 (2.0-3.7) 2 DIMENSIONAL ASSESSMENT: RIGHT ATRIUM: NORMAL LEFT ATRIUM: NORMAL RIGHT VENTRICLE: NORMAL LEFT VENTRICLE: NORMAL TRICUSPID VALVE: NORMAL MITRAL VALVE: MITRAL ANNULAR CALCIFICATION PULMONIC VALVE: NORMAL AORTIC VALVE: NORMAL PERICARDIAL EFFUSION: NONE AORTIC ROOT: NORMAL LEFT VENTRICULAR WALL MOTION: NORMAL. DOPPLER/COLOR FLOW: MILD TRICUSPID REGURGITATION - NORMAL RIGHT VENTRICULAR SYSTOLIC PRESSURE. COMMENTS: NORMAL LEFT VENTRICULAR SYSTOLIC PRESSURE - MILD TRICUSPID REGURGITATION. MITRAL ANNULAR CALCIFICATION. NORMAL LEFT VENTRICULAR SIZE AND FUNCTION. EJECTION FRACTION 79%. TECHNOLOGIST: TREASURE ARCHULETA
[2020-06-11] MEDS ORDERED: FENTANYL CITR 100 MCG/2 ML ONE ×3 (12:18→15:19)
[2020-06-11] MEDS ORDERED: propofoL 200 MG/20 ML VIAL IV ONE ×2 (12:19→14:32)
[2020-06-11] MEDS ORDERED: LIDOCAINE 2% MPF 5 ML VIAL ONE ×2 (12:20→14:33)
[2020-06-11] MEDS ORDERED: ROCURONIUM 50 MG/5 ML VIAL IV ONE ×2 (12:20→14:32)
[2020-06-11] MEDS ORDERED: ONDANSETRON 4 MG/2 ML VIAL ONE ×2 (12:20→14:33)
[2020-06-11] MEDS: PIPER/TAZO/NS 3.375gm 3.375 GM/100 ML BAG IVPB SCH ×2 (12:30→17:22)
--- NOTE | 2020-06-11 15:31 | P.OP ---
Car Carder: Adilia MENDES Preoperative diagnosis: Acute appendicitis Postoperative diagnosis: Acute suppurative appendicitis Primary procedure: Lap Appy Anesthesia: General Estimated blood loss: min Specimen: Appy Findings: as above Complications: None Transferred to: Recovery Room Condition: Good
[2020-06-11] MEDS ORDERED: GLYCOPYRROLATE 0.2 MG/ML SYR ONE (15:34)
[2020-06-11] MEDS ORDERED: NEOSTIGMINE 1 MG/ML -5 ML ONE (15:35)
[2020-06-11] MEDS ORDERED: ONDANSETRON 4 MG/2 ML VIAL IV PRN (16:06)
--- NOTE | 2020-06-11 16:14 | OP ---
Date of Procedure: 06/11/2020 Surgeon: Nick Estrada MD Embalmer Apprentice: VAUGHN Sosa. Preoperative Diagnosis: Acute appendicitis. Postoperative Diagnosis: Acute suppurative appendicitis. Procedure Performed: Laparoscopic appendectomy. Estimated Blood Loss: Minimal. Specimen: Appendix. Finding: As above. Anesthesia: General. Complications: None. Disposition: The patient tolerated procedure in stable condition, taken to Recovery in good general condition. Description Of Procedure: The patient was brought to the OR and placed in supine position. General anesthesia was begun. Patient was prepped and draped in usual sterile fashion. Marcaine 0.5% was in filtrated locally. A 15-blade was used to make a 1 cm supraumbilical midline incision. Subcutaneous tissue was divided. Fascia was identified and divided. #1 Vicryl stay suture was placed. Peritone al cavity was entered with sharp and blunt dissection. 12 mm trocar was placed into the peritoneal c avity under direct vision. Pneumoperitoneum was established and then two 5 trocars were placed, 1 in the suprapubic region, 1 in the left lower quadrant. Laparoscopy reveals some purulence in the pelv is and right lower quadrant. This was aspirated. Pelvis was irrigated thoroughly and all purulence was evacuated, was kind of a yellowish color fluid. The terminal ileum was encased in some scar tiss ue, which was as well as the right colon, which the ligature was used to free from the kristie toneal surface and then the appendix was identified and was acutely inflamed with more purulence arou nd it consistent with suppurative appendicitis. This was irrigated and aspirated and then the base o f the appendix. Cecum was clearly identified. Endo-JORGE ALBERTO stapling device was used in a sequential fas hion to divide both structures. Appendix was retrieved through the umbilicus via an EndoCatch bag. Right lower quadrant, pelvis thoroughly irrigated. No evidence of bleeding or bowel injury appreciat ed. All purulence was evacuated. abscess cavity was seen. So therefore no drain was req uired and then all trocars were removed under direct vision. Stay sutures were tied to each other to reapproximate the fascial defect. Subcutaneous wounds were irrigated. Bleeding was controlled with cautery. 3-0 chromic was used to approximate the subcutaneous tissue. Staple was used to close ski n. Sterile dressing was applied. Patient was awakened and taken to Recovery in good general conditi on. /MODL Voice ID: [id number] Report ID: [id number]
[2020-06-11] MEDS ORDERED: KCL 20 MEQ/100 mL IVPB 20 MEQ/100 ML BAG IV SCH (18:00)
[2020-06-12] MEDS: PIPER/TAZO/NS 3.375gm 3.375 GM/100 ML BAG IVPB SCH ×3 (00:38→17:20)
[2020-06-12] MEDS: HEPARIN 5000 UNIT/ML 1 ML VIAL SQ SCH ×3 (00:40→17:23)
--- NOTE | 2020-06-12 03:24 | CON ---
Date of Consultation: 06/11/2020 Reason For Cardiac Consultation: Cardiac clearance for appendicitis, abdominal pain, surgery. History Of Present Illness: Mr. Marcus is an 85-year-old white male who is very well known to us from previous office visits and admissions. He has a past medical history of atrial fibrillation, hypert ension, diabetes, dyslipidemia, and benign prostatic hypertrophy. He has a history of coronary arter y disease, status post stents. He is status post cholecystectomy. Came in with nausea, abdominal pa in and was found to have severe suppurative appendicitis and we were asked to clear him rather emerge ntly for surgery. Before I saw Mr. Marcus, an echocardiogram was done showing normal ejection fractio n with mild tricuspid regurgitation, mild annular calcification with an ejection fraction of 79%. He denied any chest pain or cardiac symptoms. He denied any CHF symptoms. Past Medical History: As stated above. Allergies: NONE. Review of Systems: Negative. Social History: Negative. Family History: Noncontributory. Medications: At home were multiple and they include Flomax, metoprolol, Lipitor, glipizide, hydrochl orothiazide, metformin, Protonix, quinapril, and sotalol 80 mg, he takes a half tablet twice a day. Physical Examination: Vital Signs: Blood pressure is 149/59 with a pulse of 93, respiratory rate was 16. He was afebrile, O2 saturation was 95% on room air. He weighed 73 kg. General: He was in moderate abdominal pain and distress. HEENT: Negative. Neck: Supple, with no bruit. Chest: Clear. Cardiac: Revealed a regular rhythm and rate without any murmurs, gallops, or rubs. ABDOMEN: Tender in the right lower quadrant and diffusely with positive bowel sounds. EXTREMITIES: Revealed no clubbing, cyanosis, or edema. Diagnostic Data: Revealed a glucose of 218. His creatinine was 1.37. Hemoglobin was 10.9. His whi te count was 7. PT and INR were normal. Potassium was 3.9. His EKG was nonspecific. Chest x-ray w as unremarkable. Impression And Plan: Acute suppurative appendicitis in the patient with a history of atrial fibrilla tion, coronary artery disease, hypertension, and dyslipidemia. He has no symptoms related to his car diac status, denied congestive heart failure, denied coronary artery disease kind of symptoms. Echoc ardiogram is normal. His EKG is normal and he is in normal sinus rhythm. His troponin is negative. The patient has had a stress test in my office recently that was unremarkable. We will go ahead and clear him for surgery and we will follow him postoperatively. The patient has had a history of atri al fibrillation, he is in sinus rhythm, on sotalol and aspirin. He is not on any anticoagulants, so we do not have to worry about holding that at least for now. IVA/SHARIFA Voice ID: [id number] Report ID: [id number]
[2020-06-12 05:48] LABS: Magnesium 1.9 mg/dL (1.8-2.4); Phosphorus 1.9 mg/dL (2.5-4.9); Potassium 3.6 mmol/L (3.5-5.1)
[2020-06-12 05:49] LABS: Absolute Lymphocytes (CBC) 0.8 K/uL (0.7-4.9); Basophils % 0.1 % (0-1.3); Hematocrit 27.8 % (39.6-49.0); Lymphocytes % 9.8 % (15.3-44.8); MPV 9.8 fL (7.6-11.3); RBC Red Blood Cell Count 2.94 M/uL (4.33-5.43)
[2020-06-12] MEDS: INSULIN -REGULAR HUMAN 50 UNIT/0.5 ML ML SQ SCH ×4 (07:30→20:58)
[2020-06-12] MEDS ORDERED: POTASSIUM 25 MEQ EFFERV TAB PO ONE (09:00)
[2020-06-12] MEDS: NA CHLORIDE 0.9% 1,000 ML IV SCH ×3 (10:18→23:00)
[2020-06-12] MEDS: HYDROCODONE/APAP 7.5/325 MG TAB PO PRN (10:30)
--- NOTE | 2020-06-12 10:30 | PN ---
Date of Progress Note: 06/12/2020 Subjective: The patient is awake, alert, tolerating clear liquids. Vitals are stable, afebrile. White count is normal. Abdomen is benign. Assessment: Status post laparoscopic appendectomy for acute suppurative appendicitis. Plan: Continue IV antibiotics. Slowly advance diet. Encourage ambulation and incentive spirometry. Hopefully home in 24-48. /MODL Voice ID: [id number] Report ID: [id number]
--- NOTE | 2020-06-12 10:43 | P.PN ---
Subjective Date of Service: 06/12/20 Primary Care Provider: Dr Hernández Chief Complaint: Acute appendicitis Patient is complaining of abdominal pain this morning and rates his pain at 8/10. He is passing gas but no bowel movement yet. Patient found to have suppurative appendicitis intra-op. He has been afebrile. Patient is not tolerating clear liquid diet at the moment. Physical Examination - Vital Signs Temperature: 97.7 F Blood Pressure: 140/63 Pulse: 84 Respirations: 16 Pulse Ox (%): 97 - Physical Exam General: Alert, Moderate distress (due to pain) HEENT: Mucous membr. moist/pink Neck: Supple, JVD not distended Respiratory: Clear to auscultation bilaterally, Normal air movement Cardiovascular: No edema, Regular rate/rhythm, Normal S1 S2 Gastrointestinal: Normal bowel sounds, Tenderness (Lower abdomen), Guarding (lower abdomen) Musculoskeletal: No swelling Neurological: Normal strength at 5/5 x4 extr Assessment And Plan - Current Problems (Diagnosis) (1) Acute appendicitis with localized peritonitis Current Visit: Yes Status: Acute (2) Abdominal pain Current Visit: Yes Status: Acute (3) Coronary artery disease Current Visit: Yes Status: Acute (4) Atrial fibrillation Onset Date: 09/18/16 Current Visit: No Status: Chronic Qualifiers: Atrial fibrillation type: chronic (5) Diabetes mellitus Onset Date: 09/08/16 Current Visit: No Status: Chronic Qualifiers: Diabetes mellitus type: type 2 Diabetes mellitus senior care insulin use: without senior care use Diabetes mellitus complication status: without complication Qualified Code(s): E11.9 - Type 2 diabetes mellitus without complications - Plan Status post laparoscopic appendectomy. Suppurative appendicitis with pus in the peritoneum noted intra-op. Continue IV Zosyn. Discontinue clear liquid diet, keep patient NPO for now IV opioids for pain management. IV fluid maintenance. General surgery to follow. Echocardiogram is unremarkable. AFib under reasonable control. Physician Review: Patient Assessed, Agree with Above Assessment and Plan
--- NOTE | 2020-06-12 18:44 | PN ---
Date of Progress Note: 06/12/2020 Mr. Marcus was seen initially for cardiac clearance prior to surgery for appendicitis. He has a histo ry of atrial fibrillation, CAD, hypertension, and dyslipidemia. He was cleared for surgery. He has remained in sinus rhythm on sotalol for his atrial fibrillation. He is only on a baby aspirin. He h as done well postoperatively. Today, his vital signs were stable. He was afebrile. His glucose is 190. His saturation is 98% on 2 L of nasal cannula. His last creatinine is 1.16. Last hemoglobin w as 9.7 with a normal white count of 8.1. No hemodynamic compromise. No evidence of CHF or CAD. No arrhythmia. I will sign off his case for now. I will see him in the office in the next 2 to 3 weeks . Continue his present regimen. IVA/SHARIFA Voice ID: [id number] Report ID: [id number]
[2020-06-12] MEDS ORDERED: ACETAMINOPHEN 500 MG TAB PO PRN (20:41)
[2020-06-13] MEDS: PIPER/TAZO/NS 3.375gm 3.375 GM/100 ML BAG IVPB SCH ×3 (00:59→16:34)
[2020-06-13] MEDS: HEPARIN 5000 UNIT/ML 1 ML VIAL SQ SCH ×3 (00:59→16:34)
[2020-06-13] MEDS: NA CHLORIDE 0.9% 1,000 ML IV SCH ×3 (05:03→17:17)
[2020-06-13 06:15] LABS: Potassium 3.6 mmol/L (3.5-5.1)
[2020-06-13] MEDS: INSULIN -REGULAR HUMAN 50 UNIT/0.5 ML ML SQ SCH ×4 (07:30→20:58)
[2020-06-13] MEDS: HYDROMORPHONE HCL 1 MG/ML INJ IV PRN (08:43)
[2020-06-13] MEDS ORDERED: POTASSIUM CL SA 10 MEQ TAB PO ONE (09:00)
--- NOTE | 2020-06-13 10:44 | P.PN ---
Subjective Date of Service: 06/13/20 Primary Care Provider: Dr Hernández Chief Complaint: Acute appendicitis Patient is complaining of significant abdominal pain. He is passing gas and had a small bowel movement last night. He has been afebrile. Physical Examination - Vital Signs Temperature: 98.1 F Blood Pressure: 148/76 Pulse: 93 Respirations: 18 Pulse Ox (%): 98 - Physical Exam General: In no apparent distress HEENT: Mucous membr. moist/pink Respiratory: Clear to auscultation bilaterally, Normal air movement Cardiovascular: No edema, Normal S1 S2, Irregular heart rate/rhythm Gastrointestinal: Normal bowel sounds, Distended (Mild) Musculoskeletal: No swelling Assessment And Plan - Current Problems (Diagnosis) (1) Acute appendicitis with localized peritonitis Current Visit: Yes Status: Acute (2) Abdominal pain Current Visit: Yes Status: Acute (3) Coronary artery disease Current Visit: Yes Status: Acute (4) Atrial fibrillation Onset Date: 09/18/16 Current Visit: No Status: Chronic Qualifiers: Atrial fibrillation type: chronic (5) Diabetes mellitus Onset Date: 09/08/16 Current Visit: No Status: Chronic Qualifiers: Diabetes mellitus type: type 2 Diabetes mellitus custodial insulin use: without manager long term care use Diabetes mellitus complication status: without complication Qualified Code(s): E11.9 - Type 2 diabetes mellitus without complications - Plan Continue IV Zosyn and IV opioids Patient currently NPO IV fluid maintenance. General surgery to follow. Echocardiogram is unremarkable. AFib under reasonable control. Physician Review: Patient Assessed, Agree with Above Assessment and Plan Physician Review Additional Text: Suspected acute appendicitis. History of coronary artery disease and atrial fibrillation. Plan: IV antibiotics. General surgery consult. Patient planned for laparoscopy today. Echocardiogram Cardiology consult.
[2020-06-13] MEDS ORDERED: NA CHLORIDE 0.9% 1,000 ML IV SCH (17:00)
[2020-06-13] MEDS: HYDROCODONE/APAP 7.5/325 MG TAB PO PRN (20:59)
[2020-06-13] MEDS ORDERED: HYDRALAZINE HCL 20 MG/ML VIAL IV PRN (21:41)
[2020-06-14] MEDS: HEPARIN 5000 UNIT/ML 1 ML VIAL SQ SCH ×3 (00:21→16:32)
[2020-06-14] MEDS: PIPER/TAZO/NS 3.375gm 3.375 GM/100 ML BAG IVPB SCH ×3 (00:21→16:33)
[2020-06-14] MEDS: HYDROCODONE/APAP 7.5/325 MG TAB PO PRN ×2 (03:53→20:21)
[2020-06-14] MEDS: HYDROMORPHONE HCL 1 MG/ML INJ IV PRN (05:56)
[2020-06-14 06:07] LABS: Absolute Lymphocytes (CBC) 0.8 K/uL (0.7-4.9); Basophils % 0.6 % (0-1.3); Lymphocytes % 17.2 % (15.3-44.8); MPV 9.8 fL (7.6-11.3); RBC Red Blood Cell Count 2.69 M/uL (4.33-5.43)
[2020-06-14 06:22] LABS: Potassium 3.5 mmol/L (3.5-5.1)
--- NOTE | 2020-06-14 06:32 | PN ---
Date of Progress Note: 06/13/2020 Subjective: The patient is awake, alert, complaining of some diffuse abdominal pain. No nausea or v omiting. Tolerating a little bit of his diet, ambulating pain, had a small bowel movement. Objective: Vital signs were stable. He is afebrile. Laboratory Data: His white count yesterday was normal. Assessment: Status post laparoscopic appendectomy for acute suppurative appendicitis and there may h ave been a small area, which was necrosed in the appendix, so cannot rule out perforation at this ladan e. Recommendations: Continue IV antibiotics. Encourage ambulation. Advance diet. Parenteral pain man agement. Hopefully discharge in 24 to 48 hours. /MODL Voice ID: [id number] Report ID: [id number]
[2020-06-14] MEDS: INSULIN -REGULAR HUMAN 50 UNIT/0.5 ML ML SQ SCH ×4 (08:53→20:38)
[2020-06-14] MEDS: lisinopriL 20 MG TAB PO SCH (08:54)
[2020-06-14] MEDS: FENOFIBRATE 160 MG TAB PO SCH (08:54)
[2020-06-14] MEDS: PANTOPRAZOLE 40MG TABLET PO SCH (08:54)
[2020-06-14] MEDS: ATORVASTATIN 20 MG TAB PO SCH (08:55)
[2020-06-14] MEDS: PARoxetine HCL 10 MG TAB PO SCH (08:55)
[2020-06-14] MEDS ORDERED: POTASSIUM CL SA 10 MEQ TAB PO ONE (09:00)
[2020-06-14] MEDS: DUTASTERIDE 0.5 MG GEL CAP PO SCH (10:43)
--- NOTE | 2020-06-14 13:50 | P.PN ---
Subjective Date of Service: 06/14/20 Primary Care Provider: Dr Hernández Chief Complaint: Acute appendicitis Patient still complaining of abdominal pain. He is passing gas and had a small bowel movement last night. His abdomen is a bit distended. He stated he is passing a lot of gas. Physical Examination - Vital Signs Temperature: 97.2 F Blood Pressure: 141/65 Pulse: 83 Respirations: 18 Pulse Ox (%): 95 - Physical Exam General: Alert, In no apparent distress HEENT: Mucous membr. moist/pink Respiratory: Clear to auscultation bilaterally, Normal air movement Cardiovascular: No edema, Normal S1 S2, Irregular heart rate/rhythm Gastrointestinal: Normal bowel sounds, Distended (Mild), Tenderness (Diffuse) Musculoskeletal: No swelling Integumentary: No rashes Neurological: Other (Nonfocal) Assessment And Plan - Current Problems (Diagnosis) (1) Acute appendicitis with localized peritonitis Current Visit: Yes Status: Acute (2) Abdominal pain Current Visit: Yes Status: Acute (3) Coronary artery disease Current Visit: Yes Status: Acute (4) Atrial fibrillation Onset Date: 09/18/16 Current Visit: No Status: Chronic Qualifiers: Atrial fibrillation type: chronic (5) Diabetes mellitus Onset Date: 09/08/16 Current Visit: No Status: Chronic Qualifiers: Diabetes mellitus type: type 2 Diabetes mellitus fpc insulin use: without computer terminal operator use Diabetes mellitus complication status: without complication Qualified Code(s): E11.9 - Type 2 diabetes mellitus without complications - Plan Continue IV Zosyn Pain management. Liquid diet. IV fluid maintenance. General surgery is following. Patient encouraged to increase activity level by moving around more. Echocardiogram is unremarkable. AFib under reasonable control. Physician Review: Patient Assessed, Agree with Above Assessment and Plan Physician Review Additional Text: Suspected acute appendicitis. History of coronary artery disease and atrial fibrillation. Plan: IV antibiotics. General surgery consult. Patient planned for laparoscopy today. Echocardiogram Cardiology consult.
[2020-06-14 23:42] VITALS: O2SAT 96
[2020-06-15] MEDS: HEPARIN 5000 UNIT/ML 1 ML VIAL SQ SCH ×2 (00:46→09:47)
[2020-06-15] MEDS: PIPER/TAZO/NS 3.375gm 3.375 GM/100 ML BAG IVPB SCH ×2 (00:46→09:46)
[2020-06-15] MEDS: NA CHLORIDE 0.9% 1,000 ML IV SCH (02:20)
[2020-06-15 05:35] LABS: Magnesium 1.9 mg/dL (1.8-2.4); Potassium 3.5 mmol/L (3.5-5.1)
[2020-06-15] MEDS: HYDROCODONE/APAP 7.5/325 MG TAB PO PRN (05:59)
[2020-06-15] MEDS: INSULIN -REGULAR HUMAN 50 UNIT/0.5 ML ML SQ SCH ×2 (07:30→12:06)
[2020-06-15] MEDS: PANTOPRAZOLE 40MG TABLET PO SCH (07:30)
[2020-06-15] MEDS ORDERED: POTASSIUM CL SA 10 MEQ TAB PO ONE (09:00)
[2020-06-15] MEDS: lisinopriL 20 MG TAB PO SCH (09:48)
[2020-06-15] MEDS: ATORVASTATIN 20 MG TAB PO SCH (09:48)
[2020-06-15] MEDS: PARoxetine HCL 10 MG TAB PO SCH (09:48)
[2020-06-15] MEDS: DUTASTERIDE 0.5 MG GEL CAP PO SCH (09:49)
[2020-06-15] MEDS: FENOFIBRATE 160 MG TAB PO SCH (09:49)
[2020-06-15 12:47] VITALS: BP 153/67; TEMP 97.1
--- NOTE | 2020-06-15 14:17 | P.DS ---
Admission Date: 06/12/20 Discharge Date: 06/15/20 Primary Care Provider: Dr Hernández Disposition: ROUTINE DISCHARGE Discharge Condition: GOOD Reason for Admission: Acute appendicitis Consultations: General Surgery - Dr. Estrada Procedures: CT abdomen/pelvis with contrast (06/10/2020): IMPRESSION: The appendix is dilated at 11 mm with no air or contrast in the lumen. Tip of the cecum at the appendix base is thickened and irregular. No periappendiceal inflammatory stranding seen. Findings are concerning for early appendicitis The thickened nodular appearance to the tip of the cecum can be seen with appendicitis but can also be seen with malignancy of the appendix or cecum. Very pronounced diverticulosis without acute diverticulitis findings. Mild mucosal level diverticulitis can be occult on CT imaging. Fatty infiltration of the liver. Problem list Acute appendicitis History of chronic atrial fibrillation on aspirin anticoagulation only Chronic kidney disease Essential hypertension Type 2 diabetes mellitus Brief History of Present Illness: 84-year-old male, PMH: DM 2, chronic AFib, HTN, BPH, HLD, who presented to the ED with right lower quadrant pain that began on the morning of admission and progressively worsened. In the ED, CT abdomen/pelvis was concerning for append icitis. General surgery was consulted and recommended admission in preparation for surgery. Hospital Course: The patient was started on IV Zosyn and underwent laparoscopic appendectomy on 06/11/2020. He was noted to have a suppurative appendicitis was treated with IV Zosyn postoperatively. Has postoperative course was uncomplicated and he was discharged on 06/15/2020. At time of discharge, patient was afebrile, had minimal abdominal discomfort, tolerating his diet, and voiding/stooling without issue. He was discharged home to complete 10 days of Cipro and Flagyl. He was ordered home health nursing and physical therapy. Vital Signs/Physical Exam: Temp Pulse Resp BP Pulse Ox 97.1 F 71 18 153/67 H 97 06/15/20 12:00 06/15/20 12:00 06/15/20 12:00 06/15/20 12:00 06/15/20 12:00 General: Alert, In no apparent distress HEENT: Mucous membr. moist/pink, Sclerae nonicteric Neck: Supple, No LAD Respiratory: Clear to auscultation bilaterally, Normal air movement Cardiovascular: No edema, Regular rate/rhythm, Normal S1 S2 Gastrointestinal: Soft and benign, Non-distended, Other (Dressing c/d/i), Tenderness (Mild at incision sites) Musculoskeletal: No erythema, No tenderness Integumentary: No rashes Neurological: Normal speech, Normal affect Laboratory Data at Discharge: WBC 4.4 K/uL (4.3-10.9) D 06/14/20 05:27 Hgb 9.0 g/dL (13.6-17.9) L 06/14/20 05:27 Hct 25.0 % (39.6-49.0) L 06/14/20 05:27 Plt Count 125 K/uL (152-406) L 06/14/20 05:27 PT 12.6 SECONDS (9.5-12.5) H 06/11/20 05:38 INR 1.07 06/11/20 05:38 APTT 27.7 SECONDS (24.3-36.9) 06/11/20 05:38 Sodium 142 mmol/L (136-145) 06/15/20 05:05 Potassium 3.5 mmol/L (3.5-5.1) 06/15/20 05:05 BUN 14 mg/dL (7-18) 06/15/20 05:05 Creatinine 1.09 mg/dL (0.55-1.3) 06/15/20 05:05 Glucose 132 mg/dL (74-106) H 06/15/20 05:05 Phosphorus 1.9 mg/dL (2.5-4.9) L 06/12/20 05:04 Magnesium 1.9 mg/dL (1.8-2.4) 06/15/20 05:05 Total Bilirubin 0.7 mg/dL (0.2-1.0) 06/10/20 16:23 AST 25 U/L (15-37) 06/10/20 16:23 ALT 27 U/L (12-78) 06/10/20 16:23 Alkaline Phosphatase 90 U/L (45-117) 06/10/20 16:23 Lipase 56 U/L (73-393) L 06/10/20 16:23 Home Medications: Atorvastatin Calcium [Lipitor*] 20 mg PO DAILY 06/13/20 Dutasteride 0.5 mg PO DAILY 06/13/20 Fenofibrate [Tricor*] 145 mg PO DAILY 06/13/20 PARoxetine HCl [Paxil] 30 mg PO DAILY 06/13/20 Pantoprazole [Protonix Tab*] 40 mg PO DAILY 06/13/20 Quinapril HCl 40 mg PO DAILY 06/13/20 Sitagliptin Phosphate [Januvia] 50 mg PO DAILY 06/13/20 Tamsulosin [Flomax*] 0.4 mg PO DAILY 06/13/20 glipiZIDE [Glipizide] 5 mg PO BID 06/13/20 Ciprofloxacin HCl 1 tab PO BID 10 Days #20 tablet 06/15/20 Tramadol HCl [Ultram] 1 tab PO Q6HR PRN 3 Days #10 tablet 06/15/20 metroNIDAZOLE [Flagyl] 1 tab PO Q8H 10 Days #30 tablet 06/15/20 New Medications: Tramadol HCl [Ultram] 1 tab PO Q6HR PRN 3 Days #10 tablet PRN Reason: Pain Scale 8-10 (Severe) Ciprofloxacin HCl 1 tab PO BID 10 Days #20 tablet metroNIDAZOLE [Flagyl] 1 tab PO Q8H 10 Days #30 tablet Patient Discharge Instructions: Follow up with Dr. Estrada within 1-2 weeks. Follow up with PCP within 1-2 weeks. Diet: ADA Activity: No lifting more than 10 lbs Followup: Nick Estrada MD [ACTIVE - CAN ADMIT] - Time spent managing pt's care (in minutes): 35
== END 2020-06-15 15:29 | disposition home health service (06) | DRG 342 ==
LOC: ER 15:29 → ERHOLD 21:02 → INTOOBSV 21:02 → OBSVTOIN 21:02 → 2ND 21:48 → OBSVTOIN 06-12 12:28
PROVIDERS: ADMIT Internal Medicine; ATTEND Hospitalist
PROC: 0DTJ4ZZ Resection of Appendix, Percutaneous Endoscopic Approach (ICD-10-PCS; principal; 2020-06-11 13:30)
DX: K35.30 Acute appendicitis with localized peritonitis, without perforation or gangrene (principal); I48.20 Chronic atrial fibrillation, unspecified; I25.10 Atherosclerotic heart disease of native coronary artery without angina pectoris; E78.5 Hyperlipidemia, unspecified; I12.9 Hypertensive chronic kidney disease with stage 1 through stage 4 chronic kidney disease, or unspecified chronic kidney disease; N18.9 Chronic kidney disease, unspecified; E11.22 Type 2 diabetes mellitus with diabetic chronic kidney disease; Z79.82 Long term (current) use of aspirin; Z95.5 Presence of coronary angioplasty implant and graft; Z90.49 Acquired absence of other specified parts of digestive tract; Z20.828 Contact with and (suspected) exposure to other viral communicable diseases
CPT/HCPCS: 36415; 74177; 80048; 80076; 81003; 81015; 82947; 83690; 83735; 84100; 85025; 85610; 85730; 88304; 93306; 96361; 96374; 97116; 97161; 97530; 99285; G0378; J0360; J1170; J1644; J2270; J2405; J2543; J2704; J2710; J3010; J3480; J7030; Q9967; U0002

== ENCOUNTER 2020-09-22 14:36 | Emergency (ER) | payer OTHER ==
[2020-09-22 16:17] LABS: Absolute Lymphocytes (CBC) 0.9 K/uL (0.7-4.9); Basophils % 0.5 % (0-1.3); Hematocrit 30.7 % (39.6-49.0); Lymphocytes % 14.6 % (15.3-44.8); MPV 9.6 fL (7.6-11.3)
[2020-09-22 16:26] LABS: Protime INR 1.14
[2020-09-22 16:46] LABS: ALT/SGPT 19 U/L (12-78); AST/SGOT 19 U/L (15-37); Albumin 3.7 g/dL (3.4-5.0); Alkaline Phosphatase 97 U/L (45-117); BUN Blood Urea Nitrogen 21 mg/dL (7-18); Bicarbonate 29 mmol/L (21-32); Bilirubin Direct 0.2 mg/dL (0-0.2); Glucose Level 211 mg/dL (74-106); Magnesium 1.8 mg/dL (1.8-2.4); NT PRO-BNP 163 pg/mL (<450); Potassium 3.5 mmol/L (3.5-5.1); Protein, Total 7.8 g/dL (6.4-8.2); Sodium Level 138 mmol/L (136-145); Troponin (Emerg Dept Use Only) < 0.02 ng/mL (0.0-0.045)
--- NOTE | 2020-09-22 17:00 | RAD REPORT ---
EXAM DESCRIPTION: CT - Head C Spine Cap Mukul Nugent - 09/22/2020 4:35 pm CLINICAL HISTORY: Head and neck injury with chest and abdominal pain status post fall. Head and neck pain . TECHNIQUE: Computed axial tomography of the head and cervical spine was obtained Computed axial tomography of the chest, abdomen and pelvis was obtained. 100 cc Isovue-300 was given intravenously coronal and sagittal reconstruction was performed. All CT scans are performed using dose optimization technique as appropriate and may include automated exposure control or mA/KV adjustment according to patient size. COMPARISON: June 2020 cat scan abdomen FINDINGS: An intracranial bleed is not seen. The ventricles are normal in caliber. An extra-axial fl uid collection is not noted. Mild to moderate low-density areas within periventricular, deep and subc ortical white matter likely ischemic changes secondary to small vessel disease A cervical fracture is not seen. No dislocation is seen. Spondylosis involves the cervical spine A mediastinal hematoma is not noted. A pleural effusion is not present. A lung contusion is not seen. The liver, spleen, pancreas, adrenals, kidneys and bladder do not demonstrate a traumatic injury. 9 x 3 centimeter hematoma within the left posterior subcutaneous tissue pelvis. Mild chronic compression deformity L1 vertebral body. Mild chronic anterior subluxation L4 on L5 Cholecystectomy. Pneumobilia IMPRESSION: 1. No acute intracranial abnormality is seen 2. A cervical fracture is not visualized. If the patient continues have symptoms to suggest intracran ial/spinal cord pathology then MRI would be recommended. 3. No traumatic injury involving the chest, abdomen is seen 4. 9 x 3 centimeter hematoma within the left posterior subcutaneous tissue of the pelvis.
--- NOTE | 2020-09-22 17:02 | RAD REPORT ---
EXAM DESCRIPTION: RAD - Hip Left 2 View - 09/22/2020 3:53 pm CLINICAL HISTORY: Left hip pain status post injury FINDINGS: No fracture or dislocation is seen. The bones are osteoporotic
--- NOTE | 2020-09-22 17:02 | RAD REPORT ---
EXAM DESCRIPTION: RAD - Pelvis - 09/22/2020 3:53 pm CLINICAL HISTORY: Pelvic pain status post injury FINDINGS: No fracture or dislocation is seen.
--- NOTE | 2020-09-22 17:03 | RAD REPORT ---
EXAM DESCRIPTION: Kushal Single View09/22/2020 3:53 pm CLINICAL HISTORY: Chest pain COMPARISON: 2018 FINDINGS: The lungs appear clear of acute infiltrate. The heart is mildly enlarged IMPRESSION: No acute abnormalities displayed
[2020-09-22] MEDS ORDERED: HYDROCODONE/APAP 5/325 MG TAB ONE (17:49)
--- NOTE | 2020-09-22 18:16 | EDPHYS ---
Physician Documentation [facility] Name: Fidelia Marcus Jr Age: 85 yrs Sex: Male : 1935 Arrival Date: 09/22/2020 Time: 14:42 Bed 16 Private MD: ED Physician Peter Flores HPI: 09/22 15:15 This 85 yrs old Male presents to ER via EMS with complaints of Leg Pain. cp 15:15 The patient presents with pain, that is acute. The complaints affect the left gluteal cp fold, . 15:15 Context: resulted from the patient falling, while walking, the patient can fully bear cp weight, the patient is able to ambulate, with moderate difficulty. Onset: The symptoms/episode began/occurred yesterday. Modifying factors: the symptoms are aggravated by movement, weight bearing. Associated signs and symptoms: Pertinent negatives calf tenderness, numbness, warmth. Treatment prior to arrival includes: no previous treatment. Historical: - Allergies: 14:44 NKA; ll1 - PMHx: 14:44 Atrial Fib; Headaches; High Cholesterol; Diabetes - NIDDM; BPH; Hypertension; ll1 - PSHx: 14:44 Cholecystectomy; Heart stents; ll1 - Immunization history:: Flu vaccine is up to date. - Social history:: Smoking status: Patient denies any tobacco usage or history of. ROS: 15:20 Constitutional: Negative for body aches, chills, fever, poor PO intake. cp 15:20 Eyes: Negative for injury, pain, redness, and discharge. cp 15:20 Cardiovascular: Negative for chest pain. 15:20 Respiratory: Negative for cough, shortness of breath, wheezing. 15:20 Abdomen/GI: Negative for abdominal pain, nausea, vomiting, and diarrhea. 15:20 MS/extremity: Positive for pain, tenderness, of the left gluteal fold, Negative for paresthesias. 15:20 Neuro: Negative for altered mental status, loss of consciousness, syncope, weakness. 15:20 All other systems are negative. Exam: 15:25 Constitutional: The patient appears in no acute distress, alert, awake, non-toxic, well cp developed, well nourished, uncomfortable. 15:25 Head/Face: Normocephalic, atraumatic. cp 15:25 Eyes: Periorbital structures: appear normal, Conjunctiva: normal, no exudate, no injection, Sclera: no appreciated abnormality, Lids and lashes: appear normal, bilaterally. 15:25 ENT: External ear(s): are unremarkable, Nose: is normal, Mouth: Lips: moist, Oral mucosa: moist, Posterior pharynx: Airway: no evidence of obstruction, patent. 15:25 Neck: C-spine: vertebral tenderness, is not appreciated, crepitus, is not appreciated, ROM/movement: pain, is not appreciated, limited range of motion, is not appreciated. 15:25 Chest/axilla: Inspection: normal, Palpation: is normal, no crepitus, no tenderness. 15:25 Cardiovascular: Rate: normal, Rhythm: regular. 15:25 Respiratory: the patient does not display signs of respiratory distress, Respirations: normal, no use of accessory muscles, no retractions, labored breathing, is not present, Breath sounds: are clear throughout, no decreased breath sounds, no stridor, no wheezing. 15:25 Abdomen/GI: Inspection: abdomen appears normal, Palpation: abdomen is soft and non-tender, in all quadrants. 15:25 Back: pain, that is severe, of the left gluteal fold, CVA tenderness, is absent, vertebral tenderness, is not appreciated. 15:25 Skin: cellulitis, is not appreciated, no rash present. 15:25 Neuro: Orientation: to person, place \T\ time. Mentation: is normal, Motor: moves all fours, strength is normal, Sensation: no obvious gross deficits. Vital Signs: 15:07 BP 174 / 85; Pulse 98; Resp 18; Temp 98.7; Pulse Ox 97% ; Pain 10/10; ll1 16:45 BP 171 / 73; Pulse 105; Resp 18; Pulse Ox 96% ; ll1 17:41 BP 134 / 94; Pulse 99; Resp 18; Pulse Ox 99% ; ll1 18:45 BP 172 / 73; Pulse 93; Resp 18; Pulse Ox 97% on R/A; Pain 7/10; ll1 MDM: 15:08 Patient medically screened. cp 18:15 Data reviewed: vital signs, nurses notes, lab test result(s), radiologic studies, CT cp scan, plain films, and as a result, I will discharge patient. 18:15 Counseling: I had a detailed discussion with the patient and/or guardian regarding: the cp historical points, exam findings, and any diagnostic results supporting the discharge/admit diagnosis, lab results, radiology results, to return to the emergency department if symptoms worsen or persist or if there are any questions or concerns that arise at home. Response to treatment: the patient's symptoms have markedly improved after treatment, VSS. Pain improved. Will discharge to home for continued monitoring. 09/22 15:10 Order name: Basic Metabolic Panel; Complete Time: 16:51 09/22 16:51 Interpretation: Normal except: GLUC 211; BUN 21; GFR 54. 09/22 15:10 Order name: CBC with Diff; Complete Time: 16:51 09/22 16:51 Interpretation: Normal except: RBC 3.40; HGB 10.6; HCT 30.7; RDW 15.3; LYM% 14.6. 09/22 15:10 Order name: LFT's; Complete Time: 16:51 09/22 15:10 Order name: Magnesium; Complete Time: 16:51 09/22 15:10 Order name: NT PRO-BNP; Complete Time: 16:51 09/22 15:10 Order name: PT-INR; Complete Time: 16:51 09/22 15:10 Order name: XRAY Pelvis; Complete Time: 17:11 09/22 15:10 Order name: Troponin (emerg Dept Use Only); Complete Time: 16:51 09/22 15:10 Order name: XRAY Chest (1 view); Complete Time: 17:11 09/22 15:10 Order name: XRAY Hip LEFT 2 view; Complete Time: 17:11 09/22 15:10 Order name: CT Traumagram (Head C Spine CAP W Con); Complete Time: 17:11 09/22 15:10 Order name: Cardiac monitoring; Complete Time: 18:54 09/22 15:10 Order name: EKG - Nurse/Tech; Complete Time: 18:54 09/22 15:10 Order name: IV Saline Lock; Complete Time: 15:14 09/22 15:10 Order name: Labs collected and sent; Complete Time: 15:14 09/22 15:10 Order name: O2 Per Protocol; Complete Time: 15:14 09/22 15:10 Order name: O2 Sat Monitoring; Complete Time: 15:14 cp Administered Medications: 17:32 Not Given (IV accidentally pulled out): fentaNYL (PF) 25 mcg IVP once; RASS on ADMIN: sv Combtv4, Very Agttd3, Agttd2, Rstlss1, AlertClm0, Drwsy-1, Lt Sdtn-2, Mod Sdtn-3, Dp Sdtn-4, UnArsble-5 17:41 Drug: [place] 5 mg-325 mg 1 tabs Route: PO; ll1 18:53 Follow up: Response: No adverse reaction; Pain is decreased; RASS: Alert and Calm (0) ll1 Disposition: 09/22/20 18:15 Discharged to Home. Impression: Fall on same level from slipping, tripping and stumbling, Contusion of lower back and pelvis - with hematoma. - Condition is Stable. - Discharge Instructions: Contusion, Hematoma. - Medication Reconciliation Form, Thank You Letter, Antibiotic Education, Prescription Opioid Use form. - Follow up: Private Physician; When: 1 - 2 days; Reason: Recheck today's complaints. - Problem is new. - Symptoms have improved. Addendum: 09/25/2020 11:33 Co-signature as Attending Physician, Peter Flores MD I agree with the assessment and k dr plan of care. Signatures: Dispatcher [employer] EDPeter Ramon MD MD [facility] Estevan Monroy PA PA cp Tej Fisher RN RN jb4 Marcos Burger RN RN ll1 Fannie Rosenberg RN sv Corrections: (The following items were deleted from the chart) 09/22 18:17 18:15 09/22/2020 18:15 Discharged to Home. Impression: Fall on same level from cp slipping, tripping and stumbling. Condition is Stable. Forms are Medication Reconciliation Form, Thank You Letter, Antibiotic Education, Prescription Opioid Use. Follow up: Private Physician; When: 1 - 2 days; Reason: Recheck today's complaints. Problem is new. Symptoms have improved. cp 19:31 18:17 09/22/2020 18:15 Discharged to Home. Impression: Fall on same level from jb4 slipping, tripping and stumbling; Contusion of lower back and pelvis - with hematoma. Condition is Stable. Forms are Medication Reconciliation Form, Thank You Letter, Antibiotic Education, Prescription Opioid Use. Follow up: Private Physician; When: 1 - 2 days; Reason: Recheck today's complaints. Problem is new. Symptoms have improved. cp
--- NOTE | 2020-09-22 18:16 | ER ---
Nurse's Notes [facility] Name: Fidelia Marcus Jr Age: 85 yrs Sex: Male : 1935 Arrival Date: 09/22/2020 Time: 14:42 Bed 16 Private MD: Diagnosis: Fall on same level from slipping, tripping and stumbling;Contusion of lower back and pelvis-with hematoma Presentation: 09/22 14:42 Chief complaint: EMS states: Fell on Sunday. Bruising noted to back. Pain radiates ll1 down both legs. VSS for EMS. Coronavirus screen: Client denies travel out of the [place] in the last 14 days. At this time, the client does not indicate any symptoms associated with coronavirus-19. Ebola Screen: Patient denies travel to an Ebola-affected area in the 21 days before illness onset. Risk Assessment: Do you want to hurt yourself or someone else? Patient reports no desire to harm self or others. Onset of symptoms was September 17, 2020. 14:42 Method Of Arrival: EMS: [facility] ll1 14:42 Acuity: MIQUEL 3 ll1 Historical: - Allergies: 14:44 NKA; ll1 - PMHx: 14:44 Atrial Fib; Headaches; High Cholesterol; Diabetes - NIDDM; BPH; Hypertension; ll1 - PSHx: 14:44 Cholecystectomy; Heart stents; ll1 - Immunization history:: Flu vaccine is up to date. - Social history:: Smoking status: Patient denies any tobacco usage or history of. Screenin:00 Abuse screen: Denies threats or abuse. Nutritional screening: No deficits noted. jb4 Tuberculosis screening: No symptoms or risk factors identified. Fall Risk Fall in past 12 months (25 points). Total Winkler Fall Scale indicates Low Risk Score (25-44 pts). Fall prevention measures have been instituted. Side Rails Up X 2 Placed close to Nursing Station Frequent Obs/Assesments occuring As available Patient and Family Educated on Fall Prevention Program and strategies. Assessment: 15:00 General: Appears uncomfortable, Behavior is calm, cooperative. ll1 15:00 Pain: Complains of pain in low back/both legs Pain currently is 10 out of 10 on a pain ll1 scale. Quality of pain is described as aching. Neuro: No deficits noted. Cardiovascular: No deficits noted. Respiratory: No deficits noted. Derm: Bruising that is dark purple, yellow, on low back Reports pain. Musculoskeletal: Circulation, motion, and sensation intact. Capillary refill < 3 seconds, Range of motion: intact in all extremities, Tenderness present in L lower back Reports pain in low back/both legs. Injury Description: Bruise 3-4 falls in the past week. 16:00 Reassessment: No changes from previously documented assessment. ll1 17:00 Reassessment: No changes from previously documented assessment. Patient and/or family ll1 updated on plan of care and expected duration. Pain level reassessed. 18:00 Reassessment: No changes from previously documented assessment. Patient and/or family ll1 updated on plan of care and expected duration. Pain level reassessed. 19:00 Reassessment: Patient appears in no apparent distress at this time. Patient and/or jb4 family updated on plan of care and expected duration. Pain level reassessed. Patient is alert, oriented x 3, equal unlabored respirations, skin warm/dry/pink. 19:30 Reassessment: Patient appears in no apparent distress at this time. Patient and/or jb4 family updated on plan of care and expected duration. Pain level reassessed. Patient is alert, oriented x 3, equal unlabored respirations, skin warm/dry/pink. PT assisted to vehicle via wheelchair. Vital Signs: 15:07 BP 174 / 85; Pulse 98; Resp 18; Temp 98.7; Pulse Ox 97% ; Pain 10/10; ll1 16:45 BP 171 / 73; Pulse 105; Resp 18; Pulse Ox 96% ; ll1 17:41 BP 134 / 94; Pulse 99; Resp 18; Pulse Ox 99% ; ll1 18:45 BP 172 / 73; Pulse 93; Resp 18; Pulse Ox 97% on R/A; Pain 7/10; ll1 ED Course: 14:42 Patient arrived in ED. ll1 14:43 Estevan Monroy PA is PHCP. cp 14:43 Peter Flores MD is Attending Physician. cp 14:43 Triage completed. ll1 14:43 Arm band placed on Patient placed in an exam room, on a stretcher. ll1 14:58 Marcos Burger, BARBARA is Primary Nurse. ll1 15:40 Missed attempt(s): 22 gauge in left antecubital area. Bleeding controlled, band aid ll1 applied, catheter tip intact. 15:53 XRAY Pelvis In Process Unspecified. EDMS 15:53 XRAY Chest (1 view) In Process Unspecified. EDMS 15:53 XRAY Hip LEFT 2 view In Process Unspecified. EDMS 16:07 Accessed peripheral vein via ultrasound, utilizing dynamic ultrasound technique Clean \T\ sv dry. Dressing intact. Good blood return. Flushes easily. 22G diffusics to the right upper arm. 16:37 CT Traumagram (Head C Spine CAP W Con) In Process Unspecified. EDMS 19:00 Patient has correct armband on for positive identification. Bed in low position. Call jb4 light in reach. Side rails up X 1. Pulse ox on. NIBP on. 19:00 No provider procedures requiring assistance completed. IV discontinued, intact, jb4 bleeding controlled, No redness/swelling at site. Pressure dressing applied. Administered Medications: 17:32 Not Given (IV accidentally pulled out): fentaNYL (PF) 25 mcg IVP once; RASS on ADMIN: sv Combtv4, Very Agttd3, Agttd2, Rstlss1, AlertClm0, Drwsy-1, Lt Sdtn-2, Mod Sdtn-3, Dp Sdtn-4, UnArsble-5 17:41 Drug: [place] 5 mg-325 mg 1 tabs Route: PO; ll1 18:53 Follow up: Response: No adverse reaction; Pain is decreased; RASS: Alert and Calm (0) ll1 Outcome: 18:15 Discharge ordered by . anusha 19:30 Discharged to home via wheelchair, with family. jb4 19:30 Condition: stable 19:30 Discharge instructions given to patient, Instructed on discharge instructions, follow up and referral plans. Demonstrated understanding of instructions, follow-up care. 19:31 Patient left the ED. jb4 Signatures: Dispatcher [employer] Fannie Esposito, RN RN Estevan Guerrero PA PA cp Bryson, James, RN RN jb4 Marcos Burger RN RN ll1
[2020-09-22 20:53] VITALS: TEMP 98.7
[2020-09-22 20:57] VITALS: BP 172/73; O2SAT 97
== END 2020-09-22 19:31 | disposition home or self-care (01) ==
LOC: ER 14:36
DX: S30.0XXA Contusion of lower back and pelvis, initial encounter (principal); W01.0XXA Fall on same level from slipping, tripping and stumbling without subsequent striking against object, initial encounter; Y93.01 Activity, walking, marching and hiking; Y92.9 Unspecified place or not applicable; I10 Essential (primary) hypertension; Z95.818 Presence of other cardiac implants and grafts
CPT/HCPCS: 85025; 80048; 36415; 83735; 85610; 82565; 80076; 84484; 83880; 70450; 72125; 71260; 74177; 71045; 72170; 73502; 99284; Q9967

== ENCOUNTER 2020-12-14 18:06 | Inpatient (IN) | payer OTHER ==
--- NOTE | 2020-12-14 18:51 | RAD REPORT ---
EXAM DESCRIPTION: RAD - Chest Single View - 12/14/2020 6:43 pm CLINICAL HISTORY: fall Chest pain. COMPARISON: Chest Single View dated 09/22/2020; Chest Single View dated 09/29/2019; Chest Single Vie w dated 06/12/2019; Chest Single View dated 04/23/2018 FINDINGS: Portable technique limits examination quality. Mild interstitial pulmonary edema. The heart is upper limit normal in size. No displaced fractures.
[2020-12-14 19:20] LABS: ALT/SGPT 214 U/L (12-78); AST/SGOT 130 U/L (15-37); Albumin 4.1 g/dL (3.4-5.0); Alkaline Phosphatase 242 U/L (45-117); BUN Blood Urea Nitrogen 17 mg/dL (7-18); Bicarbonate 28 mmol/L (21-32); Bilirubin Direct 1.1 mg/dL (0-0.2); Bilirubin Total 2.1 mg/dL (0.2-1.0); Glucose Level 185 mg/dL (74-106); Magnesium 1.9 mg/dL (1.8-2.4); NT PRO-BNP 645 pg/mL (<450); Potassium 3.8 mmol/L (3.5-5.1); Protein, Total 7.9 g/dL (6.4-8.2); Sodium Level 135 mmol/L (136-145); Troponin (Emerg Dept Use Only) < 0.02 ng/mL (0.0-0.045)
[2020-12-14] MEDS ORDERED: ACETAMINOPHEN 500 MG TAB ONE (19:49)
[2020-12-14 20:56] LABS: Absolute Lymphocytes (CBC) 0.5 K/uL (0.7-4.9); Basophils % 0.4 % (0-1.3); Hematocrit 29.8 % (39.6-49.0); MPV 9.9 fL (7.6-11.3); RBC Red Blood Cell Count 3.24 M/uL (4.33-5.43)
[2020-12-14 21:01] LABS: Protime INR 1.34
--- NOTE | 2020-12-14 21:19 | RAD REPORT ---
EXAM DESCRIPTION: CT - Head Brain Wo Cont - 12/14/2020 8:16 pm CLINICAL HISTORY: WEAKNESS Headache, drowsiness COMPARISON: Head Brain Wo Cont dated 02/23/2018; HEAD BRAIN W O CONTRAST dated 05/18/2015 TECHNIQUE: All CT scans are performed using dose optimization technique as appropriate and may inclu de automated exposure control or mA/KV adjustment according to patient size. FINDINGS: No intracranial hemorrhage, hydrocephalus or extra-axial fluid collection.Moderate general ized brain atrophy is present with mild periventricular and deep white matter chronic microvascular i schemic changes.No areas of brain edema or evidence of midline shift. The paranasal sinuses and mastoids are clear. The calvarium is intact. IMPRESSION: No acute intracranial abnormality.
--- NOTE | 2020-12-14 21:23 | RAD REPORT ---
EXAM DESCRIPTION: CTAbdomen Pelvis W Contrast - 12/14/2020 8:19 pm CLINICAL HISTORY: Abdominal pain. Abd pain;Flank pain COMPARISON: Abdomen Pelvis W Contrast dated 06/10/2020; CT ABD PELVIS W CONTRAST dated 04/06/2008; CT ABD PELVIS W CONTRAST dated 08/25/2002 TECHNIQUE: Biphasic CT imaging of the abdomen and pelvis was performed with 100 ml non-ionic IV cont rast. All CT scans are performed using dose optimization technique as appropriate and may include automated exposure control or mA/KV adjustment according to patient size. FINDINGS: The lung bases are clear.Cholecystectomy. The liver, spleen, pancreas, adrenal glands and kidneys are within normal limits. No bowel obstruction, free air, free fluid or abscess. Significant fecal retention throughout the col on is present. Numerous diverticula are present involving the descending and sigmoid colon. Subtle in flammatory changes are seen surrounding the descending colon diverticula and left flank region. Appen dectomy. No evidence of significant lymphadenopathy. Mild lumbar degenerative changes are present. IMPRESSION: Prominent retention of stool throughout the colon is present. There is subtle inflammati on surrounding several diverticula in the descending colon which could indicate a mild acute divertic ulitis.
[2020-12-14 21:28] LABS: Blood Morphology Comment NOT SEEN (NOT SEEN); Platelet Estimate DECR; White Blood Cell Scan OK (OK)
--- NOTE | 2020-12-14 22:18 | EDPHYS ---
Physician Documentation [facility] Name: Fidelia Marcus Jr Age: 85 yrs Sex: Male : 1935 Arrival Date: 12/14/2020 Time: 18:08 Bed 7 Private MD: ED Physician Peter Flores HPI: 12/14 18:15 This 85 yrs old Male presents to ER via EMS with complaints of Back Pain, cp Fall Injury, "Doesnt feel well", Abd Pain > 50 y/o, Nausea/Vomiting. 18:15 The patient presents with pain that is acute, with no known mechanism of injury. The cp symptoms are located in the low back. 18:15 Onset: The symptoms/episode began/occurred today. cp 18:15 Associated signs and symptoms: Pertinent positives: abdominal pain, fever, nausea, cp vomiting, Pertinent negatives: constipation, dysuria, urinary retention. Historical: - Allergies: 18:13 NKA; tw2 - Home Meds: 19:34 aspirin 81 mg Oral chew 1 tab once daily [Active]; atorvastatin 20 mg Oral tab 1 tab tw2 once daily [Active]; Co Q-10 200 mg Oral cap daily [Active]; dutasteride 0.5 mg Oral cap 1 cap once daily [Active]; glipizide 5 mg Oral tab 1 tab 2 times per day [Active]; hydrochlorothiazide 25 mg Oral tab 1 tab once daily [Active]; krill oil 500 mg Oral cap daily [Active]; metformin 1,000 mg Oral tab 1 tab 2 times per day [Active]; Metoprolol Tartrate Oral [Active]; pantoprazole Oral once daily [Active]; quinapril 40 mg Oral tab 1 tab once daily [Active]; sotalol 80 mg Oral tab 0.5 tab 2 times per day [Active]; tamsulosin 0.4 mg Oral cp24 1 cap once daily [Active]; - PMHx: 18:13 Atrial Fib; BPH; Diabetes - NIDDM; Headaches; High Cholesterol; Hypertension; tw2 - PSHx: 18:13 Cholecystectomy; Heart stents; tw2 - Immunization history:: Adult Immunizations. - Social history:: Smoking status: . ROS: 18:20 Constitutional: Positive for fever, Negative for poor PO intake. cp 18:20 Eyes: Negative for injury, pain, redness, and discharge. cp 18:20 ENT: Negative for ear pain, sore throat, difficulty swallowing, difficulty handling secretions. 18:20 Cardiovascular: Negative for chest pain, palpitations. 18:20 Respiratory: Negative for cough, shortness of breath, wheezing. 18:20 Abdomen/GI: Positive for abdominal pain, nausea and vomiting, Negative for diarrhea, constipation, black/tarry stool, rectal bleeding. 18:20 Back: Positive for pain at rest, pain with movement, of the low back area and mid back area. 18:20 Neuro: Positive for weakness, Negative for altered mental status, headache, syncope. 18:20 : Negative for urinary symptoms, testicular pain cp 18:20 All other systems are negative. cp Exam: 18:25 Constitutional: The patient appears in no acute distress, alert, awake, cp non-diaphoretic, non-toxic, well developed, well nourished. 18:25 Head/Face: Normocephalic, atraumatic. cp 18:25 Eyes: Periorbital structures: appear normal, Conjunctiva: normal, no exudate, no injection, Sclera: no appreciated abnormality, Lids and lashes: appear normal, bilaterally. 18:25 ENT: External ear(s): are unremarkable, Nose: is normal, Mouth: Lips: moist, Oral mucosa: moist, Posterior pharynx: Airway: no evidence of obstruction, patent. 18:25 Neck: C-spine: vertebral tenderness, is not appreciated, crepitus, is not appreciated, ROM/movement: is normal, is supple, without pain, no range of motions limitations. 18:25 Chest/axilla: Inspection: normal, Palpation: is normal, no crepitus, no tenderness. 18:25 Cardiovascular: Rate: normal, Rhythm: regular, Edema: is not appreciated, JVD: is not appreciated. 18:25 Respiratory: the patient does not display signs of respiratory distress, Respirations: normal, no use of accessory muscles, no retractions, labored breathing, is not present, Breath sounds: are clear throughout, no decreased breath sounds, no stridor, no wheezing. 18:25 Abdomen/GI: Inspection: abdomen appears normal, Bowel sounds: active, all quadrants, Palpation: soft, in all quadrants, moderate abdominal tenderness, in all quadrants. 18:25 Back: pain, that is moderate, of the low back area and mid back area, ROM is normal, Straight leg raises: of both lower extremities does not illicit pain. 18:25 Skin: no rash present. 18:25 Neuro: Orientation: to person, place \\T\\ time. Mentation: is normal, Motor: moves all fours, strength is normal, Sensation: is normal. 18:45 ECG was reviewed by the Attending Physician. cp Vital Signs: 18:08 BP 169 / 77; Pulse 98; Resp 17; Temp 100.2(O); Pulse Ox 98% on R/A; Weight 68.04 kg tw2 (R); Height 5 ft. 3 in. (160.02 cm) (R); 19:15 BP 150 / 69; Pulse 98; Resp 18; Pulse Ox 97% on R/A; ea 20:00 BP 145 / 65; Pulse 98; Resp 17; Pulse Ox 97% ; ea 21:45 BP 109 / 59; Pulse 97; Resp 18; Temp 98.5; Pulse Ox 97% on R/A; ea 22:30 BP 132 / 63; Pulse 92; Resp 17; Pulse Ox 97% ; ea 23:15 BP 151 / 96; Pulse 97; Resp 18; Pulse Ox 97% ; ea 18:08 Body Mass Index 26.57 (68.04 kg, 160.02 cm) tw2 MDM: 18:26 Patient medically screened. cp 19:00 Differential diagnosis: Ureterolithiasis diverticulitis, UTI, colitis. cp 21:45 Data reviewed: vital signs, nurses notes, lab test result(s), EKG, radiologic studies, cp CT scan. 21:45 Test interpretation: by ED physician or midlevel provider: ECG. cp 12/14 18:10 Order name: Basic Metabolic Panel cp 12/14 18:10 Order name: CBC with Diff cp 12/14 18:10 Order name: LFT's cp 12/14 18:10 Order name: Magnesium cp 12/14 18:10 Order name: NT PRO-BNP cp 12/14 18:10 Order name: PT-INR cp 12/14 18:10 Order name: Troponin (emerg Dept Use Only) cp 12/14 18:10 Order name: Urine Microscopic Only cp 12/14 18:10 Order name: Basic Metabolic Panel EDDE 12/14 21:07 Interpretation: Normal except: NA 135; GLUC 185; GFR 60. cp 12/14 18:10 Order name: CBC with Automated Diff; Complete Time: 21:42 [facility] 12/14 21:08 Interpretation: Normal except: WBC 3.80; RBC 3.24; HGB 10.6; HCT 29.8; PLT 93; LYM% cp 12.0; MN% 13.9; LYMA 0.5. 12/14 18:10 Order name: Liver (Hepatic) Function [facility] 12/14 21:08 Interpretation: Normal except: AST 130; ALT 214; ALK 242; BILIT 2.1; BILID 1.1; GLOB cp 3.8. 12/14 18:10 Order name: Magnesium EDDE 12/14 18:10 Order name: NT PRO-BNP [facility] 12/14 18:10 Order name: XRAY Chest (1 view); Complete Time: 19:29 12/14 18:10 Order name: EKG; Complete Time: 18:11 12/14 18:10 Order name: Cardiac monitoring; Complete Time: 21:42 12/14 18:10 Order name: EKG - Nurse/Tech; Complete Time: 21:42 12/14 18:10 Order name: Protime (+INR); Complete Time: 21:06 [facility] 12/14 21:07 Interpretation: Abnormal: PT 15.5. 12/14 19:30 Order name: CT Abd/Pelvis - IV Contrast Only; Complete Time: 21:42 12/14 19:58 Order name: CT Head Brain wo Cont; Complete Time: 21:42 12/14 20:01 Order name: SARS-COV-2 RT PCR; Complete Time: 21:06 [facility] 12/14 21:03 Order name: CBC Smear Scan; Complete Time: 21:42 [facility] 12/14 22:23 Order name: Procalcitonin la1 12/14 22:23 Order name: Blood Culture Adult (2) la1 12/14 22:42 Order name: Lipase EDDE 12/14 18:10 Order name: IV Saline Lock; Complete Time: 21:42 12/14 18:10 Order name: Labs collected and sent; Complete Time: 18:35 cp 12/14 18:10 Order name: O2 Per Protocol; Complete Time: 18:35 12/14 18:10 Order name: O2 Sat Monitoring; Complete Time: 19:18 cp 12/14 19:03 Order name: Labs - recollect needed: blue \\T\\ lavender; Complete Time: 21:43 sv EC:45 Rate is 89 beats/min. Rhythm is regular. [place] interval is normal. QRS interval is normal. cp QT interval is normal. T waves are Inverted in lead aVR. Interpreted by me. Reviewed by me. Administered Medications: 19:41 Drug: Tylenol 1000 mg Route: PO; ea 23:24 Follow up: Response: No adverse reaction ea 23:24 Drug: metroNIDAZOLE 500 mg Volume: 100 ml; Route: IVPB; Infused Over: 30 mins; Site: ea left forearm; 23:24 Drug: Rocephin (cefTRIAXone) 1 grams Route: IV; Rate: calculated rate; Site: left ea forearm; 23:30 Follow up: Response: No adverse reaction; IV Status: Completed infusion; IV Intake: 10mlem Disposition: 12/15 08:11 Co-signature as Attending Physician, Peter Flores MD I agree with the assessment and kdr plan of care. Disposition: 12/14/20 22:18 Hospitalization ordered by Danny Locke for Inpatient Admission. Preliminary diagnosis is Diverticulitis of large intestine without perforation or abscess without bleeding. - Bed requested for Telemetry/MedSurg (Inpatient). - Status is Inpatient Admission. ea - Condition is Stable. - Problem is new. - Symptoms have improved. Signatures: Dispatcher [employer] EDDE Fannie Rosenberg RN RN sv Gay, Steven, RN RN sg Rittger, Kevin, MD MD kdr Attema, Lee, HELMET HAT SWEATBAND PUNCHER-C HELMET HAT SWEATBAND PUNCHER-Cla1 Estevan Monroy PA PA cp Nani Felipe, RN RN tw2 Desirae Hoffman RN RN ea Munoz, Edgar RN em Corrections: (The following items were deleted from the chart) 12/14 19:20 18:10 CORONAVIRUS+MR.LAB.BRZ ordered. EDDE EDMS 22:41 22:34 LIPASE+C.LAB.BRZ ordered. EDDE EDMS 22:52 22:18 Hospitalization Ordered by Danny Locke MD for Inpatient Admission. Preliminary sg diagnosis is Diverticulitis of large intestine without perforation or abscess without bleeding. Bed requested for Telemetry/MedSurg (Inpatient). Status is Inpatient Admission. Condition is Stable. Problem is new. Symptoms have improved. cp 12/15 00:01 12/14 22:52 12/14/2020 22:18 Hospitalization Ordered by Danny Locke MD for Inpatient ea Admission. Preliminary diagnosis is Diverticulitis of large intestine without perforation or abscess without bleeding. Bed requested for Telemetry/MedSurg (Inpatient). Status is Inpatient Admission. Condition is Stable. Problem is new. Symptoms have improved. sg 12/15 01:58 12/14 18:20 Abdomen/GI: Positive for abdominal pain, Negative for vomiting, diarrhea, cp constipation, black/tarry stool, rectal bleeding, cp 12/15 01:58 12/14 18:20 All other systems are negative, cp cp
--- NOTE | 2020-12-14 22:18 | ER ---
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 Coronavirus screen: nausea, vomiting. Client presents with at least one sign or symptom that may indicate coronavirus-19. Standard/surgical mask placed on the client. Provider contacted for isolation considerations. Ebola Screen: Patient denies travel to an Ebola-affected area in the 21 days before illness onset. Initial Sepsis Screen: Does the patient meet any 2 criteria? HR > 90 bpm. Does the patient have a suspected source of infection? No. Patient's initial sepsis screen is negative. Risk Assessment: Do you want to hurt yourself or someone else? Patient reports no desire to harm self or others. Onset of symptoms was December 14, 2020. 18:08 Method Of Arrival: EMS: [facility] tw2 18:08 Acuity: MIQUEL 3 tw2 Triage Assessment: 18:13 General: Appears in no apparent distress. well groomed, Behavior is calm, cooperative, tw2 appropriate for age. Pain: Complains of pain in back and abdomen. EENT: No signs and/or symptoms were reported regarding the EENT system. Neuro: Level of Consciousness is awake, alert, obeys commands, Oriented to person, place, time, situation. Cardiovascular: Patient's skin is warm and dry. Respiratory: Airway is patent Respiratory effort is even, unlabored, Respiratory pattern is regular, symmetrical. GI: Abdomen is round Reports lower abdominal pain, upper abdominal pain, bloating, nausea, vomiting. : No signs and/or symptoms were reported regarding the genitourinary system. Derm: No signs and/or symptoms reported regarding the dermatologic system. Skin temperature is hot. Musculoskeletal: Range of motion: intact in all extremities. Historical: - Allergies: 18:13 NKA; tw2 - Home Meds: 19:34 aspirin 81 mg Oral chew 1 tab once daily [Active]; atorvastatin 20 mg Oral tab 1 tab tw2 once daily [Active]; Co Q-10 200 mg Oral cap daily [Active]; dutasteride 0.5 mg Oral cap 1 cap once daily [Active]; glipizide 5 mg Oral tab 1 tab 2 times per day [Active]; hydrochlorothiazide 25 mg Oral tab 1 tab once daily [Active]; krill oil 500 mg Oral cap daily [Active]; metformin 1,000 mg Oral tab 1 tab 2 times per day [Active]; Metoprolol Tartrate Oral [Active]; pantoprazole Oral once daily [Active]; quinapril 40 mg Oral tab 1 tab once daily [Active]; sotalol 80 mg Oral tab 0.5 tab 2 times per day [Active]; tamsulosin 0.4 mg Oral cp24 1 cap once daily [Active]; - PMHx: 18:13 Atrial Fib; BPH; Diabetes - NIDDM; Headaches; High Cholesterol; Hypertension; tw2 - PSHx: 18:13 Cholecystectomy; Heart stents; tw2 - Immunization history:: Adult Immunizations. - Social history:: Smoking status: . Screenin:15 Abuse screen: Denies threats or abuse. Nutritional screening: No deficits noted. tw2 Tuberculosis screening: No symptoms or risk factors identified. Fall Risk Secondary diagnosis (15 points) impaired mobility. Assessment: 18:14 Reassessment: see triage assessment. tw2 19:24 Reassessment: Lexy (sister) [phone]. ea 19:30 General: Appears in no apparent distress. Behavior is calm, cooperative, appropriate ea for age. Neuro: Level of Consciousness is awake, alert, obeys commands, Oriented to person, place, time. Cardiovascular: Patient's skin is warm and dry. Respiratory: Airway is patent Respiratory effort is even, unlabored, Respiratory pattern is regular, symmetrical. GI: Abdomen is non-distended. Derm: Skin is dry, Skin is pale, Skin temperature is warm. 20:50 Reassessment: Patient and/or family updated on plan of care and expected duration. Pain ea level reassessed. Patient is alert, oriented x 3, equal unlabored respirations, skin warm/dry/pink. 22:00 Reassessment: Patient and/or family updated on plan of care and expected duration. Pain ea level reassessed. Pt resting with eyes closed, respirations even and unlabored, chest expansions even and unlabored. 23:59 Reassessment: Patient and/or family updated on plan of care and expected duration. Pain ea level reassessed. Patient is alert, oriented x 3, equal unlabored respirations, skin warm/dry/pink. Report given to receiving nurse. Pt admitted to fourth floor, left ED via stretcher per tech, tolerating well. Vital Signs: 18:08 BP 169 / 77; Pulse 98; Resp 17; Temp 100.2(O); Pulse Ox 98% on R/A; Weight 68.04 kg tw2 (R); Height 5 ft. 3 in. (160.02 cm) (R); 19:15 BP 150 / 69; Pulse 98; Resp 18; Pulse Ox 97% on R/A; ea 20:00 BP 145 / 65; Pulse 98; Resp 17; Pulse Ox 97% ; ea 21:45 BP 109 / 59; Pulse 97; Resp 18; Temp 98.5; Pulse Ox 97% on R/A; ea 22:30 BP 132 / 63; Pulse 92; Resp 17; Pulse Ox 97% ; ea 23:15 BP 151 / 96; Pulse 97; Resp 18; Pulse Ox 97% ; ea 18:08 Body Mass Index 26.57 (68.04 kg, 160.02 cm) tw2 ED Course: 18:08 Patient arrived in ED. tw2 18:08 Estevan Monroy PA is PHCP. cp 18:08 Peter Flores MD is Attending Physician. cp 18:08 Bed in low position. Call light in reach. Pulse ox on. NIBP on. tw2 18:12 Triage completed. tw2 18:14 Arm band placed on. tw2 18:34 Nani Felipe, BARBARA is Primary Nurse. tw2 18:43 XRAY Chest (1 view) In Process Unspecified. EDMS 18:49 Missed attempt(s): 20 gauge in right antecubital area. blood collected. Bleeding tw2 controlled, band aid applied, catheter tip intact. Missed attempt(s): 22 gauge in left forearm. Bleeding controlled, band aid applied, catheter tip intact. 19:05 Report given to BARBARA Tobin - need for IV at this time, blood work sent, ekg done. tw2 19:15 Inserted saline lock: 22 gauge in left forearm, using aseptic technique. Blood ds4 collected. 20:16 CT Head Brain wo Cont In Process Unspecified. EDMS 20:19 CT Abd/Pelvis - IV Contrast Only In Process Unspecified. EDMS 22:17 Danny Locke MD is Hospitalizing Provider. cp 23:24 No provider procedures requiring assistance completed. Patient admitted, IV remains in ea place. 23:25 Inserted saline lock: 24 gauge in right wrist, using aseptic technique. ea Administered Medications: 19:41 Drug: Tylenol 1000 mg Route: PO; ea 23:24 Follow up: Response: No adverse reaction ea 23:24 Drug: metroNIDAZOLE 500 mg Volume: 100 ml; Route: IVPB; Infused Over: 30 mins; Site: ea left forearm; 23:24 Drug: Rocephin (cefTRIAXone) 1 grams Route: IV; Rate: calculated rate; Site: left ea forearm; 23:30 Follow up: Response: No adverse reaction; IV Status: Completed infusion; IV Intake: 10mlem Intake: 23:30 IV: 10ml; Total: 10ml. em Outcome: 22:18 Decision to Hospitalize by Provider. cp 23:25 Instructed on the need for admit, Demonstrated understanding of instructions. ea 12/15 00:01 Admitted to Med/surg accompanied by tech, via stretcher, room 428, with chart, Report ea called to Receiving nurse Condition: stable 00:01 Patient left the ED. ea Signatures: Dispatcher [employer] Mahad Hickey, RN RN Thomas Murillo ds4 Estevan Monroy PA PA cp Wise, Tara RN RN tw2 Desriae Hoffman RN RN ea
[2020-12-14] MEDS ORDERED: CEFTRIAXONE/SWI 1gm 1 GM/10 ML SYR ONE (22:52)
[2020-12-14] MEDS ORDERED: METRONIDAZOLE 500mg IVPB 500 MG/100 ML BAG IV ONE (22:52)
[2020-12-14 22:59] LABS: Lipase 38 U/L (73-393)
--- NOTE | 2020-12-15 00:49 | P.HP ---
Certification for Inpatient Patient admitted to: Inpatient With expected LOS: >2 Midnights Patient will require the following post-hospital care: None Practitioner: I am a practitioner with admitting privileges, knowledge of patient current condition, hospital course, and medical plan of care. Services: Services provided to patient in accordance with Admission requirements found in Title 42 Section 412.3 of the Code of Federal Regulations <nAuBhanu concepcion - Last Filed: 12/15/20 00:43> Patient History Date of Service: 12/15/20 Primary Care Provider: Dr. Hernández Reason for admission: Diverticulitis, fever History of Present Illness: 85-year-old male with history of atrial fibrillation not on chronic anticoagulation therapy, diabetes mellitus type 2, hypertension, hyperlipidemia presents emergency department with chief complaint of subjective fever, abdominal pain, nausea. Patient evaluated in the emergency department labs significant for white blood cell count 3.8 hemoglobin 10.6 hematocrit 29.8 MCV 92.2 sodium 135 AST 130 ALT 214 a okay to 40 to T bili 2.1 d bili 1.1 B and P 645 pro calcitonin 0.22. Patient has had previous cholecystectomy, no right upper quadrant pain or tenderness, patient unaware of previous elevated LFTs, LFTs not elevated in October of this year during previous admission. CTA mentions normal appearance of the liver, pancreas. CT performed in October does mention fatty infiltrate of liver. CT demonstrates prominent retention of stool throughout the colon in addition to inflammation surrounding several diverticula in the descending colon with acute mild diverticulitis. Chest x-ray suggests mild interstitial edema CT head negative for any acute findings. Patient currently alert, oriented x3. Patient does not appear septic at this time. Discussed code status with patient, patient prefers DNR status. - Past Medical/Surgical History Diabetic: Yes -: Diabetes mellitus type 2 -: Vertigo -: High Cholesterol -: HTN -: Cataracts -: AFIB not on chronic anticoagulation therapy -: Hyperlipidemia -: BPH -: Benign colon tumor removed -: Disc Surgery -: Heart Stent -: Cholecystectomy -: Basal cell carcinoma excision from the nose. Psychosocial/ Personal History: , retired, lives with family - Family History Father -: Heart disease Notes: of heart attack Mother -: Cancer Notes: cervical - Social History Alcohol use: No CD- Drugs: No Caffeine use: No Place of Residence: Home <Bhanu Johnson - Last Filed: 12/15/20 00:43> Date of Service: 12/15/20 <Danny Locke - Last Filed: 12/15/20 15:09> Allergies No Known Allergies Allergy (Verified 06/10/20 22:55) Home Medications: Atorvastatin Calcium [Lipitor*] 20 mg PO DAILY 06/13/20 Dutasteride 0.5 mg PO DAILY 06/13/20 Fenofibrate [Tricor*] 145 mg PO DAILY 06/13/20 PARoxetine HCl [Paxil] 30 mg PO DAILY 06/13/20 Pantoprazole [Protonix Tab*] 40 mg PO DAILY 06/13/20 Quinapril HCl 40 mg PO DAILY 06/13/20 Sitagliptin Phosphate [Januvia] 50 mg PO DAILY 06/13/20 Tamsulosin [Flomax*] 0.4 mg PO DAILY 06/13/20 glipiZIDE [Glipizide] 5 mg PO BID 06/13/20 Ciprofloxacin HCl 1 tab PO BID 10 Days #20 tablet 06/15/20 Tramadol HCl [Ultram] 1 tab PO Q6HR PRN 3 Days #10 tablet 06/15/20 metroNIDAZOLE [Flagyl] 1 tab PO Q8H 10 Days #30 tablet 06/15/20 Review of Systems 10-point ROS is otherwise unremarkable General: Fever, Chills, Malaise Gastrointestinal: Nausea, Abdominal Pain Genitourinary: Frequency <Bhanu Johnson - Last Filed: 12/15/20 00:43> Physical Examination - Vital Signs Temperature: 98.5 F Blood Pressure: 151/96 Pulse: 97 Respirations: 18 - Physical Exam General: Alert, In no apparent distress, Oriented x3 HEENT: Atraumatic, Normocephalic, Other (Mucous membranes dry) Neck: Supple Respiratory: Clear to auscultation bilaterally, Normal air movement Cardiovascular: No edema, Irregular heart rate/rhythm (AFib, rate controlled) Capillary refill: <2 Seconds Gastrointestinal: Normal bowel sounds, No masses, No rebound, No guarding, Tenderness (Mild tenderness left lower quadrant and suprapubic areas) Musculoskeletal: No contractures, No erythema, No tenderness Integumentary: No tenderness/swelling, No erythema, No warmth Neurological: Normal speech, Normal tone, Sensation intact - Studies Laboratory Data (last 24 hrs) 12/14/20 22:34: Lipase Cancelled 12/14/20 20:48: PT 15.5 H, INR 1.34 12/14/20 20:48: WBC 3.80 L, Hgb 10.6 L, Hct 29.8 L, Plt Count 93 L 12/14/20 18:32: Sodium 135 L, Potassium 3.8, BUN 17, Creatinine 1.17, Glucose 185 H, Magnesium 1.9, Total Bilirubin 2.1 H, AST 130 H, ALT 214 H, Alkaline Phosphatase 242 H, Lipase 38 L <Bhanu Johnson - Last Filed: 12/15/20 00:43> - Studies Laboratory Data (last 24 hrs) 12/14/20 22:34: Lipase Cancelled 12/14/20 20:48: PT 15.5 H, INR 1.34 12/14/20 20:48: WBC 3.80 L, Hgb 10.6 L, Hct 29.8 L, Plt Count 93 L 12/14/20 18:32: Sodium 135 L, Potassium 3.8, BUN 17, Creatinine 1.17, Glucose 185 H, Magnesium 1.9, Total Bilirubin 2.1 H, AST 130 H, ALT 214 H, Alkaline Phosphatase 242 H, Lipase 38 L <Danny Locke - Last Filed: 12/15/20 15:09> Assessment and Plan - Plan Assessment Fever, abdominal pain, nausea secondary to acute diverticulitis without perforation or abscess Elevated LFTs Atrial fibrillation not on chronic anticoagulation therapy Normocytic anemia and thrombocytopenia Diabetes mellitus type 2 Hypertension Hyperlipidemia BPH Plan Fever, abdominal pain, nausea secondary to acute diverticulitis without perforation or abscess: The patient tolerating clear liquids in the emergency department, continue with full liquid diet at this time. Continue with Rocephin/Flagyl, blood cultures obtained in the emergency department, patient does not appear septic at this time. Advance diet as tolerated. SCDs for DVT prophylaxis as platelet count is less than 100. Elevated LFTs: CT negative for any acute findings, patient with previous cholecystectomy, no epigastric/right upper quadrant pain or tenderness, patient unaware of previous elevations, labs previously only slightly elevated in comparison. Hepatitis panel and ultrasound of the liver/pancreas ordered for further evaluation. Patient will need GI evaluation likely on outpatient basis. Normocytic anemia and thrombocytopenia: Iron studies ordered, suspect anemia chronic disease. Thrombocytopenia may be related to liver dysfunction. Atrial fibrillation not on chronic anticoagulation therapy : Obtain and continue home medications, rate control at this time. Diabetes mellitus type 2: A.c. HS Accu-Cheks scale insulin therapy. Hypertension: Obtain and continue home medications Hyperlipidemia: Obtain and continue home medications BPH: Obtain and continue home medications Discharge Plan: Home Plan to discharge in: 72 Hours - Advance Directives Does patient have a Living Will: Yes Does patient have a Durable POA for Healthcare: Yes - Code Status/Comfort Care Code Status Assessed: Yes (DNR) Critical Care: No Time Spent Managing Pts Care (In Minutes): 55 <Bhanu Johnson - Last Filed: 12/15/20 00:43> - Plan Plan of care reviewed as noted above by Bhanu Johnson acute diverticulitis - continue antibiotics serial abdominal exams. RUQ U/S ordered <Danny Locke - Last Filed: 12/15/20 15:09>
[2020-12-15] MEDS ORDERED: ACETAMINOPHEN 500 MG TAB PO PRN (00:53)
[2020-12-15] MEDS ORDERED: ONDANSETRON 4 MG/2 ML VIAL IV PRN (00:53)
[2020-12-15] MEDS ORDERED: MORPHINE 2 MG/ML SYR IV PRN (00:53)
[2020-12-15] MEDS: NA CHLORIDE 0.9% 1,000 ML IV SCH ×3 (01:40→17:33)
[2020-12-15 04:13] LABS: Urine Appearance CLEAR; Urine Blood NEGATIVE (NEG); Urine Color YELLOW; Urine Glucose TRACE (NEG); Urine Protein NEGATIVE (NEG); Urine Specific Gravity >=1.030 (1.005-1.030)
[2020-12-15 04:46] LABS: Urine Bilirubin NEGATIVE (NEG); Urine Microscopic Reflex NO UMIC
[2020-12-15 05:40] VITALS: BMI 26.5
[2020-12-15 06:08] LABS: Absolute Lymphocytes (CBC) 0.3 K/uL (0.7-4.9); Basophils % 0.4 % (0-1.3); Hematocrit 32.2 % (39.6-49.0); Lymphocytes % 9.2 % (15.3-44.8); MPV 10.1 fL (7.6-11.3); RBC Red Blood Cell Count 3.49 M/uL (4.33-5.43)
[2020-12-15 07:23] LABS: Albumin 3.3 g/dL (3.4-5.0); Bilirubin Total 1.2 mg/dL (0.2-1.0); Ferritin 796.7 ng/mL (26-388); Magnesium 1.7 mg/dL (1.8-2.4); Potassium 3.4 mmol/L (3.5-5.1); Protein, Total 6.6 g/dL (6.4-8.2); Thyroid Stimulating Hormone 1.11 uIU/mL (0.360-3.740)
[2020-12-15] MEDS: INSULIN -REGULAR HUMAN 50 UNIT/0.5 ML ML SQ SCH ×4 (07:30→21:00)
[2020-12-15] MEDS ORDERED: POTASSIUM 25 MEQ EFFERV TAB PO ONE (09:00)
[2020-12-15] MEDS ORDERED: MAGNESIUM SULFATE 1 gm IVPB 1 GM/100 ML BAG IV ONE (09:00)
[2020-12-15] MEDS ORDERED: CEFTRIAXONE 1 GM/NS 50 ML 1 GM/50 ML BAG IV SCH (09:00)
--- NOTE | 2020-12-15 09:57 | RAD REPORT ---
EXAM DESCRIPTION: US - Abdomen Exam Limited - 12/15/2020 9:41 am CLINICAL HISTORY: Abdominal pain. Elevated liver function test enzymes COMPARISON: CT abdomen December 14, 2020 FINDINGS: The liver has an increased echotexture. Hepatopetal flow. Limited evaluation of pancreas secondary to overlying bowel gas Cholecystectomy. The biliary tree is normal caliber. IMPRESSION: Increased hepatic echotexture probably fatty infiltration
[2020-12-15] MEDS: METRONIDAZOLE 500mg IVPB 500 MG/100 ML BAG IV SCH ×3 (10:14→23:38)
[2020-12-15] MEDS ORDERED: POTASSIUM CL SA 10 MEQ TAB PO ONE (12:00)
--- NOTE | 2020-12-15 15:14 | P.PN ---
Subjective Date of Service: 12/15/20 Primary Care Provider: Dr. Hernández Chief Complaint: Diverticulitis, fever Subjective: Improving (confused, reports improvement of nausea and abdominal pain, reports some lower back pain today) Review of Systems 10-point ROS is otherwise unremarkable Physical Examination - Vital Signs Temperature: 98.9 F Blood Pressure: 140/73 Pulse: 107 Respirations: 20 Pulse Ox (%): 93 - Studies Laboratory Data (last 24 hrs) 12/14/20 22:34: Lipase Cancelled 12/14/20 20:48: PT 15.5 H, INR 1.34 12/14/20 20:48: WBC 3.80 L, Hgb 10.6 L, Hct 29.8 L, Plt Count 93 L 12/14/20 18:32: Sodium 135 L, Potassium 3.8, BUN 17, Creatinine 1.17, Glucose 185 H, Magnesium 1.9, Total Bilirubin 2.1 H, AST 130 H, ALT 214 H, Alkaline Phosphatase 242 H, Lipase 38 L Assessment & Plan Physician Review Additional Text: Physical Exam General: AAOx2, NAD HEENT: sclera anicteric, normal conjunctiva CV: irregularly irregular, rate controlled Pulm: CTAB, normal air movement, on room air Abd: soft, mild TTP in LLQ, no rebound Ext: no erythema/tenderness Problem List Fever, abdominal pain, nausea secondary to acute diverticulitis without perforation or abscess Elevated LFTs Atrial fibrillation not on chronic anticoagulation therapy Normocytic anemia and thrombocytopenia Diabetes mellitus type 2 Hypertension Hyperlipidemia BPH continue Full liquid diet, tolerating so far, ADAT, decrease IVF mild confusion this morning, unclear if part of baseline / slightly worsened with ongoing infection continue rocephin/flagyl, f/u blood cultures RUQ U/S ordered given elevated LFTs continue home medications as appropriate SSI, accucheks dispo: anticipate dc home in ~1-2 days Time Spent Managing Pts Care (In Minutes): 35
--- NOTE | 2020-12-15 16:49 | EKG ---
Test Date: 2020-12-14 Test Time: 17:39:05 Reliner: TINA MEASUREMENT RESULTS: Intervals: Rate: 89 NE: 178 QRSD: 72 QT: 320 QTc: 389 [place]: P: 39 NE: 178 QRS: -21 T: 44 INTERPRETIVE STATEMENTS: Sinus rhythm with marked sinus arrhythmia Otherwise normal ECG Compared to ECG 09/30/2019 10:53:53 Atrial fibrillation no longer present Electronically Signed On 12-15-20 16:47:48 CDT by Elvis Wise
[2020-12-15] MEDS: CEFTRIAXONE/SWI 1gm 1 GM/10 ML SYR IV SCH (23:33)
[2020-12-16 04:44] LABS: Absolute Lymphocytes (CBC) 0.5 K/uL (0.7-4.9); Basophils % 0.6 % (0-1.3); Hematocrit 31.2 % (39.6-49.0); Lymphocytes % 19.7 % (15.3-44.8); MPV 10.4 fL (7.6-11.3); RBC Red Blood Cell Count 3.39 M/uL (4.33-5.43)
[2020-12-16] MEDS: NA CHLORIDE 0.9% 1,000 ML IV SCH (04:52)
[2020-12-16 05:01] LABS: ALT/SGPT 100 U/L (12-78); AST/SGOT 35 U/L (15-37); Albumin 3.2 g/dL (3.4-5.0); BUN Blood Urea Nitrogen 13 mg/dL (7-18); Bicarbonate 24 mmol/L (21-32); Bilirubin Total 0.7 mg/dL (0.2-1.0); Glucose Level 145 mg/dL (74-106); Potassium 3.6 mmol/L (3.5-5.1); Protein, Total 6.6 g/dL (6.4-8.2); Sodium Level 141 mmol/L (136-145)
[2020-12-16 05:25] LABS: Alkaline Phosphatase ND U/L (45-117)
[2020-12-16] MEDS: INSULIN -REGULAR HUMAN 50 UNIT/0.5 ML ML SQ SCH ×4 (07:30→21:00)
[2020-12-16] MEDS ORDERED: POTASSIUM CL SA 10 MEQ TAB PO ONE (09:00)
[2020-12-16] MEDS: METRONIDAZOLE 500mg IVPB 500 MG/100 ML BAG IV SCH ×2 (10:11→17:08)
--- NOTE | 2020-12-16 18:21 | P.PN ---
Subjective Date of Service: 12/16/20 Primary Care Provider: Dr. Hernández Chief Complaint: Diverticulitis, fever Subjective: Improving (slight improvement, reports some abdominal pain and nausea still, not as confused as yesterday. no more back pain) Review of Systems 10-point ROS is otherwise unremarkable Physical Examination - Vital Signs Temperature: 96.9 F Blood Pressure: 144/60 Pulse: 90 Respirations: 18 Pulse Ox (%): 98 Assessment & Plan Physician Review Additional Text: Physical Exam General: AAOx3, NAD HEENT: sclera anicteric, normal conjunctiva CV: irregularly irregular, rate controlled Pulm: CTAB, normal air movement, on room air Abd: soft, mild TTP in LLQ, no rebound Ext: no erythema/tenderness Problem List Fever, abdominal pain, nausea secondary to acute diverticulitis without perforation or abscess Elevated LFTs Atrial fibrillation not on chronic anticoagulation therapy Normocytic anemia and thrombocytopenia Diabetes mellitus type 2 Hypertension Hyperlipidemia BPH advance diet as tolerated, dc IVF if improves today confusion improved continue rocephin/flagyl, f/u blood cultures overall slowly improving continue home medications as appropriate SSI, accucheks PT consulted dispo: anticipate dc home tomorrow if tolerating diet, ambulating better, no confusion Time Spent Managing Pts Care (In Minutes): 35
[2020-12-17] MEDS: NA CHLORIDE 0.9% 1,000 ML IV SCH (00:52)
[2020-12-17] MEDS: CEFTRIAXONE/SWI 1gm 1 GM/10 ML SYR IV SCH (00:53)
[2020-12-17] MEDS: METRONIDAZOLE 500mg IVPB 500 MG/100 ML BAG IV SCH ×2 (00:53→07:45)
[2020-12-17 06:13] LABS: Absolute Lymphocytes (CBC) 0.7 K/uL (0.7-4.9); Basophils % 0.7 % (0-1.3); Hematocrit 30.7 % (39.6-49.0); Lymphocytes % 25.3 % (15.3-44.8); MPV 9.7 fL (7.6-11.3); RBC Red Blood Cell Count 3.37 M/uL (4.33-5.43)
[2020-12-17 06:55] LABS: ALT/SGPT 77 U/L (12-78); AST/SGOT 28 U/L (15-37); Albumin 3.2 g/dL (3.4-5.0); BUN Blood Urea Nitrogen 14 mg/dL (7-18); Bicarbonate 26 mmol/L (21-32); Bilirubin Total 0.7 mg/dL (0.2-1.0); Glucose Level 165 mg/dL (74-106); Magnesium 1.9 mg/dL (1.8-2.4); Potassium 3.7 mmol/L (3.5-5.1); Protein, Total 6.7 g/dL (6.4-8.2); Sodium Level 140 mmol/L (136-145)
[2020-12-17 07:26] LABS: Alkaline Phosphatase ND U/L (45-117)
[2020-12-17] MEDS: INSULIN -REGULAR HUMAN 50 UNIT/0.5 ML ML SQ SCH ×2 (07:30→11:56)
[2020-12-17 09:30] VITALS: O2SAT 97
[2020-12-17 10:44] LABS: Blood Morphology Comment NOT SEEN (NOT SEEN); Platelet Estimate DECR; Platelets, Giant FEW; White Blood Cell Scan OK (OK)
--- NOTE | 2020-12-17 11:56 | P.DS ---
Admission Date: 12/14/20 Discharge Date: 12/17/20 Primary Care Provider: Dr. Hernández Disposition: ROUTINE DISCHARGE Discharge Condition: GOOD Reason for Admission: Diverticulitis, fever Procedures: CXR (12/14): Mild interstitial pulmonary edema. The heart is upper limit normal in size. No displaced fractures. CT Abd/pelvis (12/14): Prominent retention of stool throughout the colon is present. There is subtle inflammation surrounding several diverticula in the descending colon which could indicate a mild acute diverticulitis. CT Head (12/14): No acute intracranial abnormality. Abd U/S (12/15): Increased hepatic echotexture probably fatty infiltration Problem List Fever, abdominal pain, nausea secondary to acute diverticulitis without perforation or abscess Elevated LFTs Atrial fibrillation not on chronic anticoagulation therapy Normocytic anemia and thrombocytopenia Diabetes mellitus type 2, non-insulin dependent Hypertension Hyperlipidemia BPH Brief History of Present Illness: 85yo M, PMH: Afib not on anticoagulation, DM2, HTN, HLD, presented to ED with subjective fever, abdominal pain, and nausea. Labs significant for WBC: 3.8, Hgb: 10.6, HcT: 29.8, sodium 135 AST 130 ALT 214 a okay to 40 to T bili 2.1 d bili 1.[address] BNP [address] demonstrates prominent retention of stool throughout the colon in addition to inflammation surrounding several diverticula in the descending colon with acute mild diverticulitis. Chest x-ray suggests mild interstitial edema CT head negative for any acute findings. Patient currently alert, oriented x3. Patient does not appear septic at this time. Hospital Course: Patient was treated for acute diverticulitis with empiric antibiotics. He had notable improvement and resolution of symptoms. He was discharged home to continue antibiotics and follow up with PCP in the next 3-5 days. Vital Signs/Physical Exam: Physical Exam General: AAOx3, NAD HEENT: sclera anicteric, normal conjunctiva CV: irregularly irregular, rate controlled Pulm: CTAB, normal air movement, on room air Abd: soft, nontender, nondistended, +normoactive bowel sounds Ext: no erythema/tenderness Temp Pulse Resp BP Pulse Ox 98 F 86 18 150/58 H 97 12/17/20 08:00 12/17/20 08:00 12/17/20 08:00 12/17/20 08:00 12/17/20 08:00 Laboratory Data at Discharge: WBC 2.90 K/uL (4.3-10.9) L 12/17/20 05:58 Hgb 10.9 g/dL (13.6-17.9) L 12/17/20 05:58 Hct 30.7 % (39.6-49.0) L 12/17/20 05:58 Plt Count 118 K/uL (152-406) L D 12/17/20 05:58 PT 15.5 SECONDS (9.5-12.5) H 12/14/20 20:48 INR 1.34 12/14/20 20:48 Sodium 140 mmol/L (136-145) 12/17/20 05:58 Potassium 3.7 mmol/L (3.5-5.1) 12/17/20 05:58 BUN 14 mg/dL (7-18) 12/17/20 05:58 Creatinine 0.83 mg/dL (0.55-1.3) 12/17/20 05:58 Glucose 165 mg/dL (74-106) H 12/17/20 05:58 Magnesium 1.9 mg/dL (1.8-2.4) 12/17/20 05:58 Total Bilirubin 0.7 mg/dL (0.2-1.0) 12/17/20 05:58 AST 28 U/L (15-37) 12/17/20 05:58 ALT 77 U/L (12-78) 12/17/20 05:58 Alkaline Phosphatase ND 12/17/20 05:58 Triglycerides 113 mg/dL (<150) 12/15/20 05:31 Cholesterol 142 mg/dL (<200) 12/15/20 05:31 HDL Cholesterol 51 mg/dL (40-60) 12/15/20 05:31 Cholesterol/HDL Ratio 2.78 12/15/20 05:31 Lipase Cancelled 12/14/20 22:34 Home Medications: Atorvastatin Calcium [Lipitor*] 20 mg PO BEDTIME 06/13/20 Dutasteride 0.5 mg PO DAILY 06/13/20 Fenofibrate [Tricor*] 145 mg PO DAILY 06/13/20 PARoxetine HCl [Paxil] 30 mg PO DAILY 06/13/20 Pantoprazole [Protonix Tab*] 40 mg PO DAILY 06/13/20 Sitagliptin Phosphate [Januvia] 50 mg PO DAILY 06/13/20 Tamsulosin [Flomax*] 0.4 mg PO DAILY 06/13/20 glipiZIDE [Glipizide] 5 mg PO BID 06/13/20 Cyclobenzaprine HCl [Flexeril] 5 mg PO BEDTIME 12/16/20 Sotalol HCl [Betapace*] 40 mg PO DAILY 12/16/20 Trazodone [Desyrel*] 50 mg PO BEDTIME 12/16/20 hydroCHLOROthiazide [Hydrochlorothiazide] 25 mg PO BID 12/16/20 Amox/Clavulanate [Augmentin 875-125 Tab] 875 mg PO Q8H 5 Days #15 tab 12/17/20 metroNIDAZOLE [Flagyl] 500 mg PO Q8H 5 Days #15 tablet 12/17/20 New Medications: Amox/Clavulanate [Augmentin 875-125 Tab] 875 mg PO Q8H 5 Days #15 tab metroNIDAZOLE [Flagyl] 500 mg PO Q8H 5 Days #15 tablet Physician Discharge Instructions: Your abdominal pain, nausea/vomiting was due to colitis (inflammation/infection of your intestines). You are discharged with 5 more days of antibiotics. Resume your home medications as previously prescribed. Please follow up with your PCP in the next 3-5 days. Diet: ADA Activity: Ad coni Followup: GABBY PIERRE [Primary Care Provider] - (CAll to schedule for appointment.) Time spent managing pt's care (in minutes): 40
[2020-12-17 13:36] VITALS: BP 150/66; TEMP 97.7
[2020-12-20 03:08] LABS: HBsAG Nonreactive (Nonreactive)
== END 2020-12-17 14:02 | disposition home or self-care (01) | DRG 392 ==
LOC: ER 18:06 → ERHOLD 22:36 → 4TH 12-15 00:01
PROVIDERS: ADMIT Hospitalist; ATTEND Hospitalist
DX: K57.32 Diverticulitis of large intestine without perforation or abscess without bleeding (principal); I10 Essential (primary) hypertension; E78.5 Hyperlipidemia, unspecified; D69.6 Thrombocytopenia, unspecified; I48.91 Unspecified atrial fibrillation; D64.9 Anemia, unspecified; N40.0 Benign prostatic hyperplasia without lower urinary tract symptoms; E11.9 Type 2 diabetes mellitus without complications; R94.5 Abnormal results of liver function studies; Z79.82 Long term (current) use of aspirin; Z79.84 Long term (current) use of oral hypoglycemic drugs; Z79.899 Other long term (current) drug therapy; Z90.49 Acquired absence of other specified parts of digestive tract; Z95.5 Presence of coronary angioplasty implant and graft; Z66 Do not resuscitate; Z20.822 Contact with and (suspected) exposure to COVID-19
CPT/HCPCS: 36415; 70450; 71045; 74177; 76705; 80048; 80053; 80061; 80074; 80076; 81003; 82728; 82947; 83540; 83690; 83735; 83880; 84132; 84145; 84439; 84443; 84466; 84484; 85025; 85610; 87040; 93005; 96374; 96375; 97112; 97116; 97161; 99285; J0696; J2270; J3475; J7030; Q9967; U0003

== ENCOUNTER 2021-02-14 12:31 | Emergency (ER) | payer OTHER ==
[2021-02-14 13:48] LABS: Basophils % 0.7 % (0-1.3); Lymphocytes % 24.9 % (15.3-44.8); RBC Red Blood Cell Count 3.55 M/uL (4.33-5.43)
--- NOTE | 2021-02-14 14:08 | RAD REPORT ---
EXAM DESCRIPTION: CTAbdomen Pelvis W Contrast - 02/14/2021 1:00 pm CLINICAL HISTORY: Abdominal pain. ABD PAIN COMPARISON: Abdomen Pelvis W Contrast dated 12/14/2020; Abdomen Pelvis W Contrast dated 06/10/2020 ; CT ABD PELVIS W CONTRAST dated 04/06/2008 TECHNIQUE: Biphasic CT imaging of the abdomen and pelvis was performed with 100 ml non-ionic IV cont rast. All CT scans are performed using dose optimization technique as appropriate and may include automated exposure control or mA/KV adjustment according to patient size. FINDINGS: Mild emphysematous changes in the lung bases. The liver, spleen, pancreas, adrenal glands and kidneys are within normal limits. Cholecystectomy cli ps. No bowel obstruction, free air, free fluid or abscess. Significant sigmoid diverticulosis is present fecal retention throughout the colon. The appendix is normal. No evidence of significant lymphadenop athy. Mild lumbar degenerative changes. IMPRESSION: Prominent retained stool throughout the colon with diverticulosis coli present.
[2021-02-14 14:10] LABS: Albumin 3.8 g/dL (3.4-5.0); Bilirubin Direct 0.2 mg/dL (0-0.2); Bilirubin Total 0.4 mg/dL (0.2-1.0); Potassium 3.7 mmol/L (3.5-5.1); Protein, Total 7.2 g/dL (6.4-8.2)
[2021-02-14] MEDS ORDERED: NA CHLORIDE 0.9% 1,000 ML ONE (14:33)
[2021-02-14] MEDS ORDERED: FLEET ENEMA ADULT PR ONE (14:33)
--- NOTE | 2021-02-14 16:30 | ER ---
Nurse's Notes [facility] Name: Fidelia Marcus Jr Age: 85 yrs Sex: Male : 1935 Arrival Date: 02/14/2021 Time: 12:40 Bed 3 Private MD: Diagnosis: Constipation Presentation: 02/14 12:41 Chief complaint: EMS states: Toned out by pt's sister, pt called her reporting sever jl7 abdominal pain x months. Coronavirus screen: Client denies travel out of the [place] in the last 14 days. At this time, the client does not indicate any symptoms associated with coronavirus-19. Ebola Screen: No symptoms or risks identified at this time. Initial Sepsis Screen: Does the patient meet any 2 criteria? No. Patient's initial sepsis screen is negative. Does the patient have a suspected source of infection? No. Patient's initial sepsis screen is negative. Risk Assessment: Do you want to hurt yourself or someone else? Patient reports no desire to harm self or others. Onset of symptoms is unknown. Care prior to arrival: None. 12:41 Method Of Arrival: EMS: [facility] 7 12:41 Acuity: MIQUEL 3 jl7 Triage Assessment: 12:47 General: Appears in no apparent distress. uncomfortable, Behavior is calm, cooperative, jl7 appropriate for age. Pain: Complains of pain in umbilical area Pain does not radiate. Pain currently is 10 out of 10 on a pain scale. Is continuous. Neuro: Level of Consciousness is awake, alert, obeys commands, Oriented to person, place, time, situation. Cardiovascular: Denies chest pain, Patient's skin is warm and dry. Rhythm is regular. Respiratory: Airway is patent Respiratory effort is even, unlabored, Respiratory pattern is regular, symmetrical, Denies shortness of breath. GI: Abdomen is round non-distended, Bowel sounds present X 4 quads. Abdomen is tender to palpation X 4 quads. Derm: Skin is pink, warm \T\ dry. Historical: - Allergies: 12:47 NKA; jl7 - Home Meds: 12:47 aspirin 81 mg Oral chew 1 tab once daily [Active]; atorvastatin 20 mg Oral tab 1 tab jl7 once daily [Active]; Co Q-10 200 mg Oral cap daily [Active]; dutasteride 0.5 mg Oral cap 1 cap once daily [Active]; glipizide 5 mg Oral tab 1 tab 2 times per day [Active]; hydrochlorothiazide 25 mg Oral tab 1 tab once daily [Active]; krill oil 500 mg Oral cap daily [Active]; metformin 1,000 mg Oral tab 1 tab 2 times per day [Active]; quinapril 40 mg Oral tab 1 tab once daily [Active]; sotalol 80 mg Oral tab 0.5 tab 2 times per day [Active]; tamsulosin 0.4 mg Oral cp24 1 cap once daily [Active]; Metoprolol Tartrate Oral [Active]; pantoprazole Oral once daily [Active]; - PMHx: 12:47 Atrial Fib; BPH; Diabetes - NIDDM; Headaches; High Cholesterol; Hypertension; jl7 - PSHx: 12:47 Cholecystectomy; Heart stents; jl7 - Immunization history:: Adult Immunizations unknown. - Social history:: Smoking status: Patient denies any tobacco usage or history of. - Family history:: not pertinent. Screenin:43 Abuse screen: Denies threats or abuse. Denies injuries from another. Nutritional jl7 screening: No deficits noted. Tuberculosis screening: No symptoms or risk factors identified. Fall Risk IV access (20 points). Total Winkler Fall Scale indicates No Risk (0-24 pts). Assessment: 12:40 General: See triage assessment. jl7 13:40 Reassessment: Patient appears in no apparent distress at this time. No changes from jl7 previously documented assessment. Patient and/or family updated on plan of care and expected duration. Pain level reassessed. Patient is alert, oriented x 3, equal unlabored respirations, skin warm/dry/pink. 14:43 Reassessment: Attempted to administer enema, pt refused and asked to be taken to the 7 restroom, Pt wheeled to the restroom at this time. 15:30 Reassessment: Pt still in restroom, no distress noted. jl7 16:25 Reassessment: Pt reports small BM, wheeled back to room 3, ERD at bedside discussing jl7 results and POC. Vital Signs: 12:41 BP 187 / 81; Pulse 86; Resp 19 S; Temp 98.3(O); Pulse Ox 97% on R/A; Weight 68.04 kg jl7 (R); Height 5 ft. 3 in. (160.02 cm) (R); Pain 10/10; 13:43 BP 164 / 75; Pulse 78; Resp 14; Pulse Ox 100% ; jl7 16:00 BP 168 / 92; Pulse 75; Resp 15; Pulse Ox 100% ; jl7 12:41 Body Mass Index 26.57 (68.04 kg, 160.02 cm) jl7 ED Course: 12:40 Patient arrived in ED. ds1 12:41 Marichuy Perdue, RN is Primary Nurse. jl7 12:46 Triage completed. jl7 12:47 Arm band placed on right wrist. jl7 12:47 Patient has correct armband on for positive identification. Placed in gown. Bed in low jl7 position. Call light in reach. Side rails up X 1. hall monitor on. Pulse ox on. NIBP on. Warm blanket given. 12:48 Jose Grimaldo MD is Attending Physician. ma2 13:44 Inserted saline lock: 24 gauge in right wrist, using aseptic technique. Blood collected.em1 14:00 CT Abd/Pelvis - IV Contrast Only In Process Unspecified. EDMS 16:43 No provider procedures requiring assistance completed. IV discontinued, intact, jl7 bleeding controlled, No redness/swelling at site. Pressure dressing applied. Administered Medications: 14:00 Drug: NS 0.9% 1000 ml Route: IV; Rate: 1 bolus; Site: right wrist; jl7 15:30 Follow up: IV Status: IV infiltrated; IV Intake: 100ml jl7 15:00 Drug: Fleet Enema (sodium phosphate) 133 ml Route: UT; jl7 16:41 Follow up: Response: No adverse reaction; No change in condition jl7 Intake: 15:30 IV: 100ml; Total: 100ml. jl7 Outcome: 16:30 Discharge ordered by . ma2 16:43 Discharged to home ambulatory, via wheelchair, with family. jl7 16:43 Condition: stable 16:43 Discharge instructions given to patient, Instructed on discharge instructions, follow up and referral plans. medication usage, Demonstrated understanding of instructions, follow-up care, medications, Prescriptions given X 2. 16:44 Patient left the ED. jl7 Signatures: Dispatcher [employer] EDNE Lauren Mccurdy ds1 Eloy, Marichuy Pickett RN RN jl7 Jose Grimaldo MD MD ma2 Corrections: (The following items were deleted from the chart) 16:44 16:43 Discharged to home ambulatory, donald bennett
--- NOTE | 2021-02-14 16:45 | EDPHYS ---
Physician Documentation [facility] Name: Fidelia Marcus Jr Age: 85 yrs Sex: Male : 1935 Arrival Date: 02/14/2021 Time: 12:40 Bed 3 Private MD: ED Physician Jose Grimaldo HPI: 02/14 15:35 This 85 yrs old Male presents to ER via EMS with complaints of constipation. ma2 15:35 Onset: The symptoms/episode began/occurred gradually, 2 week(s) ago. Associated signs ma2 and symptoms: Pertinent negatives: anorexia, chest pain, diarrhea, dysuria. Severity of pain: At its worst the pain was very mild in the emergency department the pain is unchanged. The patient has not experienced similar symptoms in the past. patient states he also has not been eating as he is constipated and been dehydrated . Historical: - Allergies: 12:47 NKA; jl7 - Home Meds: 12:47 aspirin 81 mg Oral chew 1 tab once daily [Active]; atorvastatin 20 mg Oral tab 1 tab jl7 once daily [Active]; Co Q-10 200 mg Oral cap daily [Active]; dutasteride 0.5 mg Oral cap 1 cap once daily [Active]; glipizide 5 mg Oral tab 1 tab 2 times per day [Active]; hydrochlorothiazide 25 mg Oral tab 1 tab once daily [Active]; krill oil 500 mg Oral cap daily [Active]; metformin 1,000 mg Oral tab 1 tab 2 times per day [Active]; quinapril 40 mg Oral tab 1 tab once daily [Active]; sotalol 80 mg Oral tab 0.5 tab 2 times per day [Active]; tamsulosin 0.4 mg Oral cp24 1 cap once daily [Active]; Metoprolol Tartrate Oral [Active]; pantoprazole Oral once daily [Active]; - PMHx: 12:47 Atrial Fib; BPH; Diabetes - NIDDM; Headaches; High Cholesterol; Hypertension; jl7 - PSHx: 12:47 Cholecystectomy; Heart stents; jl7 - Immunization history:: Adult Immunizations unknown. - Social history:: Smoking status: Patient denies any tobacco usage or history of. - Family history:: not pertinent. ROS: 15:35 Constitutional: Negative for fever, chills, and weight loss. ma2 15:35 All other systems are negative. Exam: 15:35 Constitutional: This is a well developed, well nourished patient who is awake, alert, ma2 and in no acute distress. Head/Face: Normocephalic, atraumatic. Eyes: Pupils equal round and reactive to light, extra-ocular motions intact. Lids and lashes normal. Conjunctiva and sclera are non-icteric and not injected. Cornea within normal limits. Periorbital areas with no swelling, redness, or edema. ENT: Nares patent. No nasal discharge, no septal abnormalities noted. Tympanic membranes are normal and external auditory canals are clear. Oropharynx with no redness, swelling, or masses, exudates, or evidence of obstruction, uvula midline. Mucous membranes moist. Neck: Trachea midline, no thyromegaly or masses palpated, and no cervical lymphadenopathy. Supple, full range of motion without nuchal rigidity, or vertebral point tenderness. No Meningismus. Chest/axilla: Normal chest wall appearance and motion. Nontender with no deformity. No lesions are appreciated. Cardiovascular: Regular rate and rhythm with a normal S1 and S2. No gallops, murmurs, or rubs. Normal PMI, no JVD. No pulse deficits. Respiratory: Lungs have equal breath sounds bilaterally, clear to auscultation and percussion. No rales, rhonchi or wheezes noted. No increased work of breathing, no retractions or nasal flaring. Abdomen/GI: Soft, non-tender, with normal bowel sounds. No distension or tympany. No guarding or rebound. No evidence of tenderness throughout. Skin: Warm, dry with normal turgor. Normal color with no rashes, no lesions, and no evidence of cellulitis. MS/ Extremity: Pulses equal, no cyanosis. Neurovascular intact. Full, normal range of motion. Neuro: Awake and alert, GCS 15, oriented to person, place, time, and situation. Cranial nerves II-XII grossly intact. Motor strength 5/5 in all extremities. Sensory grossly intact. Cerebellar exam normal. Normal gait. Vital Signs: 12:41 BP 187 / 81; Pulse 86; Resp 19 S; Temp 98.3(O); Pulse Ox 97% on R/A; Weight 68.04 kg jl7 (R); Height 5 ft. 3 in. (160.02 cm) (R); Pain 10/10; 13:43 BP 164 / 75; Pulse 78; Resp 14; Pulse Ox 100% ; jl7 16:00 BP 168 / 92; Pulse 75; Resp 15; Pulse Ox 100% ; jl7 12:41 Body Mass Index 26.57 (68.04 kg, 160.02 cm) [facility] MDM: 12:48 Patient medically screened. [facility] 15:35 Differential diagnosis: gastroesophageal reflux disease, Irritable bowel syndrome, ma2 urinary tract infection. 16:29 Data reviewed: vital signs, nurses notes. Counseling: I had a detailed discussion with ma2 the patient and/or guardian regarding: the historical points, exam findings, and any diagnostic results supporting the discharge/admit diagnosis, the presence of at least one elevated blood pressure reading (>120/80) during this emergency department visit, the need for outpatient follow up. Response to treatment: the patient's symptoms have markedly improved after treatment. 02/14 12:55 Order name: Basic Metabolic Panel; Complete Time: 14:37 [facility] 02/14 12:55 Order name: CBC with Diff; Complete Time: 14:02 [facility] 02/14 12:55 Order name: CT Abd/Pelvis - IV Contrast Only; Complete Time: 14:37 [facility] 02/14 12:55 Order name: Hepatic Function; Complete Time: 14:37 [facility] 02/14 12:55 Order name: Lipase; Complete Time: 14:37 [facility] 02/14 12:55 Order name: IV Saline Lock; Complete Time: 13:42 [facility] 02/14 12:55 Order name: Labs collected and sent; Complete Time: 13:42 [facility] Administered Medications: 14:00 Drug: NS 0.9% 1000 ml Route: IV; Rate: 1 bolus; Site: right wrist; [facility] 15:30 Follow up: IV Status: IV infiltrated; IV Intake: 100ml [facility] 15:00 Drug: Fleet Enema (sodium phosphate) 133 ml Route: TN; 7 16:41 Follow up: Response: No adverse reaction; No change in condition [facility] Disposition: 02/14/21 16:30 Discharged to Home. Impression: Constipation. - Condition is Stable. - Discharge Instructions: Constipation, Adult, [id number]. - Prescriptions for Fleet Enema Extra - insert 1 vial by RECTAL route 2 times per day; 5 vial. Colace 100 mg Oral Tablet - take 1 tablet by ORAL route every 12 hours; 14 tablet. - Medication Reconciliation Form, Thank You Letter, Antibiotic Education, Prescription Opioid Use form. - Follow up: Private Physician; When: Tomorrow; Reason: Continuance of care. Signatures: Dispatcher [employer] Marichuy Briceno RN RN jl7 Jose Grimaldo MD MD ma2 Corrections: (The following items were deleted from the chart) 16:44 16:30 02/14/2021 16:30 Discharged to Home. Impression: Constipation. Condition is jl7 Stable. Discharge Instructions: Constipation, Adult, [id number]. Prescriptions for Fleet Enema Extra - insert 1 vial by RECTAL route 2 times per day; 5 vial. and Forms are Medication Reconciliation Form, Thank You Letter, Antibiotic Education, Prescription Opioid Use. Follow up: Private Physician; When: Tomorrow; Reason: Continuance of care. ma2
[2021-02-14 17:30] VITALS: TEMP 98.3
[2021-02-14 17:32] VITALS: BP 168/92; O2SAT 100
== END 2021-02-14 16:44 | disposition home or self-care (01) ==
LOC: ER 12:31
DX: K59.00 Constipation, unspecified (principal); I48.91 Unspecified atrial fibrillation; N40.0 Benign prostatic hyperplasia without lower urinary tract symptoms; E11.9 Type 2 diabetes mellitus without complications; E78.00 Pure hypercholesterolemia, unspecified; I10 Essential (primary) hypertension; Z95.5 Presence of coronary angioplasty implant and graft; Z79.84 Long term (current) use of oral hypoglycemic drugs
CPT/HCPCS: 85025; 80048; 36415; 82565; 80076; 83690; 74177; 96360; 99284; Q9967; J7030

== ENCOUNTER 2021-04-30 18:05 | Observation (INO) | payer OTHER ==
--- NOTE | 2021-04-30 19:38 | RAD REPORT ---
EXAM DESCRIPTION: RAD - Chest Single View - 04/30/2021 7:18 pm CLINICAL HISTORY: Chest pain;Blunt chest trauma;Dyspnea COMPARISON: Chest Single View dated 12/14/2020; Chest Single View dated 09/22/2020; Chest Single View dated 09/29/2019; Chest Single View dated 06/12/2019 FINDINGS: No evidence of edema or pneumonia. The heart size is within normal limits.No acute osseous abnormality. No significant pleural effusions or pneumothorax. IMPRESSION: No acute cardiopulmonary disease.
[2021-04-30] MEDS ORDERED: ONDANSETRON 4 MG/2 ML VIAL ONE (20:13)
[2021-04-30] MEDS ORDERED: MORPHINE 2 MG/ML SYR ONE ×2 (20:13→23:55)
[2021-04-30] MEDS ORDERED: NA CHLORIDE 0.9% 1,000 ML ONE (20:14)
[2021-04-30] MEDS ORDERED: FAMOTIDINE 20 MG/2 ML VIAL IV ONE (20:14)
[2021-04-30 20:15] LABS: Urine Blood Negative (Negative); Urine Glucose 2+ (Negative); Urine Protein Negative (Negative); Urine Specific Gravity 1.015 (1.005-1.030)
--- NOTE | 2021-04-30 21:26 | ER ---
Nurse's Notes [facility] Name: Fidelia Marcus Jr Age: 86 yrs Sex: Male : 1935 Arrival Date: 04/30/2021 Time: 18:[address] Private MD: Diagnosis: Fall due to bumping against object;Multiple fractures of ribs, right side;Abdominal pain, unspecified;Chest pain on breathing;Type 2 diabetes mellitus with hyperglycemia Presentation: 04/30 18:19 Chief complaint: EMS states: patient fell 4 days ago. Called his daughter stating that zb he was having SOB and pain. Daughter called EMS for anxiety, SOB, and pain. Patient aox2. history of Parkinson and hallucinations. Coronavirus screen: At this time, the client does not indicate any symptoms associated with coronavirus-19. Ebola Screen: No symptoms or risks identified at this time. Initial Sepsis Screen: Does the patient meet any 2 criteria? No. Patient's initial sepsis screen is negative. Does the patient have a suspected source of infection? No. Patient's initial sepsis screen is negative. Risk Assessment: Do you want to hurt yourself or someone else? Patient reports no desire to harm self or others. Onset of symptoms was April 30, 2021. 18:19 Acuity: MIQUEL 3 zb 18:19 Method Of Arrival: EMS: [facility] zb Triage Assessment: 18:30 Pain: Unable to use pain scale. Patient appears to be grimacing, to be guarding. Neuro: zb Level of Consciousness is awake, alert, obeys commands, Oriented to person, place, Instructional Design Technologist are equal bilaterally. Cardiovascular: Patient's skin is warm and dry. Respiratory: Reports shortness of breath at rest Airway is patent Respiratory effort is even, unlabored, Respiratory pattern is regular, symmetrical, Onset: The symptoms/episode began/occurred at an unknown time. the patient has mild shortness of breath Parent/caregiver reports the patient having shortness of breath at rest. GI: Abdomen is round. Derm: Bruising that is yellow, on right flank. Musculoskeletal: Range of motion: limited in right breast. 23:04 General: Appears uncomfortable, Behavior is agitated, anxious. zb Historical: - Allergies: 18:23 NKA; zb - Home Meds: 18:23 aspirin 81 mg Oral chew 1 tab once daily [Active]; atorvastatin 20 mg Oral tab 1 tab zb once daily [Active]; Co Q-10 200 mg Oral cap daily [Active]; dutasteride 0.5 mg Oral cap 1 cap once daily [Active]; glipizide 5 mg Oral tab 1 tab 2 times per day [Active]; hydrochlorothiazide 25 mg Oral tab 1 tab once daily [Active]; krill oil 500 mg Oral cap daily [Active]; metformin 1,000 mg Oral tab 1 tab 2 times per day [Active]; Metoprolol Tartrate Oral [Active]; pantoprazole Oral once daily [Active]; quinapril 40 mg Oral tab 1 tab once daily [Active]; sotalol 80 mg Oral tab 0.5 tab 2 times per day [Active]; tamsulosin 0.4 mg Oral cp24 1 cap once daily [Active]; - PMHx: 18:23 Atrial Fib; BPH; Diabetes - NIDDM; Headaches; High Cholesterol; Hypertension; zb - Immunization history:: Adult Immunizations up to date. - Social history:: Smoking status: unknown. Screenin:30 Abuse screen: Denies threats or abuse. Denies injuries from another. Nutritional zb screening: No deficits noted. Tuberculosis screening: No symptoms or risk factors identified. Fall Risk Fall in past 12 months (25 points). Secondary diagnosis (15 points) Alzheimer's, impaired mobility, IV access (20 points). Ambulatory Aid- None/Bed Rest/Nurse Assist (0 pts). Gait- Normal/Bed Rest/Wheelchair (0 pts) Mental Status- Overestimates/Forgets Limitations (15 pts.). Total Winkler Fall Scale indicates High Risk Score (45 or more points). Fall prevention measures have been instituted. Side Rails Up X 2 Placed Close to Nursing Station Frequent Obs/Assessments Occuring Family Present and informed to notify staff if the need to leave the bedside As available patient and family educated on Fall Prevention Program and Strategies. Assessment: 19:30 Reassessment: Patient appears in no apparent distress at this time. Patient and/or zb family updated on plan of care and expected duration. Pain level reassessed. Patient is alert, oriented x 3, equal unlabored respirations, skin warm/dry/pink. daughter at bedside. 20:30 Reassessment: Patient appears in no apparent distress at this time. Patient and/or zb family updated on plan of care and expected duration. Pain level reassessed. Patient is alert, oriented x 3, equal unlabored respirations, skin warm/dry/pink. 21:30 Reassessment: Patient appears in no apparent distress at this time. Patient and/or zb family updated on plan of care and expected duration. Pain level reassessed. Patient is alert, oriented x 3, equal unlabored respirations, skin warm/dry/pink. 22:30 Reassessment: Patient appears in no apparent distress at this time. Patient and/or zb family updated on plan of care and expected duration. Pain level reassessed. Patient is alert, oriented x 3, equal unlabored respirations, skin warm/dry/pink. 23:03 Cardiovascular: Rhythm is regular. Respiratory: Airway is patent Breath sounds are zb clear. Vital Signs: 18:19 BP 168 / 78; Pulse 104; Resp 16; Temp 97.8; Pulse Ox 100% on R/A; Weight 66.68 kg; zb Height 5 ft. 3 in. (160.02 cm); Pain 5/10; 18:30 BP 139 / 99; Pulse 106; Resp 20; Pulse Ox 100% on R/A; zb 19:30 BP 152 / 70; Pulse 101; Resp 18; Pulse Ox 100% on R/A; zb 20:30 BP 150 / 109; Pulse 99; Resp 20; Pulse Ox 97% on R/A; zb 21:30 BP 136 / 69; Pulse 98; Resp 18; Pulse Ox 98% on R/A; zb 22:30 BP 157 / 79; Pulse 98; Resp 16; Pulse Ox 98% on R/A; zb 18:19 Body Mass Index 26.04 (66.68 kg, 160.02 cm) zb ED Course: 18:18 Patient arrived in ED. zb 18:23 Triage completed. zb 18:27 Estevan Lance MD is Attending Physician. vasquez 19:18 XRAY Chest (1 view) In Process Unspecified. EDMS 19:24 Mitzi Ty RN is Primary Nurse. zb 21:24 Jose Villatoro MD is Hospitalizing Provider. vasquez 23:03 Patient has correct armband on for positive identification. Placed in gown. Bed in low zb position. Call light in reach. Door closed. Noise minimized. 23:04 No provider procedures requiring assistance completed. Patient admitted, IV remains in zb place. 23:05 Arm band placed on. zb Administered Medications: 20:08 Drug: morphine 2 mg {Note: RASS +0.} Route: IVP; Site: left forearm; zb 20:08 Drug: Zofran (Ondansetron) 4 mg Route: IVP; Site: left forearm; zb 23:05 Follow up: Response: Marked relief of symptoms; Nausea is decreased zb 20:09 Drug: Pepcid (famotidine) 20 mg Route: IVP; Site: left forearm; zb 23:05 Follow up: Response: No adverse reaction zb 22:10 Drug: NS 0.9% 1000 ml Route: IV; Rate: 125 ml/hr; Site: left jugular; zb 23:30 Drug: morphine 2 mg {Note: RASS +0.} Route: IVP; Site: left jugular; zb 23:54 Follow up: Response: No adverse reaction; Marked relief of symptoms; Pain is decreased; zb RASS: Alert and Calm (0) 23:54 Follow up: Response: No adverse reaction; Marked relief of symptoms; Pain is decreased; zb RASS: Alert and Calm (0) Outcome: 21:25 Decision to Hospitalize by Provider. vasquez 23:04 Admitted to Med/surg accompanied by nurse, room 202. zb 23:04 Condition: stable 23:04 Instructed on the need for admit, Demonstrated understanding of instructions. 05/01 00:45 Patient left the ED. lyle Signatures: Dispatcher [employer] EDEstevan Osman MD MD cha Antunez, Elena RN Mitzi Baires ea, RN RN zb
--- NOTE | 2021-04-30 21:26 | EDPHYS ---
Physician Documentation [facility] Name: Fidelia Marcus Jr Age: 86 yrs Sex: Male : 1935 Arrival Date: 04/30/2021 Time: 18:[address] Private MD: ED Physician Estevan Lance HPI: 04/30 19:07 This 86 yrs old Male presents to ER via EMS with complaints of Shortness Of vasquez Breath, Pain. 19:07 The patient has shortness of breath at rest. Onset: The symptoms/episode began/occurred vasquez 6 day(s) ago. Duration: The symptoms are continuous, and are steadily getting worse. The patient's shortness of breath is aggravated by coughing, light activity, talking, walking. Associated signs and symptoms: Pertinent positives: chest pain. Severity of symptoms: At their worst the symptoms were moderate in the emergency department the symptoms are unchanged. The patient has not experienced similar symptoms in the past. Historical: - Allergies: 18:23 NKA; zb - Home Meds: 18:23 aspirin 81 mg Oral chew 1 tab once daily [Active]; atorvastatin 20 mg Oral tab 1 tab zb once daily [Active]; Co Q-10 200 mg Oral cap daily [Active]; dutasteride 0.5 mg Oral cap 1 cap once daily [Active]; glipizide 5 mg Oral tab 1 tab 2 times per day [Active]; hydrochlorothiazide 25 mg Oral tab 1 tab once daily [Active]; krill oil 500 mg Oral cap daily [Active]; metformin 1,000 mg Oral tab 1 tab 2 times per day [Active]; Metoprolol Tartrate Oral [Active]; pantoprazole Oral once daily [Active]; quinapril 40 mg Oral tab 1 tab once daily [Active]; sotalol 80 mg Oral tab 0.5 tab 2 times per day [Active]; tamsulosin 0.4 mg Oral cp24 1 cap once daily [Active]; - PMHx: 18:23 Atrial Fib; BPH; Diabetes - NIDDM; Headaches; High Cholesterol; Hypertension; zb - Immunization history:: Adult Immunizations up to date. - Social history:: Smoking status: unknown. ROS: 19:08 Constitutional: Negative for fever, chills, and weight loss, Eyes: Negative for injury, vasquez pain, redness, and discharge, ENT: Negative for injury, pain, and discharge, Neck: Negative for injury, pain, and swelling, Cardiovascular: Negative for chest pain, palpitations, and edema, Back: Negative for injury and pain, : Negative for injury, bleeding, discharge, and swelling, MS/Extremity: Negative for injury and deformity, Skin: Negative for injury, rash, and discoloration, Neuro: Negative for headache, weakness, numbness, tingling, and seizure, Psych: Negative for depression, anxiety, suicide ideation, homicidal ideation, and hallucinations, Allergy/Immunology: Negative for hives, rash, and allergies, Endocrine: Negative for neck swelling, polydipsia, polyuria, polyphagia, and marked weight changes, Hematologic/Lymphatic: Negative for swollen nodes, abnormal bleeding, and unusual bruising. 19:08 Respiratory: Positive for cough, with no reported sputum, shortness of breath, at rest. 19:08 Abdomen/GI: Positive for nausea and vomiting, of the anterior aspect of right lateral abdomen, posterior aspect of right lateral abdomen, right upper quadrant and right lower quadrant. Exam: 19:08 Constitutional: This is a well developed, well nourished patient who is awake, alert, vasquez and in no acute distress. Head/Face: Normocephalic, atraumatic. Eyes: Pupils equal round and reactive to light, extra-ocular motions intact. Lids and lashes normal. Conjunctiva and sclera are non-icteric and not injected. Cornea within normal limits. Periorbital areas with no swelling, redness, or edema. ENT: Nares patent. No nasal discharge, no septal abnormalities noted. Tympanic membranes are normal and external auditory canals are clear. Oropharynx with no redness, swelling, or masses, exudates, or evidence of obstruction, uvula midline. Mucous membranes moist. Neck: Trachea midline, no thyromegaly or masses palpated, and no cervical lymphadenopathy. Supple, full range of motion without nuchal rigidity, or vertebral point tenderness. No Meningismus. Back: No spinal tenderness. No costovertebral tenderness. Full range of motion. Male : Normal genitalia with no discharge or lesions. Skin: Warm, dry with normal turgor. Normal color with no rashes, no lesions, and no evidence of cellulitis. MS/ Extremity: Pulses equal, no cyanosis. Neurovascular intact. Full, normal range of motion. Neuro: Awake and alert, GCS 15, oriented to person, place, time, and situation. Cranial nerves II-XII grossly intact. Motor strength 5/5 in all extremities. Sensory grossly intact. Cerebellar exam normal. Normal gait. Psych: Awake, alert, with orientation to person, place and time. Behavior, mood, and affect are within normal limits. 19:08 Chest/axilla: Inspection: normal, Palpation: tenderness, that is moderate, of the anterior aspect of right upper chest, right lateral anterior chest, right lateral posterior chest and right breast, Axilla: are normal, Lymph nodes: lymphadenopathy is not appreciated. 19:08 Respiratory: the patient does not display signs of respiratory distress, Respirations: no acute changes, Breath sounds: decreased breath sounds, that are mild, rhonchi, that are mild, are scattered, stridor, is not appreciated, Respiratory rate: 104 23:13 ECG was reviewed by the Attending Physician. [facility] Vital Signs: 18:19 BP 168 / 78; Pulse 104; Resp 16; Temp 97.8; Pulse Ox 100% on R/A; Weight 66.68 kg; zb Height 5 ft. 3 in. (160.02 cm); Pain 5/10; 18:30 BP 139 / 99; Pulse 106; Resp 20; Pulse Ox 100% on R/A; zb 19:30 BP 152 / 70; Pulse 101; Resp 18; Pulse Ox 100% on R/A; zb 20:30 BP 150 / 109; Pulse 99; Resp 20; Pulse Ox 97% on R/A; zb 21:30 BP 136 / 69; Pulse 98; Resp 18; Pulse Ox 98% on R/A; zb 22:30 BP 157 / 79; Pulse 98; Resp 16; Pulse Ox 98% on R/A; zb 18:19 Body Mass Index 26.04 (66.68 kg, 160.02 cm) zb Procedures: 21:23 Peripheral line: by aseptic technique a peripheral line was placed in the left external vasquez jugular vein. MDM: 18:27 Patient medically screened. vasquez 19:09 Differential diagnosis: CHF exacerbation, Chronic Obstructive Pulmonary Disease vasquez pneumonia, Pneumothorax pulmonary edema, Blunt Chest Trauma Chest Wall Contusion Chest Wall Injury Pleural Effusion Pneumothorax Pulmonary Contusion Rib Fracture. Antibiotic administration: Not indicated. Differential diagnosis: closed head injury, contusion, fracture, sprain, strain. The patient's Wells Deep Vein Thrombosis Score was calculated as follows: Total Score: 0-2 Pts- Low Risk. The patient's pulmonary embolism risk score was calculated as follows: Total Score: 0-2 points. This patient was found to be at low risk for a pulmonary embolism by using the Well's assessment criteria. Immunization status: Pneumococcal vaccine: Influenza vaccine: Data reviewed: vital signs, nurses notes, lab test result(s), EKG, radiologic studies, CT scan, plain films. Data interpreted: monitoring engineer: rate is 104 beats/min, rhythm is regular, Pulse oximetry: on room air is 100 %. Test interpretation: by ED physician or midlevel provider: ECG, plain radiologic studies. 04/30 19:06 Order name: Basic Metabolic Panel; Complete Time: 22:20 [facility] 04/30 19:06 Order name: CBC with Diff; Complete Time: 22:20 [facility] 04/30 19:06 Order name: LFT's; Complete Time: 22:20 [facility] 04/30 19:06 Order name: Magnesium; Complete Time: 22:20 [facility] 04/30 19:06 Order name: NT PRO-BNP; Complete Time: 22:20 [facility] 04/30 19:06 Order name: PT-INR; Complete Time: 22:20 [facility] 04/30 19:06 Order name: Troponin (emerg Dept Use Only); Complete Time: 22:20 [facility] 04/30 19:06 Order name: XRAY Chest (1 view); Complete Time: 19:41 [facility] 04/30 19:06 Order name: Lipase; Complete Time: 22:20 [facility] 04/30 19:06 Order name: INCENTIVE SPIROMETRY [facility] 04/30 19:06 Order name: Urine Culture [facility] 04/30 20:15 Order name: Urine Dipstick-Ancillary; Complete Time: 21:07 [facility] 04/30 22:20 Order name: SARS-COV-2 RT PCR [facility] 04/30 19:06 Order name: EKG; Complete Time: 19:07 [facility] 04/30 19:06 Order name: Cardiac monitoring; Complete Time: 22:36 [facility] 04/30 19:06 Order name: EKG - Nurse/Tech; Complete Time: 22:36 [facility] 04/30 19:06 Order name: IV Saline Lock; Complete Time: 20:09 [facility] 04/30 19:06 Order name: Labs collected and sent; Complete Time: 21:20 [facility] 04/30 19:06 Order name: O2 Per Protocol; Complete Time: 20:09 [facility] 04/30 19:06 Order name: O2 Sat Monitoring; Complete Time: 20:09 [facility] 04/30 19:06 Order name: Urine Dipstick-Ancillary (obtain specimen); Complete Time: 21:20 [facility] 04/30 19:07 Order name: CT Traumagram (Head C Spine CAP W Con) [facility] EC:13 Rate is 94 beats/min. Rhythm is regular. QRS [place] is Normal. SD interval is normal. QRS vasquez interval is normal. QT interval is normal. No Q waves. T waves are Normal. No ST changes noted. Clinical impression: Normal ECG and No evidence of ischemia. Interpreted by me. Reviewed by me. Administered Medications: 20:08 Drug: morphine 2 mg {Note: RASS +0.} Route: IVP; Site: left forearm; zb 20:08 Drug: Zofran (Ondansetron) 4 mg Route: IVP; Site: left forearm; zb 23:05 Follow up: Response: Marked relief of symptoms; Nausea is decreased zb 20:09 Drug: Pepcid (famotidine) 20 mg Route: IVP; Site: left forearm; zb 23:05 Follow up: Response: No adverse reaction zb 22:10 Drug: NS 0.9% 1000 ml Route: IV; Rate: 125 ml/hr; Site: left jugular; zb 23:30 Drug: morphine 2 mg {Note: RASS +0.} Route: IVP; Site: left jugular; zb 23:54 Follow up: Response: No adverse reaction; Marked relief of symptoms; Pain is decreased; zb RASS: Alert and Calm (0) 23:54 Follow up: Response: No adverse reaction; Marked relief of symptoms; Pain is decreased; zb RASS: Alert and Calm (0) Disposition Summary: 04/30/21 21:25 Hospitalization Ordered Hospitalization Status: Inpatient Admission vasquez Provider: Jose Villatoro cha Location: Telemetry/MedSurg (Inpatient) vasquez Condition: Fair vasquez Problem: new vasquez Symptoms: have improved vasquez Bed/Room Type: Standard [facility] Room Assignment: 202(04/30/21 22:25) mw Diagnosis - Fall due to bumping against object vasquez - Multiple fractures of ribs, right side vasquez - Abdominal pain, unspecified vasquez - Chest pain on breathing vasquez - Type 2 diabetes mellitus with hyperglycemia vasquez Forms: - Medication Reconciliation Form vasquez - SBAR form vasquez Signatures: Dispatcher [employer] EDMS Sagrario Ramirez RN RN mw Anderson, Corey, MD MD cha Brown, Zipporah, RN RN zb Corrections: (The following items were deleted from the chart) 20:47 19:07 CORONAVIRUS+MR.LAB.BRZ ordered. EDMS EDMS 22:25 21:25 vasquez joseph
[2021-04-30 21:31] LABS: Absolute Lymphocytes (CBC) 1.2 K/uL (0.7-4.9); Basophils % 0.9 % (0-1.3); Hematocrit 31.5 % (39.6-49.0); Lymphocytes % 19.6 % (15.3-44.8); MPV 9.4 fL (7.6-11.3); RBC Red Blood Cell Count 3.42 M/uL (4.33-5.43)
[2021-04-30 21:33] LABS: Protime INR 1.12
[2021-04-30 21:43] LABS: ALT/SGPT 31 U/L (12-78); AST/SGOT 19 U/L (15-37); Albumin 3.5 g/dL (3.4-5.0); Alkaline Phosphatase 90 U/L (45-117); BUN Blood Urea Nitrogen 20 mg/dL (7-18); Bicarbonate 24 mmol/L (21-32); Bilirubin Direct 0.2 mg/dL (0-0.2); Bilirubin Total 0.5 mg/dL (0.2-1.0); Glucose Level 323 mg/dL (74-106); Lipase 52 U/L (73-393); Magnesium 1.8 mg/dL (1.8-2.4); NT PRO-BNP 53 pg/mL (<450); Potassium 4.1 mmol/L (3.5-5.1); Protein, Total 6.8 g/dL (6.4-8.2); Sodium Level 139 mmol/L (136-145); Troponin (Emerg Dept Use Only) < 0.02 ng/mL (0.0-0.045)
[2021-04-30] MEDS ORDERED: ACETAMINOPHEN 500 MG TAB PO PRN (22:48)
[2021-04-30] MEDS ORDERED: TRAMADOL HCL 50 MG TAB PO PRN (22:48)
[2021-04-30] MEDS ORDERED: HYDROCODONE/APAP 5/325 MG TAB PO PRN (22:48)
[2021-04-30] MEDS ORDERED: ONDANSETRON 4 MG/2 ML VIAL IV PRN (22:48)
[2021-04-30] MEDS: NA CHLORIDE 0.9% 1,000 ML IV SCH (22:48)
--- NOTE | 2021-05-01 00:08 | P.HP ---
Certification for Inpatient Patient admitted to: Observation Patient will require the following post-hospital care: None Practitioner: I am a practitioner with admitting privileges, knowledge of patient current condition, hospital course, and medical plan of care. Services: Services provided to patient in accordance with Admission requirements found in Title 42 Section 412.3 of the Code of Federal Regulations <Bhanu Johnson - Last Filed: 05/01/21 00:04> Patient History Date of Service: 04/30/21 Reason for admission: Dyspnea, chest wall pain, fall History of Present Illness: 86-year-old male with history of atrial fibrillation, diabetes mellitus type 2, dementia, hypertension, hyperlipidemia, BPH, Parkinson's, CAD presents emergency department with chest wall pain and shortness of breath. Patient reportedly fell out of bed approximately 3 days ago and is complaining of right-sided chest pain, patient with history of rib fractures in this area currently splinting with his arms. Patient with pain upon inspiration, feels weak. Patient was evaluated in the emergency department, labs are significant for hemoglobin of 0.2 hematocrit 31.5 glucose 323 urinalysis with 2+ glucose. CT chest abdomen pelvis negative for any acute findings. ED evaluation is to admit under observation for weakness, falls, shortness of breath, chest wall pain. - Past Medical/Surgical History Diabetic: Yes -: Diabetes mellitus type 2 -: Vertigo -: High Cholesterol -: HTN -: Cataracts -: AFIB not on chronic anticoagulation therapy -: Hyperlipidemia -: BPH -: Benign colon tumor removed -: Disc Surgery -: Heart Stent -: Cholecystectomy -: Basal cell carcinoma excision from the nose. Psychosocial/ Personal History: , retired, lives with family - Family History Father -: Heart disease Notes: of heart attack Mother -: Cancer Notes: cervical - Social History Alcohol use: No CD- Drugs: No Caffeine use: No Place of Residence: Home <Bhanu Johnson - Last Filed: 05/01/21 00:04> Date of Service: 04/30/21 <Jose Villatoro - Last Filed: 05/01/21 13:38> Allergies No Known Allergies Allergy (Verified 06/10/20 22:55) Review of Systems 10-point ROS is otherwise unremarkable General: Weakness Respiratory: Shortness of Breath, SOB with Excertion, Pleuritic Pain <Bhanu Johnson - Last Filed: 05/01/21 00:04> Physical Examination - Physical Exam General: Alert, In no apparent distress, Oriented x2 HEENT: Atraumatic, PERRLA, Mucous membr. moist/pink, EOMI, Sclerae nonicteric Neck: Supple, 2+ carotid pulse no bruit, No LAD, Without JVD or thyroid abnormality Respiratory: Normal air movement, Diminished Cardiovascular: Regular rate/rhythm, Normal S1 S2, Other (Chest wall tendernessright-sided) Gastrointestinal: Normal bowel sounds, No tenderness Musculoskeletal: No tenderness Integumentary: No rashes Neurological: Normal speech, Normal strength at 5/5 x4 extr, Normal tone, Normal affect Lymphatics: No axilla or inguinal lymphadenopathy - Studies Laboratory Data (last 24 hrs) 04/30/21 21:14: PT 12.9 H, INR 1.12 04/30/21 21:14: WBC 5.90, Hgb 11.2 L, Hct 31.5 L, Plt Count 138 L 04/30/21 21:14: Sodium 139, Potassium 4.1, BUN 20 H, Creatinine 1.05, Glucose 323 H, Magnesium 1.8, Total Bilirubin 0.5, AST 19, ALT 31, Alkaline Phosphatase 90, Lipase 52 L <Bhanu Johnson - Last Filed: 05/01/21 00:04> - Studies Laboratory Data (last 24 hrs) 04/30/21 21:14: PT 12.9 H, INR 1.12 04/30/21 21:14: WBC 5.90, Hgb 11.2 L, Hct 31.5 L, Plt Count 138 L 04/30/21 21:14: Sodium 139, Potassium 4.1, BUN 20 H, Creatinine 1.05, Glucose 323 H, Magnesium 1.8, Total Bilirubin 0.5, AST 19, ALT 31, Alkaline Phosphatase 90, Lipase 52 L <Jose Villatoro - Last Filed: 05/01/21 13:38> Assessment and Plan - Plan Assessment: Dyspnea, chest wall pain, weakness S/P fall Atrial fibrillation not on chronic anticoagulation therapy Diabetes mellitus type 2 with hyperglycemia Hypertension Hyperlipidemia BPH Parkinson's Plan: Dyspnea, chest wall pain, weakness S/P fall: Continue with supplemental oxygen as needed, incentive spirometry, as needed pain medications. Physical therapy evaluation. CT/chest x-ray negative for any fractures or other acute findings. Atrial fibrillation not on chronic anticoagulation therapy: Continue medications, adjust as necessary. Diabetes mellitus type 2 with hyperglycemia: AC at bedtime Accu-Chek, sliding scale insulin therapy. A1c with morning labs. Hypertension: Obtain and continue home medications Hyperlipidemia: Obtain and continue home medications BPH: Obtain and continue home medications Parkinson's: Obtain and continue home medications DVT PPX: Heparin Code status: DNR Discharge Plan: Home Plan to discharge in: 24 Hours - Advance Directives Does patient have a Living Will: Yes Does patient have a Durable POA for Healthcare: Yes - Code Status/Comfort Care Code Status Assessed: Yes (DNR) Critical Care: No Time Spent Managing Pts Care (In Minutes): 55 <Bhanu Johnson - Last Filed: 05/01/21 00:04> Date of Service: 04/30/21 Subjective: Chart reviewed. Agree with plan of care as mentioned above Physical Examination: Vitals: Afebrile vital signs are stable Physical exam: Cardiovascular: Within normal limits. Lungs: Within normal limits Abdomen: Within normal limits Neuro: Awake, alert, oriented to person place and time Assessment: 1. Generalized weakness 2. Abdominal pain 3. Severe constipation Plan: 1. Continue with current plan of care <Jose Villatoro - Last Filed: 05/01/21 13:38>
[2021-05-01] MEDS: NA CHLORIDE 0.9% 1,000 ML IV SCH ×2 (00:59→13:02)
[2021-05-01 01:03] VITALS: BMI 25.1
[2021-05-01 01:36] VITALS: O2SAT 98
[2021-05-01 06:30] LABS: Absolute Lymphocytes (CBC) 1.2 K/uL (0.7-4.9); Basophils % 0.9 % (0-1.3); Hematocrit 31.2 % (39.6-49.0); Lymphocytes % 25.4 % (15.3-44.8); MPV 9.6 fL (7.6-11.3); RBC Red Blood Cell Count 3.44 M/uL (4.33-5.43)
[2021-05-01 06:56] LABS: Albumin 3.3 g/dL (3.4-5.0); Bilirubin Total 0.6 mg/dL (0.2-1.0); Magnesium 1.9 mg/dL (1.8-2.4); Potassium 3.7 mmol/L (3.5-5.1); Protein, Total 6.6 g/dL (6.4-8.2); Troponin I 0.02 ng/mL (0.0-0.045)
[2021-05-01] MEDS ORDERED: POTASSIUM CL SA 10 MEQ TAB PO ONE (09:00)
[2021-05-01] MEDS ORDERED: HEPARIN 5000 UNIT/ML 1 ML VIAL SQ SCH (09:00)
[2021-05-01] MEDS: INSULIN -REGULAR HUMAN 50 UNIT/0.5 ML ML SQ SCH ×2 (09:08→13:01)
[2021-05-01 12:11] VITALS: BP 142/71; TEMP 98.1
[2021-05-01 13:03] LABS: Urine Appearance CLEAR (Clear); Urine Bilirubin NEGATIVE (Negative); Urine Blood NEGATIVE (Negative); Urine Color YELLOW (Yellow); Urine Glucose 3+ (Negative); Urine Protein NEGATIVE (Negative); Urine Specific Gravity >=1.030 (1.005-1.030); Urine Urobilinogen 0.2 mg/dL (0.2-1.0); Urine pH 5.5 (5.0-7.0)
[2021-05-01 13:06] LABS: Urine Microscopic Reflex NO UMIC
--- NOTE | 2021-05-01 13:41 | P.DS ---
Discharge Date: 05/01/21 Disposition: ROUTINE DISCHARGE Discharge Condition: GOOD Reason for Admission: Dyspnea, chest wall pain, fall Brief History of Present Illness: patient is an 86-year-old male with history of atrial fibrillation, diabetes mellitus type 2, dementia, hypertension, hyperlipidemia, BPH, Parkinson's, CAD presents emergency department with chest wall pain and shortness of breath. Patient reportedly fell out of bed approximately 3 days ago and is complaining of right-sided chest pain, patient with history of rib fractures in this area currently splinting with his arms. Patient with pain upon inspiration, feels weak. Patient was evaluated in the emergency department, labs are significant for hemoglobin of 0.2 hematocrit 31.5 glucose 323 urinalysis with 2+ glucose. CT chest abdomen pelvis negative for any acute findings. ED evaluation is to admit under observation for weakness, falls, shortness of breath, chest wall pain. Hospital Course: Patient doing much better. Patient continues to improve. Patient states he is doing much better and ready to go home. Vital Signs/Physical Exam: Temp Pulse Resp BP Pulse Ox 98.1 F 84 16 142/71 H 98 05/01/21 12:00 05/01/21 12:00 05/01/21 12:00 05/01/21 12:00 05/01/21 12:00 General: Alert, In no apparent distress, Oriented x3 Laboratory Data at Discharge: WBC 4.60 K/uL (4.3-10.9) D 05/01/21 06:10 Hgb 11.3 g/dL (13.6-17.9) L 05/01/21 06:10 Hct 31.2 % (39.6-49.0) L 05/01/21 06:10 Plt Count 146 K/uL (152-406) L 05/01/21 06:10 PT 12.9 SECONDS (9.5-12.5) H 04/30/21 21:14 INR 1.12 04/30/21 21:14 Sodium 140 mmol/L (136-145) 05/01/21 06:10 Potassium 3.7 mmol/L (3.5-5.1) 05/01/21 06:10 BUN 16 mg/dL (7-18) 05/01/21 06:10 Creatinine 1.00 mg/dL (0.55-1.3) 05/01/21 06:10 Glucose 251 mg/dL (74-106) H 05/01/21 06:10 Magnesium 1.9 mg/dL (1.8-2.4) 05/01/21 06:10 Total Bilirubin 0.6 mg/dL (0.2-1.0) 05/01/21 06:10 AST 20 U/L (15-37) 05/01/21 06:10 ALT 27 U/L (12-78) 05/01/21 06:10 Alkaline Phosphatase 83 U/L (45-117) 05/01/21 06:10 Troponin I 0.02 ng/mL (0.0-0.045) 05/01/21 06:10 Lipase 52 U/L (73-393) L 04/30/21 21:14 Home Medications: Atorvastatin Calcium [Lipitor*] 20 mg PO DAILY 05/01/21 Cyclobenzaprine HCl [Flexeril] 5 mg PO BID 05/01/21 Fenofibrate [Tricor*] 1 tab PO DAILY 05/01/21 Quinapril HCl 40 mg PO DAILY 05/01/21 Physician Discharge Instructions: OK TO DC IV AND DC HOME FOLLOW-UP WITH PRIMARY CARE PROVIDER IN 1-2 WEEKS FOLLOW-UP WITH GI IN 1-2 WEEKS RETURN TO THE ER IF symptoms worsen CALL or TEXT DR. HOLLINS AT [phone] IF ANY QUESTIONS REGARDING HOSPITAL STAY. PLEASE CALL THE FLOOR AT [phone] IF ANY MEDICATION OR NURSING QUESTIONS. Diet: Regular Activity: Fall precautions Followup: NONE,NONE [Primary Care Provider] - Time spent managing pt's care (in minutes): 35
[2021-05-01] MEDS ORDERED: HOME MED 1 EA UNK (Cyclobenzaprine Hcl [Flexeril] 5 MG Tablet) PO SCH (21:00)
[2021-05-01] MEDS ORDERED: CYCLOBENZAPRINE 10 MG TAB PO SCH (21:00)
--- NOTE | 2021-05-02 08:27 | RAD REPORT ---
EXAM DESCRIPTION: CT Head and Cervical Spine Without Intravenous Contrast CLINICAL HISTORY: The patient is 86 years old and is Male; PAIN TECHNIQUE: Axial computed tomography images of the head/brain and cervical spine without intravenous contrast. Sagittal and coronal reformatted images were created and reviewed. This CT exam was pe rformed using one or more of the following dose reduction techniques: automated exposure control, a djustment of the mA and/or kV according to patient size, and/or use of iterative reconstruction techn ique. COMPARISON: No relevant prior studies available. FINDINGS: BRAIN: There is diffuse cerebral atrophy present, consistent with this patient's age. There is patchy hypoattenuation of the deep white matter which is non-specific, but most likely owing to chronic small vessel ischemic change in a patient of this age group. No intracranial hemorrhage , mass effect, midline shift is seen. There are no extra-axial fluid collections. VENTRICLES: Unremarkable. No ventriculomegaly. SKULL: No acute fracture. SINUSES: Unremarkable as visualized. No acute sinusitis. MASTOID AIR CELLS: Unremarkable as visualized. No mastoid effusion. VERTEBRAE: The vertebral body heights and alignment are maintained. No acute fracture. DISCS/SPINAL CANAL/NEURAL FORAMINA: Intervertebral disc space narrowing and osteophyte formation and posterior disc osteophyte complexes are present most prominent at C3-C4 and C5-C6. Minimal neural foraminal narrowing at the level is present. There is no significant canal stenosis. SOFT TISSUES: The soft tissues are normal. LUNG APICES: Unremarkable as visualized. IMPRESSION: 1. Age-related atrophy and chronic white matter ischemic changes, with no evidence of an acute intracranial abnormality. 2. No fracture or malalignment of the cervical spine. EXAM DESCRIPTION: CT Chest, Abdomen and Pelvis With Intravenous Contrast CLINICAL HISTORY: The patient is 86 years old and is Male; PAIN TECHNIQUE: Axial computed tomography images of the chest, abdomen and pelvis with intravenous contra st. Sagittal and coronal reformatted images were created and reviewed. This CT exam was performed using one or more of the following dose reduction techniques: automated exposure control, adjustme nt of the mA and/or kV according to patient size, and/or use of iterative reconstruction technique. COMPARISON: No relevant prior studies available. FINDINGS: CHEST: LUNGS: The lungs are clear of focal opacity, mass, or consolidation. PLEURAL SPACE: Unremarkable. No significant effusion. No pneumothorax. HEART: No cardiomegaly. No pericardial effusion. ABDOMEN: LIVER: Hepatic granuloma are present. The liver is otherwise homogeneous. GALLBLADDER AND BILE DUCTS: Surgical clips are present in the right upper quadrant, consistent wi previous cholecystectomy. A small amount of pneumobilia is noted. PANCREAS: The pancreas is atrophic. SPLEEN: Unremarkable. ADRENALS: Unremarkable. No mass. KIDNEYS AND URETERS: Unremarkable. The kidneys enhance symmetrically. No obstructing renal or ure teral calculus is seen. No hydronephrosis or hydroureter. No perinephric fluid or stranding. STOMACH AND BOWEL: The stomach is decompressed. The small bowel is normal in caliber. Stool is pr esent throughout colon. Scattered colonic diverticula are noted without surrounding inflammation. The re is no mucosal thickening or evidence of bowel obstruction. PELVIS: APPENDIX: The appendix is surgically absent. BLADDER: The bladder is well distended. REPRODUCTIVE: Unremarkable as visualized. CHEST, ABDOMEN and PELVIS: INTRAPERITONEAL SPACE: Unremarkable. No significant fluid collection. No free air. BONES/JOINTS: Chronic compression deformity of the superior endplate of L1 is present. The verteb ral body heights and alignment are otherwise maintained. Mild degenerative change of the lower lumbar spine is present. There is no acute fracture of the visualized axial and appendicular skeleton. SOFT TISSUES: The soft tissues are normal. VASCULATURE: Atherosclerosis of the vasculature is present. The vessels are normal in caliber. No aortic aneurysm. LYMPH NODES: Unremarkable. No enlarged lymph nodes. IMPRESSION: No evidence of solid organ injury or traumatic bony findings on this contrasted CT of e chest, abdomen, and pelvis. Electronically signed by: Marlena Leiva MD 04/30/2021 11:31 PM CDT Due to temporary technical issues with the PACS/Fluency reporting system, reports are being signed by the in house radiologists without review as a courtesy to insure prompt reporting. The interpreting radiologist is fully responsible for the content of the report.
[2021-05-02] MEDS ORDERED: QUINAPRIL HCL 40 MG PO SCH (09:00)
[2021-05-02] MEDS ORDERED: ATORVASTATIN 20 MG TAB PO SCH (09:00)
[2021-05-02] MEDS ORDERED: lisinopriL 20 MG TAB PO SCH (09:00)
[2021-05-02] MEDS ORDERED: FENOFIBRATE 160 MG TAB PO SCH (09:00)
== END 2021-05-01 16:03 | disposition home health service (06) ==
LOC: ER 18:05 → 2ND 22:37
PROVIDERS: ADMIT Hospitalist; ATTEND Hospitalist
DX: R06.00 Dyspnea, unspecified (principal); R07.1 Chest pain on breathing; R53.1 Weakness; Z91.81 History of falling; I48.91 Unspecified atrial fibrillation; E11.65 Type 2 diabetes mellitus with hyperglycemia; I10 Essential (primary) hypertension; E78.5 Hyperlipidemia, unspecified; N40.0 Benign prostatic hyperplasia without lower urinary tract symptoms; K59.00 Constipation, unspecified; G20 Parkinson's disease; F02.80 Dementia in other diseases classified elsewhere, unspecified severity, without behavioral disturbance, psychotic disturbance, mood disturbance, and anxiety; I25.10 Atherosclerotic heart disease of native coronary artery without angina pectoris; E78.00 Pure hypercholesterolemia, unspecified; Z66 Do not resuscitate; Z20.822 Contact with and (suspected) exposure to COVID-19; Z95.5 Presence of coronary angioplasty implant and graft; Z85.828 Personal history of other malignant neoplasm of skin; Z90.49 Acquired absence of other specified parts of digestive tract; Z82.49 Family history of ischemic heart disease and other diseases of the circulatory system; Z80.49 Family history of malignant neoplasm of other genital organs
CPT/HCPCS: 93005 ×2; 87088; 85025 ×2; 87086; 80048; 36415; 83735 ×2; 85610; 82947 ×4; 80076; 81003 ×2; 83036; 84484 ×2; 83690; 80053; 83880; 70450; 72125; 71260; 74177; 71045; 97116; 97161; 97530; 94010; 96375; 96374; 99285; U0003; Q9967; J1644; J2270 ×2; J7030 ×3; J2405; G0378 ×2

== ENCOUNTER 2021-07-29 15:49 | Inpatient (IN) | payer OTHER ==
[2021-07-29] MEDS ORDERED: NA CHLORIDE 0.9% 1,000 ML ONE (16:47)
--- NOTE | 2021-07-29 17:30 | RAD REPORT ---
EXAM DESCRIPTION: CT - Head Brain Wo Cont - 07/29/2021 5:00 pm CLINICAL HISTORY: CONFUSED COMPARISON: CT head December 14 TECHNIQUE: Axial 5 mm thick images of the head were obtained without IV contrast. All CT scans are performed using dose optimization technique as appropriate and may include automated exposure control or mA/KV adjustment according to patient size. FINDINGS: No intracranial hemorrhage, mass, edema or shift of mid-line structures. No acute infarcti on changes seen. No cortical edema or sulcal effacement. Moderate severity atrophy present with ventr icles in proportion. Mild to moderate chronic ischemic change seen throughout the cerebral white vin er. Arterial and physiologic calcifications are present Mastoid air cells and visualized portions of the paranasal sinuses are clear. No acute bony findings. IMPRESSION: Negative non-contrast CT head examination for acute finding. Above detailed findings are similar to December 14 imaging.
--- NOTE | 2021-07-29 17:48 | RAD REPORT ---
EXAM DESCRIPTION: RAD - Chest Single View - 07/29/2021 4:59 pm CLINICAL HISTORY: ?OVERDOSE, shortness of breath COMPARISON: April 30 TECHNIQUE: AP portable chest image was obtained 07/29/2021 4:59 pm in supine position. FINDINGS: Lung volumes are low further accentuating baseline interstitial pattern. Supine positionin g also accentuates the interstitial pattern. No mass or consolidation. Heart and vasculature are norm al. No measurable pleural effusion and no pneumothorax. No acute bony abnormality seen. No acute aort ic findings suspected. IMPRESSION: No acute cardiopulmonary process. No significant change comparison.
[2021-07-29 20:39] LABS: Absolute Lymphocytes (CBC) 1.1 K/uL (0.7-4.9); Basophils % 0.5 % (0-1.3); MPV 10.5 fL (7.6-11.3); RBC Red Blood Cell Count 3.93 M/uL (4.33-5.43)
[2021-07-29 20:44] LABS: Protime INR 0.98
[2021-07-29 21:14] LABS: Urine Blood Negative (Negative); Urine Glucose 2+ (Negative); Urine Protein Negative (Negative); Urine Specific Gravity 1.025 (1.005-1.030)
[2021-07-29 21:57] LABS: Barbiturates NEGATIVE (NEGATIVE); Benzodiazepines NEGATIVE (NEGATIVE); Cocaine NEGATIVE (NEGATIVE); METHAMPHETAM NEGATIVE (NEGATIVE); Methadone NEGATIVE (NEGATIVE); Opiates NEGATIVE (NEGATIVE); Phencyclidine NEGATIVE (NEGATIVE); THC Cannibis NEGATIVE (NEGATIVE)
[2021-07-29 22:23] LABS: ALT/SGPT 20 U/L (12-78); AST/SGOT 16 U/L (15-37); Albumin 3.8 g/dL (3.4-5.0); Alkaline Phosphatase 92 U/L (45-117); BUN Blood Urea Nitrogen 50 mg/dL (7-18); Bicarbonate 21 mmol/L (21-32); Bilirubin Direct 0.2 mg/dL (0-0.2); Bilirubin Total 0.9 mg/dL (0.2-1.0); Glucose Level 377 mg/dL (74-106); Magnesium 2.3 mg/dL (1.8-2.4); NT PRO-BNP 149 pg/mL (<450); Potassium 3.9 mmol/L (3.5-5.1); Protein, Total 7.3 g/dL (6.4-8.2); Sodium Level 138 mmol/L (136-145); Troponin (Emerg Dept Use Only) < 0.02 ng/mL (0.0-0.045)
--- NOTE | 2021-07-29 22:53 | ER ---
Nurse's Notes [facility] Name: Fidelia Marcus Jr Age: 86 yrs Sex: Male : 1935 Arrival Date: 07/29/2021 Time: 15:57 Bed 26 Private MD: Diagnosis: Medication Overdose Presentation: 07/29 15:57 Chief complaint: EMS states: they were called out to the patients home by his daughter. ap3 It is reported that the patients pill box was missing 5 days worth of medications. The daughter reported to EMS she filled it for him yesterday, and when she went to check on him today 5 days of the medication were missing. Coronavirus screen: At this time, the client does not indicate any symptoms associated with coronavirus-19. Ebola Screen: No symptoms or risks identified at this time. Initial Sepsis Screen: Does the patient meet any 2 criteria? No. Patient's initial sepsis screen is negative. Does the patient have a suspected source of infection? No. Patient's initial sepsis screen is negative. Risk Assessment: Do you want to hurt yourself or someone else? Patient reports no desire to harm self or others. Onset of symptoms was July 29, 2021. 15:57 Method Of Arrival: EMS: [facility] ap3 15:57 Acuity: MIQUEL 2 ap3 19:20 Note Sister Lexy [phone]. aa5 23:15 Note Pt agitated and swing with arms and kicking with legs. provider notified and df1 orders received. Pt medicated per order. 07/30 02:24 Note BP systolic in 70's. Provider notified. Orders received. Pt given 500ml NS bolus. df1 Triage Assessment: 07/29 16:04 General: Appears in no apparent distress. Behavior is calm. Pain: Denies pain. Neuro: ap3 Level of Consciousness is awake, obeys commands, Oriented to person, place, Speech is slurred. Respiratory: Airway is patent Respiratory effort is even, unlabored, Breath sounds are clear bilaterally. 16:06 Cardiovascular: skin cool and dry. ap3 16:07 General: patient resting eyes closed. respirations are even and unlabored at this time. ap3 . Historical: - Allergies: 16:00 NKA; ap3 - Home Meds: 16:00 tamsulosin 0.4 mg Oral cp24 1 cap once daily [Active]; atorvastatin 20 mg Oral tab 1 ap3 tab once daily [Active]; sotalol 80 mg Oral tab 0.5 tab 2 times per day [Active]; dutasteride 0.5 mg Oral cap 1 cap once daily [Active]; quinapril 40 mg Oral tab 1 tab once daily [Active]; hydrochlorothiazide 25 mg Oral tab 1 tab once daily [Active]; glipizide 5 mg Oral tab 1 tab 2 times per day [Active]; memantine 5 mg oral tab 1 tab once daily [Active]; fenofibrate 145MG oral 1 tab once daily [Active]; - PMHx: 16:00 Atrial Fib; BPH; Diabetes - NIDDM; Headaches; High Cholesterol; Hypertension; ap3 - Immunization history:: Adult Immunizations unknown. - Social history:: Smoking status: unknown Patient/guardian denies using alcohol, street drugs, The patient lives with family. - Family history:: not pertinent. Screenin:06 Abuse screen: Denies threats or abuse. Nutritional screening: No deficits noted. ap3 Tuberculosis screening: No symptoms or risk factors identified. Fall Risk Fall in past 12 months (25 points). Secondary diagnosis (15 points) impaired mobility, No IV (0 pts). Ambulatory Aid- None/Bed Rest/Nurse Assist (0 pts). Gait- Impaired (20 pts.). Mental Status- Overestimates/Forgets Limitations (15 pts.). Total Winkler Fall Scale indicates High Risk Score (45 or more points). Fall prevention measures have been instituted. Side Rails Up X 2 Placed Close to Nursing Station Frequent Obs/Assessments Occuring. Assessment: 16:49 Reassessment: Patient and/or family updated on plan of care and expected duration. Pain ap3 level reassessed. Patient is alert, oriented x 3, equal unlabored respirations, skin warm/dry/pink. 17:28 Reassessment: Provider and nurse at bedside. Patient A/O X's 4. Patient asked Code ap3 status, and states he wishes to not be resuscitated. 17:30 Reassessment: lab at bedside in attempt to get blood for labs. ap3 18:51 Reassessment: provider at bedside to attempt IV. ap3 20:15 Reassessment: Left upper arm noted to be swollen, IV discontinued at this time, will dc2 notify Provider. 20:21 Reassessment: Acucheck 388. dc2 22:50 Reassessment: Pt attempting to undress self, pt is confused , redirected, bed moved to dc2 be in line of sight for monitoring. 23:21 Reassessment: Dr. Vergara on phone with poison control at this time. dc2 23:43 Reassessment: Pt will be ICU status and will not be leaving the ED. dc2 Vital Signs: 15:57 BP 125 / 80; Pulse 76; Resp 19; Temp 97.0; Pulse Ox 96% on R/A; ap3 16:39 BP 115 / 47; Pulse 68; Resp 19; Pulse Ox 100% on R/A; ap3 18:43 BP 129 / 57; Pulse 64; Resp 19; Pulse Ox 94% on R/A; ap3 19:09 BP 124 / 61; Pulse 61; Resp 18; Pulse Ox 100% on R/A; ap3 20:00 BP 146 / 61; Pulse 64; Resp 16; Pulse Ox 100% ; Pain 4/10; dc2 21:00 BP 133 / 75; Pulse 76; Resp 19; Pulse Ox 100% ; Pain 5/10; dc2 22:00 BP 109 / 58; Pulse 71; Resp 20; Pulse Ox 100% on R/A; Pain 4/10; dc2 23:00 BP 145 / 65; Pulse 79; Resp 18; Pulse Ox 100% ; Pain 3/10; dc2 30 00:00 BP 73 / 47; Pulse 64; Resp 18; Pulse Ox 100% on R/A; df1 00:30 BP 81 / 54; Pulse 58; Resp 18; Pulse Ox 97% on R/A; df1 01:00 BP 91 / 59; Pulse 64; Resp 18; Pulse Ox 97% on R/A; df1 ED Course: 07/29 15:57 Patient arrived in ED. ap3 15:57 Lona Colon, BARBARA is Primary Nurse. ap3 16:00 Triage completed. ap3 16:03 Jose Grimaldo MD is Attending Physician. ma2 16:06 Arm band placed on right wrist. ap3 16:06 Patient has correct armband on for positive identification. Bed in low position. Call ap3 light in reach. Side rails up X2. seed district sales manager on. Pulse ox on. NIBP on. Noise minimized. Lights dimmed. Warm blanket given. 16:30 Missed attempt(s): 22 gauge in right upper arm. Bleeding controlled, band aid applied, aa5 catheter tip intact. 16:36 Missed attempt(s): 22 gauge in right upper arm. Bleeding controlled, band aid applied, aa5 catheter tip intact. 16:51 Missed attempt(s): 22 gauge in left upper arm. Bleeding controlled, band aid applied, ll1 catheter tip intact. 16:51 Missed attempt(s): 22 gauge in left hand. Bleeding controlled, band aid applied, ll1 catheter tip intact. 16:59 XRAY Chest (1 view) In Process Unspecified. EDMS 17:00 CT Head Brain wo Cont In Process Unspecified. EDMS 18:22 COVID-19 SARS RT PCR (Document "Date of Onset" if Symptomatic) Sent. [facility] 18:23 COVID swab sent to lab. 5 19:04 COVID-19 SARS RT PCR (Document "Date of Onset" if Symptomatic) Sent. 5 19:06 Attending Physician role handed off by Jose Grimaldo MD 7 19:06 Ricco Holden MD is Attending Physician. 7 19:08 Inserted saline lock: 20 gauge in left upper arm, using aseptic technique. ,using ap3 aseptic technique. By provider. 19:18 Acetaminophen Sent. aa5 19:18 ETOH Level Sent. aa5 19:18 Basic Metabolic Panel Sent. aa5 19:18 CBC with Diff Sent. aa5 19:18 LFT's Sent. aa5 19:19 Magnesium Sent. aa5 19:19 NT PRO-BNP Sent. aa5 19:19 PT-INR Sent. aa5 19:19 Troponin (emerg Dept Use Only) Sent. aa5 20:45 Osullivan cath inserted, using sterile technique, 16 Fr., by ga, balloon inflated, to dc2 gravity drainage, urine specimen collected. 22:05 Missed attempt(s): 18 gauge in right upper arm. Bleeding controlled, band aid applied, bb catheter tip intact. 22:19 Accessed peripheral vein via ultrasound, utilizing dynamic ultrasound technique using bb per hospital protocol. powerglide 18 g L upper arm 10 cm. 22:51 Melvin Antony DO is Hospitalizing Provider. [facility] 22:53 Admitting physician to see patient. dc2 23:15 Assist provider with bone marrow aspiration. dc2 23:15 Patient admitted, IV remains in place. intact, No redness/swelling at site. dc2 Administered Medications: 19:08 Drug: NS 0.9% 1000 ml Route: IV; Rate: 125 ml/hr; Site: left upper arm; ap3 19:16 CANCELLED (Other Intervention Used): dnr 1 application Endotracheal continuous la1 23:05 Drug: Insulin Regular Human 10 units {Co-Signature: df1 (Padmini Ozuna).} Route: Sub-Q; dc2 Site: left upper abdomen; 07/30 02:28 Follow up: Response: No adverse reaction df1 07/29 23:05 Drug: NS 0.9% 500 ml Route: IV; Rate: bolus; Infused Over: 1 hrs; Site: left upper arm; dc2 Delivery: Primary tubing; 07/30 02:28 Follow up: IV Status: Completed infusion; IV Intake: 500ml df1 07/29 23:07 Drug: Ativan (LORazepam) 0.5 mg Route: IVP; Site: left upper arm; df1 07/30 02:26 Follow up: Response: No adverse reaction df1 02:15 Drug: Ativan (LORazepam) 0.5 mg Route: IVP; Site: left upper arm; df1 02:25 Follow up: Response: Anxiety decreased df1 02:27 Drug: NS 0.9% 500 ml {Note: BP systolic in 70's. Verbal order received for 500mlNS df1 bolus at 0000.} Route: IV; Rate: bolus; Site: left upper arm; 02:27 Follow up: IV Status: Completed infusion; IV Intake: 500ml df1 Intake: 02:27 IV: 500ml; Total: 500ml. df1 02:28 IV: 500ml; Total: 1000ml. df1 Outcome: 07/29 22:52 Decision to Hospitalize by Provider. 7 07/31 21:20 Patient left the ED. bb Signatures: Dispatcher [employer] EDAdrianna Zhong RN RN Anjelica Petty RN RN [email or web address] Bhumi Lyons Mohammad, MD MD ma2 Lona Colon RN RN ap3 Marcos Burger RN RN ll1 Ricco Holden MD MD mh7 Sulma, Padmini df1 Feli Castillo RN RN dc2 Bhanu Johnson NORMALIZER-Cla1 Padmini Ozuna df1 Corrections: (The following items were deleted from the chart) 07/29 16:04 16:00 Home Meds: pantoprazole Oral once daily; ap3 ap3 16: 16:00 Home Meds: Metoprolol Tartrate Oral; ap3 ap3 16: 16:00 Home Meds: metformin 1,000 mg Oral tab 1 tab 2 times per day; ap3 ap3 16: 16:00 Home Meds: krill oil 500 mg Oral cap daily; ap3 ap3 16:04 16:00 Home Meds: Co Q-10 200 mg Oral cap daily; ap3 ap3 16:04 16:00 Home Meds: aspirin 81 mg Oral chew 1 tab once daily; ap3 ap3 16:07 16:04 Cardiovascular: Patient's skin is warm and dry. ap3 ap3
--- NOTE | 2021-07-29 22:53 | EDPHYS ---
Physician Documentation [facility] Name: Fidelia Marcus Jr Age: 86 yrs Sex: Male : 1935 Arrival Date: 07/29/2021 Time: 15:57 Bed 26 Private MD: ED Physician Ricco Holden HPI: 07/29 16:14 This 86 yrs old Male presents to ER via EMS with complaints of medication ma2 overdose . 16:14 Onset: The symptoms/episode began/occurred suddenly, 1 hour(s) ago. Possible causes: ma2 home medication overdose,. Current symptoms: In the emergency department the patient's symptoms are unchanged from the initial presentation. The patient has not experienced similar symptoms in the past. Historical: - Allergies: 16:00 NKA; ap3 - Home Meds: 16:00 tamsulosin 0.4 mg Oral cp24 1 cap once daily [Active]; atorvastatin 20 mg Oral tab 1 ap3 tab once daily [Active]; sotalol 80 mg Oral tab 0.5 tab 2 times per day [Active]; dutasteride 0.5 mg Oral cap 1 cap once daily [Active]; quinapril 40 mg Oral tab 1 tab once daily [Active]; hydrochlorothiazide 25 mg Oral tab 1 tab once daily [Active]; glipizide 5 mg Oral tab 1 tab 2 times per day [Active]; memantine 5 mg oral tab 1 tab once daily [Active]; fenofibrate 145MG oral 1 tab once daily [Active]; - PMHx: 16:00 Atrial Fib; BPH; Diabetes - NIDDM; Headaches; High Cholesterol; Hypertension; ap3 - Immunization history:: Adult Immunizations unknown. - Social history:: Smoking status: unknown Patient/guardian denies using alcohol, street drugs, The patient lives with family. - Family history:: not pertinent. ROS: 16:14 Constitutional: Negative for fever, chills, and weight loss. ma2 16:14 All other systems are negative. Exam: 16:14 Constitutional: This is a well developed, well nourished patient who is awake, alert, ma2 and in no acute distress. Head/Face: Normocephalic, atraumatic. Eyes: Pupils equal round and reactive to light, extra-ocular motions intact. Lids and lashes normal. Conjunctiva and sclera are non-icteric and not injected. Cornea within normal limits. Periorbital areas with no swelling, redness, or edema. ENT: Nares patent. No nasal discharge, no septal abnormalities noted. Tympanic membranes are normal and external auditory canals are clear. Oropharynx with no redness, swelling, or masses, exudates, or evidence of obstruction, uvula midline. Mucous membranes moist. Neck: Trachea midline, no thyromegaly or masses palpated, and no cervical lymphadenopathy. Supple, full range of motion without nuchal rigidity, or vertebral point tenderness. No Meningismus. Chest/axilla: Normal chest wall appearance and motion. Nontender with no deformity. No lesions are appreciated. Cardiovascular: Regular rate and rhythm with a normal S1 and S2. No gallops, murmurs, or rubs. Normal PMI, no JVD. No pulse deficits. Respiratory: Lungs have equal breath sounds bilaterally, clear to auscultation and percussion. No rales, rhonchi or wheezes noted. No increased work of breathing, no retractions or nasal flaring. Abdomen/GI: Soft, non-tender, with normal bowel sounds. No distension or tympany. No guarding or rebound. No evidence of tenderness throughout. Back: No spinal tenderness. No costovertebral tenderness. Full range of motion. Skin: Warm, dry with normal turgor. Normal color with no rashes, no lesions, and no evidence of cellulitis. MS/ Extremity: Pulses equal, no cyanosis. Neurovascular intact. Full, normal range of motion. Neuro: Awake and alert, GCS 15, oriented to person, place, time, and situation. Cranial nerves II-XII grossly intact. Motor strength 5/5 in all extremities. Sensory grossly intact. Cerebellar exam normal. Normal gait. Vital Signs: 15:57 BP 125 / 80; Pulse 76; Resp 19; Temp 97.0; Pulse Ox 96% on R/A; ap3 16:39 BP 115 / 47; Pulse 68; Resp 19; Pulse Ox 100% on R/A; ap3 18:43 BP 129 / 57; Pulse 64; Resp 19; Pulse Ox 94% on R/A; ap3 19:09 BP 124 / 61; Pulse 61; Resp 18; Pulse Ox 100% on R/A; ap3 20:00 BP 146 / 61; Pulse 64; Resp 16; Pulse Ox 100% ; Pain 4/10; dc2 21:00 BP 133 / 75; Pulse 76; Resp 19; Pulse Ox 100% ; Pain 5/10; dc2 22:00 BP 109 / 58; Pulse 71; Resp 20; Pulse Ox 100% on R/A; Pain 4/10; dc2 23:00 BP 145 / 65; Pulse 79; Resp 18; Pulse Ox 100% ; Pain 3/10; dc2 07/30 00:00 BP 73 / 47; Pulse 64; Resp 18; Pulse Ox 100% on R/A; df1 00:30 BP 81 / 54; Pulse 58; Resp 18; Pulse Ox 97% on R/A; df1 01:00 BP 91 / 59; Pulse 64; Resp 18; Pulse Ox 97% on R/A; df1 MDM: 07/29 16:03 Patient medically screened. [facility] 16:14 Differential Diagnosis: electrolyte abnormality, alcohol intoxication, hypoglycemia, ma2 volume depletion. 22:50 Data reviewed: vital signs, nurses notes, lab test result(s), CBC, electrolytes, EKG, [facility] radiologic studies, CT scan, plain films. Data interpreted: Pulse oximetry: on room air is 100 %. Interpretation: normal. Counseling: I had a detailed discussion with the patient and/or guardian regarding: the historical points, exam findings, and any diagnostic results supporting the discharge/admit diagnosis, lab results, radiology results, the need for further work-up and treatment in the hospital. Response to treatment: the patient's symptoms have mildly improved after treatment. 07/29 16:04 Order name: Basic Metabolic Panel [facility] 07/29 16:04 Order name: CBC with Diff la2 07/29 16:04 Order name: LFT's [facility] 07/29 16:04 Order name: Magnesium [facility] 07/29 16:04 Order name: NT PRO-BNP [facility] 07/29 16:04 Order name: PT-INR [facility] 07/29 16:04 Order name: Troponin (emerg Dept Use Only) [facility] 07/29 16:04 Order name: Acetaminophen [facility] 07/29 16:04 Order name: ETOH Level [facility] 07/29 16:04 Order name: Ptt, Activated; Complete Time: 21:04 [facility] 07/29 16:04 Order name: Salicylate; Complete Time: 22:33 la2 07/29 16:04 Order name: Urine Drug Screen; Complete Time: 22:06 la2 07/29 16:05 Order name: Basic Metabolic Panel; Complete Time: 22:33 EDMS 07/29 16:05 Order name: CBC with Automated Diff; Complete Time: 21:04 [facility] 07/29 16:05 Order name: Liver (Hepatic) Function; Complete Time: 22:33 MS 07/29 16:05 Order name: Magnesium; Complete Time: 22:33 MS 07/29 16:05 Order name: NT PRO-BNP; Complete Time: 22:33 MS 07/29 16:05 Order name: Protime (+INR); Complete Time: 21:04 MS 07/29 16:05 Order name: Troponin (Emerg Dept Use Only); Complete Time: 22:33 MS 07/29 16:05 Order name: Acetaminophen Level; Complete Time: 22:33 MS 07/29 16:05 Order name: Alcohol Serum/Plasma; Complete Time: 22:33 MS 07/29 17:34 Order name: COVID-19 SARS RT PCR (Document "Date of Onset" if Symptomatic); Complete ap3 Time: 21:07/29 20:32 Order name: Glucose, Ancillary Testing; Complete Time: 21:04 [facility] 07/29 21:14 Order name: Urine Dipstick-Ancillary; Complete Time: 21:20 [facility] 07/29 22:34 Order name: Ketone, Serum; Complete Time: 22:44 7 07/30 00:17 Order name: Glucose, Ancillary Testing [facility] 07/30 02:30 Order name: Glucose, Ancillary Testing [facility] 07/30 03:26 Order name: Glucose, Ancillary Testing [facility] 07/30 04:40 Order name: Glucose, Ancillary Testing [facility] 07/29 16:04 Order name: XRAY Chest (1 view); Complete Time: 17:58 [facility] 07/29 16:04 Order name: EKG; Complete Time: 16:05 [facility] 07/29 16:04 Order name: Cardiac monitoring; Complete Time: 16:08 [facility] 07/29 16:04 Order name: EKG - Nurse/Tech; Complete Time: 18:52 [facility] 07/29 16:04 Order name: IV Saline Lock; Complete Time: 19:08 [facility] 07/29 16:04 Order name: Labs collected and sent; Complete Time: 19:08 ma2 07/29 16:04 Order name: O2 Per Protocol; Complete Time: 16:08 la2 07/29 16:04 Order name: O2 Sat Monitoring; Complete Time: 16:08 ma2 07/29 16:04 Order name: CT Head Brain wo Cont; Complete Time: 17:58 ma2 07/30 06:11 Order name: CBC with Automated Diff EDMS 07/30 06:20 Order name: Comprehensive Metabolic Panel EDMS 07/30 06:20 Order name: T4 Free EDMS 07/30 06:20 Order name: Acetaminophen Level EDMS 07/30 06:20 Order name: Magnesium EDMS 07/30 06:20 Order name: Thyroid Stimulating Hormone EDMS 07/30 08:22 Order name: Glucose, Ancillary Testing EDMS 07/30 10:34 Order name: Glucose, Ancillary Testing EDMS 07/30 12:18 Order name: Glucose, Ancillary Testing EDMS 07/30 16:12 Order name: Glucose, Ancillary Testing EDMS 07/30 23:29 Order name: Glucose, Ancillary Testing EDMS 07/31 03:57 Order name: CBC with Automated Diff EDMS 07/31 04:10 Order name: Comprehensive Metabolic Panel EDMS 07/31 04:10 Order name: Magnesium EDMS 07/31 12:51 Order name: Glucose, Ancillary Testing EDMS 07/31 16:43 Order name: Glucose, Ancillary Testing EDMS 07/29 16:04 Order name: Suicide Screening ([place]); Complete Time: 16:08 la2 07/29 19:16 Order name: Misc. Order: PT IS DNR; Complete Time: 19:22 la1 07/29 21:56 Order name: Abran; Complete Time: 21:56 df1 Administered Medications: 19:08 Drug: NS 0.9% 1000 ml Route: IV; Rate: 125 ml/hr; Site: left upper arm; ap3 19:16 CANCELLED (Other Intervention Used): dnr 1 application Endotracheal continuous la1 23:05 Drug: Insulin Regular Human 10 units {Co-Signature: df1 (Padmini Ozuna).} Route: Sub-Q; dc2 Site: left upper abdomen; 07/30 02:28 Follow up: Response: No adverse reaction df1 07/29 23:05 Drug: NS 0.9% 500 ml Route: IV; Rate: bolus; Infused Over: 1 hrs; Site: left upper arm; dc2 Delivery: Primary tubing; 07/30 02:28 Follow up: IV Status: Completed infusion; IV Intake: 500ml df1 07/29 23:07 Drug: Ativan (LORazepam) 0.5 mg Route: IVP; Site: left upper arm; df1 07/30 02:26 Follow up: Response: No adverse reaction df1 02:15 Drug: Ativan (LORazepam) 0.5 mg Route: IVP; Site: left upper arm; df1 02:25 Follow up: Response: Anxiety decreased df1 02:27 Drug: NS 0.9% 500 ml {Note: BP systolic in 70's. Verbal order received for 500mlNS df1 bolus at 0000.} Route: IV; Rate: bolus; Site: left upper arm; 02:27 Follow up: IV Status: Completed infusion; IV Intake: 500ml df1 Disposition Summary: 07/29/21 22:52 Hospitalization Ordered Hospitalization Status: Inpatient Admission [facility] Provider: Melvin Antony Calvin Condition: Stable [facility] Problem: new [facility] Symptoms: have improved [facility] Bed/Room Type: Standard [facility] Location: [facility] ER HOLD(07/30/21 01:03) Room Assignment: ERHOLD-(07/30/21 01:03) Diagnosis - Medication Overdose [facility] Forms: - Medication Reconciliation Form [facility] - SBAR form [facility] Signatures: Dispatcher [employer] EDMS Bhanu Johnson FNP-C [employer]-Cla1 Talita Rodas, BARBARA RN Jose Grimaldo MD MD ma2 Prokisch, Amanda, RN RN ap3 Ricco Holden MD MD mh7 Furlich, Dawn df1 Feli Castillo RN RN charis2 Padmini Ozuna df1 Corrections: (The following items were deleted from the chart) 07/29 16:04 16:00 Home Meds: pantoprazole Oral once daily; ap3 ap3 16:04 16:00 Home Meds: Metoprolol Tartrate Oral; ap3 ap3 16:04 16:00 Home Meds: metformin 1,000 mg Oral tab 1 tab 2 times per day; ap3 ap3 16:04 16:00 Home Meds: krill oil 500 mg Oral cap daily; ap3 ap3 16:04 16:00 Home Meds: Co Q-10 200 mg Oral cap daily; ap3 ap3 16:04 16:00 Home Meds: aspirin 81 mg Oral chew 1 tab once daily; ap3 ap3 17:55 17:52 SARS-COV-2 RT PCR+[id number] ordered. EDMS EDMS 19:16 17:59 dnr 1 application Endotracheal continuous ordered. ma2 la1 19:16 19:16 dnr 1 application Endotracheal continuous ordered. la1 la1 23:12 22:52 [facility] cg 23:13 23:12 206 cg cg 23:32 23:13 208 cg 07/30 01:03 07/29 22:52 Telemetry/MedSurg (Inpatient) [facility] [place] 07/30 01:03 07/29 23:32 cg cg
[2021-07-29] MEDS ORDERED: LORazepam 2 MG/ML VIAL ONE (23:32)
[2021-07-29] MEDS ORDERED: INSULIN -REGULAR HUMAN 50 UNIT/0.5 ML ML ONE (23:38)
[2021-07-29] MEDS ORDERED: NA CHLORIDE 0.9% 500 ML ONE (23:38)
--- NOTE | 2021-07-29 23:43 | P.HP ---
Certification for Inpatient Patient admitted to: Observation With expected LOS: <2 Midnights Patient will require the following post-hospital care: None Practitioner: I am a practitioner with admitting privileges, knowledge of patient current condition, hospital course, and medical plan of care. Services: Services provided to patient in accordance with Admission requirements found in Title 42 Section 412.3 of the Code of Federal Regulations Patient History Date of Service: 07/29/21 Primary Care Provider: Dr. Tran Reason for admission: Accidental overdose History of Present Illness: 86-year-old male with history of atrial fibrillation not on chronic anticoagulation therapy, BPH, hyperlipidemia, hypertension and vascular dementia presented to the emergency department for suspected medication overdose. Sister who helps prepare his medications usually puts the med box with 7 days worth of medication, when she stopped by today she noticed that 5 days worth of his medications were missing. These medications included dutasteride 0.5 mg daily, fenofibrate 145 mg daily, Flomax 0.4 mg daily, atorvastatin 20 mg p.o. daily, sotalol 80 mg p.o. twice daily, hydrochlorothiazide 25 mg daily, quinapril 40 mg daily, glipizide 0.5 mg daily and memantine 5 mg daily. Patient potentially took up to 5 days of these medications by accident. There has been an APS case placed by family and patient regarding the fact that he lives alone and is having difficulty caring for himself although he has been refusing assisted living placement. I called poison control case #[id number] concern for hypoglycemia, bradycardia, hypotension given sotalol, glipizide overdose recommend Accu-Cheks every 2 and close monitoring for at least 24 hours. Patient also appears to be sundowning and is agitated which could also be a side effect of the overdose of memantine. We will keep as ICU overnight for close monitoring and frequent Accu-Chek. Allergies No Known Allergies Allergy (Verified 06/10/20 22:55) Home Medications: Atorvastatin Calcium [Lipitor*] 20 mg PO DAILY 05/01/21 Cyclobenzaprine HCl [Flexeril] 5 mg PO BID 05/01/21 Docusate [Colace Cap] 100 mg PO BID #60 cap 05/01/21 Fenofibrate [Tricor*] 1 tab PO DAILY 05/01/21 Polyethylene Glycol 3350 [Miralax] 17 gm PO M,W,F #15 powd.pack 05/01/21 Quinapril HCl 40 mg PO DAILY 05/01/21 traMADol HCL [Ultram*] 50 mg PO Q6H PRN #30 tab 05/01/21 - Past Medical/Surgical History Diabetic: Yes -: Diabetes mellitus type 2 -: Vertigo -: High Cholesterol -: HTN -: Cataracts -: AFIB not on chronic anticoagulation therapy -: Hyperlipidemia -: BPH -: Benign colon tumor removed -: Disc Surgery -: Heart Stent -: Cholecystectomy -: Basal cell carcinoma excision from the nose. Psychosocial/ Personal History: , retired, lives alone at home - Family History Father -: Heart disease Notes: of heart attack Mother -: Cancer Notes: cervical - Social History Alcohol use: No CD- Drugs: No Caffeine use: No Place of Residence: Home Review of Systems is unable to be obtained Physical Examination - Physical Exam General: Alert, In no apparent distress, Demented, Confused HEENT: Atraumatic, PERRLA, Mucous membr. moist/pink, EOMI, Sclerae nonicteric Neck: Supple, 2+ carotid pulse no bruit, No LAD, Without JVD or thyroid abnorma lity Respiratory: Clear to auscultation bilaterally, Normal air movement Cardiovascular: Regular rate/rhythm, Normal S1 S2 Gastrointestinal: Normal bowel sounds, No tenderness Musculoskeletal: No tenderness Integumentary: No rashes Neurological: Normal speech, Normal strength at 5/5 x4 extr, Normal tone, Normal affect - Studies Laboratory Data (last 24 hrs) 07/29/21 21:35: Sodium 138, Potassium 3.9, BUN 50 H, Creatinine 1.82 H, Glucose 377 H, Magnesium 2.3, Total Bilirubin 0.9, AST 16, ALT 20, Alkaline Phosphatase 92 07/29/21 19:03: PT 11.3, INR 0.98, APTT 26.8 07/29/21 19:03: WBC 6.70, Hgb 12.6 L, Hct 36.0 L, Plt Count 143 L Assessment and Plan - Plan Assessment: Accidental overdose Atrial fibrillation not on chronic anticoagulation therapy BPH Hypertension Vascular dementia Hyperlipidemia Plan: Accidental overdose: We will need to monitor patient closely with every 2 Accu- Chek, monitor on telemetry. Watch for bradycardia/hypotension. Case discussed with poison control recommends a least 24-hour hospitalization from presentation to emergency department which was 1600 today. Primary concerns are with glipizide/sotalol and hypoglycemia, bradycardia, prolonged QT, hypotension. Will provide patient with IV fluids and monitor in ICU overnight. Atrial fibrillation not on chronic anticoagulation therapy: Hold all medications at this time as patient has recently likely overdosed on these medications. M onitor on telemetry provide medication as needed. BPH: Hold all medications at this time as patient has recently likely overdosed on these medications. Monitor on telemetry provide medication as needed. Hypertension: Hold all medications at this time as patient has recently likely overdosed on these medications. Monitor on telemetry provide medication as needed. Vascular dementia: Patient living alone, sister concerned, patient had been refusing transfer to halfway in the past but at this time is disoriented. Apparently there is an APS file in place supposedly placed by patient himself. Patient will likely require transfer to skilled facility at discharge. We will have to provide benzodiazepines for agitation as needed as recommended by poison control. Hyperlipidemia: Hold all medications at this time as patient has recently likely overdosed on these medications. Monitor on telemetry provide medication as needed. DVT PPX: Heparin Code status: DNR Discharge Plan: Prison Plan to discharge in: 48 Hours - Advance Directives Does patient have a Living Will: Yes Does patient have a Durable POA for Healthcare: Yes - Code Status/Comfort Care Code Status Assessed: Yes (Full code) Critical Care: No Time Spent Managing Pts Care (In Minutes): 55
[2021-07-30] MEDS ORDERED: LORazepam 2 MG/ML VIAL ONE (00:32)
[2021-07-30] MEDS ORDERED: ONDANSETRON 4 MG/2 ML VIAL IV PRN (01:20)
[2021-07-30] MEDS ORDERED: ACETAMINOPHEN 500 MG TAB PO PRN (01:20)
[2021-07-30] MEDS ORDERED: NA CHLORIDE 0.9% 1,000 ML IV SCH ×2 (01:20→02:09)
[2021-07-30] MEDS ORDERED: NA CHLORIDE 0.9% 500 ML ONE (01:37)
[2021-07-30 03:03] VITALS: BMI 25.8
[2021-07-30] MEDS: D5 0.45 NS 1,000 ML IV SCH ×2 (04:56→18:10)
[2021-07-30] MEDS ORDERED: NA CHLORIDE 0.9% 0 ML ONE (05:13)
[2021-07-30] MEDS ORDERED: D50W 25 GM/50 ML SYRINGE IV ONE (05:13)
[2021-07-30] MEDS ORDERED: D5 0.45 NS 1,000 ML IV ONE ×2 (05:14→15:38)
[2021-07-30 06:06] LABS: Absolute Lymphocytes (CBC) 1.3 K/uL (0.7-4.9); Basophils % 0.4 % (0-1.3); Hematocrit 30.2 % (39.6-49.0); Lymphocytes % 11.7 % (15.3-44.8); MPV 10.8 fL (7.6-11.3); RBC Red Blood Cell Count 3.34 M/uL (4.33-5.43)
[2021-07-30 06:17] LABS: ALT/SGPT 18 U/L (12-78); AST/SGOT 15 U/L (15-37); Albumin 3.2 g/dL (3.4-5.0); Alkaline Phosphatase 68 U/L (45-117); BUN Blood Urea Nitrogen 48 mg/dL (7-18); Bicarbonate 22 mmol/L (21-32); Bilirubin Total 0.6 mg/dL (0.2-1.0); Glucose Level 232 mg/dL (74-106); Magnesium 2.2 mg/dL (1.8-2.4); Potassium 3.7 mmol/L (3.5-5.1); Protein, Total 6.3 g/dL (6.4-8.2); Sodium Level 143 mmol/L (136-145); Thyroid Stimulating Hormone 0.621 uIU/mL (0.360-3.740)
[2021-07-30] MEDS: INSULIN -REGULAR HUMAN 50 UNIT/0.5 ML ML SQ SCH ×4 (09:02→23:34)
[2021-07-30] MEDS: HEPARIN 5000 UNIT/ML 1 ML VIAL SQ SCH ×2 (09:02→20:29)
[2021-07-30] MEDS ORDERED: HEPARIN 5000 UNIT/ML 1 ML VIAL ONE ×2 (09:20→21:12)
[2021-07-30] MEDS ORDERED: INSULIN -REGULAR HUMAN 50 UNIT/0.5 ML ML ONE ×2 (09:23→13:51)
--- NOTE | 2021-07-30 14:22 | EKG ---
Test Date: 2021-07-29 Test Time: 16:32:23 Survey Chief: BRISA MEASUREMENT RESULTS: Intervals: Rate: 67 AK: 170 QRSD: 76 QT: 440 QTc: 464 Cameron: P: 54 AK: 170 QRS: 27 T: 23 INTERPRETIVE STATEMENTS: Normal sinus rhythm Normal ECG Compared to ECG 04/30/2021 22:34:43 No significant changes Electronically Signed On 07-30-21 14:21:31 CDT by Elvis Wise
--- NOTE | 2021-07-30 15:04 | P.PN ---
Date of Service: 07/30/21 Subjective: Continues with some intermittent somnolence mixed with agitation ROS: 10 point ROS as noted above, otherwise negative Physical exam GEN: demented/confused, difficult to arouse HEENT: Normal conjunctiva, sclera anicteric CV: Regular rate and rhythm, no edema Pulm: Nonlabored respiration, clear to auscultation ABD: Soft, nontender, nondistended MSK: No joint tenderness/swelling Neuro: moves all 4 extremities, mumbled speech, not following commands Problem List Possible / Presumed Accidental overdose of multiple medications Atrial fibrillation not on chronic anticoagulation therapy BPH Hypertension Vascular dementia Hyperlipidemia We will need to monitor patient closely with every 2 Accu-Chek monitor on telemetry. Watch for bradycardia/hypotension. Case discussed with poison control recommends a least 24-hour hospitalization from presentation to emergency department which was 1600 07/29. Primary concerns are with glipizide/sotalol and hypoglycemia, bradycardia, prolonged QT, hypotension. continue ICU, continue IVF holding home medications at this time, hold sotalol as patient presumably took multiple doses, restart as needed monitor on telemetry Patient living alone, sister concerned, patient had been refusing transfer to longterm in the past but at this time is disoriented. Apparently there is an APS file in place supposedly placed by patient himself. Patient will likely require transfer to skilled facility at discharge. We will have to provide benzodiazepines for agitation as needed as recommended by poison control. DVT PPX: Heparin Code status: DNR Dispo: longterm, in ~2 days
[2021-07-30] MEDS: NACHLORIDE 0.45% 1,000 ML IV SCH (23:34)
[2021-07-31] MEDS ORDERED: NACHLORIDE 0.45% 1,000 ML IV ONE ×2 (00:32→13:39)
[2021-07-31] MEDS ORDERED: INSULIN -REGULAR HUMAN 50 UNIT/0.5 ML ML ONE ×3 (00:32→18:19)
[2021-07-31] MEDS ORDERED: HALOPERIDOL LACT 5 MG/ML INJ IV STA (01:17)
[2021-07-31] MEDS ORDERED: HALOPERIDOL LACT 5 MG/ML INJ ONE (01:50)
[2021-07-31] MEDS ORDERED: LORazepam 2 MG/ML VIAL IV ONE (02:00)
[2021-07-31] MEDS ORDERED: LORazepam 2 MG/ML VIAL ONE (02:58)
[2021-07-31 03:56] LABS: Absolute Lymphocytes (CBC) 1.4 K/uL (0.7-4.9); Basophils % 0.4 % (0-1.3); Hematocrit 30.7 % (39.6-49.0); Lymphocytes % 15.8 % (15.3-44.8); MPV 10.4 fL (7.6-11.3); RBC Red Blood Cell Count 3.43 M/uL (4.33-5.43)
[2021-07-31 04:10] LABS: Bilirubin Total 0.6 mg/dL (0.2-1.0); Magnesium 1.9 mg/dL (1.8-2.4); Potassium 3.1 mmol/L (3.5-5.1); Protein, Total 6.2 g/dL (6.4-8.2)
[2021-07-31 04:18] VITALS: O2SAT 97
[2021-07-31] MEDS: INSULIN -REGULAR HUMAN 50 UNIT/0.5 ML ML SQ SCH ×3 (05:04→17:20)
[2021-07-31] MEDS ORDERED: ZIPRASIDONE MESYLA 20 MG/VIAL IM STA (05:57)
[2021-07-31] MEDS ORDERED: WATER FOR INJ,STERILE 10 ML IM PRN (05:57)
[2021-07-31] MEDS: KCL 20 MEQ/100 mL IVPB 20 MEQ/100 ML BAG IV SCH ×2 (06:03→08:32)
[2021-07-31] MEDS ORDERED: KCL 20 MEQ/100 mL IVPB 20 MEQ/100 ML BAG IV ONE ×2 (06:12→09:25)
[2021-07-31] MEDS ORDERED: ZIPRASIDONE MESYLA 20 MG/VIAL IM ONE (07:00)
[2021-07-31] MEDS ORDERED: WATER FOR INJ,STERILE 10 ML ONE (07:00)
[2021-07-31] MEDS: SOTALOL HCL 80 MG TAB PO SCH ×2 (08:32→15:26)
[2021-07-31] MEDS: HEPARIN 5000 UNIT/ML 1 ML VIAL SQ SCH (08:32)
[2021-07-31] MEDS ORDERED: DUTASTERIDE 0.5 MG GEL CAP PO SCH (09:00)
[2021-07-31] MEDS ORDERED: MEMANTINE HCL 10 MG TABLET PO SCH (09:00)
[2021-07-31] MEDS ORDERED: TAMSULOSIN 0.4 MG SR CAP PO SCH (09:00)
[2021-07-31] MEDS ORDERED: TAMSULOSIN 0.4 MG SR CAP ONE (09:25)
[2021-07-31] MEDS ORDERED: HEPARIN 5000 UNIT/ML 1 ML VIAL ONE (09:25)
[2021-07-31] MEDS ORDERED: SOTALOL HCL 80 MG TAB ONE ×2 (09:26→16:25)
--- NOTE | 2021-07-31 10:41 | P.PN ---
Date of Service: 07/31/21 Subjective: Patient appears to be near his baseline overnight with ongoing behavioral disturbance and severe dementia Patient threatening staff, said will kill them, tried to hit one patient Patient oriented to self and knows he is in a hospital. Does not recall events that lead him here, doesn't answer if he remembers taking medications or was trying to hurt himself ROS: 10 point ROS as noted above, otherwise negative Physical exam GEN: demented/confused, answers somewhat appropriately, slight slurred speech HEENT: Normal conjunctiva, sclera anicteric CV: Regular rate and rhythm, no edema Pulm: Nonlabored respiration, clear to auscultation; on room air ABD: Soft, nontender, nondistended MSK: No joint tenderness/swelling Neuro: moves all 4 extremities, slurred/mumbled speech, intermittently follows basic commands, behavioral component Problem List Possible Accidental overdose of multiple medications Severe / Progressive Vascular dementia with behavioral disturbance Atrial fibrillation not on chronic anticoagulation therapy BPH Hypertension Hyperlipidemia Case discussed with poison control recommended a least 24-hour hospitalization from presentation to emergency department which was 1600 07/29. Patient has been cleared by poison control. heart rate now slowly increasing, in 80-90s, BP slight hypertensive. Will restart home sotalol and stepwise re-initiation of home anti-hypertensives no episodes of bradycardia, no significant hypotension, no hypoglycemia patient was monitored in ICU, now stable, just requiring sitter which is unavailable on floor unclear if patient truly took the multiple medications that were missing unclear if patient was attempting to harm himself Workup is otherwise negative for any infection / ischemic event / or metabolic process causing contributing to his dementia/behavioral issues Patient has been living home alone. His sister has been concerned for his health for some time. He has refused snf / care previously He gets combative at times when this issue is brought up Apparently there is an APS file in place supposedly placed by patient himself. Can continue with valentín MANCIA for agitation Suspect some delirium on top of dementia due to change of location / age / vascular dementia Storm was placed in ED on arrival for monitoring / urine sample. restarted BPH meds, dc storm DVT PPX: Heparin Code status: DNR Dispo: may be more appropriate for inpatient psych / locked unit
[2021-07-31] MEDS: NACHLORIDE 0.45% 1,000 ML IV SCH (13:05)
[2021-07-31 16:45] VITALS: TEMP 98.6
[2021-07-31 18:14] VITALS: BP 135/79
--- NOTE | 2021-07-31 20:39 | P.DS ---
Admission Date: 07/30/21 Discharge Date: 07/31/21 Primary Care Provider: Dr. Tran Disposition: TRANSFR TO OTHER-PSY/CD/REHAB Comment: [facility] halfway Discharge Condition: FAIR Reason for Admission: Accidental overdose Consultations: Poison control Procedures: Subjective: Patient appears to be near his baseline overnight with ongoing behavioral disturbance and severe dementia Patient threatening staff, said will kill them, tried to hit one patient Patient oriented to self and knows he is in a hospital. Does not recall events that lead him here, doesn't answer if he remembers taking medications or was trying to hurt himself ROS: 10 point ROS as noted above, otherwise negative Physical exam GEN: demented/confused, answers somewhat appropriately, slight slurred speech HEENT: Normal conjunctiva, sclera anicteric CV: Regular rate and rhythm, no edema Pulm: Nonlabored respiration, clear to auscultation; on room air ABD: Soft, nontender, nondistended MSK: No joint tenderness/swelling Neuro: moves all 4 extremities, slurred/mumbled speech, intermittently follows basic commands, behavioral component Problem List Possible Accidental overdose of multiple medications Severe / Progressive Vascular dementia with behavioral disturbance Atrial fibrillation not on chronic anticoagulation therapy BPH Hypertension Hyperlipidemia Case discussed with poison control recommended a least 24-hour hospitalization from presentation to emergency department which was 1600 07/29. Patient has been cleared by poison control. heart rate now slowly increasing, in 80-90s, BP slight hypertensive. Will restart home sotalol and stepwise re-initiation of home anti-hypertensives no episodes of bradycardia, no significant hypotension, no hypoglycemia patient was monitored in ICU, now stable, just requiring sitter which is unavailable on floor unclear if patient truly took the multiple medications that were missing unclear if patient was attempting to harm himself Workup is otherwise negative for any infection / ischemic event / or metabolic process causing contributing to his dementia/behavioral issues Patient has been living home alone. His sister has been concerned for his health for some time. He has refused prison / care previously He gets combative at times when this issue is brought up Apparently there is an APS file in place supposedly placed by patient himself. Can continue with valentín MANCIA for agitation Suspect some delirium on top of dementia due to change of location / age / vascular dementia Abran was placed in ED on arrival for monitoring / urine sample. restarted BPH meds, dc storm DVT PPX: Heparin Code status: DNR Dispo: may be more appropriate for inpatient psych / locked unit CLINICAL HISTORY: CONFUSED COMPARISON: CT head December 14 TECHNIQUE: Axial 5 mm thick images of the head were obtained without IV contrast. All CT scans are performed using dose optimization technique as appropriate and may include automated exposure control or mA/KV adjustment according to patient size. FINDINGS: No intracranial hemorrhage, mass, edema or shift of mid-line structures. No acute infarction changes seen. No cortical edema or sulcal effacement. Moderate severity atrophy present with ventricles in proportion. Mild to moderate chronic ischemic change seen throughout the cerebral white matter. Arterial and physiologic calcifications are present Mastoid air cells and visualized portions of the paranasal sinuses are clear. No acute bony findings. IMPRESSION: Negative non-contrast CT head examination for acute finding. Above detailed findings are similar to December 14 imaging EXAM DESCRIPTION: RAD - Chest Single View - 07/29/2021 4:59 pm CLINICAL HISTORY: ?OVERDOSE, shortness of breath COMPARISON: April 30 TECHNIQUE: AP portable chest image was obtained 07/29/2021 4:59 pm in supine position. FINDINGS: Lung volumes are low further accentuating baseline interstitial pattern. Supine positioning also accentuates the interstitial pattern. No mass or consolidation. Heart and vasculature are normal. No measurable pleural effusion and no pneumothorax. No acute bony abnormality seen. No acute aortic findings suspected. IMPRESSION: No acute cardiopulmonary process. No significant change comparison. Dictated By: Greyson Jones MD 07/29/21 174 Signed By: Greyson Jones MD 07/29/21 1742 Brief History of Present Illness: 86-year-old male with history of atrial fibrillation not on chronic anticoagulation therapy, BPH, hyperlipidemia, hypertension and vascular dementia presented to the emergency department for suspected medication overdose. Sister who helps prepare his medications usually puts the med box with 7 days worth of medication, when she stopped by today she noticed that 5 days worth of his medications were missing. These medications included dutasteride 0.5 mg daily, fenofibrate 145 mg daily, Flomax 0.4 mg daily, atorvastatin 20 mg p.o. daily, sotalol 80 mg p.o. twice daily, hydrochlorothiazide 25 mg daily, quinapril 40 mg daily, glipizide 0.5 mg daily and memantine 5 mg daily. Patient potentially took up to 5 days of these medications by accident. There has been an APS case placed by family and patient regarding the fact that he lives alone and is having difficulty caring for himself although he has been refusing assisted living placement. I called poison control case #[id number] concern for hypoglycemia, bradycardia, hypotension given sotalol, glipizide overdose recommend Accu-Cheks every 2 and close monitoring for at least 24 hours. Patient also appears to be sundowning and is agitated which could also be a side effect of the overdose of memantine. We will keep as ICU overnight for close monitoring and frequent Accu-Chek. Hospital Course: Patient was admitted for medication overdose, patient lives alone has severe vascular dementia. Patient was admitted for observation in regards to suspected overdose of medication and was cleared by poison control. Patient was deemed not safe for discharge back home given his severe vascular dementia, agitation and possible delirium. Transfer was initiated for [facility]/halfway. Patient had JUMANA obtained and transfer were obtained from [facility]'s department and was accepted to [facility] facility for further evaluation and management. Vital Signs/Physical Exam: Temp Pulse Resp BP Pulse Ox 98.6 F 83 20 135/79 95 07/31/21 16:00 07/31/21 18:00 07/31/21 18:00 07/31/21 18:00 07/31/21 18:00 General: Oriented x1, Demented, Confused HEENT: Atraumatic Neck: Supple Respiratory: Clear to auscultation bilaterally Cardiovascular: No edema, Normal S1 S2 Capillary refill: <2 Seconds Gastrointestinal: Normal bowel sounds, Soft and benign Musculoskeletal: No contractures, No erythema, No tenderness Integumentary: No significant lesion, No tenderness/swelling Neurological: Normal speech, Normal tone Laboratory Data at Discharge: WBC 8.70 K/uL (4.3-10.9) D 07/31/21 03:35 Hgb 11.0 g/dL (13.6-17.9) L 07/31/21 03:35 Hct 30.7 % (39.6-49.0) L 07/31/21 03:35 Plt Count 133 K/uL (152-406) L 07/31/21 03:35 PT 11.3 SECONDS (9.5-12.5) 07/29/21 19:03 INR 0.98 07/29/21 19:03 APTT 26.8 SECONDS (24.3-36.9) 07/29/21 19:03 Sodium 139 mmol/L (136-145) 07/31/21 03:35 Potassium 3.1 mmol/L (3.5-5.1) L 07/31/21 03:35 BUN 30 mg/dL (7-18) H 07/31/21 03:35 Creatinine 1.13 mg/dL (0.55-1.3) 07/31/21 03:35 Glucose 198 mg/dL (74-106) H 07/31/21 03:35 Magnesium 1.9 mg/dL (1.8-2.4) 07/31/21 03:35 Total Bilirubin 0.6 mg/dL (0.2-1.0) 07/31/21 03:35 AST 20 U/L (15-37) 07/31/21 03:35 ALT 17 U/L (12-78) 07/31/21 03:35 Alkaline Phosphatase 64 U/L (45-117) 07/31/21 03:35 Home Medications: Fenofibrate [Tricor*] 1 tab PO DAILY 05/01/21 Atorvastatin Calcium 20 mg PO DAILY 07/30/21 Dutasteride 0.5 mg PO DAILY 07/30/21 Memantine HCl 5 mg PO DAILY 07/30/21 Quinapril HCl 40 mg PO DAILY 07/30/21 Sotalol HCl [Betapace*] 80 mg PO BID* 07/30/21 Tamsulosin HCl [Flomax] 0.4 mg PO DAILY 07/30/21 glipiZIDE [Glipizide] 5 mg PO DAILY 07/30/21 hydroCHLOROthiazide [Hydrochlorothiazide] 25 mg PO DAILY 07/30/21 Physician Discharge Instructions: Continue with further care at [facility] Followup: Unknown,U [Primary Care Provider] - Time spent managing pt's care (in minutes): 35
[2021-08-01] MEDS ORDERED: ASPIRIN 81 MG CHEWABLE TABLET ONE (09:24)
== END 2021-07-31 22:30 | DRG 918 ==
LOC: ER 15:49 → 2ND 23:28 → ERHOLD 07-30 02:26 → OBSVTOIN 07-30 14:29
PROVIDERS: ADMIT Hospitalist; ATTEND Hospitalist
DX: T46.6X1A Poisoning by antihyperlipidemic and antiarteriosclerotic drugs, accidental (unintentional), initial encounter (principal); F05 Delirium due to known physiological condition; F01.51 Vascular dementia, unspecified severity, with behavioral disturbance; T44.6X1A Poisoning by alpha-adrenoreceptor antagonists, accidental (unintentional), initial encounter; T44.7X1A Poisoning by beta-adrenoreceptor antagonists, accidental (unintentional), initial encounter; T50.2X1A Poisoning by carbonic-anhydrase inhibitors, benzothiadiazides and other diuretics, accidental (unintentional), initial encounter; T46.4X1A Poisoning by angiotensin-converting-enzyme inhibitors, accidental (unintentional), initial encounter; T38.3X1A Poisoning by insulin and oral hypoglycemic [antidiabetic] drugs, accidental (unintentional), initial encounter; T43.8X1A Poisoning by other psychotropic drugs, accidental (unintentional), initial encounter; N40.0 Benign prostatic hyperplasia without lower urinary tract symptoms; I48.91 Unspecified atrial fibrillation; E11.9 Type 2 diabetes mellitus without complications; I10 Essential (primary) hypertension; E78.5 Hyperlipidemia, unspecified; Z60.2 Problems related to living alone; Z90.49 Acquired absence of other specified parts of digestive tract; Z95.5 Presence of coronary angioplasty implant and graft; Z66 Do not resuscitate; Z79.84 Long term (current) use of oral hypoglycemic drugs; Z79.899 Other long term (current) drug therapy; Z20.822 Contact with and (suspected) exposure to COVID-19
CPT/HCPCS: 36415; 51702; 70450; 71045; 80048; 80053; 80076; 80307; 80320; 80329; 81003; 82010; 82947; 83735; 83880; 84439; 84443; 84484; 85025; 85610; 85730; 93005; 96361; 96372; 96374; 99285; G0378; J1630; J1644; J3480; J3486; J7030; J7040; J7799; U0003

== ENCOUNTER 2022-04-03 15:59 | Emergency (ER) | payer OTHER ==
--- NOTE | 2022-04-03 17:24 | RAD REPORT ---
EXAM DESCRIPTION: CT - Head Brain Wo Cont - 04/03/2022 5:02 pm CLINICAL HISTORY: fall /head injury COMPARISON: Head Brain Wo Cont dated 07/29/2021 TECHNIQUE: Axial 5 mm thick images of the head were obtained without IV contrast. All CT scans are performed using dose optimization technique as appropriate and may include automated exposure control or mA/KV adjustment according to patient size. FINDINGS: No intracranial hemorrhage, mass, edema or shift of mid-line structures. No acute cortical level infarction changes seen. No cortical edema or sulcal effacement. Advanced atrophy and advanced chronic ischemic changes are present. Ventricles are in proportion to the amount of volume loss. Den se arterial tree calcifications are present. No abnormal extra-axial fluid collections. Intracranial findings are similar to July 2021. Mastoid air cells and visualized portions of the paranasal sinuses are clear. No skull fracture changes. Moderate-size right frontal scalp hematoma is present. Underlying bone is intact. IMPRESSION: Right frontal scalp hematoma with underlying bone intact. Advanced atrophy and chronic ischemic changes are present similar to comparison. No hemorrhage or acu te intracranial finding.
--- NOTE | 2022-04-03 18:45 | ER ---
Nurse's Notes [facility] Name: Fidelia Marcus Jr Age: 87 yrs Sex: Male : 1935 Arrival Date: 04/03/2022 Time: 16:06 Bed 18 Private MD: Diagnosis: Contusion of unspecified part of head-right side of forehead Presentation: 04/03 16:06 Chief complaint: EMS states: FALL FROM STANDING, NO LOC. Coronavirus screen: At this bp time, the client does not indicate any symptoms associated with coronavirus-19. Ebola Screen: No symptoms or risks identified at this time. Initial Sepsis Screen: Does the patient meet any 2 criteria? HR > 90 bpm. No. Patient's initial sepsis screen is negative. Does the patient have a suspected source of infection? No. Patient's initial sepsis screen is negative. Risk Assessment: Do you want to hurt yourself or someone else? Patient reports no desire to harm self or others. Onset of symptoms was April 03, 2022 at 15:30. Care prior to arrival: IV initiated. 22 GA, in the left hand. 16:06 Method Of Arrival: EMS: [facility] bp 16:06 Acuity: MIQUEL 3 bp Triage Assessment: 16:11 General: Appears in no apparent distress. comfortable, Behavior is calm, cooperative, bp appropriate for age. Pain: Complains of pain in right eye. EENT: No deficits noted. Neuro: Level of Consciousness is awake, alert, obeys commands, Oriented to Appropriate for age. Cardiovascular: No deficits noted. Respiratory: No deficits noted. GI: No signs and/or symptoms were reported involving the gastrointestinal system. : No signs and/or symptoms were reported regarding the genitourinary system. Derm: No deficits noted. Musculoskeletal: No deficits noted. Injury Description: Bruise sustained to right eye. Historical: - Allergies: 16:11 NKA; bp - PMHx: 16:11 Atrial Fib; BPH; Headaches; Diabetes - NIDDM; Hypertension; High Cholesterol; bp - Immunization history:: Adult Immunizations up to date. - Social history:: Smoking status: Patient denies any tobacco usage or history of. Screenin:12 Abuse screen: Denies threats or abuse. Denies injuries from another. Nutritional bp screening: No deficits noted. Tuberculosis screening: No symptoms or risk factors identified. Fall Risk None identified. Assessment: 16:12 General: SEE TRIAGE NOTE. bp 18:31 Reassessment: No changes from previously documented assessment. Patient and/or family bp updated on plan of care and expected duration. Pain level reassessed. 18:49 Reassessment: PT TBDC. D/C OWN CC AND PIV. TRANSPORT PENDING. bp 21:26 Reassessment: No changes from previously documented assessment. Patient and/or family ll3 updated on plan of care and expected duration. Pain level reassessed. 22:03 Reassessment: No changes from previously documented assessment. Patient and/or family ll3 updated on plan of care and expected duration. Pain level reassessed. Vital Signs: 16:06 BP 158 / 62; Pulse 99; Resp 16; Temp 98; Pulse Ox 100% ; bp 18:30 BP 141 / 75; Pulse 97; Resp 16; Pulse Ox 100% ; bp 22:04 BP 157 / 70; Pulse 93; Resp 17; Pulse Ox 98% on R/A; ll3 ED Course: 16:06 Patient arrived in ED. bp 16:09 Zain Sanchez NP is PHCP. pm1 16:09 Peter Flores MD is Attending Physician. pm1 16:10 Triage completed. bp 16:11 Arm band placed on. bp 16:12 Patient has correct armband on for positive identification. Bed in low position. Call bp light in reach. Side rails up X2. 16:12 Maintain EMS IV. Dressing intact. Good blood return noted. Site clean \T\ dry. Gauge \T\ bp site: 22 G LEFT HAND. 17:04 Head Brain Wo Cont In Process Unspecified. EDMS 18:30 Domingo Bautista, BARBARA is Primary Nurse. bp 22:04 No provider procedures requiring assistance completed. IV discontinued, intact, ll3 bleeding controlled, No redness/swelling at site. Pressure dressing applied. Administered Medications: No medications were administered Medication: 16:12 VIS not applicable for this client. bp Outcome: 18:44 Discharge ordered by . pm1 22:04 Discharged to home via ambulance. ll3 22:04 Condition: stable 22:04 Discharge instructions given to patient, EMS, Instructed on discharge instructions, follow up and referral plans. Demonstrated understanding of instructions, follow-up care. 22:05 Patient left the ED. ll3 Signatures: Dispatcher [employer] LUPEMS Zain Sanchez, CROWN POUNCER CROWN POUNCER pm1 Domingo Bautista, RN RN bp Jay Vicente RN RN ll3
--- NOTE | 2022-04-03 18:45 | EDPHYS ---
Physician Documentation [facility] Name: Fidelia Marcus Jr Age: 87 yrs Sex: Male : 1935 Arrival Date: 04/03/2022 Time: 16:06 Bed 18 Private MD: ED Physician Peter Flores HPI: 04/03 16:55 This 87 yrs old Male presents to ER via EMS with complaints of Fall Injury. pm1 16:55 Details of fall: The patient fell from an upright position, while standing. Onset: The pm1 symptoms/episode began/occurred today. Associated injuries: The patient sustained injury to the head, contusion. Severity of symptoms: in the emergency department the symptoms are unchanged. The patient has not recently seen a physician. 87-year-old male presenting to the ER from long term. Patient was reaching down with his hand to open up the door and he missed the door handle, resulting in him losing his balance and falling over while standing hitting his head against the vanity. Patient reports negative for headache, neck pain, LOC.. Historical: - Allergies: 16:11 NKA; bp - PMHx: 16:11 Atrial Fib; BPH; Headaches; Diabetes - NIDDM; Hypertension; High Cholesterol; bp - Immunization history:: Adult Immunizations up to date. - Social history:: Smoking status: Patient denies any tobacco usage or history of. ROS: 16:55 Constitutional: Negative for fever, chills, and weight loss, Cardiovascular: Negative pm1 for chest pain, palpitations, and edema, Respiratory: Negative for shortness of breath, cough, wheezing, and pleuritic chest pain, Abdomen/GI: Negative for abdominal pain, nausea, vomiting, diarrhea, and constipation, Back: Negative for injury and pain, MS/Extremity: Negative for injury and deformity, Neuro: Negative for headache, weakness, numbness, tingling, and seizure. 16:55 Skin: Positive for Contusion to right side of forehead/right eyebrow. 16:55 All other systems are negative. Exam: 16:55 Constitutional: This is a well developed, well nourished patient who is awake, alert, pm1 and in no acute distress. 16:55 Back: No spinal tenderness. No costovertebral tenderness. Full range of motion. Skin: Warm, dry with normal turgor. Normal color with no rashes, no lesions, and no evidence of cellulitis. MS/ Extremity: Pulses equal, no cyanosis. Neurovascular intact. Full, normal range of motion. 16:55 Head/face: Noted is no obvious of injury or deformity except contusion, that is superficial, of the foreheadright side. 16:55 Eyes: Exam is negative for acute changes, Periorbital structures: appear normal, Pupils: no acute changes, Extraocular movements: no acute changes, Conjunctiva: no acute changes, no injection. 16:55 ENT: Exam is negative for acute changes, Mouth: no acute changes, Lips: normal, moist, Oral mucosa: normal, pink and intact, moist. 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 16:55 Chest/axilla: Exam negative for acute changes, Palpation: is normal, no tenderness. 16:55 Cardiovascular: Exam negative for acute changes, Rate: normal, Rhythm: regular, Pulses: no pulse deficits are appreciated. 16:55 Respiratory: Exam negative for acute changes, respiratory distress, shortness of breath. 16:55 Abdomen/GI: Inspection: abdomen appears normal, Palpation: abdomen is soft and non-tender, in all quadrants. 16:55 Neuro: Exam negative for acute changes, Orientation: is normal, Mentation: is normal, Motor: is normal, moves all fours. Vital Signs: 16:06 BP 158 / 62; Pulse 99; Resp 16; Temp 98; Pulse Ox 100% ; bp 18:30 BP 141 / 75; Pulse 97; Resp 16; Pulse Ox 100% ; bp 22:04 BP 157 / 70; Pulse 93; Resp 17; Pulse Ox 98% on R/A; ll3 MDM: 16:09 Patient medically screened. pm1 18:43 Data reviewed: vital signs. Data interpreted: Pulse oximetry: on room air is 100 %. pm1 Interpretation: normal. Counseling: I had a detailed discussion with the patient and/or guardian regarding: the historical points, exam findings, and any diagnostic results supporting the discharge/admit diagnosis, radiology results, the need for outpatient follow up, to return to the emergency department if symptoms worsen or persist or if there are any questions or concerns that arise at home. 04/03 16:55 Order name: Head Brain Wo Cont; Complete Time: 17:27 EDMS Administered Medications: No medications were administered Disposition Summary: 04/03/22 18:44 Discharge Ordered Location: Home pm1 Problem: new pm1 Symptoms: have improved pm1 Condition: Stable pm1 Diagnosis - Contusion of unspecified part of head - right side of forehead(04/03/22 18:45) pm1 Followup: pm1 - With: Emergency Department - When: As needed - Reason: Worsening of condition Followup: pm1 - With: Private Physician - When: 2 - 3 days - Reason: Recheck today's complaints, Continuance of care, Re-evaluation by your physician Discharge Instructions: - Discharge Summary Sheet pm1 - Facial or Scalp Contusion pm1 - Fall Prevention in the Home, Adult pm1 Forms: - Medication Reconciliation Form pm1 - Thank You Letter pm1 - Antibiotic Education pm1 - Prescription Opioid Use pm1 Signatures: Dispatcher [employer] EDMS Zain Sanchez, ROXANN FIELD [employer]OP FARMING SUPERVISOR pm1 Domingo Bautista, RN RN bp Corrections: (The following items were deleted from the chart) 16:55 16:45 CT-HEAD/BRAIN W/O CONTRAST ordered. EDMS EDMS 18:45 18:44 Contusion of unspecified part of head - right eyebrow pm1 pm1 18:46 18:39 Head Brain Wo Cont+CT.RAD.BRZ ordered. EDMS EDMS
[2022-04-03 22:24] VITALS: TEMP 98
[2022-04-03 22:27] VITALS: BP 157/70; O2SAT 98
== END 2022-04-03 22:05 | disposition home or self-care (01) ==
LOC: ER 15:59
DX: S00.83XA Contusion of other part of head, initial encounter (principal); I48.91 Unspecified atrial fibrillation; N40.0 Benign prostatic hyperplasia without lower urinary tract symptoms; R51.9 Headache, unspecified; E11.8 Type 2 diabetes mellitus with unspecified complications; I10 Essential (primary) hypertension; E78.00 Pure hypercholesterolemia, unspecified; W18.30XA Fall on same level, unspecified, initial encounter
CPT/HCPCS: 70450; 99283